=== PATIENT | female | born 1975 | race Caucasian/White ===

== ENCOUNTER → 2017-10-18 07:16 | Outpatient (CLI) | payer MEDICAID, SELFPAY ==
[2017-10-18 08:14] LABS: Hematocrit 42.5 % (37-47); Hemoglobin 14.4 g/dl (12.0-15.0); Mean Corp Hgb Conc 33.9 g/gl (32-36); Mean Corpuscular Hgb 33.6 pg (27.0-32.0); Mean Corpuscular Volume 99.1 fL (81-99); Mean Platelet Vol. 9.9 fl (6.2-12.0); Platelet Count 208 K/mm3 (150-450); RBC Distribution Width SD 49.7 fl (35.1-43.9); Red Blood Count 4.29 M/mm3 (4.2-5.4); White Blood Count 4.6 K/mm3 (4.4-11.0)
[2017-10-18 08:17] LABS: Scan Indicated on CBC? Y/N NO
[2017-10-18 08:48] LABS: Carbamazepine (Tegretol) 11.1 ug/mL (4.0-12.0)
[2017-10-18 08:56] LABS: ALB/GLOB Ratio 0.7 RATIO (0.9-2.4); AST(SGOT) 23 U/L (15-37); Alanine Aminotransfer ALT/SGPT 23 U/L (13-56); Albumin, Serum 3.1 g/dL (3.2-5.0); Alkaline Phosphatase 103 U/L (45-117); Anion Gap 7 (5-15); BUN 11 mg/dL (7-18); BUN/Creat Ratio 20.7 RATIO (10-20); Calcium,Total 8.4 mg/dL (8.5-10.1); Chloride 91 mmol/L (98-107); Creatinine, Serum 0.53 mg/dL (0.55-1.02); EST Glomerular Filtration Rate 134 mL/min (>60); Est Glom Filt Rate - Afr Amer 162 mL/min (>60); Globulin 4.4 g/dL (2.2-4.2); Glucose 85 mg/dL (74-106); Potassium 4.1 mmol/L (3.5-5.1); Protein, Total 7.5 g/dL (6.4-8.2); Sodium Level 129 mmol/L (136-145)
== END ==
PROVIDERS: Family Provider Family Medicine; PCP Family Medicine; Visit Provider Psychiatry & Neurology Child & Adolescent Psychiatry
DX: F31.9 Bipolar disorder, unspecified (principal); F41.9 Anxiety disorder, unspecified
CPT/HCPCS: 36415; 80053; 80156; 85027

== ENCOUNTER → 2018-01-31 07:38 | Outpatient (CLI) | payer MEDICARE, MEDICAID, SELFPAY ==
[2018-01-31 08:29] LABS: Hematocrit 40.4 % (37-47); Mean Corp Hgb Conc 34.7 g/gl (32-36); Mean Corpuscular Hgb 33.7 pg (27.0-32.0); Mean Corpuscular Volume 97.1 fL (81-99); Mean Platelet Vol. 9.7 fl (6.2-12.0); Platelet Count 214 K/mm3 (150-450); RBC Distribution Width CV 13.6 % (11.6-14.6); RBC Distribution Width SD 47.9 fl (35.1-43.9); Red Blood Count 4.16 M/mm3 (4.2-5.4); White Blood Count 4.4 K/mm3 (4.4-11.0)
[2018-01-31 08:30] LABS: Scan Indicated on CBC? Y/N NO
[2018-01-31 08:52] LABS: Carbamazepine (Tegretol) 11.6 ug/mL (4.0-12.0)
[2018-01-31 08:57] LABS: ALB/GLOB Ratio 0.7 RATIO (0.9-2.4); AST(SGOT) 19 U/L (15-37); Alanine Aminotransfer ALT/SGPT 23 U/L (13-56); Alkaline Phosphatase 96 U/L (45-117); Anion Gap 8 (5-15); BUN 12 mg/dL (7-18); BUN/Creat Ratio 17.9 RATIO (10-20); Calcium,Total 8.8 mg/dL (8.5-10.1); Chloride 91 mmol/L (98-107); Creatinine, Serum 0.67 mg/dL (0.55-1.02); EST Glomerular Filtration Rate 103 mL/min (>60); Est Glom Filt Rate - Afr Amer 124 mL/min (>60); Globulin 4.6 g/dL (2.2-4.2); Glucose 94 mg/dL (74-106); Potassium 4.4 mmol/L (3.5-5.1); Protein, Total 7.6 g/dL (6.4-8.2); Sodium Level 130 mmol/L (136-145)
== END ==
PROVIDERS: Family Provider Family Medicine; PCP Family Medicine; Visit Provider Psychiatry & Neurology Child & Adolescent Psychiatry
DX: F31.9 Bipolar disorder, unspecified (principal); F41.9 Anxiety disorder, unspecified
CPT/HCPCS: 36415; 80053; 80156; 85027

== ENCOUNTER → 2018-05-14 07:25 | Outpatient (CLI) | payer MEDICARE, MEDICAID, SELFPAY ==
[2018-05-14 08:06] LABS: Absolute Lymphocyte Count 0.56 X10^3/ul (0.83-4.51); Absolute Neutrophil Count 2.8 X10^3/uL (2.0-7.7); Basophil# 0.03 X10^3/uL; Basophil% 0.8 % (0-1); Eosinophil# 0.04 X10^3/uL; Eosinophils% 1.1 % (0-5); Hematocrit 44.9 % (37-47); Hemoglobin 14.7 g/dl (12.0-15.0); Lymphocyte # 0.56 X10^3/ul (4.0); Lymphocyte % 15.4 % (19-41); Mean Corp Hgb Conc 32.7 g/gl (32-36); Mean Corpuscular Hgb 32.9 pg (27.0-32.0); Mean Corpuscular Volume 100.4 fL (81-99); Mean Platelet Vol. 9.8 fl (6.2-12.0); Monocyte# 0.21 X10^3/uL; Monocyte% 5.8 % (0-10); Neutrophil # 2.78 X10^3/uL (2.7-7.7); Neutrophil % 76.6 % (47-70); Platelet Count 169 K/mm3 (150-450); RBC Distribution Width CV 13.9 % (11.6-14.6); Red Blood Count 4.47 M/mm3 (4.2-5.4); White Blood Count 3.6 K/mm3 (4.4-11.0)
[2018-05-14 08:11] LABS: Differential Indicated SCAN CRITERIA MET; POSITIVE COUNT NO; POSITIVE DIFFERENTIAL YES; POSITIVE MORPHOLOGY NO
[2018-05-14 08:21] LABS: ALB/GLOB Ratio 0.7 RATIO (0.9-2.4); AST(SGOT) 23 U/L (15-37); Alanine Aminotransfer ALT/SGPT 25 U/L (13-56); Albumin, Serum 3.1 g/dL (3.2-5.0); Alkaline Phosphatase 110 U/L (45-117); Anion Gap 6 (5-15); BUN 9 mg/dL (7-18); BUN/Creat Ratio 13.8 RATIO (10-20); Calcium,Total 8.5 mg/dL (8.5-10.1); Chloride 96 mmol/L (98-107); Cholesterol 214 mg/dL (200); Creatinine, Serum 0.65 mg/dL (0.55-1.02); EST Glomerular Filtration Rate 106 mL/min (>60); Est Glom Filt Rate - Afr Amer 128 mL/min (>60); Globulin 4.4 g/dL (2.2-4.2); Glucose 81 mg/dL (74-106); High Density Lipoprotein 55 mg/dL; Potassium 4.3 mmol/L (3.5-5.1); Protein, Total 7.5 g/dL (6.4-8.2); Sodium Level 134 mmol/L (136-145); T4 Free Direct 0.81 ng/dL (0.76-1.46); Thyroid Stim Hormone (TSH) 4.64 uIU/mL (0.358-3.74); Triglycerides 175 mg/dL; Very Low Density Lipoprotein 35 mg/dL (5-40)
== END ==
PROVIDERS: Family Provider Family Medicine; PCP Family Medicine; Visit Provider Internal Medicine
DX: Q90.9 Down syndrome, unspecified (principal); I10 Essential (primary) hypertension; E03.9 Hypothyroidism, unspecified
CPT/HCPCS: 36415; 80053; 80061; 84439; 84443; 85025

== ENCOUNTER 2018-06-06 08:46 | Outpatient (RCR) | payer MEDICARE, MEDICAID, SELFPAY ==
[2018-06-06 08:52] VITALS: BP 136/73; PULSE 59; RESP 18; TEMP 37.1; BMI 42.3
[2018-06-06 09:21] VITALS: BMI 42.3
--- NOTE | 2018-06-06 12:22 | PCM.WC.HP ---
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 History of Wound: Ms. Riojas presents due to nonhealing left heel ulcer. Said to have started due to significant callus formation and has had a prior history. Had followed up with a molder sweep until lately. Since opening of the ulcer, there has been repeated trauma to the area from stump pain. They however denies any discharge from the site. There is also no record of chills, fever or feeling of unwell. She is said to be at her baseline. Past Medical History Past Medical History: Chronic Problems (Last Updated 05/13/18 @ 11:19 by Gay Soliman) Hypertension (Chronic) Dry skin (Chronic) Down syndrome (Chronic) Allergies/Adverse Reactions: Allergies No Known Allergies Allergy (Verified 06/26/14 07:44) Home Medications: Ambulatory Orders Medication Instructions Recorded nystatin 100,000 unit/gram topical 1 applic TOPICAL BID #60 g 03/11/18 powder allopurinol 300 mg tablet 300 mg PO DAILY #90 tab 05/13/18 buspirone 5 mg tablet 5 mg PO TID #240 tab 05/13/18 calcium carbonate-vitamin D3 600 1 tab PO DAILY@0800 #90 tab 05/13/18 mg (1,500 mg)-800 unit tablet carbamazepine ER 400 mg 400 mg PO BID #180 tab 05/13/18 tablet,extended release,12 hr carbamide peroxide 6.5 % ear drops 5 drp OTIC Q12H 05/13/18 fluocinonide 0.05 % topical cream 1 applic TOPICAL BID 05/13/18 furosemide 20 mg tablet 20 mg PO DAILY #90 tab 05/13/18 irbesartan 75 mg tablet 75 mg PO DAILY #90 tab 05/13/18 levothyroxine 75 mcg tablet 75 mcg PO DAILY #90 tab 05/13/18 omeprazole 20 mg capsule,delayed 20 mg PO DAILY #90 cap 05/13/18 release sertraline 100 mg tablet 100 mg PO DAILY #90 tab 05/13/18 white petrolatum topical jelly 1 applic TOPICAL BID PRN g 05/13/18 Ammonium Lactate 12 % TOPICAL BID 06/06/18 Smoking Status: Never smoker Review of Systems Constitutional: Denies: Anorexia, Chills, Fever Eyes: Denies: Pain, Redness HEENT: Denies: Difficulty Swallowing Cardiovascular: Denies: Chest Pain, Chest Tightness Respiratory: Denies: Cough, Hemoptysis Gastrointestinal: Denies: Abdominal Pain, Hematemesis, Vomiting Skin: Denies: Jaundice - Physical Exam Vital Signs Temp Pulse Resp BP 98.7 F 59 L 18 136/73 H 06/06/18 08:52 06/06/18 08:52 06/06/18 08:52 06/06/18 08:52 General: Alert, Cooperative, No apparent distress HEENT: Atraumatic Oral: Moist Mucosa Neck: Supple Lungs: Normal air movement Abdomen: Soft, Non Tender, Obese Extremities: No cyanosis Skin: Ulcer/ Wound Wound Measurements and Assessment WC - Nurse 1 - General Ulcer Measurement Start: 06/06/18 08:52 Freq: Status: Active Protocol: Activity Type Activity Date Activity User E-Sign Co-Sign Detail Recorded Client Recorded Date Recorded By Document 06/06/18 08:52 AN [id number] 06/06/18 09:18 AN 06/06/18 08:52 Wound Center Nurse 1 [Ulcer Assessment] left heel #1 -Combined with other wound No -Current Size (cm) - Length 2.7 -Current Size (cm) - Width 0.6 -Current Size (cm) - Depth 0.4 -Total Square Cm 1.62 -Date of Last Picture (Recall this 06/06/18 field) -Photo Taken Yes -Epithelialization None Present -Tunneling No -Undermining/Tunneling No -Circular Undermining No -Classification - Thickness Full Thickness without Exposed Support Structure -Exudate Amt None Present (0 %) -Wound Margin Distinct, Outline Attached -Granulation Amt Small (1-33%) -Slough/Fibrin No -Necrosis Amt Large (67-100%) -Necrotic Tissue Type Eschar -Structure Exposed None/Limited to Skin Breakdown -Texture (Mattie-wound Skin Appearance) Callus -Moisture (Mattie-wound Skin Appearance Dry/Scaly ) -Color (Mattie-wound Skin Appearance) No Abnormality -Temperature (Mattie-wound Skin No Abnormality Appearance) (Pt Warm) -Tenderness on Palpation (Mattie-wound Yes Skin Appearance) -Ulcer Cleansing Rinsed/ Irrigated with Saline -Foul Odor after Cleansing No -Anesthetic Used 4% Lidocaine Solution [Edema Assessment] -Lower Limb Edema Present No -Left Calf (cm) 34.1 -Left Ankle (cm) 19.2 WC - Nurse 2 - General Ulcer CM Notes Start: 06/06/18 08:52 Freq: Status: Active Protocol: Activity Type Activity Date Activity User E-Sign Co-Sign Detail Recorded Client Recorded Date Recorded By Document 06/06/18 09:40 MW [id number] 06/06/18 09:50 MW 06/06/18 09:40 Wound Center Nurse 2 [Procedure/Treatment] left heel #1 -Time 09:41 -Correct Patient Yes -Correct Side, Site, Position Yes -Correct Procedure Yes -Procedure Performed Yes -Type of Procedure Debridement -Clinical Debridement Subcutaneous -Post Debridement Size (cm) - Length 3.0 -Post Debridement Size (cm) - Width 0.7 -Post Debridement Size (cm) - Depth 0.4 -Total Square Cm 2.10 -Wound/Ulcer Outcome Not Healed -Ulcer Cleansing Rinsed/ Irrigated with Saline -Foul Odor after Cleansing No -Bioengineered Tissue No -Bleeding Controlled with Pressure -Treatment Response Procedure Tolerated Well [See Physician Procedure note for Specifics] Pain Scale: 0-10 Numeric [Pain] -Is Patient Pain Free? Yes Musculoskeletal: No Muscle Wasting Neurological: Neuro grossly intact Psych/Mental Status: Normal Affect Debridement Note Post-Debridement Measurements/Treatment WC - Nurse 2 - General Ulcer CM Notes Start: 06/06/18 08:52 Freq: Status: Active Protocol: Activity Type Activity Date Activity User E-Sign Co-Sign Detail Recorded Client Recorded Date Recorded By Document 06/06/18 09:40 MW [id number] 06/06/18 09:50 MW 06/06/18 09:40 Wound Center Nurse 2 left heel #1 -Time 09:41 -Correct Patient Yes -Correct Side, Site, Position Yes -Correct Procedure Yes -Procedure Performed Yes -Type of Procedure Debridement -Clinical Debridement Subcutaneous -Post Debridement Size (cm) - Length 3.0 -Post Debridement Size (cm) - Width 0.7 -Post Debridement Size (cm) - Depth 0.4 -Total Square Cm 2.10 -Wound/Ulcer Outcome Not Healed -Ulcer Cleansing Rinsed/ Irrigated with Saline -Foul Odor after Cleansing No -Bioengineered Tissue No -Bleeding Controlled with Pressure -Treatment Response Procedure Tolerated Well Pain Scale: 0-10 Numeric Is Patient Pain Free? Yes Wound debrided: Left heel Wound Grade/Stage: Stage III Type of Debridement: Excisional debridement Anesthesia Used: 4% Lidocaine Solution Depth: Down to and including healthy tissue Percentage of wound debrided: 100 Instrument Used: 7mm curette, #15 blade Tissue Removed: Devitalized tissue Severity: Fat Layer Exposed Amount of bleeding with debridement: Mild Bleeding Controlled with: Pressure Patient tolerated procedure well Assessment/Plan Active Problems (Last Updated 05/13/18 @ 11:19 by Gay Soliman) Chronic ulcer of left heel (Acute) Assessment: Same as above. Plan: Debridement done as documented above. Procedure was well-tolerated. Very dry ulcer/wound. Hydrogel with Adaptic over top. Change daily. Protect area with OptiForm. Increased protein intake/supplements recommended. Elevate lower extremities when seated and in bed. Avoid idle standing. Exercise as tolerated. Follow-up with me in 1 week. Advised to call with any questions or concerns. This note was generated with [employer] software. It may contain incorrect words, spelling, and punctuation that were not noted in checking the note before signing.
--- NOTE | 2018-06-06 12:27 | HP.PCM_ITS ---
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 History of Wound: Ms. Riojas presents due to nonhealing left heel ulcer. Said to have started due to significant callus formation and has had a prior history. Had followed up with a paper box cutter until lately. Since opening of the ulcer, there has been repeated trauma to the area from stump pain. They however denies any discharge from the site. There is also no record of chills, fever or feeling of unwell. She is said to be at her baseline. Past Medical History Past Medical History: Chronic Problems (Last Updated 05/13/18 @ 11:19 by Gay Soliman) Hypertension (Chronic) Dry skin (Chronic) Down syndrome (Chronic) Allergies/Adverse Reactions: Allergies No Known Allergies Allergy (Verified 06/26/14 07:44) Home Medications: Ambulatory Orders Medication Instructions Recorded nystatin 100,000 unit/gram topical 1 applic TOPICAL BID #60 g 03/11/18 powder allopurinol 300 mg tablet 300 mg PO DAILY #90 tab 05/13/18 buspirone 5 mg tablet 5 mg PO TID #240 tab 05/13/18 calcium carbonate-vitamin D3 600 1 tab PO DAILY@0800 #90 tab 05/13/18 mg (1,500 mg)-800 unit tablet carbamazepine ER 400 mg 400 mg PO BID #180 tab 05/13/18 tablet,extended release,12 hr carbamide peroxide 6.5 % ear drops 5 drp OTIC Q12H 05/13/18 fluocinonide 0.05 % topical cream 1 applic TOPICAL BID 05/13/18 furosemide 20 mg tablet 20 mg PO DAILY #90 tab 05/13/18 irbesartan 75 mg tablet 75 mg PO DAILY #90 tab 05/13/18 levothyroxine 75 mcg tablet 75 mcg PO DAILY #90 tab 05/13/18 omeprazole 20 mg capsule,delayed 20 mg PO DAILY #90 cap 05/13/18 release sertraline 100 mg tablet 100 mg PO DAILY #90 tab 05/13/18 white petrolatum topical jelly 1 applic TOPICAL BID PRN g 05/13/18 Ammonium Lactate 12 % TOPICAL BID 06/06/18 Smoking Status: Never smoker Review of Systems Constitutional: Denies: Anorexia, Chills, Fever Eyes: Denies: Pain, Redness HEENT: Denies: Difficulty Swallowing Cardiovascular: Denies: Chest Pain, Chest Tightness Respiratory: Denies: Cough, Hemoptysis Gastrointestinal: Denies: Abdominal Pain, Hematemesis, Vomiting Skin: Denies: Jaundice - Physical Exam Vital Signs Temp Pulse Resp BP 98.7 F 59 L 18 136/73 H 06/06/18 08:52 06/06/18 08:52 06/06/18 08:52 06/06/18 08:52 General: Alert, Cooperative, No apparent distress HEENT: Atraumatic Oral: Moist Mucosa Neck: Supple Lungs: Normal air movement Abdomen: Soft, Non Tender, Obese Extremities: No cyanosis Skin: Ulcer/ Wound Wound Measurements and Assessment WC - Nurse 1 - General Ulcer Measurement Start: 06/06/18 08:52 Freq: Status: Active Protocol: Activity Type Activity Date Activity User E-Sign Co-Sign Detail Recorded Client Recorded Date Recorded By Document 06/06/18 08:52 AN [id number] 06/06/18 09:18 AN 06/06/18 08:52 Wound Center Nurse 1 [Ulcer Assessment] left heel #1 -Combined with other wound No -Current Size (cm) - Length 2.7 -Current Size (cm) - Width 0.6 -Current Size (cm) - Depth 0.4 -Total Square Cm 1.62 -Date of Last Picture (Recall this 06/06/18 field) -Photo Taken Yes -Epithelialization None Present -Tunneling No -Undermining/Tunneling No -Circular Undermining No -Classification - Thickness Full Thickness without Exposed Support Structure -Exudate Amt None Present (0 %) -Wound Margin Distinct, Outline Attached -Granulation Amt Small (1-33%) -Slough/Fibrin No -Necrosis Amt Large (67-100%) -Necrotic Tissue Type Eschar -Structure Exposed None/Limited to Skin Breakdown -Texture (Mattie-wound Skin Appearance) Callus -Moisture (Mattie-wound Skin Appearance Dry/Scaly ) -Color (Mattie-wound Skin Appearance) No Abnormality -Temperature (Mattie-wound Skin No Abnormality Appearance) (Pt Warm) -Tenderness on Palpation (Mattie-wound Yes Skin Appearance) -Ulcer Cleansing Rinsed/ Irrigated with Saline -Foul Odor after Cleansing No -Anesthetic Used 4% Lidocaine Solution [Edema Assessment] -Lower Limb Edema Present No -Left Calf (cm) 34.1 -Left Ankle (cm) 19.2 WC - Nurse 2 - General Ulcer CM Notes Start: 06/06/18 08:52 Freq: Status: Active Protocol: Activity Type Activity Date Activity User E-Sign Co-Sign Detail Recorded Client Recorded Date Recorded By Document 06/06/18 09:40 MW [id number] 06/06/18 09:50 MW 06/06/18 09:40 Wound Center Nurse 2 [Procedure/Treatment] left heel #1 -Time 09:41 -Correct Patient Yes -Correct Side, Site, Position Yes -Correct Procedure Yes -Procedure Performed Yes -Type of Procedure Debridement -Clinical Debridement Subcutaneous -Post Debridement Size (cm) - Length 3.0 -Post Debridement Size (cm) - Width 0.7 -Post Debridement Size (cm) - Depth 0.4 -Total Square Cm 2.10 -Wound/Ulcer Outcome Not Healed -Ulcer Cleansing Rinsed/ Irrigated with Saline -Foul Odor after Cleansing No -Bioengineered Tissue No -Bleeding Controlled with Pressure -Treatment Response Procedure Tolerated Well [See Physician Procedure note for Specifics] Pain Scale: 0-10 Numeric [Pain] -Is Patient Pain Free? Yes Musculoskeletal: No Muscle Wasting Neurological: Neuro grossly intact Psych/Mental Status: Normal Affect Debridement Note Post-Debridement Measurements/Treatment WC - Nurse 2 - General Ulcer CM Notes Start: 06/06/18 08:52 Freq: Status: Active Protocol: Activity Type Activity Date Activity User E-Sign Co-Sign Detail Recorded Client Recorded Date Recorded By Document 06/06/18 09:40 MW [id number] 06/06/18 09:50 MW 06/06/18 09:40 Wound Center Nurse 2 left heel #1 -Time 09:41 -Correct Patient Yes -Correct Side, Site, Position Yes -Correct Procedure Yes -Procedure Performed Yes -Type of Procedure Debridement -Clinical Debridement Subcutaneous -Post Debridement Size (cm) - Length 3.0 -Post Debridement Size (cm) - Width 0.7 -Post Debridement Size (cm) - Depth 0.4 -Total Square Cm 2.10 -Wound/Ulcer Outcome Not Healed -Ulcer Cleansing Rinsed/ Irrigated with Saline -Foul Odor after Cleansing No -Bioengineered Tissue No -Bleeding Controlled with Pressure -Treatment Response Procedure Tolerated Well Pain Scale: 0-10 Numeric Is Patient Pain Free? Yes Wound debrided: Left heel Wound Grade/Stage: Stage III Type of Debridement: Excisional debridement Anesthesia Used: 4% Lidocaine Solution Depth: Down to and including healthy tissue Percentage of wound debrided: 100 Instrument Used: 7mm curette, #15 blade Tissue Removed: Devitalized tissue Severity: Fat Layer Exposed Amount of bleeding with debridement: Mild Bleeding Controlled with: Pressure Patient tolerated procedure well Assessment/Plan Active Problems (Last Updated 05/13/18 @ 11:19 by Gay Soliman) Chronic ulcer of left heel (Acute) Assessment: Same as above. Plan: Debridement done as documented above. Procedure was well-tolerated. Very dry ulcer/wound. Hydrogel with Adaptic over top. Change daily. Protect area with OptiForm. Increased protein intake/supplements recommended. Elevate lower extremities when seated and in bed. Avoid idle standing. Exercise as tolerated. Follow-up with me in 1 week. Advised to call with any questions or concerns. This note was generated with [employer] software. It may contain incorrect words, spelling, and punctuation that were not noted in checking the note before signing.
== END 2018-06-12 23:59 ==
LOC: WC 08:46
PROVIDERS: Family Provider Family Medicine; PCP Family Medicine; Visit Provider Internal Medicine
DX: L97.422 Non-pressure chronic ulcer of left heel and midfoot with fat layer exposed (principal); Q90.9 Down syndrome, unspecified; I10 Essential (primary) hypertension; Z79.899 Other long term (current) drug therapy
CPT/HCPCS: 11042; 99213; G0463

== ENCOUNTER 2018-06-20 09:00 | Outpatient (RCR) | payer MEDICARE, MEDICAID, SELFPAY ==
[2018-06-13 01:49] VITALS: BP 136/73; PULSE 59; RESP 18; TEMP 37.1
[2018-06-13 09:50] VITALS: BP 112/71; PULSE 72; RESP 16; TEMP 36.4
--- NOTE | 2018-06-13 10:48 | PCM.WC.PN ---
(1) Chronic ulcer of left heel Status: Chronic Current Visit: No Qualifiers: Code(s): L97.429 - Non-pressure chronic ulcer of left heel and midfoot with unspecified severity (2) Down syndrome Status: Chronic Current Visit: No Code(s): Q90.9 - Down syndrome, unspecified Type of Wound Chief Complaint: Left heel ulcer. History of Wound: Ms. Riojas presents due to nonhealing left heel ulcer. Said to have started due to significant callus formation and has had a prior history. Had followed up with a industrial paramedic until lately. Since opening of the ulcer, there has been repeated trauma to the area from stump pain. They however denies any discharge from the site. There is also no record of chills, fever or feeling of unwell. She is said to be at her baseline. Progress of Wound: Stable. No complaints at this time. - Physical Exam Vital Signs Temp Pulse Resp BP 97.5 F L 72 16 112/71 06/13/18 09:50 06/13/18 09:50 06/13/18 09:50 06/13/18 09:50 General: Alert, Cooperative, No apparent distress HEENT: Atraumatic Oral: No Gingival or Mucosal Lesions/ Ulcerations Neck: Supple Lungs: Normal air movement Abdomen: Non Tender, Obese Extremities: No cyanosis Skin: Ulcer/ Wound Wound Measurements and Assessment WC - Nurse 1 - General Ulcer Measurement Start: 06/13/18 09:50 Freq: Status: Active Protocol: Activity Type Activity Date Activity User E-Sign Co-Sign Detail Recorded Client Recorded Date Recorded By Document 06/13/18 09:50 [id number] 06/13/18 09:51 06/13/18 09:50 Wound Center Nurse 1 [Ulcer Assessment] left heel #1 -Combined with other wound No -Current Size (cm) - Length 2.4 -Current Size (cm) - Width 0.7 -Current Size (cm) - Depth 0.1 -Total Square Cm 1.68 -Photo Taken No -Epithelialization None Present -Tunneling No -Undermining/Tunneling No -Circular Undermining No -Texture (Mtatie-wound Skin Appearance) Callus -Temperature (Mattie-wound Skin No Abnormality Appearance) (Pt Warm) -Tenderness on Palpation (Mattie-wound No Skin Appearance) -Ulcer Cleansing Rinsed/ Irrigated with Saline -Foul Odor after Cleansing Yes -Anesthetic Used 4% Lidocaine Solution [Edema Assessment] -Lower Limb Edema Present NA - Nurse 2 - General Ulcer CM Notes Start: 06/13/18 09:50 Freq: Status: Active Protocol: Activity Type Activity Date Activity User E-Sign Co-Sign Detail Recorded Client Recorded Date Recorded By Document 06/13/18 10:05 MW [id number] 06/13/18 10:14 MW 06/13/18 10:05 Wound Center Nurse 2 [Procedure/Treatment] left heel #1 -Time 10:05 -Correct Patient Yes -Correct Side, Site, Position Yes -Correct Procedure Yes -Procedure Performed Yes -Type of Procedure Debridement -Clinical Debridement Subcutaneous -Post Debridement Size (cm) - Length 3.0 -Post Debridement Size (cm) - Width 0.2 -Post Debridement Size (cm) - Depth 0.1 -Total Square Cm 0.60 -Wound/Ulcer Outcome Not Healed -Ulcer Cleansing Rinsed/ Irrigated with Saline -Foul Odor after Cleansing No -Bioengineered Tissue No -Bleeding Controlled with Pressure -Treatment Response Procedure Tolerated Well [See Physician Procedure note for Specifics] Pain Scale: 0-10 Numeric [Pain] -Is Patient Pain Free? Yes Neurological: Neuro grossly intact Debridement Note Post-Debridement Measurements/Treatment - Nurse 2 - General Ulcer CM Notes Start: 06/13/18 09:50 Freq: Status: Active Protocol: Activity Type Activity Date Activity User E-Sign Co-Sign Detail Recorded Client Recorded Date Recorded By Document 06/13/18 10:05 MW [id number] 06/13/18 10:14 MW 06/13/18 10:05 Wound Center Nurse 2 left heel #1 -Time 10:05 -Correct Patient Yes -Correct Side, Site, Position Yes -Correct Procedure Yes -Procedure Performed Yes -Type of Procedure Debridement -Clinical Debridement Subcutaneous -Post Debridement Size (cm) - Length 3.0 -Post Debridement Size (cm) - Width 0.2 -Post Debridement Size (cm) - Depth 0.1 -Total Square Cm 0.60 -Wound/Ulcer Outcome Not Healed -Ulcer Cleansing Rinsed/ Irrigated with Saline -Foul Odor after Cleansing No -Bioengineered Tissue No -Bleeding Controlled with Pressure -Treatment Response Procedure Tolerated Well Pain Scale: 0-10 Numeric Is Patient Pain Free? Yes Wound debrided: Left heel Wound Grade/Stage: Stage II Type of Debridement: Excisional debridement Anesthesia Used: 4% Lidocaine Solution Depth: Down to and including healthy tissue, in the subcutaneous layer Percentage of wound debrided: 100 Instrument Used: 7mm curette, #15 blade Tissue Removed: Devitalized tissue Severity: Fat Layer Exposed Patient tolerated procedure well Assessment/Plan Assessment: Same as above. Plan: Debridement done as documented above. Procedure was well-tolerated. Wound depth has improved. Continue hydrogel with Adaptic over top. Change daily. Elevate lower extremities when seated and in bed. Avoid idle standing. Exercise as tolerated. Follow-up with me in 1 week. Advised to call with any questions or concerns. This note was generated with [employer] dictation software. It may contain incorrect words, spelling, and punctuation that were not noted in checking the note before signing.
[2018-06-20 09:00] VITALS: BP 128/55; PULSE 70; RESP 18; TEMP 36.2
--- NOTE | 2018-06-20 09:40 | PCM.WC.PN ---
(1) Chronic ulcer of left heel Status: Chronic Current Visit: No Qualifiers: Code(s): L97.429 - Non-pressure chronic ulcer of left heel and midfoot with unspecified severity (2) Down syndrome Status: Chronic Current Visit: No Code(s): Q90.9 - Down syndrome, unspecified Type of Wound Chief Complaint: Left heel ulcer. History of Wound: Ms. Riojas presents due to nonhealing left heel ulcer. Said to have started due to significant callus formation and has had a prior history. Had followed up with a janitor caretaker until lately. Since opening of the ulcer, there has been repeated trauma to the area from stump pain. They however denies any discharge from the site. There is also no record of chills, fever or feeling of unwell. She is said to be at her baseline. Progress of Wound: Stable. No complaints at this time. - Physical Exam Vital Signs Temp Pulse Resp BP 97.2 F L 70 18 128/55 H 06/20/18 09:00 06/20/18 09:00 06/20/18 09:00 06/20/18 09:00 General: Alert, Cooperative, No apparent distress HEENT: Atraumatic Oral: Moist Mucosa Neck: Supple Lungs: Normal air movement Abdomen: Non Tender, Obese Extremities: No cyanosis Wound Measurements and Assessment WC - Nurse 1 - General Ulcer Measurement Start: 06/13/18 09:50 Freq: Status: Active Protocol: Activity Type Activity Date Activity User E-Sign Co-Sign Detail Recorded Client Recorded Date Recorded By Document 06/20/18 09:00 [id number] 06/20/18 09:01 DL 06/20/18 09:00 Wound Center Nurse 1 [Ulcer Assessment] left heel #1 -Current Size (cm) - Length 1.3 -Current Size (cm) - Width 0.2 -Current Size (cm) - Depth 0.1 -Total Square Cm 0.26 -Photo Taken No -Exudate Amt None Present (0 %) -Wound Margin Thickened -Granulation Amt Large (67-100%) -Granulation Quality Pale -Necrosis Amt None Present (0 %) -Texture (Mattie-wound Skin Appearance) Callus -Moisture (Mattie-wound Skin Appearance Dry/Scaly ) -Color (Mattie-wound Skin Appearance) No Abnormality -Temperature (Mattie-wound Skin No Abnormality Appearance) (Pt Warm) -Tenderness on Palpation (Mattie-wound No Skin Appearance) -Ulcer Cleansing Rinsed/ Irrigated with Saline -Foul Odor after Cleansing No -Anesthetic Used 4% Lidocaine Solution - Nurse 2 - General Ulcer CM Notes Start: 06/13/18 09:50 Freq: Status: Active Protocol: Activity Type Activity Date Activity User E-Sign Co-Sign Detail Recorded Client Recorded Date Recorded By Document 06/20/18 09:09 MW [id number] 06/20/18 09:15 MW 06/20/18 09:09 Wound Center Nurse 2 [Procedure/Treatment] -Time 09:10 -Correct Patient Yes -Correct Side, Site, Position Yes -Correct Procedure Yes -Procedure Performed Yes -Type of Procedure Debridement -Clinical Debridement Selective -Post Debridement Size (cm) - Length 0 -Post Debridement Size (cm) - Width 0 -Post Debridement Size (cm) - Depth 0 -Total Square Cm 0 -Wound/Ulcer Outcome Healed- Epithelialized -Ulcer Cleansing Rinsed/ Irrigated with Saline -Foul Odor after Cleansing No -Bioengineered Tissue No -Bleeding Controlled with Pressure -Treatment Response Procedure Tolerated Well [See Physician Procedure note for Specifics] Pain Scale: 0-10 Numeric [Pain] -Is Patient Pain Free? Yes Musculoskeletal: No Muscle Wasting Neurological: Cranial nerves II-XII grossly intact Psych/Mental Status: Normal Affect Debridement Note Post-Debridement Measurements/Treatment - Nurse 2 - General Ulcer CM Notes Start: 06/13/18 09:50 Freq: Status: Active Protocol: Activity Type Activity Date Activity User E-Sign Co-Sign Detail Recorded Client Recorded Date Recorded By Document 06/13/18 10:05 MW [id number] 06/13/18 10:14 MW Document 06/20/18 09:09 MW [id number] 06/20/18 09:15 MW 06/13/18 06/20/18 10:05 09:09 Wound Center Nurse 2 left heel #1 -Time 10:05 09:10 -Correct Patient Yes Yes -Correct Side, Site, Position Yes Yes -Correct Procedure Yes Yes -Procedure Performed Yes Yes -Type of Procedure Debridement Debridement -Clinical Debridement Subcutaneous Selective -Post Debridement Size (cm) - Length 3.0 0 -Post Debridement Size (cm) - Width 0.2 0 -Post Debridement Size (cm) - Depth 0.1 0 -Total Square Cm 0.60 0 -Wound/Ulcer Outcome Not Healed Healed- Epithelialized -Ulcer Cleansing Rinsed/ Rinsed/ Irrigated with Irrigated with Saline Saline -Foul Odor after Cleansing No No -Bioengineered Tissue No No -Bleeding Controlled with Pressure Pressure -Treatment Response Procedure Procedure Tolerated Well Tolerated Well Pain Scale: 0-10 Numeric Is Patient Pain Free? Yes Yes Wound debrided: Left heel Type of Debridement: Selective debridement Anesthesia Used: 4% Lidocaine Solution Depth: Down to and including healthy tissue Percentage of wound debrided: 100 Instrument Used: 7mm curette Tissue Removed: Callus Severity: Limited To Skin Breakdown Amount of bleeding with debridement: None Patient tolerated procedure well Assessment/Plan Assessment: Same as above. Plan: Debridement done as documented above. Procedure was well-tolerated. Wound is healed. Continue Adaptic and nurses hat for 2 weeks. Patient with a history of stumping. Keep area protected. Advised to call with any questions or concerns. Discharged from the wound center. This note was generated with [employer] dictation software. It may contain incorrect words, spelling, and punctuation that were not noted in checking the note before signing.
--- NOTE | 2018-06-20 09:43 | PN.PCM_ITS ---
(1) Chronic ulcer of left heel Status: Chronic Current Visit: No Qualifiers: Code(s): L97.429 - Non-pressure chronic ulcer of left heel and midfoot with unspecified severity (2) Down syndrome Status: Chronic Current Visit: No Code(s): Q90.9 - Down syndrome, unspecified Type of Wound Chief Complaint: Left heel ulcer. History of Wound: Ms. Riojas presents due to nonhealing left heel ulcer. Said to have started due to significant callus formation and has had a prior history. Had followed up with a log buyer until lately. Since opening of the ulcer, there has been repeated trauma to the area from stump pain. They however denies any discharge from the site. There is also no record of chills, fever or feeling of unwell. She is said to be at her baseline. Progress of Wound: Stable. No complaints at this time. - Physical Exam Vital Signs Temp Pulse Resp BP 97.2 F L 70 18 128/55 H 06/20/18 09:00 06/20/18 09:00 06/20/18 09:00 06/20/18 09:00 General: Alert, Cooperative, No apparent distress HEENT: Atraumatic Oral: Moist Mucosa Neck: Supple Lungs: Normal air movement Abdomen: Non Tender, Obese Extremities: No cyanosis Wound Measurements and Assessment WC - Nurse 1 - General Ulcer Measurement Start: 06/13/18 09:50 Freq: Status: Active Protocol: Activity Type Activity Date Activity User E-Sign Co-Sign Detail Recorded Client Recorded Date Recorded By Document 06/20/18 09:00 [id number] 06/20/18 09:01 DL 06/20/18 09:00 Wound Center Nurse 1 [Ulcer Assessment] left heel #1 -Current Size (cm) - Length 1.3 -Current Size (cm) - Width 0.2 -Current Size (cm) - Depth 0.1 -Total Square Cm 0.26 -Photo Taken No -Exudate Amt None Present (0 %) -Wound Margin Thickened -Granulation Amt Large (67-100%) -Granulation Quality Pale -Necrosis Amt None Present (0 %) -Texture (Mattie-wound Skin Appearance) Callus -Moisture (Mattie-wound Skin Appearance Dry/Scaly ) -Color (Mattie-wound Skin Appearance) No Abnormality -Temperature (Mattie-wound Skin No Abnormality Appearance) (Pt Warm) -Tenderness on Palpation (Mattie-wound No Skin Appearance) -Ulcer Cleansing Rinsed/ Irrigated with Saline -Foul Odor after Cleansing No -Anesthetic Used 4% Lidocaine Solution - Nurse 2 - General Ulcer CM Notes Start: 06/13/18 09:50 Freq: Status: Active Protocol: Activity Type Activity Date Activity User E-Sign Co-Sign Detail Recorded Client Recorded Date Recorded By Document 06/20/18 09:09 MW [id number] 06/20/18 09:15 MW 06/20/18 09:09 Wound Center Nurse 2 [Procedure/Treatment] -Time 09:10 -Correct Patient Yes -Correct Side, Site, Position Yes -Correct Procedure Yes -Procedure Performed Yes -Type of Procedure Debridement -Clinical Debridement Selective -Post Debridement Size (cm) - Length 0 -Post Debridement Size (cm) - Width 0 -Post Debridement Size (cm) - Depth 0 -Total Square Cm 0 -Wound/Ulcer Outcome Healed- Epithelialized -Ulcer Cleansing Rinsed/ Irrigated with Saline -Foul Odor after Cleansing No -Bioengineered Tissue No -Bleeding Controlled with Pressure -Treatment Response Procedure Tolerated Well [See Physician Procedure note for Specifics] Pain Scale: 0-10 Numeric [Pain] -Is Patient Pain Free? Yes Musculoskeletal: No Muscle Wasting Neurological: Cranial nerves II-XII grossly intact Psych/Mental Status: Normal Affect Debridement Note Post-Debridement Measurements/Treatment - Nurse 2 - General Ulcer CM Notes Start: 06/13/18 09:50 Freq: Status: Active Protocol: Activity Type Activity Date Activity User E-Sign Co-Sign Detail Recorded Client Recorded Date Recorded By Document 06/13/18 10:05 MW [id number] 06/13/18 10:14 MW Document 06/20/18 09:09 MW [id number] 06/20/18 09:15 MW 06/13/18 06/20/18 10:05 09:09 Wound Center Nurse 2 left heel #1 -Time 10:05 09:10 -Correct Patient Yes Yes -Correct Side, Site, Position Yes Yes -Correct Procedure Yes Yes -Procedure Performed Yes Yes -Type of Procedure Debridement Debridement -Clinical Debridement Subcutaneous Selective -Post Debridement Size (cm) - Length 3.0 0 -Post Debridement Size (cm) - Width 0.2 0 -Post Debridement Size (cm) - Depth 0.1 0 -Total Square Cm 0.60 0 -Wound/Ulcer Outcome Not Healed Healed- Epithelialized -Ulcer Cleansing Rinsed/ Rinsed/ Irrigated with Irrigated with Saline Saline -Foul Odor after Cleansing No No -Bioengineered Tissue No No -Bleeding Controlled with Pressure Pressure -Treatment Response Procedure Procedure Tolerated Well Tolerated Well Pain Scale: 0-10 Numeric Is Patient Pain Free? Yes Yes Wound debrided: Left heel Type of Debridement: Selective debridement Anesthesia Used: 4% Lidocaine Solution Depth: Down to and including healthy tissue Percentage of wound debrided: 100 Instrument Used: 7mm curette Tissue Removed: Callus Severity: Limited To Skin Breakdown Amount of bleeding with debridement: None Patient tolerated procedure well Assessment/Plan Assessment: Same as above. Plan: Debridement done as documented above. Procedure was well-tolerated. Woun d is healed. Continue Adaptic and nurses hat for 2 weeks. Patient with a history of stumping. Keep area protected. Advised to call with any questions or concerns. Discharged from the wound center. This note was generated with [employer] dictation software. It may contain incorrect words, spelling, and punctuation that were not noted in checking the note before signing.
== END 2018-07-12 23:59 ==
LOC: WC 09:00
PROVIDERS: Family Provider Family Medicine; PCP Family Medicine; Visit Provider Internal Medicine
DX: L97.422 Non-pressure chronic ulcer of left heel and midfoot with fat layer exposed (principal); Q90.9 Down syndrome, unspecified; L84 Corns and callosities
CPT/HCPCS: 11042; 97597

== ENCOUNTER → 2018-08-20 11:57 | Outpatient (CLI) | payer MEDICARE, MEDICAID, SELFPAY ==
[2018-08-20 10:09] VITALS: BMI 42.7
--- NOTE | 2018-08-20 12:11 | RAD_ITS ---
STUDY: X-RAY - PELVIS AND RIGHT HIP REASON FOR EXAM: Female, 42 years old. Pain TECHNIQUE: Three views of the pelvis and hip were obtained. COMPARISON: None. FINDINGS: The bowel gas pattern is unremarkable. The soft tissues are unremarkable. There are mild degenerative changes in the lower lumbar spine. The visualized iliac wings, sacroiliac joints and sacrum are unremarkable. No abnormalities are seen in the visualized superior and inferior pubic rami. Normal appearing pubic symphysis. The visualized ischial tuberosities are unremarkable. The proximal femur shows no significant abnormalities. The right acetabulum shows minimal spurring. There is mild articular joint space narrowing of the hip. RAD/HIP, UNI W/ Pelvis 2-3 Views IMPRESSION: There are mild degenerative changes in the right hip. There are mild to moderate degenerative changes in the visualized lower lumbar spine. Electronically Signed: Any Steward MD at 16:14 EST Tel Direct: [phone], Service support ,
== END ==
PROVIDERS: Family Provider Family Medicine; PCP Family Medicine; Referring Provider Family Medicine; Visit Provider Family Medicine
DX: M25.551 Pain in right hip (principal)
CPT/HCPCS: 73502

== ENCOUNTER → 2018-09-24 15:11 | Outpatient (CLI) | payer MEDICARE, MEDICAID, SELFPAY ==
[2018-09-24 14:27] VITALS: BMI 39.2
[2018-09-24 16:43] LABS: Absolute Lymphocyte Count 0.38 X10^3/ul (0.83-4.51); Absolute Neutrophil Count 2.7 X10^3/uL (2.0-7.7); Basophil# 0.01 X10^3/uL; Basophil% 0.3 % (0-1); Hematocrit 30.2 % (37-47); Hemoglobin 9.2 g/dl (12.0-15.0); Lymphocyte # 0.38 X10^3/ul (4.0); Mean Corp Hgb Conc 30.5 g/gl (32-36); Mean Corpuscular Hgb 28.8 pg (27.0-32.0); Mean Corpuscular Volume 94.7 fL (81-99); Mean Platelet Vol. 11.7 fl (6.2-12.0); Monocyte# 0.06 X10^3/uL; Monocyte% 1.9 % (0-10); Neutrophil # 2.71 X10^3/uL (2.7-7.7); Neutrophil % 85.5 % (47-70); RBC Distribution Width CV 19.3 % (11.6-14.6); RBC Distribution Width SD 67.3 fl (35.1-43.9); Red Blood Count 3.19 M/mm3 (4.2-5.4); White Blood Count 3.2 K/mm3 (4.4-11.0)
[2018-09-24 16:46] LABS: Differential Indicated SCAN CRITERIA MET; POSITIVE COUNT YES; POSITIVE DIFFERENTIAL YES; POSITIVE MORPHOLOGY YES
[2018-09-24 17:01] LABS: ALB/GLOB Ratio 0.5 RATIO (0.9-2.4); AST(SGOT) 34 U/L (15-37); Alanine Aminotransfer ALT/SGPT 16 U/L (13-56); Albumin, Serum 1.9 g/dL (3.2-5.0); Alkaline Phosphatase 147 U/L (45-117); Anion Gap 9 (5-15); BUN 29 mg/dL (7-18); BUN/Creat Ratio 19.2 RATIO (10-20); Calcium,Total 7.3 mg/dL (8.5-10.1); Chloride 99 mmol/L (98-107); Creatinine, Serum 1.51 mg/dL (0.55-1.02); EST Glomerular Filtration Rate 40 mL/min (>60); Est Glom Filt Rate - Afr Amer 48 mL/min (>60); Glucose 96 mg/dL (74-106); Potassium 3.9 mmol/L (3.5-5.1); Protein, Total 5.9 g/dL (6.4-8.2); Sodium Level 134 mmol/L (136-145)
[2018-09-24 17:42] LABS: Platelet Count 40 K/mm3 (150-450)
[2018-09-24 18:01] LABS: Carbamazepine (Tegretol) 14.6 ug/mL (4.0-12.0)
[2018-09-24 18:23] LABS: Platelet Estimate MKD DEC (ADEQ)
[2018-09-24 18:24] LABS: Anisocytosis 1+; Macrocytosis 1+
== END ==
PROVIDERS: Family Provider Family Medicine; PCP Family Medicine; Referring Provider Family Medicine; Visit Provider Family Medicine
DX: L97.429 Non-pressure chronic ulcer of left heel and midfoot with unspecified severity (principal); Q90.9 Down syndrome, unspecified; I10 Essential (primary) hypertension
CPT/HCPCS: 36415; 80053; 80156; 85025

== ENCOUNTER 2018-10-03 16:10 | Inpatient (IN) | payer MEDICARE, MEDICAID, SELFPAY ==
[2018-09-26 13:06] VITALS: BMI 46.0
[2018-10-03] VITALS (9 sets, daily range): BP systolic 95–137; BP diastolic 36–58; PULSE 68–79; RESP 12–21; TEMP 36.1–36.6; O2SAT 89–100; BMI 65.6; BMI 44.3
--- NOTE | 2018-10-03 17:10 | EKG12_ITS ---
Test Reason : Blood Pressure : / mmHG Vent. Rate : 075 BPM Atrial Rate : 075 BPM P-R Int : 264 ms QRS Dur : 128 ms QT Int : 410 ms P-R-T Axes : 047 -10 074 degrees QTc Int : 457 ms Sinus rhythm with 1st degree A-V block Left ventricular hypertrophy with QRS widening Cannot rule out Septal infarct , age undetermined Abnormal ECG Confirmed by KVNG FINK, KAYDEN ([id number]), editor book VIET BARBER ([id number]) on 10/07/2018 5:16:48 PM Referred By: JORGE Confirmed By:KAYDEN CALDERON MD
--- NOTE | 2018-10-03 17:11 | ED.VISSUMM ---
- ER Visit Summary Date of Service: 10/03/18 Chief Complaint: Altered mental status History of Present Illness: The patient is a 42 F with history of Down syndrome who presents from a fdc for gradually worsening mental status and shortness of breath over the last 2 months. Patient uses a CPAP machine at night, which has been broken, and patient was getting an appointment with her flow coordinator today for a new one. Computer Systems Security Administrator sent patient in for evaluation due to change in her mental status. Patient has been having a decreased appetite and worsening lethargy per the mother. She recently had noted platelets of 40 and a hemoglobin of 9, leading to an appointment for a bone marrow biopsy next Sunday for concern for leukemia. Patient has had cough and shortness of breath. She has had dry heaving. Patient unable to provide any further history due to somnolence. Physical Examination: Vital signs: afebrile, hemodynamically stable, no hypoxia on room air General: well nourished, well developed, Down Syndrome facies, somnolent and ill-appearing Skin: warm, dry, no rash, cool reddish distal extremities, normal per mother HEENT: normocephalic and atraumatic; PERRL, EOMI, dry mucous membranes Cardiovascular: regular rate and rhythm without murmurs, no peripheral edema, 2+ pulses all distal extremities Respiratory: Tachypnea with mild increased work of breathing, lungs are diffusely rhonchorous Abdominal: Abdomen is soft, nontender with normoactive bowel sounds, no guarding or rebound, no masses MSK: No deformities, generalized weakness Neuro: Somnolent, opens eyes to tactile stimulation Test Results: Abnormal Lab Results 10/03/18 10/03/18 10/03/18 17:33 17:33 17:33 WBC 5.4 RBC 3.39 L Hgb 9.8 L Hct 31.7 L MCV 93.5 MCH 28.9 MCHC 30.9 L RDW 19.1 H RDW Differential 65.1 H Plt Count 46 L* MPV TNP Immature Gran % (Auto) 0.400 Neut % (Auto) 86.5 H Lymph % (Auto) 8.4 L Leslie % (Auto) 4.1 Eos % (Auto) 0.2 Baso % (Auto) 0.4 Absolute Neuts (auto) 4.6 Absolute Lymphs (auto) 0.45 L Total Counted Not Reportable Differential Comment SEE COMMENT Platelet Estimate MKD DEC Plt Morphology Comment LARGE Hypochromasia RARE Anisocytosis 1+ Macrocytosis RARE Target Cells RARE Ovalocytes RARE PT 15.8 H INR 1.3 APTT 41.0 H Specimen Type Sample Site VBG pH VBG pO2 VBG O2 Sat (Calc) VBG O2 Content VBG Base Excess POC Mix VBG pCO2 Pt Tmp O2 Delivery Device Liter Flow Blood Gas Notified Whom Blood Gas Notified Time Sodium 132 L Potassium 3.9 Chloride 100 Carbon Dioxide 23.0 Anion Gap 9 BUN 50 H Creatinine 2.31 H Estim Creat Clear Calc 53.04 Est GFR (MDRD) Af Amer 30 L Est GFR (MDRD) Non-Af 25 L BUN/Creatinine Ratio 21.6 H Glucose 140 H Lactic Acid Calcium 7.3 L Total Bilirubin 0.60 AST 48 H ALT 22 Alkaline Phosphatase 165 H B-Natriuretic Peptide Total Protein 5.9 L Albumin 1.6 L Globulin 4.3 H Albumin/Globulin Ratio 0.4 L Urine Color Urine Clarity Urine pH Ur Specific [place] Urine Protein Urine Glucose (UA) Urine Ketones Urine Occult Blood Urine Nitrite Urine Bilirubin Urine Urobilinogen Ur Leukocyte Esterase Urine RBC Urine WBC Ur Squamous Epith Cells Amorphous Sediment Urine Bacteria Urine Mucus 10/03/18 10/03/18 10/03/18 17:33 17:33 17:45 WBC RBC Hgb Hct MCV MCH MCHC RDW RDW Differential Plt Count MPV Immature Gran % (Auto) Neut % (Auto) Lymph % (Auto) Leslie % (Auto) Eos % (Auto) Baso % (Auto) Absolute Neuts (auto) Absolute Lymphs (auto) Total Counted Differential Comment Platelet Estimate Plt Morphology Comment Hypochromasia Anisocytosis Macrocytosis Target Cells Ovalocytes PT INR APTT Specimen Type ANTONIA Sample Site OTHER VBG pH 7.46 H VBG pO2 96 H VBG O2 Sat (Calc) 98 H VBG O2 Content 26 VBG Base Excess 1 POC Mix VBG pCO2 Pt Tmp 35.4 L O2 Delivery Device Nasal Can Liter Flow 2.0 Blood Gas Notified Whom ED Blood Gas Notified Time 1744 Sodium Potassium Chloride Carbon Dioxide Anion Gap BUN Creatinine Estim Creat Clear Calc Est GFR (MDRD) Af Amer Est GFR (MDRD) Non-Af BUN/Creatinine Ratio Glucose Lactic Acid 1.5 Calcium Total Bilirubin AST ALT Alkaline Phosphatase B-Natriuretic Peptide 211.7 H Total Protein Albumin Globulin Albumin/Globulin Ratio Urine Color Urine Clarity Urine pH Ur Specific [place] Urine Protein Urine Glucose (UA) Urine Ketones Urine Occult Blood Urine Nitrite Urine Bilirubin Urine Urobilinogen Ur Leukocyte Esterase Urine RBC Urine WBC Ur Squamous Epith Cells Amorphous Sediment Urine Bacteria Urine Mucus 10/03/18 18:23 WBC RBC Hgb Hct MCV MCH MCHC RDW RDW Differential Plt Count MPV Immature Gran % (Auto) Neut % (Auto) Lymph % (Auto) Leslie % (Auto) Eos % (Auto) Baso % (Auto) Absolute Neuts (auto) Absolute Lymphs (auto) Total Counted Differential Comment Platelet Estimate Plt Morphology Comment Hypochromasia Anisocytosis Macrocytosis Target Cells Ovalocytes PT INR APTT Specimen Type Sample Site VBG pH VBG pO2 VBG O2 Sat (Calc) VBG O2 Content VBG Base Excess POC Mix VBG pCO2 Pt Tmp O2 Delivery Device Liter Flow Blood Gas Notified Whom Blood Gas Notified Time Sodium Potassium Chloride Carbon Dioxide Anion Gap BUN Creatinine Estim Creat Clear Calc Est GFR (MDRD) Af Amer Est GFR (MDRD) Non-Af BUN/Creatinine Ratio Glucose Lactic Acid Calcium Total Bilirubin AST ALT Alkaline Phosphatase B-Natriuretic Peptide Total Protein Albumin Globulin Albumin/Globulin Ratio Urine Color Straw Urine Clarity Sl. Cloudy Urine pH 5.0 Ur Specific [place] 1.015 Urine Protein 15 H Urine Glucose (UA) Normal Urine Ketones Negative Urine Occult Blood 250 H Urine Nitrite Negative Urine Bilirubin Negative Urine Urobilinogen Normal Ur Leukocyte Esterase 25 H Urine RBC 0-5 SEEN Urine WBC 0 SEEN Ur Squamous Epith Cells 0 SEEN Amorphous Sediment 1+ Urine Bacteria 0 SEEN Urine Mucus 0 SEEN Clinical Impression(s) from Imaging Studies Chest X-Ray 10/03/18 17:15 IMPRESSION: Mild vascular congestion. Hypoinflation lungs. Cardiomegaly. Electronically Signed: Joaquim Doty DO at 17:49 EST Tel , Service support , Medications Given Sodium Chloride () 1,000 mls @ 500 mls/hr IV .Q2H ASIA Last Admin: 10/03/18 17:41 Dose: 500 mls/hr Emergency Department Course and Treatment: Patient presents with increased somnolence, rhonchi on lung exam, concern for leukemia, and decreased oral intake after over the last 1-2 months. Labs were performed showing a hemoglobin of 9.8 and platelets of 46, which are increased from patient's last blood work. She does have acute renal insufficiency and elevated BUN, concerning for acute dehydration. Thus her CBC may be reflecting hemoconcentration as well. Patient's urinalysis showed no sign of infection. Lactate was normal at 1.5. Chest x-ray showed mild vascular congestion and no sign of pneumonia. Comparison to prior chest x-rays did not appear much different from patient's baseline. VBG was performed that showed no hypercarbia that might be contributing to patient's somnolence. Patient's BNP was not significantly elevated. Patient was given IV fluids for her dehydration. On reevaluation she looked a little more alert and had spontaneous eye opening. No obvious source of infection was noted on her workup, thus no antibiotics were started in the emergency department. She will require admission for further treatment of her dehydration and further workup for her worsening mental status and functional decline over the last several weeks. Patient was discussed with the hospitalist and admitted. Treatment Plan: [] Disposition: [] Impression: dehydration, functional decline, thrombocytopenia, altered mental status This note was generated with [employer] dictation software. It may contain incorrect words, spelling, and punctuation that were not noted in review of the chart prior to signing ED Disposition - Plan for ED Patient: Disposition: Acute [facility]
--- NOTE | 2018-10-03 17:14 | ED.DCSUM_ITS ---
- ER Visit Summary Date of Service: 10/03/18 Chief Complaint: Altered mental status History of Present Illness: The patient is a 42 F with history of Down syndrome who presents from a residential for gradually worsening mental status and shortness of breath over the last 2 months. Patient uses a CPAP machine at night, which has been broken, and patient was getting an appointment with her sap sd analyst today for a new one. Transit Mix Operator sent patient in for evaluation due to change in her mental status. Patient has been having a decreased appetite and worsening lethargy per the mother. She recently had noted platelets of 40 and a hemoglobin of 9, leading to an appointment for a bone marrow biopsy next Sunday for concern for leukemia. Patient has had cough and shortness of breath. She has had dry heaving. Patient unable to provide any further history due to somnolence. Physical Examination: Vital signs: afebrile, hemodynamically stable, no hypoxia on room air General: well nourished, well developed, Down Syndrome facies, somnolent and ill-appearing Skin: warm, dry, no rash, cool reddish distal extremities, normal per mother HEENT: normocephalic and atraumatic; PERRL, EOMI, dry mucous membranes Cardiovascular: regular rate and rhythm without murmurs, no peripheral edema, 2+ pulses all distal extremities Respiratory: Tachypnea with mild increased work of breathing, lungs are diffusely rhonchorous Abdominal: Abdomen is soft, nontender with normoactive bowel sounds, no guarding or rebound, no masses MSK: No deformities, generalized weakness Neuro: Somnolent, opens eyes to tactile stimulation Test Results: Abnormal Lab Results 10/03/18 10/03/18 10/03/18 17:33 17:33 17:33 WBC 5.4 RBC 3.39 L Hgb 9.8 L Hct 31.7 L MCV 93.5 MCH 28.9 MCHC 30.9 L RDW 19.1 H RDW Differential 65.1 H Plt Count 46 L* MPV TNP Immature Gran % (Auto) 0.400 Neut % (Auto) 86.5 H Lymph % (Auto) 8.4 L [place] % (Auto) 4.1 Eos % (Auto) 0.2 Baso % (Auto) 0.4 Absolute Neuts (auto) 4.6 Absolute Lymphs (auto) 0.45 L Total Counted Not Reportable Differential Comment SEE COMMENT Platelet Estimate MKD DEC Plt Morphology Comment LARGE Hypochromasia RARE Anisocytosis 1+ Macrocytosis RARE Target Cells RARE Ovalocytes RARE PT 15.8 H INR 1.3 APTT 41.0 H Specimen Type Sample Site VBG pH VBG pO2 VBG O2 Sat (Calc) VBG O2 Content VBG Base Excess POC Mix VBG pCO2 Pt Tmp O2 Delivery Device Liter Flow Blood Gas Notified Whom Blood Gas Notified Time Sodium 132 L Potassium 3.9 Chloride 100 Carbon Dioxide 23.0 Anion Gap 9 BUN 50 H Creatinine 2.31 H Estim Creat Clear Calc 53.04 Est GFR (MDRD) Af Amer 30 L Est GFR (MDRD) Non-Af 25 L BUN/Creatinine Ratio 21.6 H Glucose 140 H Lactic Acid Calcium 7.3 L Total Bilirubin 0.60 AST 48 H ALT 22 Alkaline Phosphatase 165 H B-Natriuretic Peptide Total Protein 5.9 L Albumin 1.6 L Globulin 4.3 H Albumin/Globulin Ratio 0.4 L Urine Color Urine Clarity Urine pH Ur Specific [place] Urine Protein Urine Glucose (UA) Urine Ketones Urine Occult Blood Urine Nitrite Urine Bilirubin Urine Urobilinogen Ur Leukocyte Esterase Urine RBC Urine WBC Ur Squamous Epith Cells Amorphous Sediment Urine Bacteria Urine Mucus 10/03/18 10/03/18 10/03/18 17:33 17:33 17:45 WBC RBC Hgb Hct MCV MCH MCHC RDW RDW Differential Plt Count MPV Immature Gran % (Auto) Neut % (Auto) Lymph % (Auto) [place] % (Auto) Eos % (Auto) Baso % (Auto) Absolute Neuts (auto) Absolute Lymphs (auto) Total Counted Differential Comment Platelet Estimate Plt Morphology Comment Hypochromasia Anisocytosis Macrocytosis Target Cells Ovalocytes PT INR APTT Specimen Type ANTONIA Sample Site OTHER VBG pH 7.46 H VBG pO2 96 H VBG O2 Sat (Calc) 98 H VBG O2 Content 26 VBG Base Excess 1 POC Mix VBG pCO2 Pt Tmp 35.4 L O2 Delivery Device Nasal Can Liter Flow 2.0 Blood Gas Notified Whom ED Blood Gas Notified Time 1744 Sodium Potassium Chloride Carbon Dioxide Anion Gap BUN Creatinine Estim Creat Clear Calc Est GFR (MDRD) Af Amer Est GFR (MDRD) Non-Af BUN/Creatinine Ratio Glucose Lactic Acid 1.5 Calcium Total Bilirubin AST ALT Alkaline Phosphatase B-Natriuretic Peptide 211.7 H Total Protein Albumin Globulin Albumin/Globulin Ratio Urine Color Urine Clarity Urine pH Ur Specific [place] Urine Protein Urine Glucose (UA) Urine Ketones Urine Occult Blood Urine Nitrite Urine Bilirubin Urine Urobilinogen Ur Leukocyte Esterase Urine RBC Urine WBC Ur Squamous Epith Cells Amorphous Sediment Urine Bacteria Urine Mucus 10/03/18 18:23 WBC RBC Hgb Hct MCV MCH MCHC RDW RDW Differential Plt Count MPV Immature Gran % (Auto) Neut % (Auto) Lymph % (Auto) [place] % (Auto) Eos % (Auto) Baso % (Auto) Absolute Neuts (auto) Absolute Lymphs (auto) Total Counted Differential Comment Platelet Estimate Plt Morphology Comment Hypochromasia Anisocytosis Macrocytosis Target Cells Ovalocytes PT INR APTT Specimen Type Sample Site VBG pH VBG pO2 VBG O2 Sat (Calc) VBG O2 Content VBG Base Excess POC Mix VBG pCO2 Pt Tmp O2 Delivery Device Liter Flow Blood Gas Notified Whom Blood Gas Notified Time Sodium Potassium Chloride Carbon Dioxide Anion Gap BUN Creatinine Estim Creat Clear Calc Est GFR (MDRD) Af Amer Est GFR (MDRD) Non-Af BUN/Creatinine Ratio Glucose Lactic Acid Calcium Total Bilirubin AST ALT Alkaline Phosphatase B-Natriuretic Peptide Total Protein Albumin Globulin Albumin/Globulin Ratio Urine Color Straw Urine Clarity Sl. Cloudy Urine pH 5.0 Ur Specific [place] 1.015 Urine Protein 15 H Urine Glucose (UA) Normal Urine Ketones Negative Urine Occult Blood 250 H Urine Nitrite Negative Urine Bilirubin Negative Urine Urobilinogen Normal Ur Leukocyte Esterase 25 H Urine RBC 0-5 SEEN Urine WBC 0 SEEN Ur Squamous Epith Cells 0 SEEN Amorphous Sediment 1+ Urine Bacteria 0 SEEN Urine Mucus 0 SEEN Clinical Impression(s) from Imaging Studies Chest X-Ray 10/03/18 17:15 IMPRESSION: Mild vascular congestion. Hypoinflation lungs. Cardiomegaly. Electronically Signed: Joaquim Doty DO at 17:49 EST Tel , Service support , Medications Given Sodium Chloride () 1,000 mls @ 500 mls/hr IV .Q2H ASIA Last Admin: 10/03/18 17:41 Dose: 500 mls/hr Emergency Department Course and Treatment: Patient presents with increased somnolence, rhonchi on lung exam, concern for leukemia, and decreased oral intake after over the last 1-2 months. Labs were performed showing a hemoglobin of 9.8 and platelets of 46, which are increased from patient's last blood work. She does have acute renal insufficiency and elevated BUN, concerning for acute dehydration. Thus her CBC may be reflecting hemoconcentration as well. Patient's urinalysis showed no sign of infection. Lactate was normal at 1.5. Chest x-ray showed mild vascular congestion and no sign of pneumonia. Comparison to prior chest x-rays did not appear much different from patient's baseline. VBG was performed that showed no hypercarbia that might be contributing to patient's somnolence. Patient's BNP was not significantly elevated. Patient was given IV fluids for her dehydration. On reevaluation she looked a little more alert and had spontaneous eye opening. No obvious source of infection was noted on her workup, thus no antibiotics were started in the emergency department. She will require admission for further treatment of her dehydration and further workup for her worsening mental status and functional decline over the last several weeks. Patient was discussed with the hospitalist and admitted. Treatment Plan: [] Disposition: [] Impression: dehydration, functional decline, thrombocytopenia, altered mental status This note was generated with [employer] dictation software. It may contain incorrect words, spelling, and punctuation that were not noted in review of the chart prior to signing ED Disposition - Plan for ED Patient: Disposition: Acute [facility]
--- NOTE | 2018-10-03 17:15 | RAD_ITS ---
STUDY: X-RAY CHEST REASON FOR EXAM: Female, 42 years old. Weakness and lethargy TECHNIQUE: Single AP portable view of the chest. COMPARISON: None FINDINGS: Lungs are mildly hypoinflated. Mild diffuse pulmonary vascular congestion. No focal consolidation or effusions. Sternal cerclage wires are present from a prior sternotomy. Borderline cardiomegaly. Normal mediastinum and antonino. Normal visualized pulmonary arteries. Normal visualized aortic arch and descending thoracic aorta. Normal visualized thoracic spine. Normal visualized ribs, clavicles, and shoulders. There is no demonstrated abnormality of the visualized soft tissue structures of the upper abdomen. RAD/Chest 1 View (Portable) IMPRESSION: Mild vascular congestion. Hypoinflation lungs. Cardiomegaly. Electronically Signed: Joaquim Doty DO at 17:49 EST Tel , Service support ,
[2018-10-03] MEDS: 0.9% Normal Saline 1,000 ML 500 ML IV (17:41)
[2018-10-03 17:56] LABS: Blood Gas Specimen Type VEN; O2 Delivery Device Nasal Can; SITE OTHER; Time Given 1744; VBG BASE EXCESS 1 mmol/L (-1.0-3.5); VBG Bicarbonate 25 mmol/L (22-26); VBG Oxygen Content 26 mmol/L (23-33); VBG PO2 96 mmHg (25-40); VBG SO2 98 % (50-70); VBG pCO2 35.4 mmHg (41-51); VBG pH 7.46 (7.32-7.42)
[2018-10-03 17:56] LABS: International Normalized Ratio 1.3; Prothrombin Time (Protime)PT. 15.8 SECONDS (11.7-14.9)
[2018-10-03 18:04] LABS: Absolute Lymphocyte Count 0.45 X10^3/ul (0.83-4.51); Absolute Neutrophil Count 4.6 X10^3/uL (2.0-7.7); Basophil# 0.02 X10^3/uL; Basophil% 0.4 % (0-1); Eosinophil# 0.01 X10^3/uL; Eosinophils% 0.2 % (0-5); Hematocrit 31.7 % (37-47); Hemoglobin 9.8 g/dl (12.0-15.0); Lymphocyte # 0.45 X10^3/ul (4.0); Lymphocyte % 8.4 % (19-41); Mean Corp Hgb Conc 30.9 g/gl (32-36); Mean Corpuscular Hgb 28.9 pg (27.0-32.0); Mean Corpuscular Volume 93.5 fL (81-99); Monocyte# 0.22 X10^3/uL; Monocyte% 4.1 % (0-10); Neutrophil # 4.64 X10^3/uL (2.7-7.7); Neutrophil % 86.5 % (47-70); RBC Distribution Width CV 19.1 % (11.6-14.6); RBC Distribution Width SD 65.1 fl (35.1-43.9); Red Blood Count 3.39 M/mm3 (4.2-5.4); White Blood Count 5.4 K/mm3 (4.4-11.0)
[2018-10-03 18:06] LABS: ALB/GLOB Ratio 0.4 RATIO (0.9-2.4); AST(SGOT) 48 U/L (15-37); Alanine Aminotransfer ALT/SGPT 22 U/L (13-56); Albumin, Serum 1.6 g/dL (3.2-5.0); Alkaline Phosphatase 165 U/L (45-117); Anion Gap 9 (5-15); BUN 50 mg/dL (7-18); BUN/Creat Ratio 21.6 RATIO (10-20); Calcium,Total 7.3 mg/dL (8.5-10.1); Chloride 100 mmol/L (98-107); Creatinine, Serum 2.31 mg/dL (0.55-1.02); EST Glomerular Filtration Rate 25 mL/min (>60); Est Glom Filt Rate - Afr Amer 30 mL/min (>60); Estimated Creatinine Clearance 53.04 ml/min; Globulin 4.3 g/dL (2.2-4.2); Glucose 140 mg/dL (74-106); Potassium 3.9 mmol/L (3.5-5.1); Protein, Total 5.9 g/dL (6.4-8.2); Sodium Level 132 mmol/L (136-145)
[2018-10-03 18:10] LABS: Differential Indicated SCAN CRITERIA MET; POSITIVE COUNT YES; POSITIVE DIFFERENTIAL YES; POSITIVE MORPHOLOGY YES
[2018-10-03 18:11] LABS: Platelet Count 46 K/mm3 (150-450)
[2018-10-03 18:15] LABS: Lactic Acid 1.5 mmol/L (0.4-2.0)
[2018-10-03 18:27] LABS: Bacteria 0 SEEN /hpf (None Seen); Mucous, Urine 0 SEEN /hpf (<or=2+); Squamous Epithelial Cells - UA 0 SEEN /hpf (5-10); White Blood Cells 0 SEEN /hpf (0-5)
[2018-10-03 18:28] LABS: Anisocytosis 1+; Hypochromasia RARE; Macrocytosis RARE; Ovalocyte RARE; Platelet Estimate MKD DEC (ADEQ); Platelet Morphology LARGE; Target Cells RARE
[2018-10-03 18:58] LABS: Color, Urine Straw (Yellow); Glucose, Dipstick Normal (Normal); Ketone-Dipstick Negative (Negative); Leukocyte Esterase-Dipstick 25 /ul (Negative); Nitrite-Dipstick Negative (Negative); Occult Blood-Urine 250 /ul (Negative); Protein-Dipstick 15 mg/dl (Negative); Specific Gravity, Urine 1.015 (1.002-1.030); Urine Bilirubin Dipstick Negative (Negative); Urine Clarity Sl. Cloudy (Clear); Urine Urobilinogen Normal (Normal)
[2018-10-03 19:04] LABS: BNP,B-Type NATRIURETIC PEPTIDE 211.7 pg/mL (0-100)
[2018-10-03 19:06] LABS: Amorphous Sediment 1+
[2018-10-03 19:07] LABS: Red Blood Cells-Urine 0-5 SEEN /hpf (0-5)
--- NOTE | 2018-10-03 20:47 | PCM.HP.STD ---
Problem List (1) Acute encephalopathy Status: Acute History of Present Illness Date of Admission: 10/03/18 Chief Complaint: lethargy The patient is a 42 year old F with a significant history of Down syndrome who is being worked up for leukemia presenting because of increase lethargy. Patient went to Dr. Centeno's (E Commerce Marketing Analyst) office on the same day of admission because her CPAP was broken. Patient was so weak that she could not walk and she had to be placed in a wheelchair. Per patient's mother is not at her baseline as at baseline patient is able to walk and she is much more interactive. 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 Patient's mother reported that Dr. Centeno wanted the patient to be evaluated for pneumonia at the ED. For the past 1-2 months patient has had a decreased activity and decreased oral intake. Family reported that at baseline patient likes to eat but at this time she is not interested in food. Also she typically interacts with her environment but she is not doing so at this time. Further her mother reports tremors. Compared to when her mother last saw her, about a week ago, patient's symptoms has progressively worsened. Patient follows up with Dr. Granado, medical and health services manager/oncologist and is being worked up for leukemia. Patient is scheduled to have bone marrow biopsy on 10/08/2018. Past Medical History Past Medical History (Chronic Problems): Chronic Problems (Last Reviewed 10/04/18 @ 04:38 by Jeferson Villa MD) Gout (Chronic) Chronic ulcer of left heel (Chronic) Right hip pain (Chronic) Hypothyroidism (Chronic) Hypertension (Chronic) Dry skin (Chronic) Down syndrome (Chronic) Medical History: Medical History (Last Reviewed 10/04/18 @ 04:38 by Jeferson Villa MD) Dry skin (Chronic) L85.3 Down syndrome (Chronic) Q90.9 Allergies No Known Allergies Allergy (Verified 09/26/18 13:05) Home Medications: Ambulatory Orders Medication Instructions Recorded allopurinol 300 mg tablet 300 mg PO DAILY #90 tab 05/13/18 irbesartan 75 mg tablet 75 mg PO DAILY #90 tab 05/13/18 levothyroxine 75 mcg tablet 75 mcg PO DAILY #90 tab 05/13/18 omeprazole 20 mg capsule,delayed 20 mg PO DAILY #90 cap 05/13/18 release white petrolatum topical jelly 1 applic TOPICAL BID PRN g 05/13/18 sertraline 100 mg tablet 100 mg PO DAILY #90 tab 08/20/18 diclofenac sodium 50 mg 50 mg PO BID #60 tab 08/21/18 tablet,delayed release Ammonium Lactate 1 applic TOPICAL BID 10/03/18 Calcium Carbonate/Vitamin D3 1 each PO DAILY 10/03/18 [Calcium 500+D Tablet Chew] Carbamazepine [Carbamazepine ER] 400 mg PO BID 10/03/18 Doxycycline Hyclate 20 mg PO BID 10/03/18 Furosemide [Lasix] 20 mg PO DAILY 10/03/18 Nystatin [Nystop] 1 applic TP BID 10/03/18 busPIRone [Buspar] 5 mg PO TID 10/03/18 Surgical History: Surgical History (Last Reviewed 10/04/18 @ 04:38 by Jeferson Villa MD) History of cataract surgery Z98.49 History of open heart surgery Z98.890 age 14 History of tubal ligation Z98.51 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 VTE Information - Inpt Only VTE Present on Admission: No VTE Mechan Device Prophylaxis: SCD's VTE Pharm Prophylaxis ordered?: No Patient Problems: Active and Suspected Problems (Last Reviewed 10/04/18 @ 04:38 by Jeferson Villa MD) Acute encephalopathy (Acute) - Physical Exam General: - - Obtunded HEENT: Atraumatic, PERRLA, Normocephalic Neck: Supple, Trachea Midline Lungs: - - coarse. Cardiovascular: Regular rate, No murmurs Abdomen: Bowel Sounds Present, Soft, Non Tender Extremities: No edema, Capillary Refill Less than 3 Seconds Skin: No rashes, No breakdown Musculoskeletal: No Muscle Wasting Neurological: - - Obtunded Psych/Mental Status: - - Obtunded. Vital Signs Temp Pulse Resp BP Pulse Ox 97 F L 68 16 114/52 L 96 10/03/18 20:00 10/03/18 20:00 10/03/18 20:00 10/03/18 20:00 10/03/18 20:00 Oxygen Flow Rate (L/min) 2 Oxygen Delivery Method Nasal Cannula Weight: 105.9 kg Body Mass Index (BMI) 65.6 Laboratory Tests Past 24 Hrs 10/03/18 10/03/18 10/03/18 17:33 17:33 17:33 WBC 5.4 RBC 3.39 L Hgb 9.8 L Hct 31.7 L MCV 93.5 MCH 28.9 MCHC 30.9 L RDW 19.1 H RDW Differential 65.1 H Plt Count 46 L* MPV TNP Immature Gran % (Auto) 0.400 Neut % (Auto) 86.5 H Lymph % (Auto) 8.4 L [place] % (Auto) 4.1 Eos % (Auto) 0.2 Baso % (Auto) 0.4 Absolute Neuts (auto) 4.6 Absolute Lymphs (auto) 0.45 L Total Counted Not Reportable Differential Comment SEE COMMENT Platelet Estimate MKD DEC Plt Morphology Comment LARGE Hypochromasia RARE Anisocytosis 1+ Macrocytosis RARE Target Cells RARE Ovalocytes RARE PT 15.8 H INR 1.3 APTT 41.0 H Specimen Type Sample Site VBG pH VBG pO2 VBG O2 Sat (Calc) VBG O2 Content VBG Base Excess POC Mix VBG pCO2 Pt Tmp O2 Delivery Device Liter Flow Blood Gas Notified Whom Blood Gas Notified Time Sodium 132 L Potassium 3.9 Chloride 100 Carbon Dioxide 23.0 Anion Gap 9 BUN 50 H Creatinine 2.31 H Estim Creat Clear Calc 53.04 Est GFR (MDRD) Af Amer 30 L Est GFR (MDRD) Non-Af 25 L BUN/Creatinine Ratio 21.6 H Glucose 140 H Lactic Acid Calcium 7.3 L Total Bilirubin 0.60 AST 48 H ALT 22 Alkaline Phosphatase 165 H B-Natriuretic Peptide Total Protein 5.9 L Albumin 1.6 L Globulin 4.3 H Albumin/Globulin Ratio 0.4 L Urine Color Urine Clarity Urine pH Ur Specific [place] Urine Protein Urine Glucose (UA) Urine Ketones Urine Occult Blood Urine Nitrite Urine Bilirubin Urine Urobilinogen Ur Leukocyte Esterase Urine RBC Urine WBC Ur Squamous Epith Cells Amorphous Sediment Urine Bacteria Urine Mucus 10/03/18 10/03/18 10/03/18 17:33 17:33 17:45 WBC RBC Hgb Hct MCV MCH MCHC RDW RDW Differential Plt Count MPV Immature Gran % (Auto) Neut % (Auto) Lymph % (Auto) [place] % (Auto) Eos % (Auto) Baso % (Auto) Absolute Neuts (auto) Absolute Lymphs (auto) Total Counted Differential Comment Platelet Estimate Plt Morphology Comment Hypochromasia Anisocytosis Macrocytosis Target Cells Ovalocytes PT INR APTT Specimen Type ANTONIA Sample Site OTHER VBG pH 7.46 H VBG pO2 96 H VBG O2 Sat (Calc) 98 H VBG O2 Content 26 VBG Base Excess 1 POC Mix VBG pCO2 Pt Tmp 35.4 L O2 Delivery Device Nasal Can Liter Flow 2.0 Blood Gas Notified Whom ED Blood Gas Notified Time 1744 Sodium Potassium Chloride Carbon Dioxide Anion Gap BUN Creatinine Estim Creat Clear Calc Est GFR (MDRD) Af Amer Est GFR (MDRD) Non-Af BUN/Creatinine Ratio Glucose Lactic Acid 1.5 Calcium Total Bilirubin AST ALT Alkaline Phosphatase B-Natriuretic Peptide 211.7 H Total Protein Albumin Globulin Albumin/Globulin Ratio Urine Color Urine Clarity Urine pH Ur Specific [place] Urine Protein Urine Glucose (UA) Urine Ketones Urine Occult Blood Urine Nitrite Urine Bilirubin Urine Urobilinogen Ur Leukocyte Esterase Urine RBC Urine WBC Ur Squamous Epith Cells Amorphous Sediment Urine Bacteria Urine Mucus 10/03/18 18:23 WBC RBC Hgb Hct MCV MCH MCHC RDW RDW Differential Plt Count MPV Immature Gran % (Auto) Neut % (Auto) Lymph % (Auto) [place] % (Auto) Eos % (Auto) Baso % (Auto) Absolute Neuts (auto) Absolute Lymphs (auto) Total Counted Differential Comment Platelet Estimate Plt Morphology Comment Hypochromasia Anisocytosis Macrocytosis Target Cells Ovalocytes PT INR APTT Specimen Type Sample Site VBG pH VBG pO2 VBG O2 Sat (Calc) VBG O2 Content VBG Base Excess POC Mix VBG pCO2 Pt Tmp O2 Delivery Device Liter Flow Blood Gas Notified Whom Blood Gas Notified Time Sodium Potassium Chloride Carbon Dioxide Anion Gap BUN Creatinine Estim Creat Clear Calc Est GFR (MDRD) Af Amer Est GFR (MDRD) Non-Af BUN/Creatinine Ratio Glucose Lactic Acid Calcium Total Bilirubin AST ALT Alkaline Phosphatase B-Natriuretic Peptide Total Protein Albumin Globulin Albumin/Globulin Ratio Urine Color Straw Urine Clarity Sl. Cloudy Urine pH 5.0 Ur Specific [place] 1.015 Urine Protein 15 H Urine Glucose (UA) Normal Urine Ketones Negative Urine Occult Blood 250 H Urine Nitrite Negative Urine Bilirubin Negative Urine Urobilinogen Normal Ur Leukocyte Esterase 25 H Urine RBC 0-5 SEEN Urine WBC 0 SEEN Ur Squamous Epith Cells 0 SEEN Amorphous Sediment 1+ Urine Bacteria 0 SEEN Urine Mucus 0 SEEN Assessment/Plan All Active Problems (Last Reviewed 10/04/18 @ 04:38 by Jeferson Villa MD) Acute encephalopathy (Acute) Pancytopenia (Acute) The patient is a 42 year old F with a significant history of Down syndrome who is being worked up for leukemia presenting because of progressively worsening lethargy and decrease interaction with her environment; and anorexia was found to have severely elevated creatinine on admission. Acute metabolic encephalopathy Different diagnosis include uremia; occult infection; hypothyroidism or other. Vitamin B12 was rather elevated. Management as below YESENIA On admission her BUN was 50. Review of records show that her BUN about a week ago was 29; and previous BUN has even been low. Her creatinine on admission was 2.31. Review of old records show that her creatinine about a week ago was 1.54; and previous creatinine has even been lower. BUN over creatinine is more than 20. Likely prerenal from dehydration. At emergency department patient received IV fluid bolus. We will continue patient on maintenance IV fluids. Trend BMP and avoid nephrotoxic's Probable infection. Her urinalysis was unremarkable. Her chest x-ray did not show any consolidation but it was interpreted as mild vascular congestion. We will continue IV fluids and get an echocardiogram. Blood culture x2 was obtained at emergency department and results are pending. Urine culture is pending. Because her mother reported of loose stools enteric pathogen panel and C. difficile were ordered. Respiratory pathogen panel was ordered. We will start patient on empiric vancomycin and Zosyn. Hypothyroidism TSH was 8.80. This is mildly elevated. Patient is unable to swallow at this time so she can not take p.o. Synthroid. IV Synthroid ordered. We will give patient hydrocortisone IV. Cortisol level ordered prior to hydrocortisone initiation. Pancytopenia Noted to have low hemoglobin and low platelets. She is being worked up for leukemia with a scheduled bone marrow biopsy on 10/08/2018. Her mother was hoping that she can have this earlier. Consider discussing with Dr. Tellez office about patient's condition at this time. Behavioral Disturbance Was placed on home Tegretol. Per conversation from mother and nursing team patient behavioral symptoms did not improved while on Tegretol and at one point she had elevated symptomatic Tegretol level. Initially it was empirically assumed that patient was on Tegretol for seizures and since patient is not swallowing at this time a decision was made to give Keppra while we verify with long-term or patient's mother. Keppra was subsequently discontinued Tegretol discontinued Check Tegretol level. Pseudo-hypocalcemia Patient noted to have a calcium level of 7.3 but albumin level of 1.6. Corrected calcium level is 9.2. DVT prophylaxis Her platelet count is 46 and we are unable to do chemical thromboprophylaxis at this time. SCD ordered. Code Visit Inpatient E&M: 45491 Init Hosp L3
[2018-10-03] MEDS: 0.9% NaCl Peripheral Flush Adult/Peds IV (23:02)
[2018-10-03] MEDS: 0.9% Normal Saline 1,000 ML 150 ML IV (23:03)
[2018-10-03] MEDS: Nystatin Powder 15gm Bottle 1 APPLIC TOPICAL (23:49)
[2018-10-04] VITALS (15 sets, daily range): BP systolic 103–133; BP diastolic 37–53; PULSE 64–81; RESP 16–24; TEMP 36.2–37; O2SAT 94–100
[2018-10-04 00:27] LABS: AST(SGOT) 44 U/L (15-37); Alanine Aminotransfer ALT/SGPT 21 U/L (13-56); Albumin, Serum 1.5 g/dL (3.2-5.0); Alkaline Phosphatase 161 U/L (45-117); Bilirubin, Direct 0.36 mg/dL (0.00-0.30); Globulin 4.1 g/dL (2.2-4.2); Protein, Total 5.6 g/dL (6.4-8.2)
[2018-10-04 00:34] LABS: Vitamin B12 1049 pg/mL (211-911)
[2018-10-04] MEDS: levETIRAcetam IV 100 ML 400 MG IV (03:46)
--- NOTE | 2018-10-04 04:08 | NURSING ---
At 0310, pt's mother, Altagracia, was called by this RN. A message was left to call the hospital with reason why pt takes Tegretol and when the last seizure was. If no response by shift change, this RN will attempt to call Altagracia again.
--- NOTE | 2018-10-04 04:12 | PCM.RX.CS ---
Consult Pharmacy has been consulted to manage selected antiobiotic: Vancomycin Type of Consult: New start Suspected Infection: Other Prior Doses of Antibiotics Received/Current Regimen: Medications Vancomycin HCl 1,500 mg/ (Sodium Chloride) 530 mls @ 250 mls/hr IV X1 ONE Stop: 10/04/18 06:07 Labs: Sodium 132 mmol/L (136-145) L 10/03/18 17:33 Potassium 3.9 mmol/L (3.5-5.1) 10/03/18 17:33 Chloride 100 mmol/L (98-107) 10/03/18 17:33 Carbon Dioxide 23.0 mmol/L (21.0-32.0) 10/03/18 17:33 Anion Gap 9 (5-15) 10/03/18 17:33 BUN 50 mg/dL (7-18) H 10/03/18 17:33 Creatinine 2.31 mg/dL (0.55-1.02) H 10/03/18 17:33 Est GFR (MDRD) Af Amer 30 mL/min (>60) L 10/03/18 17:33 Est GFR (MDRD) Non-Af 25 mL/min (>60) L 10/03/18 17:33 BUN/Creatinine Ratio 21.6 RATIO (10-20) H 10/03/18 17:33 Glucose 140 mg/dL (74-106) H 10/03/18 17:33 Weight used for dosin kg Estimated Creatinine Clearance: 11 mL/min Goal Trough: 15-20 mcg/mL Pharmacy Plan for Drug Dosing: Vancomycin 1500mg IV x1, random trough check per policy. Pharmacy Service will continue to monitor and adjust dosing as required. Follow-Up Labs: Trough Vancomycin - 10/05 @ 0600
--- NOTE | 2018-10-04 04:12 | NURSING ---
Dr. Govea called this RN to see if half-way can be contacted regarding seizure history. Also, he will be ordering IV Synthroid for the morning. THis RN will call back with results of phone call. asked for this RN to call the lab to do a cortisol level now as he is ordering hydrocortisone. Lab was called to notify of the draw now. Spoke with Bettie in the lab. They will be right up.
--- NOTE | 2018-10-04 04:27 | ECHOCS_ITS ---
Reason For Study: DYSPNEA Procedure This was a 2D Doppler, Color Flow transthoracic echocardiogram. The study was technically limited. Contrast injection was performed. Exam performed portable in patient room. Left Ventricle Normal LV size. Left ventricular systolic function is normal. The estimated ejection fraction is 70 %. Diastolic function is indeterminate. No regional wall motion abnormalities noted. Right Ventricle Normal RV size. Normal systolic function. Atria The left atrium is moderately enlarged. The right atrium is mildly enlarged. No doppler evidence for ASD. Mitral Valve There is no mitral annular calcification. Moderate diffuse mitral valve thickening. Moderate (2+) eccentric mitral valve insufficiency. Tricuspid Valve Normal tricuspid valve. Mild to moderate (1-2+) tricuspid valve insufficiency. Right ventricular systolic pressure estimated to be 30 mmHg. Aortic Valve Trisinus/trileaflet aortic valve. Moderate focal aortic valve thickening. Trivial aortic valve insufficiency. Pulmonic Valve The pulmonic valve is not well visualized. Trivial pulmonic valve insufficiency. Great Vessels Normal sized aortic root. Pericardium/Pleural No pericardial effusion. Medication Diluted definity 2ml given slow IV push to enhance endocardial definition. MMode/2D Measurements & Calculations LVIDd: 4.8 cm IVSd: 1.2 cm Ao root diam: 2.7 cm LVIDs: 2.8 cm LVPWd: 1.2 cm FS: 43.0 % LAV(MOD-bp): 83.1 ml LA A4 area: 28.9 cm2 LA dimension(2D): 4.0 cm LAV(MOD-bp) Indexed: 45.8 ml/m2 LAV(MOD-sp2): 68.4 ml LAV(MOD-sp4): 92.3 ml RA A4 area: 22.9 cm2 Time Measurements MV dec time: 0.23 sec Doppler Measurements & Calculations MV E max franck: 161.6 cm/sec Lat Peak E' Franck: 15.7 cm/sec Med Peak E' Franck: 9.8 cm/sec MV A max franck: 134.0 cm/sec E/E' lat: 10.3 E/E' med: 16.5 MV E/A: 1.2 Ao V2 max: 187.5 cm/sec AI max franck: 344.1 cm/sec LV V1 max: 96.9 cm/sec Ao max P.1 mmHg AI max P.4 mmHg LV V1 max P.8 mmHg AI dec slope: 340.2 cm/sec2 AI P1/2t: 296.3 msec PA V2 max: 110.2 cm/sec TR max franck: 257.1 cm/sec TR max P.5 mmHg Interpretation Summary The study was technically limited. Contrast injection was performed. Left ventricular systolic function is normal. The estimated ejection fraction is 70 %. The left atrium is moderately enlarged. The right atrium is mildly enlarged. Moderate diffuse mitral valve thickening. Moderate (2+) eccentric mitral valve insufficiency. Mild to moderate (1-2+) tricuspid valve insufficiency. Moderate focal aortic valve thickening. Trivial aortic valve insufficiency. Trivial pulmonic valve insufficiency. Right ventricular systolic pressure estimated to be 30 mmHg. Diastolic function is indeterminate. Comment: Secondary to a technically difficult study a small perimembranous interventricular septal defect, previously commented upon on the previous transthoracic echocardiogram from 07/12/2012, was not visualized, however, cannot necessarily be excluded. Ordering Physician: Jeferson Villa Referring Physician: SARAHI MEJIAS Performed By: Eugenia Hall RDCS, RVT
[2018-10-04 05:19] LABS: Anion Gap 11 (5-15); BUN 50 mg/dL (7-18); BUN/Creat Ratio 23.3 RATIO (10-20); Calcium,Total 6.8 mg/dL (8.5-10.1); Chloride 105 mmol/L (98-107); Creatinine, Serum 2.15 mg/dL (0.55-1.02); EST Glomerular Filtration Rate 27 mL/min (>60); Est Glom Filt Rate - Afr Amer 32 mL/min (>60); Estimated Creatinine Clearance 49.99 ml/min; Glucose 113 mg/dL (74-106); Potassium 4.4 mmol/L (3.5-5.1); Sodium Level 139 mmol/L (136-145)
[2018-10-04] MEDS: Hydrocortisone Sod Succinate 100 MG/2 ML Vial 50 MG IV ×3 (05:23→17:13)
[2018-10-04] MEDS: 0.9% NaCl Peripheral Flush Adult/Peds IV (05:26)
[2018-10-04] MEDS: 0.9% Normal Saline 1,000 ML 150 ML IV ×2 (05:28→11:52)
[2018-10-04 05:39] LABS: Hemoglobin 8.4 g/dl (12.0-15.0); Mean Corpuscular Hgb 29.1 pg (27.0-32.0); Mean Corpuscular Volume 96.9 fL (81-99); RBC Distribution Width CV 19.2 % (11.6-14.6); RBC Distribution Width SD 67.8 fl (35.1-43.9); Red Blood Count 2.89 M/mm3 (4.2-5.4); White Blood Count 4.4 K/mm3 (4.4-11.0)
[2018-10-04 05:42] LABS: Platelet Count 34 K/mm3 (150-450)
[2018-10-04 05:43] LABS: Scan Indicated on CBC? Y/N YES- FLAGS NOTED
[2018-10-04 06:55] LABS: Differential Comment SCAN
[2018-10-04 07:53] LABS: Carbamazepine (Tegretol) 18.2 ug/mL (4.0-12.0)
[2018-10-04 08:56] LABS: Free T3 0.6 pg/mL (2.18-3.98); T4 Free Direct 0.67 ng/dL (0.76-1.46)
[2018-10-04] MEDS: Nystatin Powder 15gm Bottle 1 APPLIC TOPICAL ×2 (09:42→21:37)
--- NOTE | 2018-10-04 10:59 | CASEMGMT ---
Addendum entered by Brenna Pablo 10/04/18 13:19: SW let patient's sister in law know that TCU will have a bed for her on Sunday and that physician said patient will be here until Sunday. Brenna MCNAIR Original Note: HELEN met with patient's mom/legal guardian and sister in law. Patient is from a assisted in [place]. She normally is fairly functional. She goes to [facility]. Since she has not been feeling well she has not been doing well at the assisted. She is going to require more assistance than the assisted can offer. They would prefer [facility] and second choice would be [facility]. HELEN explained Medicare coverage for SNF. SW also explained if she would go to TCU and need more than 20 days she would have to be transferred to another facility as TCU does not take Medicaid. They verbalized understanding. HELEN told them SW will put patient's name on the TCU list. HELEN called [facility] in TCU and she would have a bed on Sunday. SW will let family know. Plan: [facility] under skilled level of care when medically ready. Brenna MCNAIR
--- NOTE | 2018-10-04 11:19 | CHAPLAIN ---
Type of Pastoral Visit _x__ Initial Visit ___ Follow-up Visit ___ On-call Visit ___ General Patient Visit ___ Spiritual Assessment ___ Family Conference ___ Bereavement ___ Rapid Response ___ Code Blue ___ Other (describe below) Pastoral Care Referral From _x__ Patient _x__ Family ___ Nurse ___ Physician ___ [place] Utility Worker ___ Traffic Investigator ___ Other (describe below) Sacrament/Intervention _x__ Active listening ___ Anointing ___ Latter-Day ___ Bereavement ___ Communion ___ Carla exploration ___ ___ Life review _x__ Prayer ___ Reconciliation ___ Sacrament of Sick _x__ Supportive presence ___ Wedding ___ Other (describe below) Pastoral Comments contacted the moravian of patient as requested by family members
--- NOTE | 2018-10-04 13:10 | RAD_ITS ---
STUDY: X-RAY CHEST REASON FOR EXAM: Female, 42 years old. Shortness of breath. Acute encephalopathy. TECHNIQUE: Single AP portable view of the chest. COMPARISON: October 03, 2018. FINDINGS: Telemetry wires overlie the chest. The lungs are hypoexpanded. Again seen is minimal vascular congestion. Pleural effusions cannot be ruled out. Sternal cerclage wires are present from a prior sternotomy. The heart is enlarged. Normal visualized pulmonary arteries. Normal visualized aortic arch and descending thoracic aorta. The thoracic spine is obscured by the mediastinum. There is degenerative osteoarthritis of the bilateral shoulders. There is no demonstrated abnormality of the visualized soft tissue structures of the upper abdomen. RAD/Chest 1 View (Portable) IMPRESSION: No significant interval change. Electronically Signed: Karan Borrego DO at 18:40 EST Tel [phone], Service support ,
[2018-10-04 13:26] LABS: Pathologist Review Reviewed
--- NOTE | 2018-10-04 13:29 | CASEMGMT ---
SW also let patient's mother know about TCU having a bed for her at d/c. Brenna BARNETT MSW
--- NOTE | 2018-10-04 17:35 | PN_ITS ---
Patient Problems: Active and Suspected Problems (Last Reviewed 10/04/18 @ 04:38 by Jeferson Villa MD) Acute encephalopathy (Acute) Subjective: Patient was seen and examined. Daughter is at the bedside. Patient is slightly interactive. Remains listless. Noted to have 2 bowel movements today. Later on had bleeding per rectum. Remains on 2 L of oxygen. Objective: Physical Exam General: - - alert, oriented x 1, not pale, not jaundiced HEENT: Atraumatic, PERRLA, Normocephalic Neck: Supple, Trachea Midline Lungs: Decreased AE, Vesicular BS, no added sounds Cardiovascular: Regular rate, No murmurs Abdomen: Bowel Sounds Present, Soft, Non Tender, no palpable organs Extremities: No edema, Capillary Refill Less than 3 Seconds Skin: No rashes, No breakdown Musculoskeletal: No Muscle Wasting Neurological: - - Obtunded Psych/Mental Status: - - alert, somehow interactive Vitals/I&O's: Vital Signs Temp Pulse Resp BP Pulse Ox 98.5 F 72 18 133/48 H 94 10/04/18 14:56 10/04/18 15:50 10/04/18 14:56 10/04/18 14:56 10/04/18 14:56 Oxygen Flow Rate (L/min) 2 Oxygen Delivery Method Room Air Weight: 92.9 kg Body Mass Index (BMI) 44.3 Intake and Output for Last 24 Hours 10/02/18 10/03/18 10/04/18 23:59 23:59 23:59 Intake Total 2791 / 2791 Balance 2791 / 2791 Microbiology Past 72 Hours 10/03/18 22:50 Stool Enteric Bacteriology - Final 10/03/18 23:27 Mucosa - Nasopharyngeal Respiratory Panel (PCR) - Final Human [place] 10/03/18 22:50 Stool C. difficile DNA Amplification - Final Laboratory Results 10/03/18 17:33: WBC 5.4, RBC 3.39 L, Hgb 9.8 L, Hct 31.7 L, MCV 93.5, MCH 28.9, MCHC 30.9 L, RDW 19.1 H, RDW Differential 65.1 H, Plt Count 46 L*, MPV TNP, Immature Gran % (Auto) 0.400, Neut % (Auto) 86.5 H, Lymph % (Auto) 8.4 L, [place] % (Auto) 4.1, Eos % (Auto) 0.2, Baso % (Auto) 0.4, Absolute Neuts (auto) 4.6, Absolute Lymphs (auto) 0.45 L, Total Counted Not Reportable, Differential Comment SEE COMMENT, Platelet Estimate MKD DEC, Plt Morphology Comment LARGE, Hypochromasia RARE, Anisocytosis 1+, Macrocytosis RARE, Target Cells RARE, Ovalocytes RARE 10/03/18 17:33: PT 15.8 H, INR 1.3, APTT 41.0 H 10/03/18 17:33: Sodium 132 L, Potassium 3.9, Chloride 100, Carbon Dioxide 23.0, Anion Gap 9, BUN 50 H, Creatinine 2.31 H, Estim Creat Clear Calc 53.04, Est GFR (MDRD) Af Amer 30 L, Est GFR (MDRD) Non-Af 25 L, BUN/Creatinine Ratio 21.6 H, Glucose 140 H, Calcium 7.3 L, Total Bilirubin 0.60, AST 48 H, ALT 22, Alkaline Phosphatase 165 H, Total Protein 5.9 L, Albumin 1.6 L, Globulin 4.3 H, Albumin/Globulin Ratio 0.4 L 10/03/18 17:33: Lactic Acid 1.5 10/03/18 17:33: B-Natriuretic Peptide 211.7 H 10/03/18 17:45: Specimen Type ANTONIA, Sample Site OTHER, VBG pH 7.46 H, VBG pO2 96 H, VBG O2 Sat (Calc) 98 H, VBG O2 Content 26, VBG Base Excess 1, POC Mix VBG pCO2 Pt Tmp 35.4 L, O2 Delivery Device Nasal Can, Liter Flow 2.0, Blood Gas Notified Whom ED , Blood Gas Notified Time 4365 10/03/18 18:23: Urine Color Straw, Urine Clarity Sl. Cloudy, Urine pH 5.0, Ur Specific [place] 1.015, Urine Protein 15 H, Urine Glucose (UA) Normal, Urine Ketones Negative, Urine Occult Blood 250 H, Urine Nitrite Negative, Urine Bilirubin Negative, Urine Urobilinogen Normal, Ur Leukocyte Esterase 25 H, Urine RBC 0-5 SEEN, Urine WBC 0 SEEN, Ur Squamous Epith Cells 0 SEEN, Amorphous Sediment 1+, Urine Bacteria 0 SEEN, Urine Mucus 0 SEEN 10/03/18 22:56: Total Bilirubin 0.60, Direct Bilirubin 0.36 H, AST 44 H, ALT 21, Alkaline Phosphatase 161 H, Total Protein 5.6 L, Albumin 1.5 L, Globulin 4.1, TSH 8.80 H 10/03/18 22:56: Vitamin B12 1049 H 10/03/18 22:56: Ammonia 13.0 10/04/18 04:30: WBC 4.4, RBC 2.89 L, Hgb 8.4 L, Hct 28.0 L, MCV 96.9, MCH 29.1, MCHC 30.0 L, RDW 19.2 H, RDW Differential 67.8 H, Plt Count 34 L*, Differential Comment SCAN, Diff Path Review Reviewed 10/04/18 04:30: Sodium 139, Potassium 4.4, Chloride 105, Carbon Dioxide 23.0, Anion Gap 11, BUN 50 H, Creatinine 2.15 H, Estim Creat Clear Calc 49.99, Est GFR (MDRD) Af Amer 32 L, Est GFR (MDRD) Non-Af 27 L, BUN/Creatinine Ratio 23.3 H, Glucose 113 H, Calcium 6.8 L 10/04/18 04:30: Cortisol 29.30 H 10/04/18 06:55: Carbamazepine 18.2 H* 10/04/18 06:55: Free T4 0.67 L, Free T3 pg/dL 0.6 L Current Medications Hydrocortisone Sodium Succinate (Solu-Cortef) 50 mg IV Q6 [facility] Last Admin: 10/04/18 17:13 Dose: 50 mg Vancomycin IV Pharmacy to Dose (1 ea/ Sodium Chloride) 500 mls @ 250 mls/hr IV PRN PRN; Protocol Sodium Chloride () 1,000 mls @ 100 mls/hr IV .Q10H [facility] Stop: 10/04/18 22:35 Magnesium Hydroxide (Milk Of Magnesia) 30 ml PO DAILY PRN PRN Reason: Constipation Nutritional Formula (Lactose Free) (Ensure Enlive) 120 ml PO 4X/DAY [facility] Last Admin: 10/04/18 17:14 Dose: 120 ml Nystatin (Mycostatin Powder) 1 applic TOPICAL BID [facility]; Protocol Last Admin: 10/04/18 09:42 Dose: 1 applicatio Sodium Chloride () 5 - 15 ml IV UD PRN PRN Reason: SALINE FLUSH Last Admin: 10/04/18 05:26 Dose: 15 ml Medical Necessity - Tobacco Use Smoking Status: Never smoker Tobacco Use: Non-smoker Assessment/Plan All Active Problems (Last Reviewed 10/04/18 @ 04:38 by Jeferson Villa MD) Acute encephalopathy (Acute) Pancytopenia (Acute) 42-year-old female with past medical history of Down syndrome, currently following up with hematology in the outpatient being worked up for leukemia, comes in with progressive lethargy and shortness of breath. 1. Acute metabolic encephalopathy secondary to acute kidney injury, Acute bronchitis from Human metapneumo virus in a patient with Down syndrome, minimally improved, will continue to monitor. 2. YESENIA on CKD stage III, likely due to dehydration, creatinine has gradually been increasing, very mildly improved with IV fluids, nephrology will be consulted, continue IV fluids, labs in am 3. GI bleed, unclear etiology, will transfuse plateletes, start IV PPI, trend HH 4. Possible CAP vs acute bronchitis from human metapneumo virus, will repeat chest x-ray, DC IV Zosyn as it can cause thrombocytopenia, Continue on IV Levaquin 5. Hypothyroidism, admitting TSH was 8.8, free T4 free T3 is low, patient is on IV hydrocortisone as well as po Synthroid Will discontinue IV hydrocortisone tomorrow if she remains stable 6. Pancytopenia, follows with oncology in the outpatient, suspect MDS versus leukemia, due for bone marrow on Sunday, discussed with oncology, consulted, will schedule bone marrow for Sunday 7. DVT PPx- SCDs Code Visit Inpatient E&M: 81625 Subs Hosp L2
--- NOTE | 2018-10-04 18:11 | PCM.CONS.R ---
Problem List (1) YESENIA (acute kidney injury) Status: Acute Consultation - Renal PCP/ Referring MD: Requesting physician: [] Primary care physician: Nicanor Salter DO - History of Present Illness History of Present Illness: The patient is a 42 year old F past medical history of Down syndrome , leukemia , hypertension , CHF . 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 Patient was found to have bronchitis along with acute kidney injury . Patient had normal baseline creatinine in August 2018 . Earlier this month creatinine was 1.5 . Patient presented with creatinine 2.3 and improved to 2.1 today with IV fluid . Patient was started on diclofenac in August for arthritis pain . She was also taking Lasix and HUNTER inhibitor at home . Currently she is off Lasix , HUNTER inhibitor and diclofenac. Currently she is on IV fluids 75 cc/h of normal saline. Review of system: Patient mentation is better as per family member at bedside. Patient is not oriented. Review of system is not obtainable] - Allergies Allergies: Allergies No Known Allergies Allergy (Verified 09/26/18 13:05) - Current Medications Current Medications: Current Medications Hydrocortisone Sodium Succinate (Solu-Cortef) 50 mg IV Q6 [facility] Last Admin: 10/04/18 17:13 Dose: 50 mg Vancomycin IV Pharmacy to Dose (1 ea/ Sodium Chloride) 500 mls @ 250 mls/hr IV PRN PRN; Protocol Sodium Chloride () 1,000 mls @ 75 mls/hr IV .[id number] [facility] Stop: 10/05/18 06:51 Pantoprazole Sodium 40 mg/ (Sodium Chloride) 110 mls @ 330 mls/hr IV Q12 [facility] Levothyroxine Sodium (Synthroid) 75 mcg PO DAILY@0600 [facility] Magnesium Hydroxide (Milk Of Magnesia) 30 ml PO DAILY PRN PRN Reason: Constipation Nutritional Formula (Lactose Free) (Ensure Enlive) 120 ml PO 4X/DAY [facility] Last Admin: 10/04/18 17:14 Dose: 120 ml Nystatin (Mycostatin Powder) 1 applic TOPICAL BID [facility]; Protocol Last Admin: 10/04/18 09:42 Dose: 1 applicatio Sodium Chloride () 5 - 15 ml IV UD PRN PRN Reason: SALINE FLUSH Last Admin: 10/04/18 05:26 Dose: 15 ml - Past Medical History Past Medical History (Chronic Problems): Chronic Problems (Last Reviewed 10/04/18 @ 04:38 by Jeferson Villa MD) Gout (Chronic) Chronic ulcer of left heel (Chronic) Right hip pain (Chronic) Hypothyroidism (Chronic) Hypertension (Chronic) Dry skin (Chronic) Down syndrome (Chronic) - Social History Smoking Status: Never smoker - Family History Maternal Family History: Family History (Last Reviewed 10/04/18 @ 04:38 by Jeferson Villa MD) Father Diabetes Hypertension Heart disease Grandmother Heart disease Diabetes Grandfather Heart disease Patient Problems: Active and Suspected Problems (Last Reviewed 10/04/18 @ 04:38 by Jeferson Villa MD) Acute encephalopathy (Acute) YESENIA (acute kidney injury) (Acute) - Physical Exam General: Cooperative, No apparent distress HEENT: Atraumatic Oral: Moist Mucosa Neck: Supple, Negative Carotid Bruits Lungs: Rhonchi Cardiovascular: Regular rate, Regular Rhythm, Normal S1, Normal S2 Abdomen: Bowel Sounds Present, Soft, Non Tender Extremities: No clubbing, No cyanosis, No edema Musculoskeletal: No Tenderness to Palpation of Joints or Extremities Lymphatic: No Cervical, Supraclavicular, or Inguinal Adenopathy Neurological: Neuro grossly intact Psych/Mental Status: Appropriate Vital Signs Temp Pulse Resp BP Pulse Ox 98.5 F 72 18 133/48 H 94 10/04/18 14:56 10/04/18 15:50 10/04/18 14:56 10/04/18 14:56 10/04/18 14:56 Oxygen Flow Rate (L/min) 2 Oxygen Delivery Method Room Air Weight: 92.9 kg Body Mass Index (BMI) 44.3 Intake and Output for Last 24 Hours 10/02/18 10/03/18 10/04/18 23:59 23:59 23:59 Intake Total 2791 / 2791 Balance 2791 / 2791 Microbiology Past 72 Hours 10/03/18 22:50 Enteric Bacteriology - Final Stool 10/03/18 23:27 Respiratory Panel (PCR) - Final Mucosa - Nasopharyngeal Human [place] 10/03/18 22:50 C. difficile DNA Amplification - Final Stool Laboratory Tests Past 24 Hrs 10/03/18 10/03/18 10/03/18 17:33 17:33 17:33 WBC 5.4 RBC 3.39 L Hgb 9.8 L Hct 31.7 L MCV 93.5 MCH 28.9 MCHC 30.9 L RDW 19.1 H RDW Differential 65.1 H Plt Count 46 L* MPV TNP Immature Gran % (Auto) 0.400 Neut % (Auto) 86.5 H Lymph % (Auto) 8.4 L [place] % (Auto) 4.1 Eos % (Auto) 0.2 Baso % (Auto) 0.4 Absolute Neuts (auto) 4.6 Absolute Lymphs (auto) 0.45 L Total Counted Not Reportable Differential Comment SEE COMMENT Diff Path Review Platelet Estimate MKD DEC Plt Morphology Comment LARGE Hypochromasia RARE Anisocytosis 1+ Macrocytosis RARE Target Cells RARE Ovalocytes RARE Sodium Potassium Chloride Carbon Dioxide Anion Gap BUN Creatinine Estim Creat Clear Calc Est GFR (MDRD) Af Amer Est GFR (MDRD) Non-Af BUN/Creatinine Ratio Glucose Lactic Acid 1.5 Calcium Total Bilirubin Direct Bilirubin AST ALT Alkaline Phosphatase Ammonia B-Natriuretic Peptide 211.7 H Total Protein Albumin Globulin Vitamin B12 TSH Free T4 Free T3 pg/dL Cortisol Urine Color Urine Clarity Urine pH Ur Specific [place] Urine Protein Urine Glucose (UA) Urine Ketones Urine Occult Blood Urine Nitrite Urine Bilirubin Urine Urobilinogen Ur Leukocyte Esterase Urine RBC Urine WBC Ur Squamous Epith Cells Amorphous Sediment Urine Bacteria Urine Mucus Carbamazepine Blood Type Antibody Screen 10/03/18 10/03/18 10/03/18 18:23 22:56 22:56 WBC RBC Hgb Hct MCV MCH MCHC RDW RDW Differential Plt Count MPV Immature Gran % (Auto) Neut % (Auto) Lymph % (Auto) [place] % (Auto) Eos % (Auto) Baso % (Auto) Absolute Neuts (auto) Absolute Lymphs (auto) Total Counted Differential Comment Diff Path Review Platelet Estimate Plt Morphology Comment Hypochromasia Anisocytosis Macrocytosis Target Cells Ovalocytes Sodium Potassium Chloride Carbon Dioxide Anion Gap BUN Creatinine Estim Creat Clear Calc Est GFR (MDRD) Af Amer Est GFR (MDRD) Non-Af BUN/Creatinine Ratio Glucose Lactic Acid Calcium Total Bilirubin 0.60 Direct Bilirubin 0.36 H AST 44 H ALT 21 Alkaline Phosphatase 161 H Ammonia B-Natriuretic Peptide Total Protein 5.6 L Albumin 1.5 L Globulin 4.1 Vitamin B12 1049 H TSH 8.80 H Free T4 Free T3 pg/dL Cortisol Urine Color Straw Urine Clarity Sl. Cloudy Urine pH 5.0 Ur Specific [place] 1.015 Urine Protein 15 H Urine Glucose (UA) Normal Urine Ketones Negative Urine Occult Blood 250 H Urine Nitrite Negative Urine Bilirubin Negative Urine Urobilinogen Normal Ur Leukocyte Esterase 25 H Urine RBC 0-5 SEEN Urine WBC 0 SEEN Ur Squamous Epith Cells 0 SEEN Amorphous Sediment 1+ Urine Bacteria 0 SEEN Urine Mucus 0 SEEN Carbamazepine Blood Type Antibody Screen 10/03/18 10/04/18 10/04/18 22:56 04:30 04:30 WBC 4.4 RBC 2.89 L Hgb 8.4 L Hct 28.0 L MCV 96.9 MCH 29.1 MCHC 30.0 L RDW 19.2 H RDW Differential 67.8 H Plt Count 34 L* MPV Immature Gran % (Auto) Neut % (Auto) Lymph % (Auto) [place] % (Auto) Eos % (Auto) Baso % (Auto) Absolute Neuts (auto) Absolute Lymphs (auto) Total Counted Differential Comment SCAN Diff Path Review Reviewed Platelet Estimate Plt Morphology Comment Hypochromasia Anisocytosis Macrocytosis Target Cells Ovalocytes Sodium 139 Potassium 4.4 Chloride 105 Carbon Dioxide 23.0 Anion Gap 11 BUN 50 H Creatinine 2.15 H Estim Creat Clear Calc 49.99 Est GFR (MDRD) Af Amer 32 L Est GFR (MDRD) Non-Af 27 L BUN/Creatinine Ratio 23.3 H Glucose 113 H Lactic Acid Calcium 6.8 L Total Bilirubin Direct Bilirubin AST ALT Alkaline Phosphatase Ammonia 13.0 B-Natriuretic Peptide Total Protein Albumin Globulin Vitamin B12 TSH Free T4 Free T3 pg/dL Cortisol Urine Color Urine Clarity Urine pH Ur Specific [place] Urine Protein Urine Glucose (UA) Urine Ketones Urine Occult Blood Urine Nitrite Urine Bilirubin Urine Urobilinogen Ur Leukocyte Esterase Urine RBC Urine WBC Ur Squamous Epith Cells Amorphous Sediment Urine Bacteria Urine Mucus Carbamazepine Blood Type Antibody Screen 10/04/18 10/04/18 10/04/18 04:30 06:55 06:55 WBC RBC Hgb Hct MCV MCH MCHC RDW RDW Differential Plt Count MPV Immature Gran % (Auto) Neut % (Auto) Lymph % (Auto) [place] % (Auto) Eos % (Auto) Baso % (Auto) Absolute Neuts (auto) Absolute Lymphs (auto) Total Counted Differential Comment Diff Path Review Platelet Estimate Plt Morphology Comment Hypochromasia Anisocytosis Macrocytosis Target Cells Ovalocytes Sodium Potassium Chloride Carbon Dioxide Anion Gap BUN Creatinine Estim Creat Clear Calc Est GFR (MDRD) Af Amer Est GFR (MDRD) Non-Af BUN/Creatinine Ratio Glucose Lactic Acid Calcium Total Bilirubin Direct Bilirubin AST ALT Alkaline Phosphatase Ammonia B-Natriuretic Peptide Total Protein Albumin Globulin Vitamin B12 TSH Free T4 0.67 L Free T3 pg/dL 0.6 L Cortisol 29.30 H Urine Color Urine Clarity Urine pH Ur Specific [place] Urine Protein Urine Glucose (UA) Urine Ketones Urine Occult Blood Urine Nitrite Urine Bilirubin Urine Urobilinogen Ur Leukocyte Esterase Urine RBC Urine WBC Ur Squamous Epith Cells Amorphous Sediment Urine Bacteria Urine Mucus Carbamazepine 18.2 H* Blood Type Antibody Screen 10/04/18 17:54 WBC RBC Hgb Hct MCV MCH MCHC RDW RDW Differential Plt Count MPV Immature Gran % (Auto) Neut % (Auto) Lymph % (Auto) [place] % (Auto) Eos % (Auto) Baso % (Auto) Absolute Neuts (auto) Absolute Lymphs (auto) Total Counted Differential Comment Diff Path Review Platelet Estimate Plt Morphology Comment Hypochromasia Anisocytosis Macrocytosis Target Cells Ovalocytes Sodium Potassium Chloride Carbon Dioxide Anion Gap BUN Creatinine Estim Creat Clear Calc Est GFR (MDRD) Af Amer Est GFR (MDRD) Non-Af BUN/Creatinine Ratio Glucose Lactic Acid Calcium Total Bilirubin Direct Bilirubin AST ALT Alkaline Phosphatase Ammonia B-Natriuretic Peptide Total Protein Albumin Globulin Vitamin B12 TSH Free T4 Free T3 pg/dL Cortisol Urine Color Urine Clarity Urine pH Ur Specific [place] Urine Protein Urine Glucose (UA) Urine Ketones Urine Occult Blood Urine Nitrite Urine Bilirubin Urine Urobilinogen Ur Leukocyte Esterase Urine RBC Urine WBC Ur Squamous Epith Cells Amorphous Sediment Urine Bacteria Urine Mucus Carbamazepine Blood Type Pending Antibody Screen Pending Assessment/Plan All Active Problems (Last Reviewed 10/04/18 @ 04:38 by Jeferson Villa MD) Acute encephalopathy (Acute) YESENIA (acute kidney injury) (Acute) Pancytopenia (Acute) 1-acute kidney injury. Patient has normal baseline creatinine. UA showed 15 protein, no RBCs no WBCs. Acute kidney injury is most probably prerenal from diclofenac(which is NSAIDs), HUNTER inhibitor, Lasix along with decrease oral intake I agree with holding diclofenac, HUNTER inhibitor, Lasix. I agree with IV fluid 75 cc/h. No need to expand acute kidney injury workup because creatinine is already slightly better today. Please check renal function in the morning. Avoid nephrotoxic's like IV contrast exposure. 2-hypertension: Blood pressure is well controlled. Please continue holding HUNTER inhibitor and Lasix for now. 3-acute bronchitis due to viral infection. Symptomatic management as per the hospitalist 4-leukemia with pancytopenia. Hematology/oncology is on board. 5-hypothyroidism. Patient was started on levothyroxine. Thank you for the consult. Renal team will continue to follow. Please call with any question or concern at my cell phone number [phone]
--- NOTE | 2018-10-04 18:18 | CON.PCM_ITS ---
Problem List (1) YESENIA (acute kidney injury) Status: Acute Consultation - Renal PCP/ Referring MD: Requesting physician: [] Primary care physician: Nicanor Salter DO - History of Present Illness History of Present Illness: The patient is a 42 year old F past medical history of Down syndrome , leukemia , hypertension , CHF . 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 Patient was found to have bronchitis along with acute kidney injury . Patient had normal baseline creatinine in August 2018 . Earlier this month creatinine was 1.5 . Patient presented with creatinine 2.3 and improved to 2.1 today with IV fluid . Patient was started on diclofenac in August for arthritis pain . She was also taking Lasix and HUNTER inhibitor at home . Currently she is off Lasix , HUNTER inhibitor and diclofenac. Currently she is on IV fluids 75 cc/h of normal saline. Review of system: Patient mentation is better as per family member at bedside. Patient is not oriented. Review of system is not obtainable] - Allergies Allergies: Allergies No Known Allergies Allergy (Verified 09/26/18 13:05) - Current Medications Current Medications: Current Medications Hydrocortisone Sodium Succinate (Solu-Cortef) 50 mg IV Q6 [facility] Last Admin: 10/04/18 17:13 Dose: 50 mg Vancomycin IV Pharmacy to Dose (1 ea/ Sodium Chloride) 500 mls @ 250 mls/hr IV PRN PRN; Protocol Sodium Chloride () 1,000 mls @ 75 mls/hr IV .[id number] [facility] Stop: 10/05/18 06:51 Pantoprazole Sodium 40 mg/ (Sodium Chloride) 110 mls @ 330 mls/hr IV Q12 [facility] Levothyroxine Sodium (Synthroid) 75 mcg PO DAILY@0600 [facility] Magnesium Hydroxide (Milk Of Magnesia) 30 ml PO DAILY PRN PRN Reason: Constipation Nutritional Formula (Lactose Free) (Ensure Enlive) 120 ml PO 4X/DAY [facility] Last Admin: 10/04/18 17:14 Dose: 120 ml Nystatin (Mycostatin Powder) 1 applic TOPICAL BID [facility]; Protocol Last Admin: 10/04/18 09:42 Dose: 1 applicatio Sodium Chloride () 5 - 15 ml IV UD PRN PRN Reason: SALINE FLUSH Last Admin: 10/04/18 05:26 Dose: 15 ml - Past Medical History Past Medical History (Chronic Problems): Chronic Problems (Last Reviewed 10/04/18 @ 04:38 by Jeferson Villa MD) Gout (Chronic) Chronic ulcer of left heel (Chronic) Right hip pain (Chronic) Hypothyroidism (Chronic) Hypertension (Chronic) Dry skin (Chronic) Down syndrome (Chronic) - Social History Smoking Status: Never smoker - Family History Maternal Family History: Family History (Last Reviewed 10/04/18 @ 04:38 by Jeferson Villa MD) Father Diabetes Hypertension Heart disease Grandmother Heart disease Diabetes Grandfather Heart disease Patient Problems: Active and Suspected Problems (Last Reviewed 10/04/18 @ 04:38 by Jeferson Villa MD) Acute encephalopathy (Acute) YESENIA (acute kidney injury) (Acute) - Physical Exam General: Cooperative, No apparent distress HEENT: Atraumatic Oral: Moist Mucosa Neck: Supple, Negative Carotid Bruits Lungs: Rhonchi Cardiovascular: Regular rate, Regular Rhythm, Normal S1, Normal S2 Abdomen: Bowel Sounds Present, Soft, Non Tender Extremities: No clubbing, No cyanosis, No edema Musculoskeletal: No Tenderness to Palpation of Joints or Extremities Lymphatic: No Cervical, Supraclavicular, or Inguinal Adenopathy Neurological: Neuro grossly intact Psych/Mental Status: Appropriate Vital Signs Temp Pulse Resp BP Pulse Ox 98.5 F 72 18 133/48 H 94 10/04/18 14:56 10/04/18 15:50 10/04/18 14:56 10/04/18 14:56 10/04/18 14:56 Oxygen Flow Rate (L/min) 2 Oxygen Delivery Method Room Air Weight: 92.9 kg Body Mass Index (BMI) 44.3 Intake and Output for Last 24 Hours 10/02/18 10/03/18 10/04/18 23:59 23:59 23:59 Intake Total 2791 / 2791 Balance 2791 / 2791 Microbiology Past 72 Hours 10/03/18 22:50 Enteric Bacteriology - Final Stool 10/03/18 23:27 Respiratory Panel (PCR) - Final Mucosa - Nasopharyngeal Human [place] 10/03/18 22:50 C. difficile DNA Amplification - Final Stool Laboratory Tests Past 24 Hrs 10/03/18 10/03/18 10/03/18 17:33 17:33 17:33 WBC 5.4 RBC 3.39 L Hgb 9.8 L Hct 31.7 L MCV 93.5 MCH 28.9 MCHC 30.9 L RDW 19.1 H RDW Differential 65.1 H Plt Count 46 L* MPV TNP Immature Gran % (Auto) 0.400 Neut % (Auto) 86.5 H Lymph % (Auto) 8.4 L [place] % (Auto) 4.1 Eos % (Auto) 0.2 Baso % (Auto) 0.4 Absolute Neuts (auto) 4.6 Absolute Lymphs (auto) 0.45 L Total Counted Not Reportable Differential Comment SEE COMMENT Diff Path Review Platelet Estimate MKD DEC Plt Morphology Comment LARGE Hypochromasia RARE Anisocytosis 1+ Macrocytosis RARE Target Cells RARE Ovalocytes RARE Sodium Potassium Chloride Carbon Dioxide Anion Gap BUN Creatinine Estim Creat Clear Calc Est GFR (MDRD) Af Amer Est GFR (MDRD) Non-Af BUN/Creatinine Ratio Glucose Lactic Acid 1.5 Calcium Total Bilirubin Direct Bilirubin AST ALT Alkaline Phosphatase Ammonia B-Natriuretic Peptide 211.7 H Total Protein Albumin Globulin Vitamin B12 TSH Free T4 Free T3 pg/dL Cortisol Urine Color Urine Clarity Urine pH Ur Specific [place] Urine Protein Urine Glucose (UA) Urine Ketones Urine Occult Blood Urine Nitrite Urine Bilirubin Urine Urobilinogen Ur Leukocyte Esterase Urine RBC Urine WBC Ur Squamous Epith Cells Amorphous Sediment Urine Bacteria Urine Mucus Carbamazepine Blood Type Antibody Screen 10/03/18 10/03/18 10/03/18 18:23 22:56 22:56 WBC RBC Hgb Hct MCV MCH MCHC RDW RDW Differential Plt Count MPV Immature Gran % (Auto) Neut % (Auto) Lymph % (Auto) [place] % (Auto) Eos % (Auto) Baso % (Auto) Absolute Neuts (auto) Absolute Lymphs (auto) Total Counted Differential Comment Diff Path Review Platelet Estimate Plt Morphology Comment Hypochromasia Anisocytosis Macrocytosis Target Cells Ovalocytes Sodium Potassium Chloride Carbon Dioxide Anion Gap BUN Creatinine Estim Creat Clear Calc Est GFR (MDRD) Af Amer Est GFR (MDRD) Non-Af BUN/Creatinine Ratio Glucose Lactic Acid Calcium Total Bilirubin 0.60 Direct Bilirubin 0.36 H AST 44 H ALT 21 Alkaline Phosphatase 161 H Ammonia B-Natriuretic Peptide Total Protein 5.6 L Albumin 1.5 L Globulin 4.1 Vitamin B12 1049 H TSH 8.80 H Free T4 Free T3 pg/dL Cortisol Urine Color Straw Urine Clarity Sl. Cloudy Urine pH 5.0 Ur Specific [place] 1.015 Urine Protein 15 H Urine Glucose (UA) Normal Urine Ketones Negative Urine Occult Blood 250 H Urine Nitrite Negative Urine Bilirubin Negative Urine Urobilinogen Normal Ur Leukocyte Esterase 25 H Urine RBC 0-5 SEEN Urine WBC 0 SEEN Ur Squamous Epith Cells 0 SEEN Amorphous Sediment 1+ Urine Bacteria 0 SEEN Urine Mucus 0 SEEN Carbamazepine Blood Type Antibody Screen 10/03/18 10/04/18 10/04/18 22:56 04:30 04:30 WBC 4.4 RBC 2.89 L Hgb 8.4 L Hct 28.0 L MCV 96.9 MCH 29.1 MCHC 30.0 L RDW 19.2 H RDW Differential 67.8 H Plt Count 34 L* MPV Immature Gran % (Auto) Neut % (Auto) Lymph % (Auto) [place] % (Auto) Eos % (Auto) Baso % (Auto) Absolute Neuts (auto) Absolute Lymphs (auto) Total Counted Differential Comment SCAN Diff Path Review Reviewed Platelet Estimate Plt Morphology Comment Hypochromasia Anisocytosis Macrocytosis Target Cells Ovalocytes Sodium 139 Potassium 4.4 Chloride 105 Carbon Dioxide 23.0 Anion Gap 11 BUN 50 H Creatinine 2.15 H Estim Creat Clear Calc 49.99 Est GFR (MDRD) Af Amer 32 L Est GFR (MDRD) Non-Af 27 L BUN/Creatinine Ratio 23.3 H Glucose 113 H Lactic Acid Calcium 6.8 L Total Bilirubin Direct Bilirubin AST ALT Alkaline Phosphatase Ammonia 13.0 B-Natriuretic Peptide Total Protein Albumin Globulin Vitamin B12 TSH Free T4 Free T3 pg/dL Cortisol Urine Color Urine Clarity Urine pH Ur Specific [place] Urine Protein Urine Glucose (UA) Urine Ketones Urine Occult Blood Urine Nitrite Urine Bilirubin Urine Urobilinogen Ur Leukocyte Esterase Urine RBC Urine WBC Ur Squamous Epith Cells Amorphous Sediment Urine Bacteria Urine Mucus Carbamazepine Blood Type Antibody Screen 10/04/18 10/04/18 10/04/18 04:30 06:55 06:55 WBC RBC Hgb Hct MCV MCH MCHC RDW RDW Differential Plt Count MPV Immature Gran % (Auto) Neut % (Auto) Lymph % (Auto) [place] % (Auto) Eos % (Auto) Baso % (Auto) Absolute Neuts (auto) Absolute Lymphs (auto) Total Counted Differential Comment Diff Path Review Platelet Estimate Plt Morphology Comment Hypochromasia Anisocytosis Macrocytosis Target Cells Ovalocytes Sodium Potassium Chloride Carbon Dioxide Anion Gap BUN Creatinine Estim Creat Clear Calc Est GFR (MDRD) Af Amer Est GFR (MDRD) Non-Af BUN/Creatinine Ratio Glucose Lactic Acid Calcium Total Bilirubin Direct Bilirubin AST ALT Alkaline Phosphatase Ammonia B-Natriuretic Peptide Total Protein Albumin Globulin Vitamin B12 TSH Free T4 0.67 L Free T3 pg/dL 0.6 L Cortisol 29.30 H Urine Color Urine Clarity Urine pH Ur Specific [place] Urine Protein Urine Glucose (UA) Urine Ketones Urine Occult Blood Urine Nitrite Urine Bilirubin Urine Urobilinogen Ur Leukocyte Esterase Urine RBC Urine WBC Ur Squamous Epith Cells Amorphous Sediment Urine Bacteria Urine Mucus Carbamazepine 18.2 H* Blood Type Antibody Screen 10/04/18 17:54 WBC RBC Hgb Hct MCV MCH MCHC RDW RDW Differential Plt Count MPV Immature Gran % (Auto) Neut % (Auto) Lymph % (Auto) [place] % (Auto) Eos % (Auto) Baso % (Auto) Absolute Neuts (auto) Absolute Lymphs (auto) Total Counted Differential Comment Diff Path Review Platelet Estimate Plt Morphology Comment Hypochromasia Anisocytosis Macrocytosis Target Cells Ovalocytes Sodium Potassium Chloride Carbon Dioxide Anion Gap BUN Creatinine Estim Creat Clear Calc Est GFR (MDRD) Af Amer Est GFR (MDRD) Non-Af BUN/Creatinine Ratio Glucose Lactic Acid Calcium Total Bilirubin Direct Bilirubin AST ALT Alkaline Phosphatase Ammonia B-Natriuretic Peptide Total Protein Albumin Globulin Vitamin B12 TSH Free T4 Free T3 pg/dL Cortisol Urine Color Urine Clarity Urine pH Ur Specific [place] Urine Protein Urine Glucose (UA) Urine Ketones Urine Occult Blood Urine Nitrite Urine Bilirubin Urine Urobilinogen Ur Leukocyte Esterase Urine RBC Urine WBC Ur Squamous Epith Cells Amorphous Sediment Urine Bacteria Urine Mucus Carbamazepine Blood Type Pending Antibody Screen Pending Assessment/Plan All Active Problems (Last Reviewed 10/04/18 @ 04:38 by Jeferson Villa MD) Acute encephalopathy (Acute) YESENIA (acute kidney injury) (Acute) Pancytopenia (Acute) 1-acute kidney injury. Patient has normal baseline creatinine. UA showed 15 protein, no RBCs no WBCs. Acute kidney injury is most probably prerenal from diclofenac(which is NSAIDs), HUNTER inhibitor, Lasix along with decrease oral intake I agree with holding diclofenac, HUNTER inhibitor, Lasix. I agree with IV fluid 75 cc/h. No need to expand acute kidney injury workup because creatinine is already slightly better today. Please check renal function in the morning. Avoid nephrotoxic's like IV contrast exposure. 2-hypertension: Blood pressure is well controlled. Please continue holding HUNTER inhibitor and Lasix for now. 3-acute bronchitis due to viral infection. Symptomatic management as per the hospitalist 4-leukemia with pancytopenia. Hematology/oncology is on board. 5-hypothyroidism. Patient was started on levothyroxine. Thank you for the consult. Renal team will continue to follow. Please call with any question or concern at my cell phone number [phone]
[2018-10-04 19:30] LABS: Hematocrit 25.9 % (37-47)
[2018-10-05] VITALS (15 sets, daily range): BP systolic 115–149; BP diastolic 40–52; PULSE 67–81; RESP 16–22; TEMP 36.3–37.1; O2SAT 93–97
[2018-10-05] MEDS: Hydrocortisone Sod Succinate 100 MG/2 ML Vial 50 MG IV ×3 (00:14→12:11)
[2018-10-05] MEDS: Levothyroxine 75 MCG Tablet PO (06:01)
[2018-10-05] MEDS: 0.9% NaCl Peripheral Flush Adult/Peds IV ×2 (06:01→12:10)
[2018-10-05 06:12] LABS: Albumin, Serum 1.5 g/dL (3.2-5.0); BUN 44 mg/dL (7-18); BUN/Creat Ratio 23.8 RATIO (10-20); Calcium,Total 7.1 mg/dL (8.5-10.1); Chloride 110 mmol/L (98-107); Creatinine, Serum 1.85 mg/dL (0.55-1.02); EST Glomerular Filtration Rate 32 mL/min (>60); Est Glom Filt Rate - Afr Amer 38 mL/min (>60); Glucose 99 mg/dL (74-106); Phosphorus 4.5 mg/dL (2.5-4.9); Potassium 3.7 mmol/L (3.5-5.1); Sodium Level 142 mmol/L (136-145)
[2018-10-05 06:15] LABS: Vancomycin, Random Level 12.2 ug/mL (0.0-15.0)
[2018-10-05 06:39] LABS: Absolute Neutrophil Count 3.9 X10^3/uL (2.0-7.7); Hematocrit 25.4 % (37-47); Hemoglobin 7.9 g/dl (12.0-15.0); Lymphocyte % 10.7 % (19-41); Mean Corp Hgb Conc 31.1 g/gl (32-36); Mean Corpuscular Hgb 29.2 pg (27.0-32.0); Mean Corpuscular Volume 93.7 fL (81-99); Mean Platelet Vol. 10.8 fl (6.2-12.0); Monocyte# 0.23 X10^3/uL; Monocyte% 4.9 % (0-10); Neutrophil # 3.93 X10^3/uL (2.7-7.7); Platelet Count 59 K/mm3 (150-450); RBC Distribution Width CV 19.1 % (11.6-14.6); RBC Distribution Width SD 65.4 fl (35.1-43.9); Red Blood Count 2.71 M/mm3 (4.2-5.4); White Blood Count 4.7 K/mm3 (4.4-11.0)
[2018-10-05 06:40] LABS: Differential Indicated SCAN CRITERIA MET; POSITIVE COUNT NO; POSITIVE DIFFERENTIAL YES; POSITIVE MORPHOLOGY YES
[2018-10-05 07:00] LABS: Differential Comment SLIDE SCANNED
[2018-10-05 07:01] LABS: Anisocytosis 1+; Hypochromasia RARE; Macrocytosis 1+; Platelet Estimate MOD DEC (ADEQ)
--- NOTE | 2018-10-05 08:02 | PCM.RX.CS ---
Consult Pharmacy has been consulted to manage selected antiobiotic: Vancomycin Type of Consult: Follow-up Suspected Infection: Other Prior Doses of Antibiotics Received/Current Regimen: Patient received 1500mg iv x1 on 10.04.18. Labs: Sodium 142 mmol/L (136-145) 10/05/18 05:25 Potassium 3.7 mmol/L (3.5-5.1) 10/05/18 05:25 Chloride 110 mmol/L (98-107) H 10/05/18 05:25 Carbon Dioxide 24.0 mmol/L (21.0-32.0) 10/05/18 05:25 Anion Gap 11 (5-15) 10/04/18 04:30 BUN 44 mg/dL (7-18) H 10/05/18 05:25 Creatinine 1.85 mg/dL (0.55-1.02) H 10/05/18 05:25 Est GFR (MDRD) Af Amer 38 mL/min (>60) L 10/05/18 05:25 Est GFR (MDRD) Non-Af 32 mL/min (>60) L 10/05/18 05:25 BUN/Creatinine Ratio 23.8 RATIO (10-20) H 10/05/18 05:25 Glucose 99 mg/dL (74-106) 10/05/18 05:25 Random Vancomycin 12.2 ug/mL (0.0-15.0) 10/05/18 05:25 Microbiology: Microbiology 10/03/18 17:33 Blood Culture (Wb) - Right Forearm Blood Culture - Preliminary 10/03/18 22:50 Stool Enteric Bacteriology - Final 10/03/18 23:27 Mucosa - Nasopharyngeal Respiratory Panel (PCR) - Final Human [place] 10/03/18 22:50 Stool C. difficile DNA Amplification - Final Weight used for dosin.9 kg Estimated Creatinine Clearance: 58 ml/min Goal Trough: 15-20 mcg/mL Pharmacy Plan for Drug Dosing: Review of labs shows renal status improved. Cr now 1.85 and CrCl ~58. Random trough level AM 10.05.18 was 12.2. Will begin 1gm iv q12h and get another trough level before 4th dose with goal range of 15-20 mcg/ml. Pharmacy Service will continue to monitor and adjust dosing as required. Follow-Up Labs: Trough Vancomycin - 10.06.18 @0 before 2200 dose
[2018-10-05] MEDS: Nystatin Powder 15gm Bottle 1 APPLIC TOPICAL ×2 (09:25→20:46)
[2018-10-05] MEDS: Vancomycin IV 1,000 MG/200 ML BAG 200 MG IV ×2 (12:10→22:07)
--- NOTE | 2018-10-05 12:37 | ONC.CONS.INP ---
Subjective Date of Service:: 10/05/18 Chief Complaint: Pancytopenia History of Present Illness: Ms. Sandie Riojas is a very pleasant 42-year-old female with a past medical history positive for Down syndrome, hypothyroidism and hypertension who was recently referred to hematology for workup of newly identified pancytopenia. Endorsing approximate 30 pound weight loss in the last 6 weeks attributable to disinterest in food and early satiety, in addition to decreased activity levels. Evaluated by Dr. Granado on 09/26/2018. BMBX recommended with list of differentials inclusive of primary bone marrow disease (MDS and leukemia) and biopsy was scheduled for 10/08/2018. In the interim, patient developed worsening lethargy, cough and generalized weakness. As a result she was presented to [facility] emergency department on 10/03/2018 as advised by her manufacturing lab technician Dr. Centeno and subsequently admitted for management of bronchitis and acute kidney injury (assumed prerenal associated with dehydration). Hematology consult has been requested in light of worsening thrombocytopenia as of 10/04/2018 and rectal bleeding x1 incident on 10/04/2018. Upon entering the room patient is lying comfortably in supine position. Patient mentation and lethargy improved per patient's mother who is at the bedside. Patient's mother reports history of external hemorrhoids with occasional, scant amount sonam blood noted after BMs. However, reports patient produced BM earlier this morning and no bleeding was noted. Mother specifically denies any other episodes of bleeding or abnormal bruising. Past Medical History: Chronic Problems (Last Reviewed 10/04/18 @ 04:38 by Jeferson Villa MD) Gout (Chronic) Chronic ulcer of left heel (Chronic) Right hip pain (Chronic) Hypothyroidism (Chronic) Hypertension (Chronic) Dry skin (Chronic) Down syndrome (Chronic) Past Medical/Surgical History: Past Medical History - Most Recent Inpatient Visit Past Medical History Start: 10/03/18 22:48 Text: Status: Complete Freq: ONCE Protocol: Document 10/03/18 22:48 KA (Rec: 10/03/18 23:36 KA [id number]) BMI Required to complete PMH What is Patient's BMI 44.3 Past Medical History Unable History Recalled Yes Query Text:Pt Unable/Family Not Present Neurologic Medical History Hx Dementia/Alzheimer's No: DOWNS SYNDROME Hx Parkinson's Disease No Hx Seizures No: DOWN SYNDROME Hx Multiple Sclerosis No Hx Migraines No Cardiac Medical History VTE Present on Admission No Hx of Deep Vein Thrombosis/VTE/PE No Hx Hypertension No Hx Chest Pain/Angina No Hx Heart Attack No Hx Cardiac Surgery/Stents/Etc. 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, [employer], Respiratory Medical History Hx COPD No Hx Emphysema No Hx Smoking No Smoking Status Never smoker Tobacco Use Non-smoker Hx Tobacco Use in last 12 months No Hx Sleep Apnea Yes CPAP Yes BIPAP No STOP Results Positive GI Medical History Hx Ulcer No Hx Hepatitis No Hx Cirrhosis No Hx GI Bleed No Hx Unplanned Weight Loss Yes: this admission Genitourinary Medical History Indwelling Catheter in Place on Arrival/ No Admission Hx Renal Disease No Hx Dialysis No Musculoskeletal History Hx Arthritis Yes: per mother Hx Rheumatoid Arthritis No Endocrine Medical History Hx Diabetes No Hx Thyroid Disease Yes Hematologic Medical History Patient unable to answer at this time ( Yes ie. confused, unresponsive etc...) Hx of Blood Transfusion No Hx of Transfusion in last 3 Months No Ever experience any problems with No transfusion(s)? Hx of Preganancy in last 3 Months No Nurse Filling Out Transfusion & KADUDDEL Questions: Date: 10/03/18 Time: 23:34 Psycho/Social Medical History Hx Depression No Hx Anxiety No Hx Behavior Disorder No Hx Alcohol Use No Hx Substance Use No Other Medical History Hx Blood Disorders No Hx Anemia No Hx Cancer No Hx Drug Resistant Organism No Wound/Pressure Injury Present on Arrival Yes: R abd, L groin /Admission Query Text:If yes, chart assessment in Shift/Clinical Findings Central Line/PICC/VAD Present on Arrival No /Admission Antibiotics within last 7 days? No Methicillin Resistant Staphylococcus aureus Screening Active MRSA No Risk for Readmission Number of Risk Factors 3 At Risk for Readmission Patient is At Risk For Readmission Patient is eligible for Call Back Y Past Medical History (Last Reviewed 10/04/18 @ 04:38 by Jeferson Villa MD) Dry skin (Chronic) Down syndrome (Chronic) Past Surgical History (Last Reviewed 10/04/18 @ 04:38 by Jeferson Villa MD) History of cataract surgery (Acute) History of open heart surgery (Acute) History of tubal ligation (Acute) Maternal Family History: Family History (Last Reviewed 10/04/18 @ 04:38 by Jeferson Villa MD) Father Diabetes Hypertension Heart disease Grandmother Heart disease Diabetes Grandfather Heart disease - Social History Lives: Prison Smoking Status: Never smoker Tobacco Use: Non-smoker Allergies/Adverse Reactions: Allergy/AdvReac Type Severity Reaction Status Date / Time No Known Allergies Allergy Verified 09/26/18 13:05 Review of Systems Constitutional:: Reports: Weakness, Fatigue, Weight loss, Appetite change. Denies: Fever, Sweats, Chills Cardiovascular:: Reports: Dyspnea on exertion. Denies: Chest pain, Palpitations, Orthopnea, PND, Shortness of breath Respiratory: Reports: Cough, Shortness of Breath, Wheezing. Denies: Hemoptysis Gastrointestinal:: Reports: Hemorrhoids. Denies: Abdominal pain, Nausea, Vomiting, Diarrhea, Melena, Hematochezia Genitourinary: Reports: Incontinence. Denies: Dysuria, Hematuria, Flank pain Musculoskeletal:: Denies: Back pain, Myalgia, Arthralgia Skin: Denies: Rash, Skin Changes, Wounds Neurological:: Reports: Muscle weakness. Denies: Headache, Dizziness, Numbness, Tingling, Visual changes, Tinnitus, Hearing loss Psychiatric: Denies: Anxiety, Depression, Homicidal Ideations, Suicidal Ideations Unable to obtain accurate/complete ROS d/t: Patient's mother provided review of systems Vital Signs Height 4 ft 9 in Weight: 204 lb 12.951 oz Weight in Pounds 204.8 lbs Pulse Ox 93 Temperature 97.8 F Pulse Rate 73 Respiratory Rate 22 Blood Pressure 120/52 Blood Pressure Position Supine - Physical Exam General: Alert, No apparent distress HEENT: Atraumatic, PERRLA, EOMI, Normocephalic Oropharynx:: Negative for: Dry mucosa, Ulcerated lesions Neck:: Supple, Trachea midline. Negative for: JVD, bilateral Cardiac:: Regular rate, Regular rhythm, Normal S1, Normal S2. Negative for: Murmur Lungs: Clear to auscultation, Excusion symmetrical. Negative for: Rhonchi, Wheezes Abdomen:: Bowel sounds x 4, Soft, Non-tender, Non-distended, Obese. Negative for: Hepatosplenomegaly Extremities:: Negative for: Cyanosis, Edema Skin:: Negative for: Lesions, Rash, Petechiae, Ecchymosis Psychiatric:: Euthymic Lymphatics:: Negative for: Cervical lymphadenopathy, Supraclavicular lymphadenopathy, Axillary lymphadenopathy, Inguinal lymphadenopathy Laboratory Data: Microbiology 10/03/18 17:33 Bacteria Detection (PCR) - Final Blood Culture (Wb) - Right Forearm Blood Culture - Preliminary 10/03/18 18:23 Urine Culture - Preliminary Urine, Catheterized Culture exhibits no growth. 10/03/18 17:33 Blood Culture - Preliminary Blood Culture (Wb) - Left Hand 10/03/18 22:50 Enteric Bacteriology - Final Stool 10/03/18 23:27 Respiratory Panel (PCR) - Final Mucosa - Nasopharyngeal Human [place] 10/03/18 22:50 C. difficile DNA Amplification - Final Stool Laboratory Tests 10/05/18 10/05/18 10/05/18 Range/Units 05:25 05:25 05:25 WBC 4.7 (4.4-11.0) K/mm3 RBC 2.71 L (4.2-5.4) M/mm3 Hgb 7.9 L (12.0-15.0) g/dl Hct 25.4 L (37-47) % MCV 93.7 (81-99) fL MCH 29.2 (27.0-32.0) pg MCHC 31.1 L (32-36) g/gl RDW 19.1 H (11.6-14.6) % RDW Differential 65.4 H (35.1-43.9) fl Plt Count 59 L (150-450) K/mm3 MPV 10.8 (6.2-12.0) fl Immature Gran % (Auto) 0.400 (0.0-0.9) % Neut % (Auto) 84.0 H (47-70) % Lymph % (Auto) 10.7 L (19-41) % [place] % (Auto) 4.9 (0-10) % Eos % (Auto) 0.0 (0-5) % Baso % (Auto) 0.0 (0-1) % Absolute Neuts (auto) 3.9 (2.0-7.7) X10^3/uL Absolute Lymphs (auto) 0.50 L (0.83-4.51) X10^3/ul Total Counted Not Reportable Differential Comment SLIDE SCANNED Diff Path Review Platelet Estimate MOD DEC (ADEQ) Hypochromasia RARE Anisocytosis 1+ Macrocytosis 1+ Sodium 142 (136-145) mmol/L Potassium 3.7 (3.5-5.1) mmol/L Chloride 110 H (98-107) mmol/L Carbon Dioxide 24.0 (21.0-32.0) mmol/L BUN 44 H (7-18) mg/dL Creatinine 1.85 H (0.55-1.02) mg/dL Estim Creat Clear Calc 58.10 ml/min Est GFR (MDRD) Af Amer 38 L (>60) mL/min Est GFR (MDRD) Non-Af 32 L (>60) mL/min BUN/Creatinine Ratio 23.8 H (10-20) RATIO Glucose 99 (74-106) mg/dL Calcium 7.1 L (8.5-10.1) mg/dL Phosphorus 4.5 (2.5-4.9) mg/dL Albumin 1.5 L (3.2-5.0) g/dL Random Vancomycin 12.2 (0.0-15.0) ug/mL Blood Type Antibody Screen 10/04/18 10/04/18 10/04/18 Range/Units 19:04 17:54 04:30 WBC (4.4-11.0) K/mm3 RBC (4.2-5.4) M/mm3 Hgb 8.0 L (12.0-15.0) g/dl Hct 25.9 L (37-47) % MCV (81-99) fL MCH (27.0-32.0) pg MCHC (32-36) g/gl RDW (11.6-14.6) % RDW Differential (35.1-43.9) fl Plt Count (150-450) K/mm3 MPV (6.2-12.0) fl Immature Gran % (Auto) (0.0-0.9) % Neut % (Auto) (47-70) % Lymph % (Auto) (19-41) % [place] % (Auto) (0-10) % Eos % (Auto) (0-5) % Baso % (Auto) (0-1) % Absolute Neuts (auto) (2.0-7.7) X10^3/uL Absolute Lymphs (auto) (0.83-4.51) X10^3/ul Total Counted Differential Comment Diff Path Review Reviewed Platelet Estimate (ADEQ) Hypochromasia Anisocytosis Macrocytosis Sodium (136-145) mmol/L Potassium (3.5-5.1) mmol/L Chloride (98-107) mmol/L Carbon Dioxide (21.0-32.0) mmol/L BUN (7-18) mg/dL Creatinine (0.55-1.02) mg/dL Estim Creat Clear Calc ml/min Est GFR (MDRD) Af Amer (>60) mL/min Est GFR (MDRD) Non-Af (>60) mL/min BUN/Creatinine Ratio (10-20) RATIO Glucose (74-106) mg/dL Calcium (8.5-10.1) mg/dL Phosphorus (2.5-4.9) mg/dL Albumin (3.2-5.0) g/dL Random Vancomycin (0.0-15.0) ug/mL Blood Type AB POSITIVE Antibody Screen NEGATIVE Diagnostic Data: Diagnostic Data Chest X-Ray 10/04/18 13:10 IMPRESSION: No significant interval change. Electronically Signed: Karan Borrego DO at 18:40 EST Tel [phone], Service support , Assessment and Plan 1. Pancytopenia-as evidenced by hemoglobin 7.9 and platelets 59,000 today (subsequent to platelet transfusion overnight) pancytopenia has been newly identified, in the context of nearly 30 pound weight loss in the last 6 weeks, concerning for primary bone disease inclusive of MDS or leukemia. A bone marrow biopsy was already planned for next week in outpatient setting. Reasonable to elect to do BMBX sooner, as in 10/07/2018 when interventional radiology and pathology are available. In the interim, patient is not exhibiting any overt signs of bleeding or bruising at the present time. Worsening anemia likely multifactorial, r/t need for fluid resuscitation and YESENIA and ?underlying BM depression. Transfuse for platelets less than 20,000 or less than 30,000 in the presence of bleeding and hemoglobin less than 7. Case discussed with primary team, Dr. Milo Hooks, MSN, PRODUCE [employer], AOCNP Medications: Prescriptions This Visit Medication Instructions Recorded Ammonium Lactate 1 applic TOPICAL BID 10/03/18 Calcium Carbonate/Vitamin D3 1 each PO DAILY 10/03/18 [Calcium 500+D Tablet Chew] Carbamazepine [Carbamazepine ER] 400 mg PO BID 10/03/18 Doxycycline Hyclate 20 mg PO BID 10/03/18 Furosemide [Lasix] 20 mg PO DAILY 10/03/18 Nystatin [Nystop] 1 applic TP BID 10/03/18 busPIRone [Buspar] 5 mg PO TID 10/03/18 Medications Added to Medication List This Visit Category Date Time Status Levothyroxine [Synthroid] Med 10/05/18 06:00 Active 75 mcg PO DAILY@0600 Vancomycin IV [Vancomycin] Med 10/05/18 10:00 Active 1,000 mg in 200 ml IV Q12H Primary Care Provider: Nicanor Salter DO Referring Provider:
--- NOTE | 2018-10-05 13:13 | NURSING ---
student nurse charting reviewed.
--- NOTE | 2018-10-05 13:44 | PCM.PN.HOSP ---
Patient Problems: Active and Suspected Problems (Last Reviewed 10/04/18 @ 04:38 by Jeferson Villa MD) Acute encephalopathy (Acute) YESENIA (acute kidney injury) (Acute) Subjective: Patient was seen and examined. She is more awake, livelier than before. Denied chest pain, dizziness, palpitations Preliminary blood cultures growing gram-positive cocci in chains Patient has had 2 bowel movements, watery, no bleeding seen Objective: Physical Exam General: - - alert, oriented x 1, not pale, not jaundiced, Down syndrome HEENT: Atraumatic, PERRLA, Normocephalic Neck: Supple, Trachea Midline Lungs: Decreased AE, Vesicular BS, no added sounds Cardiovascular: Regular rate, No murmurs Abdomen: Bowel Sounds Present, Soft, Non Tender, no palpable organs Extremities: No edema, Capillary Refill Less than 3 Seconds Skin: No rashes, No breakdown Musculoskeletal: No Muscle Wasting Neurological: - - Obtunded Psych/Mental Status: - - alert, somehow interactive Vitals/I&O's: Vital Signs Temp Pulse Resp BP Pulse Ox 97.6 F L 68 20 H 115/48 L 97 10/05/18 13:33 10/05/18 13:33 10/05/18 13:33 10/05/18 13:33 10/05/18 13:33 Oxygen Flow Rate (L/min) 2 Oxygen Delivery Method Room Air Weight: 92.9 kg Body Mass Index (BMI) 44.3 Intake and Output for Last 24 Hours 10/03/18 10/04/18 10/05/18 23:59 23:59 23:59 Intake Total 3817 / 3817 234 / 234 Balance 3817 / 3817 234 / 234 Microbiology Past 72 Hours 10/03/18 17:33 Blood Culture (Wb) - Right Forearm Bacteria Detection (PCR) - Final 10/03/18 17:33 Blood Culture (Wb) - Right Forearm Blood Culture - Preliminary 10/03/18 18:23 Urine, Catheterized Urine Culture - Preliminary Culture exhibits no growth. 10/03/18 17:33 Blood Culture (Wb) - Left Hand Blood Culture - Preliminary 10/03/18 22:50 Stool Enteric Bacteriology - Final 10/03/18 23:27 Mucosa - Nasopharyngeal Respiratory Panel (PCR) - Final Human [place] 10/03/18 22:50 Stool C. difficile DNA Amplification - Final Laboratory Results 10/04/18 17:54: Blood Type AB POSITIVE, Antibody Screen NEGATIVE 10/04/18 19:04: Hgb 8.0 L, Hct 25.9 L 10/05/18 05:25: Random Vancomycin 12.2 10/05/18 05:25: WBC 4.7, RBC 2.71 L, Hgb 7.9 L, Hct 25.4 L, MCV 93.7, MCH 29.2, MCHC 31.1 L, RDW 19.1 H, RDW Differential 65.4 H, Plt Count 59 L, MPV 10.8, Immature Gran % (Auto) 0.400, Neut % (Auto) 84.0 H, Lymph % (Auto) 10.7 L, [place] % (Auto) 4.9, Eos % (Auto) 0.0, Baso % (Auto) 0.0, Absolute Neuts (auto) 3.9, Absolute Lymphs (auto) 0.50 L, Total Counted Not Reportable, Differential Comment SLIDE SCANNED, Platelet Estimate MOD DEC, Hypochromasia RARE, Anisocytosis 1+, Macrocytosis 1+ 10/05/18 05:25: Sodium 142, Potassium 3.7, Chloride 110 H, Carbon Dioxide 24.0, BUN 44 H, Creatinine 1.85 H, Estim Creat Clear Calc 58.10, Est GFR (MDRD) Af Amer 38 L, Est GFR (MDRD) Non-Af 32 L, BUN/Creatinine Ratio 23.8 H, Glucose 99, Calcium 7.1 L, Phosphorus 4.5, Albumin 1.5 L Current Medications Hydrocortisone Sodium Succinate (Solu-Cortef) 50 mg IV Q6 [facility] Last Admin: 10/05/18 12:11 Dose: 50 mg Vancomycin IV Pharmacy to Dose (1 ea/ Sodium Chloride) 500 mls @ 250 mls/hr IV PRN PRN; Protocol Pantoprazole Sodium 40 mg/ (Sodium Chloride) 110 mls @ 330 mls/hr IV Q12 [facility] Last Admin: 10/05/18 11:03 Dose: 330 mls/hr Vancomycin HCl (Vancomycin) 1,000 mg in 200 mls @ 200 mls/hr IV Q12H [facility] Last Admin: 10/05/18 12:10 Dose: 200 mls/hr Levothyroxine Sodium (Synthroid) 75 mcg PO DAILY@0600 [facility] Last Admin: 10/05/18 06:01 Dose: 75 mcg Magnesium Hydroxide (Milk Of Magnesia) 30 ml PO DAILY PRN PRN Reason: Constipation Nutritional Formula (Lactose Free) (Ensure Enlive) 120 ml PO 4X/DAY [facility] Last Admin: 10/05/18 13:36 Dose: Not Given Nystatin (Mycostatin Powder) 1 applic TOPICAL BID [facility]; Protocol Last Admin: 10/05/18 09:25 Dose: 1 applicatio Sodium Chloride () 5 - 15 ml IV UD PRN PRN Reason: SALINE FLUSH Last Admin: 10/05/18 12:10 Dose: 10 ml Medical Necessity - Tobacco Use Smoking Status: Never smoker Tobacco Use: Non-smoker Assessment/Plan All Active Problems (Last Reviewed 10/04/18 @ 04:38 by Jeferson Villa MD) Acute encephalopathy (Acute) YESENIA (acute kidney injury) (Acute) Pancytopenia (Acute) 42-year-old female with past medical history of Down syndrome, currently following up with hematology in the outpatient being worked up for leukemia, comes in with progressive lethargy and shortness of breath. 1. Acute metabolic encephalopathy secondary to acute kidney injury, Acute bronchitis from Human metapneumo virus in a patient with Down syndrome, Peers to be improving, will continue to monitor. 2. YESENIA on CKD stage III, likely due to dehydration, improved with IV fluids, appreciate nephrology consult, continue with IV fluids, labs in a.m. nephrology will be consulted, continue IV fluids, labs in am 3. Gram-positive cocci bacteremia, unclear etiology, fevers seen, no eukocytosis will continue on IV Levaquin and vancomycin for now 4. GI bleed, unclear etiology, status post platelet transfusion, platelets is now 59, continue to monitor, no more bleeding, 5. Possible CAP vs acute bronchitis from human metapneumo virus, Repeat chest x-ray appears unchanged, doubt pneumonia Continue on IV Levaquin and Vancomycin for now in the light of current bacteremia 6. Hypothyroidism, admitting TSH was 8.8, free T4 free T3 is low, patient is on IV hydrocortisone as well as po Synthroid Will discontinue IV hydrocortisone, continue on synthroid 7. Pancytopenia, follows with oncology in the outpatient, suspect MDS versus leukemia, due for bone marrow on Sunday, Oncology consulted 8. DVT PPx- SCDs Code Visit Inpatient E&M: 83912 Subs Hosp L2
--- NOTE | 2018-10-05 15:44 | PCM.PN.REN ---
Patient Problems: Active and Suspected Problems (Last Reviewed 10/04/18 @ 04:38 by Jeferson Villa MD) Acute encephalopathy (Acute) YESENIA (acute kidney injury) (Acute) Subjective: no new events - Physical Exam General: Alert, Oriented x3, Cooperative HEENT: Atraumatic, PERRLA, EOMI, Normocephalic Neck: Supple, No JVD, Negative Carotid Bruits Lungs: Clear to auscultation, Normal air movement Cardiovascular: Regular rate, No murmurs Abdomen: Bowel Sounds Present, Soft, Non Tender Extremities: No edema, Capillary Refill Less than 3 Seconds Skin: No rashes, No breakdown Musculoskeletal: No Tenderness to Palpation of Joints or Extremities Neurological: Cranial nerves II-XII grossly intact Psych/Mental Status: Normal Affect, Appropriate Vital Signs Temp Pulse Resp BP Pulse Ox 97.6 F L 68 20 H 115/48 L 97 10/05/18 13:33 10/05/18 13:33 10/05/18 13:33 10/05/18 13:33 10/05/18 13:33 Oxygen Flow Rate (L/min) 2 Oxygen Delivery Method Room Air Weight: 92.9 kg Body Mass Index (BMI) 44.3 Intake and Output for Last 24 Hours 10/03/18 10/04/18 10/05/18 23:59 23:59 23:59 Intake Total 3817 / 3817 234 / 234 Balance 3817 / 3817 234 / 234 Microbiology Past 72 Hours 10/03/18 17:33 Bacteria Detection (PCR) - Final Blood Culture (Wb) - Right Forearm Blood Culture - Preliminary 10/03/18 18:23 Urine Culture - Preliminary Urine, Catheterized Culture exhibits no growth. 10/03/18 17:33 Blood Culture - Preliminary Blood Culture (Wb) - Left Hand 10/03/18 22:50 Enteric Bacteriology - Final Stool 10/03/18 23:27 Respiratory Panel (PCR) - Final Mucosa - Nasopharyngeal Human [place] 10/03/18 22:50 C. difficile DNA Amplification - Final Stool Laboratory Tests Past 24 Hrs 10/04/18 10/04/18 10/05/18 17:54 19:04 05:25 WBC RBC Hgb 8.0 L Hct 25.9 L MCV MCH MCHC RDW RDW Differential Plt Count MPV Immature Gran % (Auto) Neut % (Auto) Lymph % (Auto) [place] % (Auto) Eos % (Auto) Baso % (Auto) Absolute Neuts (auto) Absolute Lymphs (auto) Total Counted Differential Comment Platelet Estimate Hypochromasia Anisocytosis Macrocytosis Sodium Potassium Chloride Carbon Dioxide BUN Creatinine Estim Creat Clear Calc Est GFR (MDRD) Af Amer Est GFR (MDRD) Non-Af BUN/Creatinine Ratio Glucose Calcium Phosphorus Albumin Random Vancomycin 12.2 Blood Type AB POSITIVE Antibody Screen NEGATIVE 10/05/18 10/05/18 05:25 05:25 WBC 4.7 RBC 2.71 L Hgb 7.9 L Hct 25.4 L MCV 93.7 MCH 29.2 MCHC 31.1 L RDW 19.1 H RDW Differential 65.4 H Plt Count 59 L MPV 10.8 Immature Gran % (Auto) 0.400 Neut % (Auto) 84.0 H Lymph % (Auto) 10.7 L [place] % (Auto) 4.9 Eos % (Auto) 0.0 Baso % (Auto) 0.0 Absolute Neuts (auto) 3.9 Absolute Lymphs (auto) 0.50 L Total Counted Not Reportable Differential Comment SLIDE SCANNED Platelet Estimate MOD DEC Hypochromasia RARE Anisocytosis 1+ Macrocytosis 1+ Sodium 142 Potassium 3.7 Chloride 110 H Carbon Dioxide 24.0 BUN 44 H Creatinine 1.85 H Estim Creat Clear Calc 58.10 Est GFR (MDRD) Af Amer 38 L Est GFR (MDRD) Non-Af 32 L BUN/Creatinine Ratio 23.8 H Glucose 99 Calcium 7.1 L Phosphorus 4.5 Albumin 1.5 L Random Vancomycin Blood Type Antibody Screen Medical Necessity - Tobacco Use Smoking Status: Never smoker Tobacco Use: Non-smoker Assessment/Plan All Active Problems (Last Reviewed 10/04/18 @ 04:38 by Jeferson Villa MD) Acute encephalopathy (Acute) YESENIA (acute kidney injury) (Acute) Pancytopenia (Acute) 1-acute kidney injury. Patient has normal baseline creatinine. UA showed 15 protein, no RBCs no WBCs. Acute kidney injury is most probably prerenal from diclofenac(which is NSAIDs), HUNTER inhibitor, Lasix along with decrease oral intake I agree with holding diclofenac, HUNTER inhibitor, Lasix. No need to expand acute kidney injury workup because creatinine is already slightly better today. cr continues to improve 2-hypertension: Blood pressure is well controlled. Please continue holding HUNTER inhibitor and Lasix for now. 3-acute bronchitis due to viral infection. Symptomatic management as per the hospitalist 4-leukemia with pancytopenia. Hematology/oncology is on board. 5-hypothyroidism. Patient was started on levothyroxine.
[2018-10-05] MEDS: levoFLOXacin IV 750 MG/150 ML BAG 100 MG IV (17:52)
--- NOTE | 2018-10-05 18:43 | NURSING ---
All documentation done by student nurse Shanique was reviewed or done with this RN
[2018-10-06] VITALS (13 sets, daily range): BP systolic 119–148; BP diastolic 51–55; PULSE 73–87; RESP 16–20; TEMP 36.8–37.7; O2SAT 92–98
--- NOTE | 2018-10-06 00:34 | NURSING ---
PATIENT REFUSING TO PUT HEART MONITOR BACK ON, GETS VERY AGITATED WHEN RN TRIES TO PUT ON AND WILL GRAB RN'S HANDS. RN EDUCATED ABOUT HEART MONITOR. STILL REFUSING.
[2018-10-06] MEDS: Levothyroxine 75 MCG Tablet PO (04:05)
[2018-10-06 06:58] LABS: ALB/GLOB Ratio 0.4 RATIO (0.9-2.4); AST(SGOT) 30 U/L (15-37); Alanine Aminotransfer ALT/SGPT 13 U/L (13-56); Albumin, Serum 1.5 g/dL (3.2-5.0); Alkaline Phosphatase 118 U/L (45-117); Anion Gap 9 (5-15); BUN 37 mg/dL (7-18); Calcium,Total 7.5 mg/dL (8.5-10.1); Chloride 107 mmol/L (98-107); Creatinine, Serum 1.68 mg/dL (0.55-1.02); EST Glomerular Filtration Rate 35 mL/min (>60); Est Glom Filt Rate - Afr Amer 43 mL/min (>60); Estimated Creatinine Clearance 63.98 ml/min; Globulin 3.9 g/dL (2.2-4.2); Glucose 81 mg/dL (74-106); Potassium 3.4 mmol/L (3.5-5.1); Protein, Total 5.4 g/dL (6.4-8.2); Sodium Level 140 mmol/L (136-145)
[2018-10-06 07:20] LABS: Absolute Lymphocyte Count 0.37 X10^3/ul (0.83-4.51); Absolute Neutrophil Count 3.2 X10^3/uL (2.0-7.7); Hematocrit 27.3 % (37-47); Hemoglobin 8.3 g/dl (12.0-15.0); Lymphocyte # 0.37 X10^3/ul (4.0); Lymphocyte % 9.4 % (19-41); Mean Corp Hgb Conc 30.4 g/gl (32-36); Mean Corpuscular Hgb 29.6 pg (27.0-32.0); Mean Corpuscular Volume 97.5 fL (81-99); Mean Platelet Vol. 11.2 fl (6.2-12.0); Monocyte# 0.27 X10^3/uL; Monocyte% 6.9 % (0-10); Neutrophil # 3.24 X10^3/uL (2.7-7.7); Neutrophil % 82.4 % (47-70); Platelet Count 62 K/mm3 (150-450); RBC Distribution Width CV 18.4 % (11.6-14.6); RBC Distribution Width SD 62.1 fl (35.1-43.9); White Blood Count 3.9 K/mm3 (4.4-11.0)
[2018-10-06 07:21] LABS: Differential Indicated SCAN CRITERIA MET; POSITIVE COUNT NO; POSITIVE DIFFERENTIAL YES; POSITIVE MORPHOLOGY NO
[2018-10-06] MEDS: Nystatin Powder 15gm Bottle 1 APPLIC TOPICAL ×2 (09:59→21:48)
[2018-10-06] MEDS: Vancomycin IV 1,000 MG/200 ML BAG 200 MG IV (10:00)
[2018-10-06] MEDS: Pantoprazole Sodium 40 MG Tablet PO ×2 (10:00→21:48)
[2018-10-06] MEDS: 0.9% Normal Saline 1,000 ML 75 ML IV (11:04)
--- NOTE | 2018-10-06 11:46 | PN.RENAL_ITS ---
Patient Problems: Active and Suspected Problems (Last Reviewed 10/04/18 @ 04:38 by Jeferson Villa MD) Acute encephalopathy (Acute) YESENIA (acute kidney injury) (Acute) Subjective: no new events - Physical Exam General: Alert, Oriented x3, Cooperative HEENT: Atraumatic, PERRLA, EOMI, Normocephalic Neck: Supple, No JVD, Negative Carotid Bruits Lungs: Clear to auscultation, Normal air movement Cardiovascular: Regular rate, No murmurs Abdomen: Bowel Sounds Present, Soft, Non Tender Extremities: No edema, Capillary Refill Less than 3 Seconds Skin: No rashes, No breakdown Musculoskeletal: No Tenderness to Palpation of Joints or Extremities Neurological: Cranial nerves II-XII grossly intact Psych/Mental Status: Normal Affect, Appropriate Vital Signs Temp Pulse Resp BP Pulse Ox 98.9 F 81 16 119/51 L 95 10/06/18 09:59 10/06/18 11:00 10/06/18 09:59 10/06/18 09:59 10/06/18 09:59 Oxygen Flow Rate (L/min) 2 Oxygen Delivery Method Room Air Weight: 92.9 kg Body Mass Index (BMI) 44.3 Intake and Output for Last 24 Hours 10/04/18 10/05/18 10/06/18 23:59 23:59 23:59 Intake Total 3817 / 3817 1285 / 1285 723 / 723 Output Total 100 / 100 Balance 3817 / 3817 1185 / 1185 723 / 723 Microbiology Past 72 Hours 10/03/18 18:23 Urine Culture - Final Urine, Catheterized Culture exhibits no growth. 10/03/18 17:33 Bacteria Detection (PCR) - Final Blood Culture (Wb) - Right Forearm Blood Culture - Preliminary 10/03/18 17:33 Blood Culture - Preliminary Blood Culture (Wb) - Left Hand 10/03/18 22:50 Enteric Bacteriology - Final Stool 10/03/18 23:27 Respiratory Panel (PCR) - Final Mucosa - Nasopharyngeal Human [place] 10/03/18 22:50 C. difficile DNA Amplification - Final Stool Laboratory Tests Past 24 Hrs 10/06/18 10/06/18 05:26 05:26 WBC 3.9 L RBC 2.80 L Hgb 8.3 L Hct 27.3 L MCV 97.5 MCH 29.6 MCHC 30.4 L RDW 18.4 H RDW Differential 62.1 H Plt Count 62 L MPV 11.2 Immature Gran % (Auto) 1.300 H Neut % (Auto) 82.4 H Lymph % (Auto) 9.4 L [place] % (Auto) 6.9 Eos % (Auto) 0.0 Baso % (Auto) 0.0 Absolute Neuts (auto) 3.2 Absolute Lymphs (auto) 0.37 L Total Counted Not Reportable Differential Comment Diff Path Review May foll Sodium 140 Potassium 3.4 L Chloride 107 Carbon Dioxide 24.0 Anion Gap 9 BUN 37 H Creatinine 1.68 H Estim Creat Clear Calc 63.98 Est GFR (MDRD) Af Amer 43 L Est GFR (MDRD) Non-Af 35 L BUN/Creatinine Ratio 22.0 H Glucose 81 Calcium 7.5 L Total Bilirubin 0.50 AST 30 ALT 13 Alkaline Phosphatase 118 H Total Protein 5.4 L Albumin 1.5 L Globulin 3.9 Albumin/Globulin Ratio 0.4 L Medical Necessity - Tobacco Use Smoking Status: Never smoker Tobacco Use: Non-smoker Assessment/Plan All Active Problems (Last Reviewed 10/04/18 @ 04:38 by Jeferson Villa MD) Acute encephalopathy (Acute) YESENIA (acute kidney injury) (Acute) Pancytopenia (Acute) 1-acute kidney injury. Patient has normal baseline creatinine. UA showed 15 protein, no RBCs no WBCs. Acute kidney injury is most probably prerenal from diclofenac(which is NSAIDs), HUNTER inhibitor, Lasix along with decrease oral intake I agree with holding diclofenac, HUNTER inhibitor, Lasix. No need to expand acute kidney injury workup because creatinine is already slightly better today. cr continues to improve 2-hypertension: Blood pressure is well controlled. Please continue holding HUNTER inhibitor and Lasix for now. 3-acute bronchitis due to viral infection. Symptomatic management as per the hospitalist 4-leukemia with pancytopenia. Hematology/oncology is on board. 5-hypothyroidism. Patient was started on levothyroxine. plan continue low dose fluids for bone marrow tomorrow d/w Dr Pedraza
--- NOTE | 2018-10-06 15:48 | PCM.PN.HOSP ---
Patient Problems: Active and Suspected Problems (Last Reviewed 10/04/18 @ 04:38 by Jeferson Villa MD) Acute encephalopathy (Acute) YESENIA (acute kidney injury) (Acute) Subjective: Patient was seen and examined. Did not sleep well at night per nursing. Has had a couple of loose stools. Denies any fever or chills or shortness of breath Objective: Physical Exam General: - - alert, oriented x 1, not pale, not jaundiced, Down syndrome HEENT: Atraumatic, PERRLA, Normocephalic Neck: Supple, Trachea Midline Lungs: Decreased AE, Vesicular BS, no added sounds Cardiovascular: Regular rate, No murmurs Abdomen: Bowel Sounds Present, Soft, Non Tender, no palpable organs Extremities: No edema, Capillary Refill Less than 3 Seconds Skin: No rashes, No breakdown Musculoskeletal: No Muscle Wasting Neurological: - - Obtunded Psych/Mental Status: - - alert Vitals/I&O's: Vital Signs Temp Pulse Resp BP Pulse Ox 98.9 F 81 16 119/51 L 95 10/06/18 09:59 10/06/18 11:00 10/06/18 09:59 10/06/18 09:59 10/06/18 09:59 Oxygen Flow Rate (L/min) 2 Oxygen Delivery Method Room Air Weight: 92.9 kg Body Mass Index (BMI) 44.3 Intake and Output for Last 24 Hours 10/04/18 10/05/18 10/06/18 23:59 23:59 23:59 Intake Total 3817 / 3817 1285 / 1285 1472 / 1472 Output Total 100 / 100 Balance 3817 / 3817 1185 / 1185 1472 / 1472 Microbiology Past 72 Hours 10/03/18 17:33 Blood Culture (Wb) - Left Hand Blood Culture - Preliminary 10/03/18 17:33 Blood Culture (Wb) - Right Forearm Bacteria Detection (PCR) - Final 10/03/18 17:33 Blood Culture (Wb) - Right Forearm Blood Culture - Preliminary Alpha Hemolytic Streptococcus 10/03/18 18:23 Urine, Catheterized Urine Culture - Final Culture exhibits no growth. 10/03/18 22:50 Stool Enteric Bacteriology - Final 10/03/18 23:27 Mucosa - Nasopharyngeal Respiratory Panel (PCR) - Final Human [place] 10/03/18 22:50 Stool C. difficile DNA Amplification - Final Laboratory Results 10/06/18 05:26: WBC 3.9 L, RBC 2.80 L, Hgb 8.3 L, Hct 27.3 L, MCV 97.5, MCH 29.6, MCHC 30.4 L, RDW 18.4 H, RDW Differential 62.1 H, Plt Count 62 L, MPV 11.2, Immature Gran % (Auto) 1.300 H, Neut % (Auto) 82.4 H, Lymph % (Auto) 9.4 L, [place] % (Auto) 6.9, Eos % (Auto) 0.0, Baso % (Auto) 0.0, Absolute Neuts (auto) 3.2, Absolute Lymphs (auto) 0.37 L, Total Counted Not Reportable, Differential Comment , Diff Path Review May foll 10/06/18 05:26: Sodium 140, Potassium 3.4 L, Chloride 107, Carbon Dioxide 24.0, Anion Gap 9, BUN 37 H, Creatinine 1.68 H, Estim Creat Clear Calc 63.98, Est GFR (MDRD) Af Amer 43 L, Est GFR (MDRD) Non-Af 35 L, BUN/Creatinine Ratio 22.0 H, Glucose 81, Calcium 7.5 L, Total Bilirubin 0.50, AST 30, ALT 13, Alkaline Phosphatase 118 H, Total Protein 5.4 L, Albumin 1.5 L, Globulin 3.9, Albumin/Globulin Ratio 0.4 L Current Medications Levofloxacin (Levaquin Iv) 750 mg in 150 mls @ 100 mls/hr IV Q48 [facility] Sodium Chloride () 1,000 mls @ 75 mls/hr IV .[id number] [facility] Stop: 10/07/18 00:04 Last Admin: 10/06/18 11:04 Dose: 75 mls/hr Levothyroxine Sodium (Synthroid) 75 mcg PO DAILY@0600 [facility] Last Admin: 10/06/18 04:05 Dose: 75 mcg Magnesium Hydroxide (Milk Of Magnesia) 30 ml PO DAILY PRN PRN Reason: Constipation Nutritional Formula (Lactose Free) (Ensure Enlive) 120 ml PO 4X/DAY [facility] Last Admin: 10/06/18 12:32 Dose: Not Given Nystatin (Mycostatin Powder) 1 applic TOPICAL BID [facility]; Protocol Last Admin: 10/06/18 09:59 Dose: 1 applicatio Pantoprazole Sodium (Protonix) 40 mg PO BID [facility] Last Admin: 10/06/18 10:00 Dose: 40 mg Sodium Chloride () 5 - 15 ml IV UD PRN PRN Reason: SALINE FLUSH Last Admin: 10/05/18 12:10 Dose: 10 ml Medical Necessity - Tobacco Use Smoking Status: Never smoker Tobacco Use: Non-smoker Assessment/Plan All Active Problems (Last Reviewed 10/04/18 @ 04:38 by Jeferson Villa MD) Acute encephalopathy (Acute) YESENIA (acute kidney injury) (Acute) Pancytopenia (Acute) 42-year-old female with past medical history of Down syndrome, currently following up with hematology in the outpatient being worked up for leukemia, comes in with progressive lethargy and shortness of breath. 1. Acute metabolic encephalopathy secondary to acute kidney injury, Acute bronchitis from Human metapneumo virus in a patient with Down syndrome, Patient is almost at baseline 2. YESENIA on CKD stage III, likely due to dehydration, resolving, nephrology consulted, Will give 1L NS at 75mls/hr today only as patient appears sleepy and not drinking 3. Alpha-hemolytic streptococcus bacteremia, no fevers seen, no leukocytosis 2d-echo on 10/04/18 was negative for vegetations will DC vancomycin and Levaquin, start on ceftriaxone (5% chance of adverse reaction of thrombocytopenia) ID consulted 4. GI bleed, secondary to severe thrombocytopenia, status post platelet transfusion, platelets is now 62, continue to monitor, no more bleeding, 5. Acute bronchitis from human metapneumo virus, pneumonia ruled out from repeat CXR, will continue with symptomatic care 6. Hypothyroidism, admitting TSH was 8.8, free T4 free T3 is low, started on synthroid 7. Pancytopenia, follows with oncology in the outpatient, suspect MDS versus leukemia, due for bone marrow on Sunday, Oncology consulted 8. DVT PPx- SCDs Code Visit Inpatient E&M: 91506 Subs Hosp L2
--- NOTE | 2018-10-06 16:06 | PN_ITS ---
Patient Problems: Active and Suspected Problems (Last Reviewed 10/04/18 @ 04:38 by Jeferson Villa MD) Acute encephalopathy (Acute) YESENIA (acute kidney injury) (Acute) Subjective: Patient was seen and examined. Did not sleep well at night per nursing. Has had a couple of loose stools. Denies any fever or chills or shortness of breath Objective: Physical Exam General: - - alert, oriented x 1, not pale, not jaundiced, Down syndrome HEENT: Atraumatic, PERRLA, Normocephalic Neck: Supple, Trachea Midline Lungs: Decreased AE, Vesicular BS, no added sounds Cardiovascular: Regular rate, No murmurs Abdomen: Bowel Sounds Present, Soft, Non Tender, no palpable organs Extremities: No edema, Capillary Refill Less than 3 Seconds Skin: No rashes, No breakdown Musculoskeletal: No Muscle Wasting Neurological: - - Obtunded Psych/Mental Status: - - alert Vitals/I&O's: Vital Signs Temp Pulse Resp BP Pulse Ox 98.9 F 81 16 119/51 L 95 10/06/18 09:59 10/06/18 11:00 10/06/18 09:59 10/06/18 09:59 10/06/18 09:59 Oxygen Flow Rate (L/min) 2 Oxygen Delivery Method Room Air Weight: 92.9 kg Body Mass Index (BMI) 44.3 Intake and Output for Last 24 Hours 10/04/18 10/05/18 10/06/18 23:59 23:59 23:59 Intake Total 3817 / 3817 1285 / 1285 1472 / 1472 Output Total 100 / 100 Balance 3817 / 3817 1185 / 1185 1472 / 1472 Microbiology Past 72 Hours 10/03/18 17:33 Blood Culture (Wb) - Left Hand Blood Culture - Preliminary 10/03/18 17:33 Blood Culture (Wb) - Right Forearm Bacteria Detection (PCR) - Final 10/03/18 17:33 Blood Culture (Wb) - Right Forearm Blood Culture - Preliminary Alpha Hemolytic Streptococcus 10/03/18 18:23 Urine, Catheterized Urine Culture - Final Culture exhibits no growth. 10/03/18 22:50 Stool Enteric Bacteriology - Final 10/03/18 23:27 Mucosa - Nasopharyngeal Respiratory Panel (PCR) - Final Human [place] 10/03/18 22:50 Stool C. difficile DNA Amplification - Final Laboratory Results 10/06/18 05:26: WBC 3.9 L, RBC 2.80 L, Hgb 8.3 L, Hct 27.3 L, MCV 97.5, MCH 29.6, MCHC 30.4 L, RDW 18.4 H, RDW Differential 62.1 H, Plt Count 62 L, MPV 11.2, Immature Gran % (Auto) 1.300 H, Neut % (Auto) 82.4 H, Lymph % (Auto) 9.4 L , [place] % (Auto) 6.9, Eos % (Auto) 0.0, Baso % (Auto) 0.0, Absolute Neuts (auto) 3.2, Absolute Lymphs (auto) 0.37 L, Total Counted Not Reportable, Differential Comment , Diff Path Review May foll 10/06/18 05:26: Sodium 140, Potassium 3.4 L, Chloride 107, Carbon Dioxide 24.0, Anion Gap 9, BUN 37 H, Creatinine 1.68 H, Estim Creat Clear Calc 63.98, Est GFR (MDRD) Af Amer 43 L, Est GFR (MDRD) Non-Af 35 L, BUN/Creatinine Ratio 22.0 H, Glucose 81, Calcium 7.5 L, Total Bilirubin 0.50, AST 30, ALT 13, Alkaline Phosphatase 118 H, Total Protein 5.4 L, Albumin 1.5 L, Globulin 3.9, Albumin/Globulin Ratio 0.4 L Current Medications Levofloxacin (Levaquin Iv) 750 mg in 150 mls @ 100 mls/hr IV Q48 [facility] Sodium Chloride () 1,000 mls @ 75 mls/hr IV .[id number] [facility] Stop: 10/07/18 00:04 Last Admin: 10/06/18 11:04 Dose: 75 mls/hr Levothyroxine Sodium (Synthroid) 75 mcg PO DAILY@0600 [facility] Last Admin: 10/06/18 04:05 Dose: 75 mcg Magnesium Hydroxide (Milk Of Magnesia) 30 ml PO DAILY PRN PRN Reason: Constipation Nutritional Formula (Lactose Free) (Ensure Enlive) 120 ml PO 4X/DAY [facility] Last Admin: 10/06/18 12:32 Dose: Not Given Nystatin (Mycostatin Powder) 1 applic TOPICAL BID [facility]; Protocol Last Admin: 10/06/18 09:59 Dose: 1 applicatio Pantoprazole Sodium (Protonix) 40 mg PO BID [facility] Last Admin: 10/06/18 10:00 Dose: 40 mg Sodium Chloride () 5 - 15 ml IV UD PRN PRN Reason: SALINE FLUSH Last Admin: 10/05/18 12:10 Dose: 10 ml Medical Necessity - Tobacco Use Smoking Status: Never smoker Tobacco Use: Non-smoker Assessment/Plan All Active Problems (Last Reviewed 10/04/18 @ 04:38 by Jeferson Villa MD) Acute encephalopathy (Acute) YESENIA (acute kidney injury) (Acute) Pancytopenia (Acute) 42-year-old female with past medical history of Down syndrome, currently following up with hematology in the outpatient being worked up for leukemia, comes in with progressive lethargy and shortness of breath. 1. Acute metabolic encephalopathy secondary to acute kidney injury, Acute bronchitis from Human metapneumo virus in a patient with Down syndrome, Patient is almost at baseline 2. YESENIA on CKD stage III, likely due to dehydration, resolving, nephrology consulted, Will give 1L NS at 75mls/hr today only as patient appears sleepy and not drinking 3. Alpha-hemolytic streptococcus bacteremia, no fevers seen, no leukocytosis 2d-echo on 10/04/18 was negative for vegetations will DC vancomycin and Levaquin, start on ceftriaxone (5% chance of adverse reaction of thrombocytopenia) ID consulted 4. GI bleed, secondary to severe thrombocytopenia, status post platelet transfusion, platelets is now 62, continue to monitor, no more bleeding, 5. Acute bronchitis from human metapneumo virus, pneumonia ruled out from repeat CXR, will continue with symptomatic care 6. Hypothyroidism, admitting TSH was 8.8, free T4 free T3 is low, started on synthroid 7. Pancytopenia, follows with oncology in the outpatient, suspect MDS versus leukemia, due for bone marrow on Sunday, Oncology consulted 8. DVT PPx- SCDs Code Visit Inpatient E&M: 33109 Subs Hosp L2
[2018-10-07] VITALS (15 sets, daily range): BP systolic 101–130; BP diastolic 33–52; PULSE 77–91; RESP 16–20; TEMP 36.3–37.7; O2SAT 85–98
--- NOTE | 2018-10-07 04:00 | NURSING ---
PATIENT TOOK OFF CPAP, REFUSING TO PUT BACK ON. IN S WITHOUT IT AT TIMES, EDUCATED ABOUT PUTTING IT BACK ON. PATIENT REFUSING TO PUT BACK ON.
[2018-10-07] MEDS: Levothyroxine 75 MCG Tablet PO (04:12)
[2018-10-07] MEDS: 0.9% NaCl Peripheral Flush Adult/Peds IV (04:12)
--- NOTE | 2018-10-07 05:55 | RAD_ITS ---
STUDY: X-RAY CHEST REASON FOR EXAM: Female, 42 years old. Shortness of breath. Acute encephalopathy. TECHNIQUE: AP and lateral views of the chest. COMPARISON: Comparison is made with prior study dated October 04, 2018. FINDINGS: EKG electrodes are seen. Stable mild degree of vascular congestion. Blunting of both costophrenic angles. Sternal cerclage wires and vascular clips are present from a prior sternotomy and coronary artery bypass graft procedure (CABG). Cardiomegaly. Normal mediastinum and antonino. Normal visualized pulmonary arteries. Normal visualized aortic arch and descending thoracic aorta. There are diffuse degenerative changes of the visualized thoracic spine. Normal visualized ribs, clavicles, and shoulders. There is no demonstrated abnormality of the visualized soft tissue structures of the upper abdomen. RAD/Chest PA and Lateral IMPRESSION: Findings suggestive of mild degree of vascular congestion and CHF. There has been essentially no change. Electronically Signed: Reese Adames MD at 15:12 EST , Service support ,
[2018-10-07 10:13] LABS: Absolute Lymphocyte Count 0.41 X10^3/ul (0.83-4.51); Absolute Neutrophil Count 2.2 X10^3/uL (2.0-7.7); Hematocrit 26.9 % (37-47); Hemoglobin 8.2 g/dl (12.0-15.0); Lymphocyte # 0.41 X10^3/ul (4.0); Lymphocyte % 14.3 % (19-41); Mean Corp Hgb Conc 30.5 g/gl (32-36); Mean Corpuscular Hgb 28.9 pg (27.0-32.0); Mean Corpuscular Volume 94.7 fL (81-99); Mean Platelet Vol. 10.7 fl (6.2-12.0); Neutrophil # 2.23 X10^3/uL (2.7-7.7); RBC Distribution Width CV 18.8 % (11.6-14.6); RBC Distribution Width SD 64.9 fl (35.1-43.9); Red Blood Count 2.84 M/mm3 (4.2-5.4); White Blood Count 2.9 K/mm3 (4.4-11.0)
[2018-10-07 10:16] LABS: Platelet Count 44 K/mm3 (150-450)
[2018-10-07 10:17] LABS: Differential Indicated SCAN CRITERIA MET; POSITIVE COUNT YES; POSITIVE DIFFERENTIAL YES; POSITIVE MORPHOLOGY NO
[2018-10-07] MEDS: Pantoprazole Sodium 40 MG Tablet PO ×2 (11:49→22:41)
[2018-10-07] MEDS: Nystatin Powder 15gm Bottle 1 APPLIC TOPICAL ×2 (11:51→22:42)
[2018-10-07 12:15] LABS: Pathologist Review Reviewed
--- NOTE | 2018-10-07 12:25 | PCM.PN.HOSP ---
Patient Problems: Active and Suspected Problems (Last Reviewed 10/04/18 @ 04:38 by Jeferson Villa MD) Acute encephalopathy (Acute) YESENIA (acute kidney injury) (Acute) Subjective: Patient seen and examined this morning. Her mother is by her bedside. Patient was initially sleeping but woke up and was able to respond to some questions. She denied any headache, chest pain or blurred vision, shortness of breath, abdominal pain, diarrhea vomiting. I discussed with the hematology nurse practitioner Anne-Marie Hooks about patient going for a previously schedule bone marrow biopsy today. However, patient's initial blood cultures showed preliminary report of alphahemolytic Streptococcus. Such, infectious disease was consulted. Per discussion with family, and based on patient's positive blood cultures and with a bone marrow biopsy being invasive procedure, I discussed with hematology about holding off on the bone marrow biopsy for now as ID apparently also did not think it was a good idea at this particular point. Will await repeat blood cultures which were taken yesterday to see if these are also positive. Labs and vitals reviewed. She developed a mild fever yesterday with temperature peaking at 99.8 Fahrenheit. Platelets have also fallen to 44 today. Vitals/I&O's: Vital Signs Temp Pulse Resp BP Pulse Ox 97.3 F L 82 16 126/48 H 92 10/07/18 09:43 10/07/18 10:58 10/07/18 09:43 10/07/18 09:43 10/07/18 10:00 Oxygen Flow Rate (L/min) 1.5 Oxygen Delivery Method Nasal Cannula Weight: 204 lb 12.951 oz Body Mass Index (BMI) 44.3 Intake and Output for Last 24 Hours 10/05/18 10/06/18 10/07/18 23:59 23:59 23:59 Intake Total 1285 / 1285 2960 / 2960 100 / 100 Output Total 100 / 100 Balance 1185 / 1185 2960 / 2960 100 / 100 General: Alert, Cooperative, No apparent distress, - - Down's syndrome HEENT: Atraumatic, PERRLA, EOMI, Normocephalic Oral: Dry Mucosa Neck: Supple, No JVD, Negative Carotid Bruits Lungs: - - mildly decreased breath sounds bibasally, no wheeze or crackles Cardiovascular: Regular rate, Regular Rhythm, Normal S1, Normal S2, No murmurs Abdomen: Bowel Sounds Present, Soft, Non Tender, Non-Distended, No Hepato-splenomegaly Extremities: No clubbing, No cyanosis, No edema, Capillary Refill Less than 3 Seconds Skin: No rashes, No breakdown Musculoskeletal: No Tenderness to Palpation of Joints or Extremities Lymphatic: No Cervical, Supraclavicular, or Inguinal Adenopathy Neurological: Cranial nerves II-XII grossly intact, Motor Exam 5/5 strength throughout Psych/Mental Status: Normal Affect, Appropriate Microbiology Past 72 Hours 10/03/18 17:33 Blood Culture (Wb) - Left Hand Blood Culture - Final 10/03/18 17:33 Blood Culture (Wb) - Right Forearm Bacteria Detection (PCR) - Final 10/03/18 17:33 Blood Culture (Wb) - Right Forearm Blood Culture - Final Streptococcus mutans 10/03/18 18:23 Urine, Catheterized Urine Culture - Final Culture exhibits no growth. 10/03/18 22:50 Stool Enteric Bacteriology - Final 10/03/18 23:27 Mucosa - Nasopharyngeal Respiratory Panel (PCR) - Final Human [place] Laboratory Results 10/06/18 05:26: Diff Path Review Reviewed 10/07/18 09:55: WBC 2.9 L, RBC 2.84 L, Hgb 8.2 L, Hct 26.9 L, MCV 94.7, MCH 28.9, MCHC 30.5 L, RDW 18.8 H, RDW Differential 64.9 H, Plt Count 44 L*, MPV 10.7, Immature Gran % (Auto) 0.700, Neut % (Auto) 78.0 H, Lymph % (Auto) 14.3 L, [place] % (Auto) 7.0, Eos % (Auto) 0.0, Baso % (Auto) 0.0, Absolute Neuts (auto) 2.2, Absolute Lymphs (auto) 0.41 L, Total Counted Not Reportable, Differential Comment COMMENT, Diff Path Review May foll Current Medications Ceftriaxone Sodium 2 gm/ (Sodium Chloride) 50 mls @ 100 mls/hr IV Q24 [facility] Last Admin: 10/07/18 11:47 Dose: 100 mls/hr Levothyroxine Sodium (Synthroid) 75 mcg PO DAILY@0600 [facility] Last Admin: 10/07/18 04:12 Dose: 75 mcg Magnesium Hydroxide (Milk Of Magnesia) 30 ml PO DAILY PRN PRN Reason: Constipation Nutritional Formula (Lactose Free) (Ensure Enlive) 120 ml PO 4X/DAY [facility] Last Admin: 10/07/18 12:00 Dose: 120 ml Nystatin (Mycostatin Powder) 1 applic TOPICAL BID [facility]; Protocol Last Admin: 10/07/18 11:51 Dose: 1 applicatio Pantoprazole Sodium (Protonix) 40 mg PO BID [facility] Last Admin: 10/07/18 11:49 Dose: 40 mg Sodium Chloride () 5 - 15 ml IV UD PRN PRN Reason: SALINE FLUSH Last Admin: 10/07/18 04:12 Dose: 10 ml Medical Necessity - Tobacco Use Smoking Status: Never smoker Tobacco Use: Non-smoker Assessment/Plan All Active Problems (Last Reviewed 10/04/18 @ 04:38 by Jeferson Villa MD) Acute encephalopathy (Acute) YESENIA (acute kidney injury) (Acute) Pancytopenia (Acute) 1. Acute metabolic encephalopathy due to acute bronchitis was initially admitted and managed for pneumonia; CXR was however negative respiratory panel isolated human Last pneumo virus Currently on supportive treatment with breathing treatments. Also on IV ceftriaxone. Was initially on IV vancomycin and Levaquin but these were DC'd after blood culture results. now back to her baseline 2. Acute streptococcal bacteremia Source of bacteremia is still not clear. Preliminary blood cultures both grew alphahemolytic Streptococcus. She had an echo done on 10/04/2018 which was negative for vegetations. Early on IV ceftriaxone. ID consulted. Awaiting recommendation. 3. Pancytopenia platelets have fallen to 44 today. WBCs 2.9 a hemoglobin is 8.2 today with platelets being 44. She was supposed to get bone marrow biopsy today. However in light of bacteremia and biopsy been an invasive process, will hold off on bone marrow biopsy for now until repeat blood culture was also obtained. Hematology on board. 4. Acute bronchitis: as under 1. 5. GI bleed due to severe thrombocytopenia resolved. had some mild bleeding from rectum. received platelet transfusion now stable. will continue to monitor DVT prophylaxis: SCDs Code status; DNRCC Code Visit Inpatient E&M: 10937 Subs Hosp L3
--- NOTE | 2018-10-07 12:30 | PN_ITS ---
Patient Problems: Active and Suspected Problems (Last Reviewed 10/04/18 @ 04:38 by Jeferson Villa MD) Acute encephalopathy (Acute) YESENIA (acute kidney injury) (Acute) Subjective: Patient seen and examined this morning. Her mother is by her bedside. Patient was initially sleeping but woke up and was able to respond to some questions. She denied any headache, chest pain or blurred vision, shortness of breath, abdominal pain, diarrhea vomiting. I discussed with the hematology nurse practitioner Anne-Marie Hooks about patient going for a previously schedule bone marrow biopsy today. However, patient's initial blood cultures showed preliminary report of alphahemolytic Streptococcus. Such, infectious disease was consulted. Per discussion with family, and based on patient's positive blood cultures and with a bone marrow biopsy being invasive procedure, I discussed with hematology about holding off on the bone marrow biopsy for now as ID apparently also did not think it was a good idea at this particular point. Will await repeat blood cultures which were taken yesterday to see if these are also positive. Labs and vitals reviewed. She developed a mild fever yesterday with temperature peaking at 99.8 Fahrenheit. Platelets have also fallen to 44 today. Vitals/I&O's: Vital Signs Temp Pulse Resp BP Pulse Ox 97.3 F L 82 16 126/48 H 92 10/07/18 09:43 10/07/18 10:58 10/07/18 09:43 10/07/18 09:43 10/07/18 10:00 Oxygen Flow Rate (L/min) 1.5 Oxygen Delivery Method Nasal Cannula Weight: 204 lb 12.951 oz Body Mass Index (BMI) 44.3 Intake and Output for Last 24 Hours 10/05/18 10/06/18 10/07/18 23:59 23:59 23:59 Intake Total 1285 / 1285 2960 / 2960 100 / 100 Output Total 100 / 100 Balance 1185 / 1185 2960 / 2960 100 / 100 General: Alert, Cooperative, No apparent distress, - - Down's syndrome HEENT: Atraumatic, PERRLA, EOMI, Normocephalic Oral: Dry Mucosa Neck: Supple, No JVD, Negative Carotid Bruits Lungs: - - mildly decreased breath sounds bibasally, no wheeze or crackles Cardiovascular: Regular rate, Regular Rhythm, Normal S1, Normal S2, No murmurs Abdomen: Bowel Sounds Present, Soft, Non Tender, Non-Distended, No Hepato- splenomegaly Extremities: No clubbing, No cyanosis, No edema, Capillary Refill Less than 3 Seconds Skin: No rashes, No breakdown Musculoskeletal: No Tenderness to Palpation of Joints or Extremities Lymphatic: No Cervical, Supraclavicular, or Inguinal Adenopathy Neurological: Cranial nerves II-XII grossly intact, Motor Exam 5/5 strength throughout Psych/Mental Status: Normal Affect, Appropriate Microbiology Past 72 Hours 10/03/18 17:33 Blood Culture (Wb) - Left Hand Blood Culture - Final 10/03/18 17:33 Blood Culture (Wb) - Right Forearm Bacteria Detection (PCR) - Final 10/03/18 17:33 Blood Culture (Wb) - Right Forearm Blood Culture - Final Streptococcus mutans 10/03/18 18:23 Urine, Catheterized Urine Culture - Final Culture exhibits no growth. 10/03/18 22:50 Stool Enteric Bacteriology - Final 10/03/18 23:27 Mucosa - Nasopharyngeal Respiratory Panel (PCR) - Final Human [place] [facility] Results 10/06/18 05:26: Diff Path Review Reviewed 10/07/18 09:55: WBC 2.9 L, RBC 2.84 L, Hgb 8.2 L, Hct 26.9 L, MCV 94.7, MCH 28.9, MCHC 30.5 L, RDW 18.8 H, RDW Differential 64.9 H, Plt Count 44 L*, MPV 10.7, Immature Gran % (Auto) 0.700, Neut % (Auto) 78.0 H, Lymph % (Auto) 14.3 L, [place] % (Auto) 7.0, Eos % (Auto) 0.0, Baso % (Auto) 0.0, Absolute Neuts (auto) 2.2, Absolute Lymphs (auto) 0.41 L, Total Counted Not Reportable, Differential Comment COMMENT, Diff Path Review May foll Current Medications Ceftriaxone Sodium 2 gm/ (Sodium Chloride) 50 mls @ 100 mls/hr IV Q24 [facility] Last Admin: 10/07/18 11:47 Dose: 100 mls/hr Levothyroxine Sodium (Synthroid) 75 mcg PO DAILY@0600 [facility] Last Admin: 10/07/18 04:12 Dose: 75 mcg Magnesium Hydroxide (Milk Of Magnesia) 30 ml PO DAILY PRN PRN Reason: Constipation Nutritional Formula (Lactose Free) (Ensure Enlive) 120 ml PO 4X/DAY ASIA Last Admin: 10/07/18 12:00 Dose: 120 ml Nystatin (Mycostatin Powder) 1 applic TOPICAL BID ASIA; Protocol Last Admin: 10/07/18 11:51 Dose: 1 applicatio Pantoprazole Sodium (Protonix) 40 mg PO BID ASIA Last Admin: 10/07/18 11:49 Dose: 40 mg Sodium Chloride () 5 - 15 ml IV UD PRN PRN Reason: SALINE FLUSH Last Admin: 10/07/18 04:12 Dose: 10 ml Medical Necessity - Tobacco Use Smoking Status: Never smoker Tobacco Use: Non-smoker Assessment/Plan All Active Problems (Last Reviewed 10/04/18 @ 04:38 by Jeferson Villa MD) Acute encephalopathy (Acute) YESENIA (acute kidney injury) (Acute) Pancytopenia (Acute) 1. Acute metabolic encephalopathy due to acute bronchitis * was initially admitted and managed for pneumonia; CXR was however negative * respiratory panel isolated human Last pneumo virus * Currently on supportive treatment with breathing treatments. * Also on IV ceftriaxone. Was initially on IV vancomycin and Levaquin but these were DC'd after blood culture results. * now back to her baseline * 2. Acute streptococcal bacteremia * Source of bacteremia is still not clear. Preliminary blood cultures both grew alphahemolytic Streptococcus. * She had an echo done on 10/04/2018 which was negative for vegetations. Early on IV ceftriaxone. * ID consulted. Awaiting recommendation. * 3. Pancytopenia * platelets have fallen to 44 today. * WBCs 2.9 a hemoglobin is 8.2 today with platelets being 44. * She was supposed to get bone marrow biopsy today. However in light of bacteremia and biopsy been an invasive process, will hold off on bone marrow biopsy for now until repeat blood culture was also obtained. * Hematology on board. * 4. Acute bronchitis: as under 1. 5. GI bleed due to severe thrombocytopenia * resolved. had some mild bleeding from rectum. received platelet transfusion * now stable. * will continue to monitor * DVT prophylaxis: SCDs Code status; DNRCC Code Visit Inpatient E&M: 97805 Subs Hosp L3
--- NOTE | 2018-10-07 13:11 | PCM.HP.ID ---
Problem List (1) Bacteremia Status: Acute Reason for Consult: (+) bcx Consulted by: Dr. Swan History of Present Illness: The patient is a 42 year old F with Down syndrome and prior heart surgery age 14 who presented with SOB, fatigue, weakness. Her mother reports she lives in prison, since start of the year a lot of fatigue and poor appetite. Found to have some pancytopenia, BMBx planned for this week outpt. Has longstanding bad teeth. Had routine dental check 1.5 weeks ago, given amox x1 for prophylaxis. Multiple extractions recommended. Over a few days last week, worsened weakness. Some dry cough. Taken to ED by EMS, started on vanc, zosyn, and dose of levaquin. Bcx now with S. mutans. Metapneumovirus was (+). YESENIA improved. Abx narrowed to ceftriaxone. ROS unobtainable due to mental status. - Medical History Past Medical History (Chronic Problems): Chronic Problems (Last Reviewed 10/04/18 @ 04:38 by Jeferson Villa MD) Gout (Chronic) Chronic ulcer of left heel (Chronic) Right hip pain (Chronic) Hypothyroidism (Chronic) Hypertension (Chronic) Dry skin (Chronic) Down syndrome (Chronic) Allergies/Adverse Reactions: Allergies No Known Allergies Allergy (Verified 09/26/18 13:05) Home Medications: Ambulatory Orders Medication Instructions Recorded allopurinol 300 mg tablet 300 mg PO DAILY #90 tab 05/13/18 irbesartan 75 mg tablet 75 mg PO DAILY #90 tab 05/13/18 levothyroxine 75 mcg tablet 75 mcg PO DAILY #90 tab 05/13/18 omeprazole 20 mg capsule,delayed 20 mg PO DAILY #90 cap 05/13/18 release white petrolatum topical jelly 1 applic TOPICAL BID PRN g 05/13/18 sertraline 100 mg tablet 100 mg PO DAILY #90 tab 08/20/18 diclofenac sodium 50 mg 50 mg PO BID #60 tab 08/21/18 tablet,delayed release Ammonium Lactate 1 applic TOPICAL BID 10/03/18 Calcium Carbonate/Vitamin D3 1 each PO DAILY 10/03/18 [Calcium 500+D Tablet Chew] Carbamazepine [Carbamazepine ER] 400 mg PO BID 10/03/18 Doxycycline Hyclate 20 mg PO BID 10/03/18 Furosemide [Lasix] 20 mg PO DAILY 10/03/18 Nystatin [Nystop] 1 applic TP BID 10/03/18 busPIRone [Buspar] 5 mg PO TID 10/03/18 - Social History Tobacco Use: non-smoker Vital Signs Temp Pulse Resp BP Pulse Ox 97.3 F L 82 16 126/48 H 92 10/07/18 09:43 10/07/18 10:58 10/07/18 09:43 10/07/18 09:43 10/07/18 10:00 Oxygen Flow Rate (L/min) 1.5 Oxygen Delivery Method Nasal Cannula Weight: 92.9 kg Body Mass Index (BMI) 44.3 Microbiology Past 72 Hours 10/03/18 17:33 Blood Culture - Final Blood Culture (Wb) - Left Hand 10/03/18 17:33 Bacteria Detection (PCR) - Final Blood Culture (Wb) - Right Forearm Blood Culture - Final Streptococcus mutans 10/03/18 18:23 Urine Culture - Final Urine, Catheterized Culture exhibits no growth. 10/03/18 22:50 Enteric Bacteriology - Final Stool Laboratory Tests Past 24 Hrs 10/06/18 10/07/18 05:26 09:55 WBC 2.9 L RBC 2.84 L Hgb 8.2 L Hct 26.9 L MCV 94.7 MCH 28.9 MCHC 30.5 L RDW 18.8 H RDW Differential 64.9 H Plt Count 44 L* MPV 10.7 Immature Gran % (Auto) 0.700 Neut % (Auto) 78.0 H Lymph % (Auto) 14.3 L [place] % (Auto) 7.0 Eos % (Auto) 0.0 Baso % (Auto) 0.0 Absolute Neuts (auto) 2.2 Absolute Lymphs (auto) 0.41 L Total Counted Not Reportable Differential Comment COMMENT Diff Path Review Reviewed December - Other Studies Radiology: [] reviewed Other Studies: [] Route of nutrition/ use of supplements: [] Nutritional Intake: [] IV Site: [] Hwang Catheter: [] - Physical Exam General: Cooperative, No apparent distress HEENT: Atraumatic, PERRLA, EOMI, - - multiple bad teeth Neck: Supple, No Nodes Lungs: Rhonchi, Wheezes Cardiovascular: Regular rate, Regular Rhythm Abdomen: Soft, Non Tender, Non-Distended Extremities: Edema Skin: No rashes IV Site: Peripheral, without redness Musculoskeletal: No Tenderness to Palpation of Joints or Extremities Neurological: Cranial nerves II-XII grossly intact - Assessment/Plan Antibiotics: [] Assessment/Plan: [] Active and Suspected Problems (Last Reviewed 10/04/18 @ 04:38 by Jeferson Villa MD) Acute encephalopathy (Acute) YESENIA (acute kidney injury) (Acute) Metapneumovirus infection Strep mutans bacteremia - this is oral bob, likely due to her bad teeth and recent dental cleaning. D/w Dr. Pedraza yesterday, abx narrowed to ceftriaxone. Will check panorex. Plan will be for d/c home on po abx with dental followup soon for extractions. YESENIA - improved pancytopenia - bone marrow bx planned, recommend delaying until tomorrow or the next day as long as repeat bcx remains neg. Will follow, thank you.
--- NOTE | 2018-10-07 13:48 | PCM.PN.REN ---
Patient Problems: Active and Suspected Problems (Last Reviewed 10/04/18 @ 04:38 by Jeferson Villa MD) Acute encephalopathy (Acute) YESENIA (acute kidney injury) (Acute) Bacteremia (Acute) Subjective: no new events - Physical Exam General: Alert, Oriented x3, Cooperative HEENT: Atraumatic, PERRLA, EOMI, Normocephalic Neck: Supple, No JVD, Negative Carotid Bruits Lungs: Clear to auscultation, Normal air movement Cardiovascular: Regular rate, No murmurs Abdomen: Bowel Sounds Present, Soft, Non Tender Extremities: No edema, Capillary Refill Less than 3 Seconds Skin: No rashes, No breakdown Musculoskeletal: No Tenderness to Palpation of Joints or Extremities Neurological: Cranial nerves II-XII grossly intact Psych/Mental Status: Normal Affect, Appropriate Vital Signs Temp Pulse Resp BP Pulse Ox 97.3 F L 82 16 126/48 H 92 10/07/18 09:43 10/07/18 10:58 10/07/18 09:43 10/07/18 09:43 10/07/18 10:00 Oxygen Flow Rate (L/min) 1.5 Oxygen Delivery Method Nasal Cannula Weight: 92.9 kg Body Mass Index (BMI) 44.3 Intake and Output for Last 24 Hours 10/05/18 10/06/18 10/07/18 23:59 23:59 23:59 Intake Total 1285 / 1285 2960 / 2960 350 / 350 Output Total 100 / 100 Balance 1185 / 1185 2960 / 2960 350 / 350 Microbiology Past 72 Hours 10/03/18 17:33 Blood Culture - Final Blood Culture (Wb) - Left Hand 10/03/18 17:33 Bacteria Detection (PCR) - Final Blood Culture (Wb) - Right Forearm Blood Culture - Final Streptococcus mutans 10/03/18 18:23 Urine Culture - Final Urine, Catheterized Culture exhibits no growth. 10/03/18 22:50 Enteric Bacteriology - Final Stool Laboratory Tests Past 24 Hrs 10/06/18 10/07/18 05:26 09:55 WBC 2.9 L RBC 2.84 L Hgb 8.2 L Hct 26.9 L MCV 94.7 MCH 28.9 MCHC 30.5 L RDW 18.8 H RDW Differential 64.9 H Plt Count 44 L* MPV 10.7 Immature Gran % (Auto) 0.700 Neut % (Auto) 78.0 H Lymph % (Auto) 14.3 L [place] % (Auto) 7.0 Eos % (Auto) 0.0 Baso % (Auto) 0.0 Absolute Neuts (auto) 2.2 Absolute Lymphs (auto) 0.41 L Total Counted Not Reportable Differential Comment COMMENT Diff Path Review Reviewed December Medical Necessity - Tobacco Use Smoking Status: Never smoker Tobacco Use: Non-smoker Assessment/Plan All Active Problems (Last Reviewed 10/04/18 @ 04:38 by Jeferson Villa MD) Acute encephalopathy (Acute) YESENIA (acute kidney injury) (Acute) Bacteremia (Acute) Pancytopenia (Acute) 1-acute kidney injury. Patient has normal baseline creatinine. UA showed 15 protein, no RBCs no WBCs. Acute kidney injury is most probably prerenal from diclofenac(which is NSAIDs), HUNTER inhibitor, Lasix along with decrease oral intake cr continues to improve 2-hypertension: Blood pressure is well controlled. 3-acute bronchitis due to viral infection. Symptomatic management as per the hospitalist 4-leukemia with pancytopenia. Hematology/oncology is on board. 5-hypothyroidism. Patient was started on levothyroxine. plan fluid can be stopped
--- NOTE | 2018-10-07 13:53 | ONC.PN.INPT ---
- Problem List (1) Pancytopenia Status: Acute (2) Ischemic toe Status: Acute Subjective Date of Service:: 10/07/18 Pancytopenia Ms. Sandie Riojas is a very pleasant 42-year-old female with a past medical history positive for Down syndrome, hypothyroidism and hypertension who was recently referred to hematology for workup of newly identified pancytopenia. Endorsing approximate 30 pound weight loss in the last 6 weeks attributable to disinterest in food and early satiety, in addition to decreased activity levels. Evaluated by Dr. Granado on 09/26/2018. BMBX recommended with list of differentials inclusive of primary bone marrow disease (MDS and leukemia) and biopsy was scheduled for 10/08/2018. In the interim, patient developed worsening lethargy, cough and generalized weakness. As a result she was presented to [facility] emergency department on 10/03/2018 as advised by her warp trucker Dr. Centeno and subsequently admitted for management of bronchitis and acute kidney injury (assumed prerenal associated with dehydration). Hematology consult has been requested in light of worsening thrombocytopenia as of 10/04/2018 and rectal bleeding x1 incident on 10/04/2018. Given platelet transfusion for count of 34,000 in light of rectal bleeding. Bone marrow biopsy planned for today held d/t + blood culture, strep. New complaint of right 3rd toe pain. Patient nor mother at the bedside can recall a time of injury. Specifically denies calf pain and any other episodes of bleeding/abnormal bruising. Past Medical History: Chronic Problems (Last Reviewed 10/04/18 @ 04:38 by Jeferson Villa MD) Gout (Chronic) Chronic ulcer of left heel (Chronic) Right hip pain (Chronic) Hypothyroidism (Chronic) Hypertension (Chronic) Dry skin (Chronic) Down syndrome (Chronic) Past Medical History - Most Recent Inpatient Visit Past Medical History Start: 10/03/18 22:48 Text: Status: Complete Freq: ONCE Protocol: Document 10/03/18 22:48 ALBINA (Rec: 10/03/18 23:36 KA [id number]) BMI Required to complete PMH What is Patient's BMI 44.3 Past Medical History Unable History Recalled Yes Query Text:Pt Unable/Family Not Present Neurologic Medical History Hx Dementia/Alzheimer's No: DOWNS SYNDROME Hx Parkinson's Disease No Hx Seizures No: DOWN SYNDROME Hx Multiple Sclerosis No Hx Migraines No Cardiac Medical History VTE Present on Admission No Hx of Deep Vein Thrombosis/VTE/PE No Hx Hypertension No Hx Chest Pain/Angina No Hx Heart Attack No Hx Cardiac Surgery/Stents/Etc. 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, [facility] [facility], Respiratory Medical History Hx COPD No Hx Emphysema No Hx Smoking No Smoking Status Never smoker Tobacco Use Non-smoker Hx Tobacco Use in last 12 months No Hx Sleep Apnea Yes CPAP Yes BIPAP No STOP Results Positive GI Medical History Hx Ulcer No Hx Hepatitis No Hx Cirrhosis No Hx GI Bleed No Hx Unplanned Weight Loss Yes: this admission Genitourinary Medical History Indwelling Catheter in Place on Arrival/ No Admission Hx Renal Disease No Hx Dialysis No Musculoskeletal History Hx Arthritis Yes: per mother Hx Rheumatoid Arthritis No Endocrine Medical History Hx Diabetes No Hx Thyroid Disease Yes Hematologic Medical History Patient unable to answer at this time ( Yes ie. confused, unresponsive etc...) Hx of Blood Transfusion No Hx of Transfusion in last 3 Months No Ever experience any problems with No transfusion(s)? Hx of Preganancy in last 3 Months No Nurse Filling Out Transfusion & KADUDDEL Questions: Date: 10/03/18 Time: 23:34 Psycho/Social Medical History Hx Depression No Hx Anxiety No Hx Behavior Disorder No Hx Alcohol Use No Hx Substance Use No Other Medical History Hx Blood Disorders No Hx Anemia No Hx Cancer No Hx Drug Resistant Organism No Wound/Pressure Injury Present on Arrival Yes: R abd, L groin /Admission Query Text:If yes, chart assessment in Shift/Clinical Findings Central Line/PICC/VAD Present on Arrival No /Admission Antibiotics within last 7 days? No Methicillin Resistant Staphylococcus aureus Screening Active MRSA No Risk for Readmission Number of Risk Factors 3 At Risk for Readmission Patient is At Risk For Readmission Patient is eligible for Call Back Y Past Medical History (Last Reviewed 10/04/18 @ 04:38 by Jeferson Villa MD) Dry skin (Chronic) Down syndrome (Chronic) Past Surgical History (Last Reviewed 10/04/18 @ 04:38 by Jeferson Villa MD) History of cataract surgery (Acute) History of open heart surgery (Acute) History of tubal ligation (Acute) Maternal Family History: Family History (Last Reviewed 10/04/18 @ 04:38 by Jeferson Villa MD) Father Diabetes Hypertension Heart disease Grandmother Heart disease Diabetes Grandfather Heart disease - Social History [place]: [place] Smoking Status: Never smoker Tobacco Use: Non-smoker Review of Systems Constitutional:: Reports: Weight loss. Denies: Fever, Sweats, Appetite change, Chills Cardiovascular:: Denies: Chest pain, Palpitations, Dyspnea on exertion, Orthopnea, PND, Shortness of breath Respiratory: Reports: Cough - improving. Denies: Hemoptysis, Shortness of Breath, Wheezing Gastrointestinal:: Reports: Hemorrhoids. Denies: Abdominal pain, Nausea, Vomiting, Diarrhea, Constipation, Melena, Hematochezia Genitourinary: Denies: Dysuria, Hematuria, 15, Flank pain Musculoskeletal:: Reports: - - right 3rd toe pain. Denies: Back pain, Myalgia, Arthralgia Skin: Denies: Rash, Skin Changes, Wounds Neurological:: Denies: Headache, Dizziness, Numbness, Tingling, Visual changes, Tinnitus, Hearing loss Psychiatric: Denies: Anxiety, Depression, Homicidal Ideations, Suicidal Ideations Vital Signs Height 4 ft 9 in Weight: 204 lb 12.951 oz Weight in Pounds 204.8 lbs Pulse Ox 92 Temperature 97.3 F Pulse Rate 82 Respiratory Rate 16 Blood Pressure 126/48 Blood Pressure Position Supine - Physical Exam General: Alert, No apparent distress HEENT: Atraumatic, Normocephalic Oropharynx:: Negative for: Dry mucosa, Ulcerated lesions Neck:: Supple, Trachea midline. Negative for: JVD, bilateral Cardiac:: Regular rate, Regular rhythm, Normal S1, Normal S2. Negative for: Murmur Lungs: Wheezes, Excusion symmetrical. Negative for: Rhonchi, Diminished, Tachypneic, Increased respiratory effort Abdomen:: Bowel sounds x 4, Soft, Non-tender, Non-distended, Obese. Negative for: Hepatosplenomegaly Extremities:: - - right 3rd toe ischemic. Negative for: Cyanosis, Edema, Calf tenderness Neurological: Neuro grossly intact Skin:: Negative for: Lesions, Rash, Petechiae, Ecchymosis Psychiatric:: Euthymic Lymphatics:: Negative for: Cervical lymphadenopathy, Supraclavicular lymphadenopathy, Axillary lymphadenopathy Laboratory Data: Microbiology 10/03/18 17:33 Blood Culture - Final Blood Culture (Wb) - Left Hand 10/03/18 17:33 Bacteria Detection (PCR) - Final Blood Culture (Wb) - Right Forearm Blood Culture - Final Streptococcus mutans 10/03/18 18:23 Urine Culture - Final Urine, Catheterized Culture exhibits no growth. 10/03/18 22:50 Enteric Bacteriology - Final Stool Laboratory Tests 10/07/18 10/06/18 Range/Units 09:55 05:26 WBC 2.9 L (4.4-11.0) K/mm3 RBC 2.84 L (4.2-5.4) M/mm3 Hgb 8.2 L (12.0-15.0) g/dl Hct 26.9 L (37-47) % MCV 94.7 (81-99) fL MCH 28.9 (27.0-32.0) pg MCHC 30.5 L (32-36) g/gl RDW 18.8 H (11.6-14.6) % RDW Differential 64.9 H (35.1-43.9) fl Plt Count 44 L* (150-450) K/mm3 MPV 10.7 (6.2-12.0) fl Immature Gran % (Auto) 0.700 (0.0-0.9) % Neut % (Auto) 78.0 H (47-70) % Lymph % (Auto) 14.3 L (19-41) % [place] % (Auto) 7.0 (0-10) % Eos % (Auto) 0.0 (0-5) % Baso % (Auto) 0.0 (0-1) % Absolute Neuts (auto) 2.2 (2.0-7.7) X10^3/uL Absolute Lymphs (auto) 0.41 L (0.83-4.51) X10^3/ul Total Counted Not Reportable Differential Comment COMMENT Diff Path Review May foll Reviewed Assessment and Plan 1. Pancytopenia-as evidenced by hemoglobin 8.2 and platelets 44,000, WBC 2.2 today. Pancytopenia has been newly identified, in the context of nearly 30 pound weight loss in the last 6 weeks, concerning for primary bone disease inclusive of MDS or leukemia. Advise BMBX as soon as patient is able. In the interim, patient is not exhibiting any overt signs of bleeding or bruising at the present time. Transfuse for platelets less than 20,000 or less than 30,000 in the presence of bleeding and hemoglobin less than 7. 2. Ischemic toe- right 3rd. Finding discussed with Dr. Swan. Anne-Marie Hooks, MSN, CONTENT PRODUCTION SPECIALIST, AOCNP Medications: Prescriptions This Visit Medication Instructions Recorded Ammonium Lactate 1 applic TOPICAL BID 10/03/18 Calcium Carbonate/Vitamin D3 1 each PO DAILY 10/03/18 [Calcium 500+D Tablet Chew] Carbamazepine [Carbamazepine ER] 400 mg PO BID 10/03/18 Doxycycline Hyclate 20 mg PO BID 10/03/18 Furosemide [Lasix] 20 mg PO DAILY 10/03/18 Nystatin [Nystop] 1 applic TP BID 10/03/18 busPIRone [Buspar] 5 mg PO TID 10/03/18 Primary Care Provider: Nicanor Salter DO Referring Provider:
--- NOTE | 2018-10-07 16:46 | CT_ITS ---
STUDY: CT SOFT TISSUE NECK WITH CONTRAST REASON FOR EXAM: Female, 42 years old. Mandibular abscess RADIATION DOSAGE (If Supplied By Facility): CTDIvol = ( 22.74 ) mGy, DLP = ( 641.70 ) mGycm TECHNIQUE: The patient was scanned in a multi-detector CT scanner. High resolution transaxial imaging was performed following intravenous administration of Isovue 300 100 IV. Sagittal and coronal images were reconstructed. Individualized dose optimization techniques were used for this CT. COMPARISON: None. FINDINGS: Normal bilateral parotid glands. Normal bilateral laborer livestock spaces. Normal bilateral parapharyngeal spaces. Normal bilateral carotid spaces. Normal bilateral sublingual and submandibular glands and spaces. Normal visualized nasopharynx. Normal retropharyngeal space. Normal perivertebral space. Normal visualized bilateral faucial tonsils. The visualized tongue, tongue base and oropharynx are normal. There are minimally enlarged lymph nodes of the neck, with preservation of normal alycia architecture, consistent with a reactive lymph hyperplasia. There is no demonstrated solid or cystic mass lesion. There is no abnormal contrast enhancement. There is mild subcutaneous fatty stranding lateral to the left mandible. There is no evidence of abscess. Normal epiglottis, bilateral vallecula and hypopharynx. The pre-epiglottic and paraglottic adipose spaces are normal. Normal visualized bilateral piriform sinuses, aryepiglottic folds, vocal cords, and arytenoid-cricoid articulations. Normal subglottic trachea. Normal bilateral lobes of the thyroid gland. Normal visualized pulmonary apices. There is mild mucosal thickening of the maxillary sinuses, sphenoid sinuses, and several ethmoid air cells bilaterally. There is multilevel degenerative changes of the cervical spine. CT/Soft Tissue Neck WITH Contrast IMPRESSION: Subcutaneous fatty stranding on the left lateral to the mandible. There is no evidence of abscess or soft tissue gas. Chronic pansinusitis. Electronically Signed: Naresh Martinez MD at 19:06 EST , Service support ,
[2018-10-08] VITALS (13 sets, daily range): BP systolic 125–146; BP diastolic 45–58; PULSE 69–89; RESP 16–20; TEMP 36.6–37.1; O2SAT 92–98
--- NOTE | 2018-10-08 00:15 | CPS ---
pt refused cpap tonight, 2l nasal o2, pt cooperated with application of cannula
[2018-10-08 06:27] LABS: Absolute Lymphocyte Count 0.35 X10^3/ul (0.83-4.51); Basophil# 0.01 X10^3/uL; Basophil% 0.4 % (0-1); Hematocrit 25.2 % (37-47); Hemoglobin 7.5 g/dl (12.0-15.0); Lymphocyte # 0.35 X10^3/ul (4.0); Lymphocyte % 13.8 % (19-41); Mean Corp Hgb Conc 29.8 g/gl (32-36); Mean Corpuscular Hgb 29.3 pg (27.0-32.0); Mean Corpuscular Volume 98.4 fL (81-99); Mean Platelet Vol. 12.5 fl (6.2-12.0); Monocyte% 7.9 % (0-10); Neutrophil # 1.95 X10^3/uL (2.7-7.7); Neutrophil % 76.7 % (47-70); RBC Distribution Width CV 18.3 % (11.6-14.6); RBC Distribution Width SD 61.9 fl (35.1-43.9); Red Blood Count 2.56 M/mm3 (4.2-5.4); White Blood Count 2.5 K/mm3 (4.4-11.0)
[2018-10-08] MEDS: Levothyroxine 75 MCG Tablet PO (06:29)
[2018-10-08 06:37] LABS: Differential Indicated SCAN CRITERIA MET; POSITIVE COUNT NO; POSITIVE DIFFERENTIAL YES; POSITIVE MORPHOLOGY YES; Platelet Count 44 K/mm3 (150-450)
[2018-10-08 06:45] LABS: Anion Gap 7 (5-15); BUN 30 mg/dL (7-18); Calcium,Total 7.2 mg/dL (8.5-10.1); Chloride 109 mmol/L (98-107); Creatinine, Serum 1.58 mg/dL (0.55-1.02); EST Glomerular Filtration Rate 38 mL/min (>60); Est Glom Filt Rate - Afr Amer 46 mL/min (>60); Estimated Creatinine Clearance 68.03 ml/min; Glucose 106 mg/dL (74-106); Potassium 3.6 mmol/L (3.5-5.1); Sodium Level 141 mmol/L (136-145)
[2018-10-08 07:10] LABS: Differential Comment SCAN; Platelet Estimate MKD DEC (ADEQ)
[2018-10-08 07:11] LABS: Platelet Morphology LARGE
[2018-10-08] MEDS: Pantoprazole Sodium 40 MG Tablet PO ×2 (08:38→22:41)
[2018-10-08] MEDS: Nystatin Powder 15gm Bottle 1 APPLIC TOPICAL ×2 (08:38→22:41)
--- NOTE | 2018-10-08 08:51 | RAD_ITS ---
STUDY: X-RAY - RIGHT FOOT CLINICAL: Female, 42 years old. Soft tissue swelling. TECHNIQUE: AP and lateral view(s) of the foot. COMPARISON: None. FINDINGS: There is a plantar calcaneal spur. Normal visualized subtalar, talonavicular, calcaneocuboid, tarsal and tarsometatarsal articulations. Normal metatarsi. Normal metatarsophalangeal joint of the great toe. Normal tibial and fibular sesamoid bones. Normal interphalangeal joint of the great toe. Normal phalanges of the great toe. Normal second through fifth metatarsophalangeal joints. Normal interphalangeal joints and phalanges of the lesser toes. There is non-specific soft tissue swelling of the foot. RAD/Foot 2 Views IMPRESSION: Nonspecific soft tissue swelling. Small plantar spur. Electronically Signed: Reese Adames, at 15:09 EST , Service support ,
--- NOTE | 2018-10-08 11:39 | PCM.PN.ID ---
Patient Problems: Active and Suspected Problems (Last Reviewed 10/04/18 @ 04:38 by Jeferson Villa MD) Acute encephalopathy (Acute) YESENIA (acute kidney injury) (Acute) Bacteremia (Acute) Ischemic toe (Acute) Subjective: Feeling ok, no fever, no pain. - Physical Exam General: Alert, Cooperative Lungs: Clear to auscultation, Normal air movement Cardiovascular: Regular rate, Regular Rhythm Abdomen: Soft, Non Tender, Non-Distended Skin: No rashes Vital Signs Temp Pulse Resp BP Pulse Ox 97.9 F 72 16 126/45 H 97 10/08/18 09:20 10/08/18 10:25 10/08/18 09:20 10/08/18 09:20 10/08/18 09:20 Oxygen Flow Rate (L/min) 2 Oxygen Delivery Method Room Air Weight: 92.9 kg Body Mass Index (BMI) 44.3 Intake and Output for Last 24 Hours 10/06/18 10/07/18 10/08/18 23:59 23:59 23:59 Intake Total 2960 / 2960 570 / 570 270 / 270 Output Total 200 / 200 650 / 650 Balance 2960 / 2960 370 / 370 -380 / -380 Microbiology Past 72 Hours 10/07/18 18:50 Streptococcus pneumoniae Antigen (M - Final Urine Catheter - Catheter 10/07/18 18:50 Legionella Antigen - Final Urine Catheter - Catheter 10/03/18 17:33 Blood Culture - Final Blood Culture (Wb) - Left Hand 10/03/18 17:33 Bacteria Detection (PCR) - Final Blood Culture (Wb) - Right Forearm Blood Culture - Final Streptococcus mutans 10/03/18 18:23 Urine Culture - Final Urine, Catheterized Culture exhibits no growth. Laboratory Tests Past 24 Hrs 10/06/18 10/08/18 10/08/18 05:26 05:50 05:50 WBC 2.5 L RBC 2.56 L Hgb 7.5 L Hct 25.2 L MCV 98.4 MCH 29.3 MCHC 29.8 L RDW 18.3 H RDW Differential 61.9 H Plt Count 44 L* MPV 12.5 H Immature Gran % (Auto) 1.200 H Neut % (Auto) 76.7 H Lymph % (Auto) 13.8 L [place] % (Auto) 7.9 Eos % (Auto) 0.0 Baso % (Auto) 0.4 Absolute Neuts (auto) 2.0 Absolute Lymphs (auto) 0.35 L Total Counted Not Reportable Differential Comment SCAN Diff Path Review Reviewed December foll Platelet Estimate MKD DEC Plt Morphology Comment LARGE Sodium 141 Potassium 3.6 Chloride 109 H Carbon Dioxide 25.0 Anion Gap 7 BUN 30 H Creatinine 1.58 H Estim Creat Clear Calc 68.03 Est GFR (MDRD) Af Amer 46 L Est GFR (MDRD) Non-Af 38 L BUN/Creatinine Ratio 19.0 Glucose 106 Calcium 7.2 L Medical Necessity - Tobacco Use Smoking Status: Never smoker Tobacco Use: Non-smoker Route of nutrition/ use of supplements: [] Nutritional Intake: [] IV Site: [] Hwang Catheter: [] - Assessment/Plan Antibiotics: [] Assessment/Plan: [] Active and Suspected Problems (Last Reviewed 10/04/18 @ 04:38 by Jeferson Villa MD) Acute encephalopathy (Acute) YESENIA (acute kidney injury) (Acute) Metapneumovirus infection Strep mutans bacteremia - this is oral bob, likely due to her bad teeth and recent dental cleaning. No abscess seen on CT. Cont ceftriaxone. Plan will be for d/c on augmentin 500mg bid for 7 days with dentistry follow YESENIA - improved pancytopenia - bone marrow bx planned, ok to do now as bcx neg for 48 hours. Will follow, d/w primary team
--- NOTE | 2018-10-08 13:41 | ONC.PN.INPT ---
- Problem List (1) Pancytopenia Status: Acute (2) Ischemic toe Status: Acute Subjective Date of Service:: 10/08/18 Pancytopenia Ms. Sandie Riojas is a very pleasant 42-year-old female with a past medical history positive for Down syndrome, hypothyroidism and hypertension who was recently referred to hematology for workup of newly identified pancytopenia. Endorsing approximate 30 pound weight loss in the last 6 weeks attributable to disinterest in food and early satiety, in addition to decreased activity levels. Evaluated by Dr. Granado on 09/26/2018. BMBX recommended with list of differentials inclusive of primary bone marrow disease (MDS and leukemia) and biopsy was scheduled for 10/08/2018. In the interim, patient developed worsening lethargy, cough and generalized weakness. 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 Centeno and subsequently admitted for management of bronchitis and acute kidney injury (assumed prerenal associated with dehydration). Given platelet transfusion 10/04/18 for count of 34,000 in light of rectal bleeding x 1 incident/ Upon entering the room, patient is sitting upright in chair. Denies any pain with the exception of right 3rd and 5th toes, describes as sore. Otherwise, denies any bleeding or new areas of bruises. Past Medical History: Chronic Problems (Last Reviewed 10/04/18 @ 04:38 by Jeferson Villa MD) Gout (Chronic) Chronic ulcer of left heel (Chronic) Right hip pain (Chronic) Hypothyroidism (Chronic) Hypertension (Chronic) Dry skin (Chronic) Down syndrome (Chronic) Past Medical History - Most Recent Inpatient Visit Past Medical History Start: 10/03/18 22:48 Text: Status: Complete Freq: ONCE Protocol: Document 10/03/18 22:48 KA (Rec: 10/03/18 23:36 KA [id number]) BMI Required to complete PMH What is Patient's BMI 44.3 Past Medical History Unable History Recalled Yes Query Text:Pt Unable/Family Not Present Neurologic Medical History Hx Dementia/Alzheimer's No: DOWNS SYNDROME Hx Parkinson's Disease No Hx Seizures No: DOWN SYNDROME Hx Multiple Sclerosis No Hx Migraines No Cardiac Medical History VTE Present on Admission No Hx of Deep Vein Thrombosis/VTE/PE No Hx Hypertension No Hx Chest Pain/Angina No Hx Heart Attack No Hx Cardiac Surgery/Stents/Etc. 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, [facility], Respiratory Medical History Hx COPD No Hx Emphysema No Hx Smoking No Smoking Status Never smoker Tobacco Use Non-smoker Hx Tobacco Use in last 12 months No Hx Sleep Apnea Yes CPAP Yes BIPAP No STOP Results Positive GI Medical History Hx Ulcer No Hx Hepatitis No Hx Cirrhosis No Hx GI Bleed No Hx Unplanned Weight Loss Yes: this admission Genitourinary Medical History Indwelling Catheter in Place on Arrival/ No Admission Hx Renal Disease No Hx Dialysis No Musculoskeletal History Hx Arthritis Yes: per mother Hx Rheumatoid Arthritis No Endocrine Medical History Hx Diabetes No Hx Thyroid Disease Yes Hematologic Medical History Patient unable to answer at this time ( Yes ie. confused, unresponsive etc...) Hx of Blood Transfusion No Hx of Transfusion in last 3 Months No Ever experience any problems with No transfusion(s)? Hx of Preganancy in last 3 Months No Nurse Filling Out Transfusion & KADUDDEL Questions: Date: 10/03/18 Time: 23:34 Psycho/Social Medical History Hx Depression No Hx Anxiety No Hx Behavior Disorder No Hx Alcohol Use No Hx Substance Use No Other Medical History Hx Blood Disorders No Hx Anemia No Hx Cancer No Hx Drug Resistant Organism No Wound/Pressure Injury Present on Arrival Yes: R abd, L groin /Admission Query Text:If yes, chart assessment in Shift/Clinical Findings Central Line/PICC/VAD Present on Arrival No /Admission Antibiotics within last 7 days? No Methicillin Resistant Staphylococcus aureus Screening Active MRSA No Risk for Readmission Number of Risk Factors 3 At Risk for Readmission Patient is At Risk For Readmission Patient is eligible for Call Back Y Past Medical History (Last Reviewed 10/04/18 @ 04:38 by Jeferson Villa MD) Dry skin (Chronic) Down syndrome (Chronic) Past Surgical History (Last Reviewed 10/04/18 @ 04:38 by Jeferson Villa MD) History of cataract surgery (Acute) History of open heart surgery (Acute) History of tubal ligation (Acute) Maternal Family History: Family History (Last Reviewed 10/04/18 @ 04:38 by Jeferson Villa MD) Father Diabetes Hypertension Heart disease Grandmother Heart disease Diabetes Grandfather Heart disease - 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 Denies: Fever, Sweats, Chills Cardiovascular:: Denies: Chest pain, Palpitations, Dyspnea on exertion, Orthopnea, PND, Shortness of breath Respiratory: Reports: Cough - non productive. Denies: Hemoptysis, Shortness of Breath, Wheezing Gastrointestinal:: Reports: Hemorrhoids - h/o. Denies: Abdominal pain, Nausea, Vomiting, Diarrhea, Constipation, Melena, Hematochezia Genitourinary: Denies: Dysuria, Hematuria, 15, Flank pain Musculoskeletal:: Denies: Back pain Skin: Denies: Rash, Skin Changes Neurological:: Denies: Headache, Dizziness, Numbness, Tingling, Visual changes, Tinnitus, Hearing loss Vital Signs Height 4 ft 9 in Weight: 204 lb 12.951 oz Weight in Pounds 204.8 lbs Pulse Ox 97 Temperature 97.9 F Pulse Rate 72 Respiratory Rate 16 Blood Pressure 126/45 Blood Pressure Position Sitting - Physical Exam General: Alert, No apparent distress HEENT: Atraumatic, Normocephalic Oropharynx:: Negative for: Dry mucosa, Ulcerated lesions Neck:: Supple, Trachea midline. Negative for: JVD, bilateral Cardiac:: Regular rate, Regular rhythm, Normal S1, Normal S2 Lungs: Clear to auscultation, Excusion symmetrical. Negative for: Rhonchi, Wheezes Abdomen:: Bowel sounds x 4, Soft, Non-tender, Non-distended, Obese. Negative for: Hepatosplenomegaly Extremities:: - - right 3rd and 5th toe. Negative for: Cyanosis, Edema Neurological: Neuro grossly intact Skin:: Negative for: Lesions, Rash, Petechiae, Ecchymosis Psychiatric:: Appropriate affect, Euthymic Lymphatics:: Negative for: Cervical lymphadenopathy, Supraclavicular lymphadenopathy, Axillary lymphadenopathy Laboratory Data: Microbiology 10/06/18 11:05 Blood Culture - Preliminary Blood Culture (Wb) - Venous No growth in 48 hours. 10/06/18 11:18 Blood Culture - Preliminary Blood Culture (Wb) - Venous No growth in 48 hours. 10/07/18 18:50 Streptococcus pneumoniae Antigen (M - Final Urine Catheter - Catheter 10/07/18 18:50 Legionella Antigen - Final Urine Catheter - Catheter 10/03/18 17:33 Blood Culture - Final Blood Culture (Wb) - Left Hand 10/03/18 17:33 Bacteria Detection (PCR) - Final Blood Culture (Wb) - Right Forearm Blood Culture - Final Streptococcus mutans 10/03/18 18:23 Urine Culture - Final Urine, Catheterized Culture exhibits no growth. Laboratory Tests 10/08/18 10/08/18 Range/Units 05:50 05:50 WBC 2.5 L (4.4-11.0) K/mm3 RBC 2.56 L (4.2-5.4) M/mm3 Hgb 7.5 L (12.0-15.0) g/dl Hct 25.2 L (37-47) % MCV 98.4 (81-99) fL MCH 29.3 (27.0-32.0) pg MCHC 29.8 L (32-36) g/gl RDW 18.3 H (11.6-14.6) % RDW Differential 61.9 H (35.1-43.9) fl Plt Count 44 L* (150-450) K/mm3 MPV 12.5 H (6.2-12.0) fl Immature Gran % (Auto) 1.200 H (0.0-0.9) % Neut % (Auto) 76.7 H (47-70) % Lymph % (Auto) 13.8 L (19-41) % [place] % (Auto) 7.9 (0-10) % Eos % (Auto) 0.0 (0-5) % Baso % (Auto) 0.4 (0-1) % Absolute Neuts (auto) 2.0 (2.0-7.7) X10^3/uL Absolute Lymphs (auto) 0.35 L (0.83-4.51) X10^3/ul Total Counted Not Reportable Differential Comment SCAN Diff Path Review May foll Platelet Estimate MKD DEC (ADEQ) Plt Morphology Comment LARGE Sodium 141 (136-145) mmol/L Potassium 3.6 (3.5-5.1) mmol/L Chloride 109 H (98-107) mmol/L Carbon Dioxide 25.0 (21.0-32.0) mmol/L Anion Gap 7 (5-15) BUN 30 H (7-18) mg/dL Creatinine 1.58 H (0.55-1.02) mg/dL Estim Creat Clear Calc 68.03 ml/min Est GFR (MDRD) Af Amer 46 L (>60) mL/min Est GFR (MDRD) Non-Af 38 L (>60) mL/min BUN/Creatinine Ratio 19.0 (10-20) RATIO Glucose 106 (74-106) mg/dL Calcium 7.2 L (8.5-10.1) mg/dL Diagnostic Data: Diagnostic Data Chest X-Ray 10/07/18 05:55 IMPRESSION: Findings suggestive of mild degree of vascular congestion and CHF. There has been essentially no change. Electronically Signed: Reese Adames MD at 15:12 EST , Service support , Soft Tissue Neck CT 10/07/18 16:46 IMPRESSION: Subcutaneous fatty stranding on the left lateral to the mandible. There is no evidence of abscess or soft tissue gas. Chronic pansinusitis. Electronically Signed: Naresh Martinez MD at 19:06 EST , Service support , Assessment and Plan 1. Pancytopenia-as evidenced by hemoglobin 7.5 and platelets 44,000, WBC 2.5 today. Pancytopenia has been newly identified, in the context of nearly 30 pound weight loss in the last 6 weeks, concerning for primary bone disease inclusive of MDS or leukemia. Thus, Advise BMBX as soon as patient is able. Appears ID is endorsing BMBX now given neg Bcx. In the interim, patient is not exhibiting any overt signs of bleeding or bruising at the present time. Transfuse for platelets less than 20,000 or less than 30,000 in the presence of bleeding and hemoglobin less than 7. Case discussed with Dr. Swan 10/08/18. Anne-Marie Hooks, MSN, [employer], AOCNP Medications: Prescriptions This Visit Medication Instructions Recorded Ammonium Lactate 1 applic TOPICAL BID 10/03/18 Calcium Carbonate/Vitamin D3 1 each PO DAILY 10/03/18 [Calcium 500+D Tablet Chew] Carbamazepine [Carbamazepine ER] 400 mg PO BID 10/03/18 Doxycycline Hyclate 20 mg PO BID 10/03/18 Furosemide [Lasix] 20 mg PO DAILY 10/03/18 Nystatin [Nystop] 1 applic TP BID 10/03/18 busPIRone [Buspar] 5 mg PO TID 10/03/18 Primary Care Provider: Nicanor Salter DO Referring Provider:
--- NOTE | 2018-10-08 13:46 | PN_ITS ---
- Problem List (1) Pancytopenia Status: Acute (2) Ischemic toe Status: Acute Subjective Date of Service:: 10/08/18 Pancytopenia Ms. Sandie Riojas is a very pleasant 42-year-old female with a past medical history positive for Down syndrome, hypothyroidism and hypertension who was recently referred to hematology for workup of newly identified pancytopenia. Endorsing approximate 30 pound weight loss in the last 6 weeks attributable to disinterest in food and early satiety, in addition to decreased activity levels. Evaluated by Dr. Granado on 09/26/2018. BMBX recommended with list of differentials inclusive of primary bone marrow disease (MDS and leukemia) and biopsy was scheduled for 10/08/2018. In the interim, patient developed worsening lethargy, cough and generalized weakness. 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 Given platelet transfusion 10/04/18 for count of 34,000 in light of rectal bleeding x 1 incident/ Upon entering the room, patient is sitting upright in chair. Denies any pain with the exception of right 3rd and 5th toes, describes as sore. Otherwise, denies any bleeding or new areas of bruises. Past Medical History: Chronic Problems (Last Reviewed 10/04/18 @ 04:38 by Jeferson Villa MD) Gout (Chronic) Chronic ulcer of left heel (Chronic) Right hip pain (Chronic) Hypothyroidism (Chronic) Hypertension (Chronic) Dry skin (Chronic) Down syndrome (Chronic) Past Medical History - Most Recent Inpatient Visit Past Medical History Start: 10/03/18 22:48 Text: Status: Complete Freq: ONCE Protocol: Document 10/03/18 22:48 KA (Rec: 10/03/18 23:36 KA [id number]) BMI Required to complete PMH What is Patient's BMI 44.3 Past Medical History Unable History Recalled Yes Query Text:Pt Unable/Family Not Present Neurologic Medical History Hx Dementia/Alzheimer's No: DOWNS SYNDROME Hx Parkinson's Disease No Hx Seizures No: DOWN SYNDROME Hx Multiple Sclerosis No Hx Migraines No Cardiac Medical History VTE Present on Admission No Hx of Deep Vein Thrombosis/VTE/PE No Hx Hypertension No Hx Chest Pain/Angina No Hx Heart Attack No Hx Cardiac Surgery/Stents/Etc. 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 Hx Heart Failure No Hx Pacemaker/AICD No Hx Irregular Heartbeat and/or Afib No Hx Anticoagulant Therapy No Query Text:(Coumadin, Aspirin, Plavix, Xarelto, etc.) Hx Pain in Legs when Walking/Leg Cramps No: SEEN DISCOVERY GUIDE Q 3 YRS CHECK UP, [facility], Respiratory Medical History Hx COPD No Hx Emphysema No Hx Smoking No Smoking Status Never smoker Tobacco Use Non-smoker Hx Tobacco Use in last 12 months No Hx Sleep Apnea Yes CPAP Yes BIPAP No STOP Results Positive GI Medical History Hx Ulcer No Hx Hepatitis No Hx Cirrhosis No Hx GI Bleed No Hx Unplanned Weight Loss Yes: this admission Genitourinary Medical History Indwelling Catheter in Place on Arrival/ No Admission Hx Renal Disease No Hx Dialysis No Musculoskeletal History Hx Arthritis Yes: per mother Hx Rheumatoid Arthritis No Endocrine Medical History Hx Diabetes No Hx Thyroid Disease Yes Hematologic Medical History Patient unable to answer at this time ( Yes ie. confused, unresponsive etc...) Hx of Blood Transfusion No Hx of Transfusion in last 3 Months No Ever experience any problems with No transfusion(s)? Hx of Preganancy in last 3 Months No Nurse Filling Out Transfusion & KADUDDEL Questions: Date: 10/03/18 Time: 23:34 Psycho/Social Medical History Hx Depression No Hx Anxiety No Hx Behavior Disorder No Hx Alcohol Use No Hx Substance Use No Other Medical History Hx Blood Disorders No Hx Anemia No Hx Cancer No Hx Drug Resistant Organism No Wound/Pressure Injury Present on Arrival Yes: R abd, L groin /Admission Query Text:If yes, chart assessment in Shift/Clinical Findings Central Line/PICC/VAD Present on Arrival No /Admission Antibiotics within last 7 days? No Methicillin Resistant Staphylococcus aureus Screening Active MRSA No Risk for Readmission Number of Risk Factors 3 At Risk for Readmission Patient is At Risk For Readmission Patient is eligible for Call Back Y Past Medical History (Last Reviewed 10/04/18 @ 04:38 by Jeferson Villa MD) Dry skin (Chronic) Down syndrome (Chronic) Past Surgical History (Last Reviewed 10/04/18 @ 04:38 by Jeferson Villa MD) History of cataract surgery (Acute) History of open heart surgery (Acute) History of tubal ligation (Acute) Maternal Family History: Family History (Last Reviewed 10/04/18 @ 04:38 by Jeferson Villa MD) Father Diabetes Hypertension Heart disease Grandmother Heart disease Diabetes Grandfather Heart disease - Social History Lives: Prison Smoking Status: Never smoker Tobacco Use: Non-smoker Review of Systems Constitutional:: Reports: Weakness, Fatigue, Weight loss. Denies: Fever, Sweats, Chills Cardiovascular:: Denies: Chest pain, Palpitations, Dyspnea on exertion, Orthopnea, PND, Shortness of breath Respiratory: Reports: Cough - non productive. Denies: Hemoptysis, Shortness of Breath, Wheezing Gastrointestinal:: Reports: Hemorrhoids - h/o. Denies: Abdominal pain, Nausea, Vomiting, Diarrhea, Constipation, Melena, Hematochezia Genitourinary: Denies: Dysuria, Hematuria, 15, Flank pain Musculoskeletal:: Denies: Back pain Skin: Denies: Rash, Skin Changes Neurological:: Denies: Headache, Dizziness, Numbness, Tingling, Visual changes, Tinnitus, Hearing loss Vital Signs Height 4 ft 9 in Weight: 204 lb 12.951 oz Weight in Pounds 204.8 lbs Pulse Ox 97 Temperature 97.9 F Pulse Rate 72 Respiratory Rate 16 Blood Pressure 126/45 Blood Pressure Position Sitting - Physical Exam General: Alert, No apparent distress HEENT: Atraumatic, Normocephalic Oropharynx:: Negative for: Dry mucosa, Ulcerated lesions Neck:: Supple, Trachea midline. Negative for: JVD, bilateral Cardiac:: Regular rate, Regular rhythm, Normal S1, Normal S2 Lungs: Clear to auscultation, Excusion symmetrical. Negative for: Rhonchi, Wheezes Abdomen:: Bowel sounds x 4, Soft, Non-tender, Non-distended, Obese. Negative for: Hepatosplenomegaly Extremities:: - - right 3rd and 5th toe. Negative for: Cyanosis, Edema Neurological: Neuro grossly intact Skin:: Negative for: Lesions, Rash, Petechiae, Ecchymosis Psychiatric:: Appropriate affect, Euthymic Lymphatics:: Negative for: Cervical lymphadenopathy, Supraclavicular lymphadenopathy, Axillary lymphadenopathy Laboratory Data: Microbiology 10/06/18 11:05 Blood Culture - Preliminary Blood Culture (Wb) - Venous No growth in 48 hours. 10/06/18 11:18 Blood Culture - Preliminary Blood Culture (Wb) - Venous No growth in 48 hours. 10/07/18 18:50 Streptococcus pneumoniae Antigen (M - Final Urine Catheter - Catheter 10/07/18 18:50 Legionella Antigen - Final Urine Catheter - Catheter 10/03/18 17:33 Blood Culture - Final Blood Culture (Wb) - Left Hand 10/03/18 17:33 Bacteria Detection (PCR) - Final Blood Culture (Wb) - Right Forearm Blood Culture - Final Streptococcus mutans 10/03/18 18:23 Urine Culture - Final Urine, Catheterized Culture exhibits no growth. Laboratory Tests 10/08/18 10/08/18 Range/Units 05:50 05:50 WBC 2.5 L (4.4-11.0) K/mm3 RBC 2.56 L (4.2-5.4) M/mm3 Hgb 7.5 L (12.0-15.0) g/dl Hct 25.2 L (37-47) % MCV 98.4 (81-99) fL MCH 29.3 (27.0-32.0) pg MCHC 29.8 L (32-36) g/gl RDW 18.3 H (11.6-14.6) % RDW Differential 61.9 H (35.1-43.9) fl Plt Count 44 L* (150-450) K/mm3 MPV 12.5 H (6.2-12.0) fl Immature Gran % (Auto) 1.200 H (0.0-0.9) % Neut % (Auto) 76.7 H (47-70) % Lymph % (Auto) 13.8 L (19-41) % [place] % (Auto) 7.9 (0-10) % Eos % (Auto) 0.0 (0-5) % Baso % (Auto) 0.4 (0-1) % Absolute Neuts (auto) 2.0 (2.0-7.7) X10^3/uL Absolute Lymphs (auto) 0.35 L (0.83-4.51) X10^3/ul Total Counted Not Reportable Differential Comment SCAN Diff Path Review May foll Platelet Estimate MKD DEC (ADEQ) Plt Morphology Comment LARGE Sodium 141 (136-145) mmol/L Potassium 3.6 (3.5-5.1) mmol/L Chloride 109 H (98-107) mmol/L Carbon Dioxide 25.0 (21.0-32.0) mmol/L Anion Gap 7 (5-15) BUN 30 H (7-18) mg/dL Creatinine 1.58 H (0.55-1.02) mg/dL Estim Creat Clear Calc 68.03 ml/min Est GFR (MDRD) Af Amer 46 L (>60) mL/min Est GFR (MDRD) Non-Af 38 L (>60) mL/min BUN/Creatinine Ratio 19.0 (10-20) RATIO Glucose 106 (74-106) mg/dL Calcium 7.2 L (8.5-10.1) mg/dL Diagnostic Data: Diagnostic Data Chest X-Ray 10/07/18 05:55 IMPRESSION: Findings suggestive of mild degree of vascular congestion and CHF. There has been essentially no change. Electronically Signed: Reese Adames MD at 15:12 EST , Service support , Soft Tissue Neck CT 10/07/18 16:46 IMPRESSION: Subcutaneous fatty stranding on the left lateral to the mandible. There is no evidence of abscess or soft tissue gas. Chronic pansinusitis. Electronically Signed: Naresh Martinez MD at 19:06 EST , Service support , Assessment and Plan 1. Pancytopenia-as evidenced by hemoglobin 7.5 and platelets 44,000, WBC 2.5 today. Pancytopenia has been newly identified, in the context of nearly 30 pound weight loss in the last 6 weeks, concerning for primary bone disease inclusive of MDS or leukemia. Thus, Advise BMBX as soon as patient is able. Appears ID is endorsing BMBX now given neg Bcx. In the interim, patient is not exhibiting any overt signs of bleeding or bruising at the present time. Transfuse for platelets less than 20,000 or less than 30,000 in the presence of bleeding and hemoglobin less than 7. Case discussed with Dr. Swan 10/08/18. Anne-Marie Hooks, MSN, BUSINESS DEVELOPMENT CONSULTANT, AOCNP Medications: Prescriptions This Visit Medication Instructions Recorded Ammonium Lactate 1 applic TOPICAL BID 10/03/18 Calcium Carbonate/Vitamin D3 1 each PO DAILY 10/03/18 [Calcium 500+D Tablet Chew] Carbamazepine [Carbamazepine ER] 400 mg PO BID 10/03/18 Doxycycline Hyclate 20 mg PO BID 10/03/18 Furosemide [Lasix] 20 mg PO DAILY 10/03/18 Nystatin [Nystop] 1 applic TP BID 10/03/18 busPIRone [Buspar] 5 mg PO TID 10/03/18 Primary Care Provider: Nicanor Salter DO Referring Provider:
--- NOTE | 2018-10-08 14:02 | PCM.PN.HOSP ---
Patient Problems: Active and Suspected Problems (Last Reviewed 10/04/18 @ 04:38 by Jeferson Villa MD) Acute encephalopathy (Acute) YESENIA (acute kidney injury) (Acute) Bacteremia (Acute) Ischemic toe (Acute) Subjective: Patient seen and examined today. She feels better and has no complaints. No active events overnight. Review of systems otherwise negative. Repeat blood cultures are negative. Discussed with ID, will obtain bone marrow biopsy before patient is discharged. Per discussion with radiology, bone marrow biopsy to be done tomorrow at 9:30am. Labs and vitals reviewed. Vitals/I&O's: Vital Signs Temp Pulse Resp BP Pulse Ox 97.9 F 72 16 126/45 H 97 10/08/18 09:20 10/08/18 10:25 10/08/18 09:20 10/08/18 09:20 10/08/18 09:20 Oxygen Flow Rate (L/min) 2 Oxygen Delivery Method Room Air Weight: 204 lb 12.951 oz Body Mass Index (BMI) 44.3 Intake and Output for Last 24 Hours 10/06/18 10/07/18 10/08/18 23:59 23:59 23:59 Intake Total 2960 / 2960 570 / 570 270 / 270 Output Total 200 / 200 650 / 650 Balance 2960 / 2960 370 / 370 -380 / -380 General: Alert, Cooperative, No apparent distress, - - Down's syndrome HEENT: Atraumatic, PERRLA, EOMI, Normocephalic Oral: Dry Mucosa Neck: Supple, No JVD, Negative Carotid Bruits Lungs: - - mildly decreased breath sounds bibasally, no wheeze or crackles Cardiovascular: Regular rate, Regular Rhythm, Normal S1, Normal S2, No murmurs Abdomen: Bowel Sounds Present, Soft, Non Tender, Non-Distended, No Hepato-splenomegaly Extremities: No clubbing, No cyanosis, No edema, Capillary Refill Less than 3 Seconds; tenderness and dark discoloration of right middle toe; has tenderness with movement of toe. Ecchymotic patch on sole of right foot, below right middle toe. Has mild petechiae on both LEs Skin: No rashes, No breakdown Musculoskeletal: No Tenderness to Palpation of Joints or Extremities Lymphatic: No Cervical, Supraclavicular, or Inguinal Adenopathy Neurological: Cranial nerves II-XII grossly intact, Motor Exam 5/5 strength throughout Psych/Mental Status: Normal Affect, Appropriate Microbiology Past 72 Hours 10/06/18 11:05 Blood Culture (Wb) - Venous Blood Culture - Preliminary No growth in 48 hours. 10/06/18 11:18 Blood Culture (Wb) - Venous Blood Culture - Preliminary No growth in 48 hours. 10/07/18 18:50 Urine Catheter - Catheter Streptococcus pneumoniae Antigen (M - Final 10/07/18 18:50 Urine Catheter - Catheter Legionella Antigen - Final 10/03/18 17:33 Blood Culture (Wb) - Left Hand Blood Culture - Final 10/03/18 17:33 Blood Culture (Wb) - Right Forearm Bacteria Detection (PCR) - Final 10/03/18 17:33 Blood Culture (Wb) - Right Forearm Blood Culture - Final Streptococcus mutans 10/03/18 18:23 Urine, Catheterized Urine Culture - Final Culture exhibits no growth. Laboratory Results 10/08/18 05:50: WBC 2.5 L, RBC 2.56 L, Hgb 7.5 L, Hct 25.2 L, MCV 98.4, MCH 29.3, MCHC 29.8 L, RDW 18.3 H, RDW Differential 61.9 H, Plt Count 44 L*, MPV 12.5 H, Immature Gran % (Auto) 1.200 H, Neut % (Auto) 76.7 H, Lymph % (Auto) 13.8 L, [place] % (Auto) 7.9, Eos % (Auto) 0.0, Baso % (Auto) 0.4, Absolute Neuts (auto) 2.0, Absolute Lymphs (auto) 0.35 L, Total Counted Not Reportable, Differential Comment SCAN, Diff Path Review May ceci, Platelet Estimate MKD DEC, Plt Morphology Comment LARGE 10/08/18 05:50: Sodium 141, Potassium 3.6, Chloride 109 H, Carbon Dioxide 25.0, Anion Gap 7, BUN 30 H, Creatinine 1.58 H, Estim Creat Clear Calc 68.03, Est GFR (MDRD) Af Amer 46 L, Est GFR (MDRD) Non-Af 38 L, BUN/Creatinine Ratio 19.0, Glucose 106, Calcium 7.2 L Current Medications Ceftriaxone Sodium 2 gm/ (Sodium Chloride) 50 mls @ 100 mls/hr IV Q24 ASIA Last Admin: 10/08/18 08:37 Dose: 100 mls/hr Levothyroxine Sodium (Synthroid) 75 mcg PO DAILY@0600 [facility] Last Admin: 10/08/18 06:29 Dose: 75 mcg Magnesium Hydroxide (Milk Of Magnesia) 30 ml PO DAILY PRN PRN Reason: Constipation Nutritional Formula (Lactose Free) (Ensure Enlive) 120 ml PO 4X/DAY [facility] Last Admin: 10/08/18 08:39 Dose: Not Given Nystatin (Mycostatin Powder) 1 applic TOPICAL BID [facility]; Protocol Last Admin: 10/08/18 08:38 Dose: 1 applicatio Pantoprazole Sodium (Protonix) 40 mg PO BID [facility] Last Admin: 10/08/18 08:38 Dose: 40 mg Sodium Chloride () 5 - 15 ml IV UD PRN PRN Reason: SALINE FLUSH Last Admin: 10/07/18 04:12 Dose: 10 ml Medical Necessity - Tobacco Use Smoking Status: Never smoker Tobacco Use: Non-smoker Assessment/Plan All Active Problems (Last Reviewed 10/04/18 @ 04:38 by Jeferson Villa MD) Acute encephalopathy (Acute) YESENIA (acute kidney injury) (Acute) Bacteremia (Acute) Ischemic toe (Acute) Pancytopenia (Acute) 1. Acute metabolic encephalopathy due to acute bronchitis resolved. Feels much better today. sitting up in a chair and answering questions on IV ceftriaxone repeat blood cultures were negative. Initial blood culture grew human metapneumovirus continue breathing treatments 2. Acute streptococcal bacteremia preliminary blood cultures grew alphahemolytic streptococcus repeat blood cultures were negative. 2D echo done on 10/04/18 was negative. On IV ceftriaxone Per ID, this is likely due to oral bob, due to her bad teeth and recent dental cleaning. No abscesses seen per soft tissue CT scan to have PO augmentin 500mg bid x 7 days when ready for discharged. 3. Pancytopenia platelets are still 44 today. Hb has fallen to 7.5 today to havae bone marrow biopsy tomorrow morning. hematology on board 4. Acute bronchitis: as under 1. 5. GI bleed due to severe thrombocytopenia resolved. now stable. will continue to monitor DVT prophylaxis: SCDs Code status; DNRCC Code Visit Inpatient E&M: 19885 Subs Hosp L3
--- NOTE | 2018-10-08 14:09 | PN_ITS ---
Patient Problems: Active and Suspected Problems (Last Reviewed 10/04/18 @ 04:38 by Jeferson Villa MD) Acute encephalopathy (Acute) YESENIA (acute kidney injury) (Acute) Bacteremia (Acute) Ischemic toe (Acute) Subjective: Patient seen and examined today. She feels better and has no complaints. No active events overnight. Review of systems otherwise negative. Repeat blood cultures are negative. Discussed with ID, will obtain bone marrow biopsy before patient is discharged. Per discussion with radiology, bone marrow biopsy to be done tomorrow at 9:30am. Labs and vitals reviewed. Vitals/I&O's: Vital Signs Temp Pulse Resp BP Pulse Ox 97.9 F 72 16 126/45 H 97 10/08/18 09:20 10/08/18 10:25 10/08/18 09:20 10/08/18 09:20 10/08/18 09:20 Oxygen Flow Rate (L/min) 2 Oxygen Delivery Method Room Air Weight: 204 lb 12.951 oz Body Mass Index (BMI) 44.3 Intake and Output for Last 24 Hours 10/06/18 10/07/18 10/08/18 23:59 23:59 23:59 Intake Total 2960 / 2960 570 / 570 270 / 270 Output Total 200 / 200 650 / 650 Balance 2960 / 2960 370 / 370 -380 / -380 General: Alert, Cooperative, No apparent distress, - - Down's syndrome HEENT: Atraumatic, PERRLA, EOMI, Normocephalic Oral: Dry Mucosa Neck: Supple, No JVD, Negative Carotid Bruits Lungs: - - mildly decreased breath sounds bibasally, no wheeze or crackles Cardiovascular: Regular rate, Regular Rhythm, Normal S1, Normal S2, No murmurs Abdomen: Bowel Sounds Present, Soft, Non Tender, Non-Distended, No Hepato-splenomegaly Extremities: No clubbing, No cyanosis, No edema, Capillary Refill Less than 3 Seconds; tenderness and dark discoloration of right middle toe; has tenderness with movement of toe. Ecchymotic patch on sole of right foot, below right middle toe. Has mild petechiae on both LEs Skin: No rashes, No breakdown Musculoskeletal: No Tenderness to Palpation of Joints or Extremities Lymphatic: No Cervical, Supraclavicular, or Inguinal Adenopathy Neurological: Cranial nerves II-XII grossly intact, Motor Exam 5/5 strength throughout Psych/Mental Status: Normal Affect, Appropriate Microbiology Past 72 Hours 10/06/18 11:05 Blood Culture (Wb) - Venous Blood Culture - Preliminary No growth in 48 hours. 10/06/18 11:18 Blood Culture (Wb) - Venous Blood Culture - Preliminary No growth in 48 hours. 10/07/18 18:50 Urine Catheter - Catheter Streptococcus pneumoniae Antigen (M - Final 10/07/18 18:50 Urine Catheter - Catheter Legionella Antigen - Final 10/03/18 17:33 Blood Culture (Wb) - Left Hand Blood Culture - Final 10/03/18 17:33 Blood Culture (Wb) - Right Forearm Bacteria Detection (PCR) - Final 10/03/18 17:33 Blood Culture (Wb) - Right Forearm Blood Culture - Final Streptococcus mutans 10/03/18 18:23 Urine, Catheterized Urine Culture - Final Culture exhibits no growth. Laboratory Results 10/08/18 05:50: WBC 2.5 L, RBC 2.56 L, Hgb 7.5 L, Hct 25.2 L, MCV 98.4, MCH 29.3, MCHC 29.8 L, RDW 18.3 H, RDW Differential 61.9 H, Plt Count 44 L*, MPV 12.5 H, Immature Gran % (Auto) 1.200 H, Neut % (Auto) 76.7 H, Lymph % (Auto) 13.8 L, [place] % (Auto) 7.9, Eos % (Auto) 0.0, Baso % (Auto) 0.4, Absolute Neuts (auto) 2.0, Absolute Lymphs (auto) 0.35 L, Total Counted Not Reportable, Differential Comment SCAN, Diff Path Review May ceci, Platelet Estimate MKD DEC, Plt Morphology Comment LARGE 10/08/18 05:50: Sodium 141, Potassium 3.6, Chloride 109 H, Carbon Dioxide 25.0, Anion Gap 7, BUN 30 H, Creatinine 1.58 H, Estim Creat Clear Calc 68.03, Est GFR (MDRD) Af Amer 46 L, Est GFR (MDRD) Non-Af 38 L, BUN/Creatinine Ratio 19.0, Glucose 106, Calcium 7.2 L Current Medications Ceftriaxone Sodium 2 gm/ (Sodium Chloride) 50 mls @ 100 mls/hr IV Q24 ASIA Last Admin: 10/08/18 08:37 Dose: 100 mls/hr Levothyroxine Sodium (Synthroid) 75 mcg PO DAILY@0600 [facility] Last Admin: 10/08/18 06:29 Dose: 75 mcg Magnesium Hydroxide (Milk Of Magnesia) 30 ml PO DAILY PRN PRN Reason: Constipation Nutritional Formula (Lactose Free) (Ensure Enlive) 120 ml PO 4X/DAY [facility] Last Admin: 10/08/18 08:39 Dose: Not Given Nystatin (Mycostatin Powder) 1 applic TOPICAL BID [facility]; Protocol Last Admin: 10/08/18 08:38 Dose: 1 applicatio Pantoprazole Sodium (Protonix) 40 mg PO BID [facility] Last Admin: 10/08/18 08:38 Dose: 40 mg Sodium Chloride () 5 - 15 ml IV UD PRN PRN Reason: SALINE FLUSH Last Admin: 10/07/18 04:12 Dose: 10 ml Medical Necessity - Tobacco Use Smoking Status: Never smoker Tobacco Use: Non-smoker Assessment/Plan All Active Problems (Last Reviewed 10/04/18 @ 04:38 by Jeferson Villa MD) Acute encephalopathy (Acute) YESENIA (acute kidney injury) (Acute) Bacteremia (Acute) Ischemic toe (Acute) Pancytopenia (Acute) 1. Acute metabolic encephalopathy due to acute bronchitis * resolved. Feels much better today. sitting up in a chair and answering questions * on IV ceftriaxone * repeat blood cultures were negative. Initial blood culture grew human metapneumovirus * continue breathing treatments * 2. Acute streptococcal bacteremia * preliminary blood cultures grew alphahemolytic streptococcus * repeat blood cultures were negative. * 2D echo done on 10/04/18 was negative. On IV ceftriaxone * Per ID, this is likely due to oral bob, due to her bad teeth and recent dental cleaning. No abscesses seen per soft tissue CT scan * to have PO augmentin 500mg bid x 7 days when ready for discharged. * 3. Pancytopenia * platelets are still 44 today. Hb has fallen to 7.5 today * to havae bone marrow biopsy tomorrow morning. * hematology on board * 4. Acute bronchitis: as under 1. 5. GI bleed due to severe thrombocytopenia * resolved. * now stable. * will continue to monitor * DVT prophylaxis: SCDs Code status; DNRCC Code Visit Inpatient E&M: 17218 Subs Hosp L3
--- NOTE | 2018-10-08 14:59 | PCM.PN.REN ---
Patient Problems: Active and Suspected Problems (Last Reviewed 10/04/18 @ 04:38 by Jeferson Villa MD) Acute encephalopathy (Acute) YESENIA (acute kidney injury) (Acute) Bacteremia (Acute) Ischemic toe (Acute) Subjective: no new events - Physical Exam General: Alert, Oriented x3, Cooperative HEENT: Atraumatic, PERRLA, EOMI, Normocephalic Neck: Supple, No JVD, Negative Carotid Bruits Lungs: Clear to auscultation, Normal air movement Cardiovascular: Regular rate, No murmurs Abdomen: Bowel Sounds Present, Soft, Non Tender Extremities: No edema, Capillary Refill Less than 3 Seconds Skin: No rashes, No breakdown Musculoskeletal: No Tenderness to Palpation of Joints or Extremities Neurological: Cranial nerves II-XII grossly intact Psych/Mental Status: Normal Affect, Appropriate Vital Signs Temp Pulse Resp BP Pulse Ox 97.9 F 72 16 126/45 H 97 10/08/18 09:20 10/08/18 10:25 10/08/18 09:20 10/08/18 09:20 10/08/18 09:20 Oxygen Flow Rate (L/min) 2 Oxygen Delivery Method Room Air Weight: 92.9 kg Body Mass Index (BMI) 44.3 Intake and Output for Last 24 Hours 10/06/18 10/07/18 10/08/18 23:59 23:59 23:59 Intake Total 2960 / 2960 570 / 570 270 / 270 Output Total 200 / 200 650 / 650 Balance 2960 / 2960 370 / 370 -380 / -380 Microbiology Past 72 Hours 10/06/18 11:05 Blood Culture - Preliminary Blood Culture (Wb) - Venous No growth in 48 hours. 10/06/18 11:18 Blood Culture - Preliminary Blood Culture (Wb) - Venous No growth in 48 hours. 10/07/18 18:50 Streptococcus pneumoniae Antigen (M - Final Urine Catheter - Catheter 10/07/18 18:50 Legionella Antigen - Final Urine Catheter - Catheter 10/03/18 17:33 Blood Culture - Final Blood Culture (Wb) - Left Hand 10/03/18 17:33 Bacteria Detection (PCR) - Final Blood Culture (Wb) - Right Forearm Blood Culture - Final Streptococcus mutans 10/03/18 18:23 Urine Culture - Final Urine, Catheterized Culture exhibits no growth. Laboratory Tests Past 24 Hrs 10/08/18 10/08/18 05:50 05:50 WBC 2.5 L RBC 2.56 L Hgb 7.5 L Hct 25.2 L MCV 98.4 MCH 29.3 MCHC 29.8 L RDW 18.3 H RDW Differential 61.9 H Plt Count 44 L* MPV 12.5 H Immature Gran % (Auto) 1.200 H Neut % (Auto) 76.7 H Lymph % (Auto) 13.8 L [place] % (Auto) 7.9 Eos % (Auto) 0.0 Baso % (Auto) 0.4 Absolute Neuts (auto) 2.0 Absolute Lymphs (auto) 0.35 L Total Counted Not Reportable Differential Comment SCAN Diff Path Review May foll Platelet Estimate MKD DEC Plt Morphology Comment LARGE Sodium 141 Potassium 3.6 Chloride 109 H Carbon Dioxide 25.0 Anion Gap 7 BUN 30 H Creatinine 1.58 H Estim Creat Clear Calc 68.03 Est GFR (MDRD) Af Amer 46 L Est GFR (MDRD) Non-Af 38 L BUN/Creatinine Ratio 19.0 Glucose 106 Calcium 7.2 L Medical Necessity - Tobacco Use Smoking Status: Never smoker Tobacco Use: Non-smoker Assessment/Plan All Active Problems (Last Reviewed 10/04/18 @ 04:38 by Jeferson Villa MD) Acute encephalopathy (Acute) YESENIA (acute kidney injury) (Acute) Bacteremia (Acute) Ischemic toe (Acute) Pancytopenia (Acute) 1-acute kidney injury. Patient has normal baseline creatinine. UA showed 15 protein, no RBCs no WBCs. Acute kidney injury is most probably prerenal from diclofenac(which is NSAIDs), HUNTER inhibitor, Lasix along with decrease oral intake cr continues to improve 2-hypertension: Blood pressure is well controlled. 3-acute bronchitis due to viral infection. Symptomatic management as per the hospitalist 4-leukemia with pancytopenia. Hematology/oncology is on board. 5-hypothyroidism. Patient was started on levothyroxine.
--- NOTE | 2018-10-08 19:38 | CON.PCM_ITS ---
Reason for Consult Date of Consultation: 10/08/18 Reason for Consultation: Blue toe History of Present Illness: The patient is a 42 year old female with history of Down's syndrome, hypertension, hx of previous heart surgery at age 14, who was overall doing well living at halfway until recently when she had developed fatigue, poor appetite, weight loss and recently found to have significant anemia and thrombocytopenia. Patient also being treated with antibiotics by ID service for recent bacteremia, patient also has acute kidney injury. Patient did have a cough and SOB. Patient is scheduled to undergo a bone marrow biopsy tomorrow for further evaluation. Patient has been admitted here at hospital since last week. It was noted over weekend right 3rd toe was very purple in color, patient's mother states normal feet are normal white in color. 5th toe is purple now, and has purple bruise spot on the bottom of the foot at base of the 3rd toe. Patient's mother relates the purple color is not as dark today. There has been no known injury. Patient with no complaints of pain at time of evaluation. Patient had right foot xray which was negative for any acute abnormality. Patient's history was obtained by chart review and also from patient's mother as patient with Down's syndrome and not able to obtain history from her. Past Medical History Past Medical History (Chronic Problems): Chronic Problems (Last Reviewed 10/04/18 @ 04:38 by Jeferson Villa MD) Gout (Chronic) Chronic ulcer of left heel (Chronic) Right hip pain (Chronic) Hypothyroidism (Chronic) Hypertension (Chronic) Dry skin (Chronic) Down syndrome (Chronic) Medical History: Medical History (Last Reviewed 10/04/18 @ 04:38 by Jeferson Villa MD) Dry skin (Chronic) L85.3 Down syndrome (Chronic) Q90.9 Allergies No Known Allergies Allergy (Verified 09/26/18 13:05) Home Medications: Ambulatory Orders Medication Instructions Recorded allopurinol 300 mg tablet 300 mg PO DAILY #90 tab 05/13/18 irbesartan 75 mg tablet 75 mg PO DAILY #90 tab 05/13/18 levothyroxine 75 mcg tablet 75 mcg PO DAILY #90 tab 05/13/18 omeprazole 20 mg capsule,delayed 20 mg PO DAILY #90 cap 05/13/18 release white petrolatum topical jelly 1 applic TOPICAL BID PRN g 10/01/18 sertraline 100 mg tablet 100 mg PO DAILY #90 tab 08/20/18 diclofenac sodium 50 mg 50 mg PO BID #60 tab 08/21/18 tablet,delayed release Ammonium Lactate 1 applic TOPICAL BID 10/03/18 Calcium Carbonate/Vitamin D3 1 each PO DAILY 10/03/18 [Calcium 500+D Tablet Chew] Carbamazepine [Carbamazepine ER] 400 mg PO BID 10/03/18 Doxycycline Hyclate 20 mg PO BID 10/03/18 Furosemide [Lasix] 20 mg PO DAILY 10/03/18 Nystatin [Nystop] 1 applic TP BID 10/03/18 busPIRone [Buspar] 5 mg PO TID 10/03/18 Surgical History: Surgical History (Last Reviewed 10/04/18 @ 04:38 by Jeferson Villa MD) History of cataract surgery Z98.49 History of open heart surgery Z98.890 age 14 History of tubal ligation Z98.51 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 Denies: Chills, Fever Gastrointestinal: Denies: Nausea, Vomiting Musculoskeletal: Denies: Foot Pain Skin: Reports: Wounds - Relates had a large skin crack to the right heel, which recently healed Psychiatric: Reports: - - Downs syndrome Hematologic/ Lymphatic: Reports: Anemia, Purpura, - - thrombocytopenia Patient Problems: Active and Suspected Problems (Last Reviewed 10/04/18 @ 04:38 by Jeferson Villa MD) Acute encephalopathy (Acute) YESENIA (acute kidney injury) (Acute) Bacteremia (Acute) Ischemic toe (Acute) - Physical Exam General: Alert, Cooperative, No apparent distress Extremities: No edema - no edema to the foot/ankle or leg bilateral, no evidence of infection to the foot or ankle bilateral., Capillary Refill Less than 3 Seconds - bilateral toes w/ exception of right 3rd toe which has delayed CFT to the distal plantar aspect but normal to the dorsal aspect of the right 3rd toe., No Calf Tenderness, Cyanosis - There is a general cyanosis appearance to the foot right worse than left., Peripheral Pulses Normal - pedal pulses intact with very strong palpable PT pulse bilateral. Toes are cool to touch, - - Patient has blue toes 3-5 on the right foot to the plantar aspect, 3rd toe is the most affected. There are no open lesions bilateral foot/ankle, no gangrene or tissue loss bilateral foot/ankle. There is intact blister to the plantar distal 3rd and 5th toes on right foot, there is no drainage, no visible abscess, no cellulitis, no necrosis, no maloder, no fluctuance, no crepitus bilateral foot/ankle. Light touch intact to foot/ankle bilateral, with intact motor function bilateral foot/ankle. There is no POP or pain on ROM to the foot/ankle bilateral, no pain to the toes on the right foot w/ palpation or with ROM. There is chronic contracture of the toes bilateral. Muscle strength intact to the foot/ankle bilateral. No evidence of compartment syndrome bilateral. Vital Signs Temp Pulse Resp BP Pulse Ox 98.1 F 79 16 133/55 H 96 10/08/18 15:20 10/08/18 15:20 10/08/18 15:20 10/08/18 15:20 10/08/18 15:20 Oxygen Flow Rate (L/min) 2 Oxygen Delivery Method Room Air Weight: 92.9 kg Body Mass Index (BMI) 44.3 Intake and Output for Last 24 Hours 10/06/18 10/07/18 10/08/18 23:59 23:59 23:59 Intake Total 2960 / 2960 570 / 570 510 / 510 Output Total 200 / 200 650 / 650 Balance 2960 / 2960 370 / 370 -140 / -140 Microbiology Past 72 Hours 10/06/18 11:05 Blood Culture - Preliminary Blood Culture (Wb) - Venous No growth in 48 hours. 10/06/18 11:18 Blood Culture - Preliminary Blood Culture (Wb) - Venous No growth in 48 hours. 10/07/18 18:50 Streptococcus pneumoniae Antigen (M - Final Urine Catheter - Catheter 10/07/18 18:50 Legionella Antigen - Final Urine Catheter - Catheter 10/03/18 17:33 Blood Culture - Final Blood Culture (Wb) - Left Hand 10/03/18 17:33 Bacteria Detection (PCR) - Final Blood Culture (Wb) - Right Forearm Blood Culture - Final Streptococcus mutans 10/03/18 18:23 Urine Culture - Final Urine, Catheterized Culture exhibits no growth. Laboratory Tests Past 24 Hrs 10/08/18 10/08/18 05:50 05:50 WBC 2.5 L RBC 2.56 L Hgb 7.5 L Hct 25.2 L MCV 98.4 MCH 29.3 MCHC 29.8 L RDW 18.3 H RDW Differential 61.9 H Plt Count 44 L* MPV 12.5 H Immature Gran % (Auto) 1.200 H Neut % (Auto) 76.7 H Lymph % (Auto) 13.8 L [place] % (Auto) 7.9 Eos % (Auto) 0.0 Baso % (Auto) 0.4 Absolute Neuts (auto) 2.0 Absolute Lymphs (auto) 0.35 L Total Counted Not Reportable Differential Comment SCAN Diff Path Review May foll Platelet Estimate MKD DEC Plt Morphology Comment LARGE Sodium 141 Potassium 3.6 Chloride 109 H Carbon Dioxide 25.0 Anion Gap 7 BUN 30 H Creatinine 1.58 H Estim Creat Clear Calc 68.03 Est GFR (MDRD) Af Amer 46 L Est GFR (MDRD) Non-Af 38 L BUN/Creatinine Ratio 19.0 Glucose 106 Calcium 7.2 L Assessment/Plan All Active Problems (Last Reviewed 10/04/18 @ 04:38 by Jeferson Villa MD) Acute encephalopathy (Acute) YESENIA (acute kidney injury) (Acute) Bacteremia (Acute) Ischemic toe (Acute) Pancytopenia (Acute) Blue toe syndrome right foot 42 yo old patient w/ Down's syndrome has symptoms of blue toe syndrome to the lesser toes of the right foot, with 3rd toe most affected. Patient's has strong palpable PT pulse to foot, CFT < 2 seconds to all other toes with delay to the right 3rd toe to distal plantar aspect, patient with with recent bacteremia, significant anemia and thrombocytopenia, as well acute encephalopathy, and acute kidney injury - currently undergoing further workup to determine presence of underlying medical condition, patient scheduled to get bone marrow biopsy tomorrow. Noninvasive lower extremity arterial studies ordered for further evaluation on lower extremity arterial flow, and also spoke with Dr. Jaramillo from vascular - who will also see patient due to concern for ischemia to toes. I did speak to and reviewed with patient's mother. Podiatry will continue to follow, thank you for consultation.
--- NOTE | 2018-10-08 22:57 | ART_ITS ---
Reason For Study: Blue Toes Procedure A bilateral lower extremity continuous wave Doppler with analog waveform analysis and ankle brachial indexes. Left Segmental Pressures Left brachial= 125mmHg. Left posterior tibial artery = 180mmHg. Left dorsalis pedis artery = 179mmHg. Left digit = 127 mmHg. Right Segmental Pressures Right brachial= 129mmHg. Right posterior tibial artery = 169mmHg. Right dorsalis pedis artery = 144mmHg. Right digit = 112 mmHg. Indices The right ankle brachial index by the posterior tibial artery is 1.31. The right ankle brachial index by the dorsalis pedis is 1.12. The right digital-brachial index is 0.87. The left ankle brachial index by the posterior tibial artery is 1.40. The left ankle brachial index by the dorsalis pedis is 1.39. The left digital-brachial index is 0.98. Interpretation Summary 1. bilateral no evidence occlussive disease at rest with triphasic flow and NASH 1.31/1.40. 2. No evidence of small vessel disease with DBI 0.87/0.98. Ordering Physician: Cyrus Fernandez Referring Physician: Nicanor Salter Performed By: Stella Guzmán RDCS/RVT
--- NOTE | 2018-10-08 22:57 | ADU_ITS ---
Reason For Study: Blue Toes Right Velocities Left Velocities Ext. Iliac Artery, dist = 178 cm./sec. Ext Iliac Artery, dist = 181 cm./sec. Common Femoral Artery, dist = 179 cm./sec. Common Femoral Artery, dist = 152 cm./sec. Supf Femoral Artery, prox = 166 cm./sec. Supf. Femoral Artery, prox = 150 cm./sec. Supf Femoral Artery, mid = 135 cm./sec. Supf. Femoral Artery, mid = 131 cm./sec. Supf Femoral Artery, dist. = 126 cm./sec. Supf. Femoral Artery, dist = 111 cm./sec. Profunda Femoral Artery = 85 cm./sec. Profunda Femoral Artery = 97 cm./sec. Popliteal Artery, prox. = 115 cm./sec. Popliteal Artery, proximal, = 89 cm./sec. Popliteal Artery, dist = 83 cm./sec. Popliteal Artery, distal = 117 cm./sec. Post. Tibial Artery, prox = 179 cm./sec. Post. Tibial Artery, prox = 74 cm./sec. Post. Tibial Artery, mid = 159 cm./sec. Post Tibial Artery, mid = 169 cm./sec. Post. Tibial Artery, dist = 119 cm./sec. Post Tibial Artery, dist. = 107 cm./sec. Peroneal Artery, prox = 26 cm./sec. Peroneal Artery, prox = 94 cm./sec. Peroneal Artery, mid = 86 cm./sec. Peroneal Artery, mid = 84 cm./sec. Peroneal Artery,dist = 61 cm./sec. Peroneal Artery,dist. = 57 cm./sec. Ant. Tibial Artery, prox = 97 cm./sec. Ant.Tibial Artery, prox = 101 cm./sec. Ant. Tibial Artery, mid = 90 cm./sec. Ant Tibial Artery, mid = 72 cm./sec. Ant. Tibial Artery, dist = 67 cm./sec. Ant. Tibial Artery, distal = 87 cm./sec. Rt DPA: 72cm/s. Lt DPA: 100 cm/s. Procedure Exam performed portable in patient room. Interpretation Summary 1. Bilateral no stenosis visualized with triphasic flow noted through all vessels. Ordering Physician: Cyrus Fernandez Referring Physician: Nicanor Salter Performed By: Stella Guzmán RDCS, RVT
[2018-10-09] VITALS (16 sets, daily range): BP systolic 122–157; BP diastolic 41–84; PULSE 68–82; RESP 14–23; TEMP 35.8–37.2; O2SAT 89–100; BMI 44.3
[2018-10-09 06:07] LABS: Anion Gap 8 (5-15); BUN 30 mg/dL (7-18); BUN/Creat Ratio 19.1 RATIO (10-20); Calcium,Total 7.4 mg/dL (8.5-10.1); Chloride 107 mmol/L (98-107); Creatinine, Serum 1.57 mg/dL (0.55-1.02); EST Glomerular Filtration Rate 38 mL/min (>60); Est Glom Filt Rate - Afr Amer 46 mL/min (>60); Estimated Creatinine Clearance 68.46 ml/min; Glucose 94 mg/dL (74-106); Potassium 3.6 mmol/L (3.5-5.1); Sodium Level 142 mmol/L (136-145)
[2018-10-09 06:33] LABS: Absolute Lymphocyte Count 0.38 X10^3/ul (0.83-4.51); Absolute Neutrophil Count 2.1 X10^3/uL (2.0-7.7); Basophil# 0.03 X10^3/uL; Basophil% 1.1 % (0-1); Hematocrit 26.5 % (37-47); Hemoglobin 7.7 g/dl (12.0-15.0); Lymphocyte # 0.38 X10^3/ul (4.0); Mean Corp Hgb Conc 29.1 g/gl (32-36); Mean Corpuscular Hgb 28.5 pg (27.0-32.0); Mean Corpuscular Volume 98.1 fL (81-99); Mean Platelet Vol. 12.4 fl (6.2-12.0); Monocyte# 0.22 X10^3/uL; Monocyte% 8.1 % (0-10); Neutrophil # 2.06 X10^3/uL (2.7-7.7); Neutrophil % 75.7 % (47-70); RBC Distribution Width CV 18.4 % (11.6-14.6); RBC Distribution Width SD 62.9 fl (35.1-43.9); White Blood Count 2.7 K/mm3 (4.4-11.0)
[2018-10-09 06:43] LABS: Platelet Count 46 K/mm3 (150-450)
[2018-10-09 06:44] LABS: Differential Indicated SCAN CRITERIA MET; POSITIVE COUNT YES; POSITIVE DIFFERENTIAL YES; POSITIVE MORPHOLOGY NO
[2018-10-09 07:06] LABS: Differential Comment SCAN; Platelet Estimate MKD DEC (ADEQ)
--- NOTE | 2018-10-09 07:57 | CT_ITS ---
PROCEDURE: CT GUIDED BONE marrow biopsy of the posterior left iliac bone. DATE: October 09, 2018. INDICATION: Female, 42 years old. Possible leukemia. PHYSICIAN: Reese Adames M.D. RADIATION DOSAGE (If Supplied By Facility): CTDIvol = ( 22.74 ) mGy, DLP = ( 641.7 ) mGycm. Individualized dose optimization techniques were utilized. PROCEDURE: The risks, benefits, and alternatives to the procedure were explained to the patient. The specific risk of hemorrhage requiring further treatment or intervention was detailed and accepted. Follow-up instructions were discussed with the patient as well. Written informed consent was obtained. The patient was brought into the CT suite and placed in the prone position. . An appropriate entry site was identified. The overlying skin was prepped and draped in the usual sterile fashion. 1% lidocaine was administered subcutaneously for local anesthesia. Conscious sedation was performed. The patient received 2 mg of Versed and 100 mcg of fentanyl intravenously. Conscious sedation was started on 9:28 AM and terminated at 9:58 AM. The patient was independently monitored by the department nurse. Under CT guidance, a bone marrow biopsy and bone marrow aspirates were performed utilizing an 11-gauge core biopsy needle. The specimens were then placed in the appropriate fluid and transported to the laboratory for analysis. Hemostasis was obtained. The patient tolerated the procedure well without immediate complications. CT/Biopsy/Inj or Needle Placement IMPRESSION: Successful CT guided bone marrow biopsy of the posterior aspect of the left iliac bone, as described above. Electronically Signed: Reese Adames, at 11:09 EST , Service support ,
[2018-10-09] MEDS: Midazolam 2 MG/2 ML Syringe IV (09:25)
[2018-10-09] MEDS: fentaNYL 100 MCG/2 ML Ampul IV (09:28)
[2018-10-09] MEDS: fentaNYL 100 MCG/2 ML Ampul 50 MCG IV (09:51)
[2018-10-09 10:15] LABS: Pathologist Review Reviewed
[2018-10-09 10:17] LABS: Pathologist Review Reviewed
--- NOTE | 2018-10-09 10:19 | PCM.PN.HOSP ---
Patient Problems: Active and Suspected Problems (Last Reviewed 10/09/18 @ 11:55 by Jose Jaramillo MD) Acute encephalopathy (Acute) YESENIA (acute kidney injury) (Acute) Bacteremia (Acute) Ischemic toe (Acute) PAD (peripheral artery disease) (Acute) Subjective: Patient seen and examined. She had no complaints overnight. Review of systems otherwise negative. Vitals reviewed. Physical for bone marrow biopsy 9:30 AM this morning. Podiatry reviewed patient on account of discolored toes and think it's blue toe syndrome. Podiatry recommended vascular surgery consult and she is to have arterial duplex today. Vitals/I&O's: Vital Signs Temp Pulse Resp BP Pulse Ox 96.5 F L 77 17 124/71 H 92 10/09/18 09:01 10/09/18 10:09 10/09/18 10:09 10/09/18 10:09 10/09/18 10:09 Oxygen Flow Rate (L/min) [7] 2 Oxygen Flow Rate (L/min) [6] 2 Oxygen Flow Rate (L/min) [5] 2 Oxygen Flow Rate (L/min) [4] 2 Oxygen Flow Rate (L/min) [3] 4 Oxygen Flow Rate (L/min) [2] 4 Oxygen Flow Rate (L/min) 2 Oxygen Delivery Method [7] Nasal Cannula Oxygen Delivery Method [6] Nasal Cannula Oxygen Delivery Method [5] Nasal Cannula Oxygen Delivery Method [4] Nasal Cannula Oxygen Delivery Method [3] Nasal Cannula Oxygen Delivery Method [2] Nasal Cannula Oxygen Delivery Method [1 ( Room Air Initial Baseline)] Oxygen Delivery Method Room Air Weight: 204 lb 12.951 oz Body Mass Index (BMI) 44.3 Intake and Output for Last 24 Hours 10/07/18 10/08/18 10/09/18 23:59 23:59 23:59 Intake Total 570 / 570 610 / 610 50 / 50 Output Total 200 / 200 800 / 800 0 / 0 Balance 370 / 370 -190 / -190 50 / 50 General: Alert, Cooperative, No apparent distress, - - Down's syndrome HEENT: Atraumatic, PERRLA, EOMI, Normocephalic Oral: Dry Mucosa Neck: Supple, No JVD, Negative Carotid Bruits Lungs: - - mildly decreased breath sounds bibasally, no wheeze or crackles Cardiovascular: Regular rate, Regular Rhythm, Normal S1, Normal S2, No murmurs Abdomen: Bowel Sounds Present, Soft, Non Tender, Non-Distended, No Hepato-splenomegaly Extremities: No clubbing, No cyanosis, No edema, Capillary Refill Less than 3 Seconds; tenderness and dark discoloration of right middle toe; has tenderness with movement of toe. Ecchymotic patch on sole of right foot, below right middle toe. Has mild petechiae on both LEs. Minimal bluish discoloration of right little toe. Distal pulses strong and palpable Skin: No rashes, No breakdown Musculoskeletal: No Tenderness to Palpation of Joints or Extremities Lymphatic: No Cervical, Supraclavicular, or Inguinal Adenopathy Neurological: Cranial nerves II-XII grossly intact, Motor Exam 5/5 strength throughout Psych/Mental Status: Normal Affect, Appropriate Microbiology Past 72 Hours 10/06/18 11:05 Blood Culture (Wb) - Venous Blood Culture - Preliminary No growth in 48 hours. 10/06/18 11:18 Blood Culture (Wb) - Venous Blood Culture - Preliminary No growth in 48 hours. 10/07/18 18:50 Urine Catheter - Catheter Streptococcus pneumoniae Antigen (M - Final 10/07/18 18:50 Urine Catheter - Catheter Legionella Antigen - Final 10/03/18 17:33 Blood Culture (Wb) - Left Hand Blood Culture - Final 10/03/18 17:33 Blood Culture (Wb) - Right Forearm Bacteria Detection (PCR) - Final 10/03/18 17:33 Blood Culture (Wb) - Right Forearm Blood Culture - Final Streptococcus mutans 10/03/18 18:23 Urine, Catheterized Urine Culture - Final Culture exhibits no growth. Laboratory Results 10/07/18 09:55: Diff Path Review Reviewed 10/08/18 05:50: Diff Path Review Reviewed 10/09/18 05:05: WBC 2.7 L, RBC 2.70 L, Hgb 7.7 L, Hct 26.5 L, MCV 98.1, MCH 28.5, MCHC 29.1 L, RDW 18.4 H, RDW Differential 62.9 H, Plt Count 46 L*, MPV 12.4 H, Immature Gran % (Auto) 1.100 H, Neut % (Auto) 75.7 H, Lymph % (Auto) 14.0 L, [place] % (Auto) 8.1, Eos % (Auto) 0.0, Baso % (Auto) 1.1 H, Absolute Neuts (auto) 2.1, Absolute Lymphs (auto) 0.38 L, Total Counted Not Reportable, Differential Comment SCAN, Diff Path Review December foll, Platelet Estimate MKD 10/09/18 05:05: Sodium 142, Potassium 3.6, Chloride 107, Carbon Dioxide 27.0, Anion Gap 8, BUN 30 H, Creatinine 1.57 H, Estim Creat Clear Calc 68.46, Est GFR (MDRD) Af Amer 46 L, Est GFR (MDRD) Non-Af 38 L, BUN/Creatinine Ratio 19.1, Glucose 94, Calcium 7.4 L Current Medications Ceftriaxone Sodium 2 gm/ (Sodium Chloride) 50 mls @ 100 mls/hr IV Q24 [facility] Last Admin: 10/08/18 08:37 Dose: 100 mls/hr Sodium Chloride () 500 mls @ 0 mls/hr IV .Q0M [facility] Stop: 10/09/18 23:59 Levothyroxine Sodium (Synthroid) 75 mcg PO DAILY@0600 [facility] Last Admin: 10/08/18 06:29 Dose: 75 mcg Magnesium Hydroxide (Milk Of Magnesia) 30 ml PO DAILY PRN PRN Reason: Constipation Nutritional Formula (Lactose Free) (Ensure Enlive) 120 ml PO 4X/DAY [facility] Last Admin: 10/09/18 10:15 Dose: Not Given Nystatin (Mycostatin Powder) 1 applic TOPICAL BID [facility]; Protocol Last Admin: 10/08/18 22:41 Dose: 1 applicatio Pantoprazole Sodium (Protonix) 40 mg PO BID [facility] Last Admin: 10/08/18 22:41 Dose: 40 mg Sodium Chloride () 5 - 15 ml IV UD PRN PRN Reason: SALINE FLUSH Last Admin: 10/07/18 04:12 Dose: 10 ml Medical Necessity - Tobacco Use Smoking Status: Never smoker Tobacco Use: Non-smoker Assessment/Plan All Active Problems (Last Reviewed 10/09/18 @ 11:55 by Jose Jaramillo MD) Acute encephalopathy (Acute) YESENIA (acute kidney injury) (Acute) Bacteremia (Acute) Ischemic toe (Acute) PAD (peripheral artery disease) (Acute) Pancytopenia (Acute) 1. Acute metabolic encephalopathy due to acute bronchitis resolved. on IV ceftriaxone repeat blood cultures were negative. Initial blood culture grew Strep mutans, and respiratory panel isolated human metapneumovirus continue breathing treatments 2. Acute streptococcal bacteremia preliminary blood cultures grew alphahemolytic streptococcus repeat blood cultures were negative. 2D echo done on 10/04/18 was negative. On IV ceftriaxone Per ID, this is likely due to oral bob, due to her bad teeth and recent dental cleaning. No abscesses seen per soft tissue CT scan to have PO augmentin 500mg bid x 7 days when ready for discharge. 3. Pancytopenia platelets are still 44 today. Hb is 7.7 today to have bone marrow biopsy today by radiology hematology on board 4. Acute bronchitis: as under 1. 5. BLue toe syndrome of right foot has bluish discoloration of right middle and little toes, more severe with middle toe than little toe podiatry consulted; recommend arterial duplex to assess for any ischemia vascular surgery also consulted by podiatry; await rec's 6. YESENIA: Cr is 1.57, baseline is <1. Was 2.31 on admission. AK I was thought to be likely due to prerenal cause from diclofenac, HNUTER inhibitor and Lasix use as well as decreased oral anti- Cr has slowly trended down to 1.57. We will continue to monitor. Nephrology on board. 7. GI bleed due to severe thrombocytopenia resolved. now stable. will continue to monitor DVT prophylaxis: SCDs Code status; DNRCC Disposition: for discharge to TCU when ready Code Visit Inpatient E&M: 04960 Subs Hosp L2
--- NOTE | 2018-10-09 10:24 | PN_ITS ---
Patient Problems: Active and Suspected Problems (Last Reviewed 10/09/18 @ 11:55 by Jose Jaramillo MD) Acute encephalopathy (Acute) YESENIA (acute kidney injury) (Acute) Bacteremia (Acute) Ischemic toe (Acute) PAD (peripheral artery disease) (Acute) Subjective: Patient seen and examined. She had no complaints overnight. Review of systems otherwise negative. Vitals reviewed. Physical for bone marrow biopsy 9:30 AM this morning. Podiatry reviewed patient on account of discolored toes and think it's blue toe syndrome. Podiatry recommended vascular surgery consult and she is to have arterial duplex today. Vitals/I&O's: Vital Signs Temp Pulse Resp BP Pulse Ox 96.5 F L 77 17 124/71 H 92 10/09/18 09:01 10/09/18 10:09 10/09/18 10:09 10/09/18 10:09 10/09/18 10:09 Oxygen Flow Rate (L/min) [7] 2 Oxygen Flow Rate (L/min) [6] 2 Oxygen Flow Rate (L/min) [5] 2 Oxygen Flow Rate (L/min) [4] 2 Oxygen Flow Rate (L/min) [3] 4 Oxygen Flow Rate (L/min) [2] 4 Oxygen Flow Rate (L/min) 2 Oxygen Delivery Method [7] Nasal Cannula Oxygen Delivery Method [6] Nasal Cannula Oxygen Delivery Method [5] Nasal Cannula Oxygen Delivery Method [4] Nasal Cannula Oxygen Delivery Method [3] Nasal Cannula Oxygen Delivery Method [2] Nasal Cannula Oxygen Delivery Method [1 ( Room Air Initial Baseline)] Oxygen Delivery Method Room Air Weight: 204 lb 12.951 oz Body Mass Index (BMI) 44.3 Intake and Output for Last 24 Hours 10/07/18 10/08/18 10/09/18 23:59 23:59 23:59 Intake Total 570 / 570 610 / 610 50 / 50 Output Total 200 / 200 800 / 800 0 / 0 Balance 370 / 370 -190 / -190 50 / 50 General: Alert, Cooperative, No apparent distress, - - Down's syndrome HEENT: Atraumatic, PERRLA, EOMI, Normocephalic Oral: Dry Mucosa Neck: Supple, No JVD, Negative Carotid Bruits Lungs: - - mildly decreased breath sounds bibasally, no wheeze or crackles Cardiovascular: Regular rate, Regular Rhythm, Normal S1, Normal S2, No murmurs Abdomen: Bowel Sounds Present, Soft, Non Tender, Non-Distended, No Hepato- splenomegaly Extremities: No clubbing, No cyanosis, No edema, Capillary Refill Less than 3 Seconds; tenderness and dark discoloration of right middle toe; has tenderness with movement of toe. Ecchymotic patch on sole of right foot, below right middle toe. Has mild petechiae on both LEs. Minimal bluish discoloration of right little toe. Distal pulses strong and palpable Skin: No rashes, No breakdown Musculoskeletal: No Tenderness to Palpation of Joints or Extremities Lymphatic: No Cervical, Supraclavicular, or Inguinal Adenopathy Neurological: Cranial nerves II-XII grossly intact, Motor Exam 5/5 strength throughout Psych/Mental Status: Normal Affect, Appropriate Microbiology Past 72 Hours 10/06/18 11:05 Blood Culture (Wb) - Venous Blood Culture - Preliminary No growth in 48 hours. 10/06/18 11:18 Blood Culture (Wb) - Venous Blood Culture - Preliminary No growth in 48 hours. 10/07/18 18:50 Urine Catheter - Catheter Streptococcus pneumoniae Antigen (M - Final 10/07/18 18:50 Urine Catheter - Catheter Legionella Antigen - Final 10/03/18 17:33 Blood Culture (Wb) - Left Hand Blood Culture - Final 10/03/18 17:33 Blood Culture (Wb) - Right Forearm Bacteria Detection (PCR) - Final 10/03/18 17:33 Blood Culture (Wb) - Right Forearm Blood Culture - Final Streptococcus mutans 10/03/18 18:23 Urine, Catheterized Urine Culture - Final Culture exhibits no growth. Laboratory Results 10/07/18 09:55: Diff Path Review Reviewed 10/08/18 05:50: Diff Path Review Reviewed 10/09/18 05:05: WBC 2.7 L, RBC 2.70 L, Hgb 7.7 L, Hct 26.5 L, MCV 98.1, MCH 28.5, MCHC 29.1 L, RDW 18.4 H, RDW Differential 62.9 H, Plt Count 46 L*, MPV 12.4 H, Immature Gran % (Auto) 1.100 H, Neut % (Auto) 75.7 H, Lymph % (Auto) 14.0 L, [place] % (Auto) 8.1, Eos % (Auto) 0.0, Baso % (Auto) 1.1 H, Absolute Neuts (auto) 2.1, Absolute Lymphs (auto) 0.38 L, Total Counted Not Reportable, Differential Comment SCAN, Diff Path Review May foll, Platelet Estimate MKD 10/09/18 05:05: Sodium 142, Potassium 3.6, Chloride 107, Carbon Dioxide 27.0, Anion Gap 8, BUN 30 H, Creatinine 1.57 H, Estim Creat Clear Calc 68.46, Est GFR (MDRD) Af Amer 46 L, Est GFR (MDRD) Non-Af 38 L, BUN/Creatinine Ratio 19.1, G lucose 94, Calcium 7.4 L Current Medications Ceftriaxone Sodium 2 gm/ (Sodium Chloride) 50 mls @ 100 mls/hr IV Q24 [facility] Last Admin: 10/08/18 08:37 Dose: 100 mls/hr Sodium Chloride () 500 mls @ 0 mls/hr IV .Q0M [facility] Stop: 10/09/18 23:59 Levothyroxine Sodium (Synthroid) 75 mcg PO DAILY@0600 [facility] Last Admin: 10/08/18 06:29 Dose: 75 mcg Magnesium Hydroxide (Milk Of Magnesia) 30 ml PO DAILY PRN PRN Reason: Constipation Nutritional Formula (Lactose Free) (Ensure Enlive) 120 ml PO 4X/DAY [facility] Last Admin: 10/09/18 10:15 Dose: Not Given Nystatin (Mycostatin Powder) 1 applic TOPICAL BID [facility]; Protocol Last Admin: 10/08/18 22:41 Dose: 1 applicatio Pantoprazole Sodium (Protonix) 40 mg PO BID [facility] Last Admin: 10/08/18 22:41 Dose: 40 mg Sodium Chloride () 5 - 15 ml IV UD PRN PRN Reason: SALINE FLUSH Last Admin: 10/07/18 04:12 Dose: 10 ml Medical Necessity - Tobacco Use Smoking Status: Never smoker Tobacco Use: Non-smoker Assessment/Plan All Active Problems (Last Reviewed 10/09/18 @ 11:55 by Jose Jaramillo MD) Acute encephalopathy (Acute) YESENIA (acute kidney injury) (Acute) Bacteremia (Acute) Ischemic toe (Acute) PAD (peripheral artery disease) (Acute) Pancytopenia (Acute) 1. Acute metabolic encephalopathy due to acute bronchitis * resolved. * on IV ceftriaxone * repeat blood cultures were negative. Initial blood culture grew Strep mutans, and respiratory panel isolated human metapneumovirus * continue breathing treatments * 2. Acute streptococcal bacteremia * preliminary blood cultures grew alphahemolytic streptococcus * repeat blood cultures were negative. * 2D echo done on 10/04/18 was negative. On IV ceftriaxone * Per ID, this is likely due to oral bob, due to her bad teeth and recent dental cleaning. No abscesses seen per soft tissue CT scan * to have PO augmentin 500mg bid x 7 days when ready for discharge. * 3. Pancytopenia * platelets are still 44 today. Hb is 7.7 today * to have bone marrow biopsy today by radiology * hematology on board * 4. Acute bronchitis: as under 1. 5. BLue toe syndrome of right foot * has bluish discoloration of right middle and little toes, more severe with middle toe than little toe * podiatry consulted; recommend arterial duplex to assess for any ischemia * vascular surgery also consulted by podiatry; await rec's * 6. YESENIA: * Cr is 1.57, baseline is <1. Was 2.31 on admission. * AK I was thought to be likely due to prerenal cause from diclofenac, HUNTER inhibitor and Lasix use as well as decreased oral anti- * Cr has slowly trended down to 1.57. We will continue to monitor. * Nephrology on board. * 7. GI bleed due to severe thrombocytopenia * resolved. * now stable. * will continue to monitor * DVT prophylaxis: SCDs Code status; DNRCC Disposition: for discharge to TCU when ready Code Visit Inpatient E&M: 71147 Subs Hosp L2
[2018-10-09] MEDS: Levothyroxine 75 MCG Tablet PO (10:57)
[2018-10-09] MEDS: Pantoprazole Sodium 40 MG Tablet PO ×2 (10:57→21:34)
[2018-10-09] MEDS: Nystatin Powder 15gm Bottle 1 APPLIC TOPICAL ×2 (10:58→21:33)
--- NOTE | 2018-10-09 11:21 | PCM.PN.REN ---
Patient Problems: Active and Suspected Problems (Last Reviewed 10/04/18 @ 04:38 by Jeferson Villa MD) Acute encephalopathy (Acute) YESENIA (acute kidney injury) (Acute) Bacteremia (Acute) Ischemic toe (Acute) Subjective: events noted - Physical Exam General: Alert, Oriented x3, Cooperative HEENT: Atraumatic, PERRLA, EOMI, Normocephalic Neck: Supple, No JVD, Negative Carotid Bruits Lungs: Clear to auscultation, Normal air movement Cardiovascular: Regular rate, No murmurs Abdomen: Bowel Sounds Present, Soft, Non Tender Extremities: No edema, Capillary Refill Less than 3 Seconds Skin: No rashes, No breakdown Musculoskeletal: No Tenderness to Palpation of Joints or Extremities Neurological: Cranial nerves II-XII grossly intact Psych/Mental Status: Normal Affect, Appropriate Vital Signs Temp Pulse Resp BP Pulse Ox 96.5 F L 74 16 132/74 H 94 10/09/18 09:01 10/09/18 11:15 10/09/18 10:14 10/09/18 10:14 10/09/18 10:14 Oxygen Flow Rate (L/min) [7] 2 Oxygen Flow Rate (L/min) [6] 2 Oxygen Flow Rate (L/min) [5] 2 Oxygen Flow Rate (L/min) [4] 2 Oxygen Flow Rate (L/min) [3] 4 Oxygen Flow Rate (L/min) [2] 4 Oxygen Flow Rate (L/min) 2 Oxygen Delivery Method [7] Nasal Cannula Oxygen Delivery Method [6] Nasal Cannula Oxygen Delivery Method [5] Nasal Cannula Oxygen Delivery Method [4] Nasal Cannula Oxygen Delivery Method [3] Nasal Cannula Oxygen Delivery Method [2] Nasal Cannula Oxygen Delivery Method [1 ( Room Air Initial Baseline)] Oxygen Delivery Method Room Air Weight: 92.9 kg Body Mass Index (BMI) 44.3 Intake and Output for Last 24 Hours 10/07/18 10/08/18 10/09/18 23:59 23:59 23:59 Intake Total 570 / 570 610 / 610 50 / 50 Output Total 200 / 200 800 / 800 0 / 0 Balance 370 / 370 -190 / -190 50 / 50 Microbiology Past 72 Hours 10/06/18 11:05 Blood Culture - Preliminary Blood Culture (Wb) - Venous No growth in 48 hours. 10/06/18 11:18 Blood Culture - Preliminary Blood Culture (Wb) - Venous No growth in 48 hours. 10/07/18 18:50 Streptococcus pneumoniae Antigen (M - Final Urine Catheter - Catheter 10/07/18 18:50 Legionella Antigen - Final Urine Catheter - Catheter 10/03/18 17:33 Blood Culture - Final Blood Culture (Wb) - Left Hand 10/03/18 17:33 Bacteria Detection (PCR) - Final Blood Culture (Wb) - Right Forearm Blood Culture - Final Streptococcus mutans 10/03/18 18:23 Urine Culture - Final Urine, Catheterized Culture exhibits no growth. Laboratory Tests Past 24 Hrs 10/07/18 10/08/18 10/09/18 09:55 05:50 05:05 WBC 2.7 L RBC 2.70 L Hgb 7.7 L Hct 26.5 L MCV 98.1 MCH 28.5 MCHC 29.1 L RDW 18.4 H RDW Differential 62.9 H Plt Count 46 L* MPV 12.4 H Immature Gran % (Auto) 1.100 H Neut % (Auto) 75.7 H Lymph % (Auto) 14.0 L [place] % (Auto) 8.1 Eos % (Auto) 0.0 Baso % (Auto) 1.1 H Absolute Neuts (auto) 2.1 Absolute Lymphs (auto) 0.38 L Total Counted Not Reportable Differential Comment SCAN Diff Path Review Reviewed Reviewed December foll Platelet Estimate MKD DEC Sodium Potassium Chloride Carbon Dioxide Anion Gap BUN Creatinine Estim Creat Clear Calc Est GFR (MDRD) Af Amer Est GFR (MDRD) Non-Af BUN/Creatinine Ratio Glucose Calcium 10/09/18 05:05 WBC RBC Hgb Hct MCV MCH MCHC RDW RDW Differential Plt Count MPV Immature Gran % (Auto) Neut % (Auto) Lymph % (Auto) [place] % (Auto) Eos % (Auto) Baso % (Auto) Absolute Neuts (auto) Absolute Lymphs (auto) Total Counted Differential Comment Diff Path Review Platelet Estimate Sodium 142 Potassium 3.6 Chloride 107 Carbon Dioxide 27.0 Anion Gap 8 BUN 30 H Creatinine 1.57 H Estim Creat Clear Calc 68.46 Est GFR (MDRD) Af Amer 46 L Est GFR (MDRD) Non-Af 38 L BUN/Creatinine Ratio 19.1 Glucose 94 Calcium 7.4 L Medical Necessity - Tobacco Use Smoking Status: Never smoker Tobacco Use: Non-smoker Assessment/Plan All Active Problems (Last Reviewed 10/04/18 @ 04:38 by Jeferson Villa MD) Acute encephalopathy (Acute) YESENIA (acute kidney injury) (Acute) Bacteremia (Acute) Ischemic toe (Acute) Pancytopenia (Acute) 1-acute kidney injury. Patient has normal baseline creatinine. UA showed 15 protein, no RBCs no WBCs. Acute kidney injury is most probably prerenal from diclofenac(which is NSAIDs), HUNTER inhibitor, Lasix along with decrease oral intake cr stable 2-hypertension: Blood pressure is well controlled.
--- NOTE | 2018-10-09 11:57 | CON.PCM_ITS ---
Problem List (1) PAD (peripheral artery disease) Status: Acute Reason for Consult Date of Consultation: 10/09/18 History of Present Illness: The patient is a 42 year old F was admitted and is getting worked up for pancytopenia. Was due for a bone marrow biopsy apparently was feeling worse was brought into the emergency room and is now here for the biopsy. Had noted some toe discoloration is been seen by podiatry. Vascular surgery asked to evaluate for this. No family at the bedside at this point the patient with Down syndrome. Much of the notes are obtained from the EMR. She is due for vascular lab testing but none is been done at this point. No open sores or wounds increasing. She does have some discoloration to the toes but slightly decreased cap refill but overall okay. Does not appear to have any pain related to the toes as best I can ascertain. [] Past Medical History Past Medical History (Chronic Problems): Chronic Problems (Last Reviewed 10/09/18 @ 11:55 by Jose Jaramillo MD) Gout (Chronic) Chronic ulcer of left heel (Chronic) Right hip pain (Chronic) Hypothyroidism (Chronic) Hypertension (Chronic) Dry skin (Chronic) Down syndrome (Chronic) Medical History: Medical History (Last Reviewed 10/09/18 @ 11:55 by Jose Jaramillo MD) Dry skin (Chronic) L85.3 Down syndrome (Chronic) Q90.9 Allergies No Known Allergies Allergy (Verified 09/26/18 13:05) Home Medications: Ambulatory Orders Medication Instructions Recorded allopurinol 300 mg tablet 300 mg PO DAILY #90 tab 05/13/18 irbesartan 75 mg tablet 75 mg PO DAILY #90 tab 05/13/18 levothyroxine 75 mcg tablet 75 mcg PO DAILY #90 tab 05/13/18 omeprazole 20 mg capsule,delayed 20 mg PO DAILY #90 cap 05/13/18 release white petrolatum topical jelly 1 applic TOPICAL BID PRN g 05/13/18 sertraline 100 mg tablet 100 mg PO DAILY #90 tab 08/20/18 diclofenac sodium 50 mg 50 mg PO BID #60 tab 08/21/18 tablet,delayed release Ammonium Lactate 1 applic TOPICAL BID 10/03/18 Calcium Carbonate/Vitamin D3 1 each PO DAILY 10/03/18 [Calcium 500+D Tablet Chew] Carbamazepine [Carbamazepine ER] 400 mg PO BID 10/03/18 Doxycycline Hyclate 20 mg PO BID 10/03/18 Furosemide [Lasix] 20 mg PO DAILY 10/03/18 Nystatin [Nystop] 1 applic TP BID 10/03/18 busPIRone [Buspar] 5 mg PO TID 10/03/18 Surgical History: Surgical History (Last Reviewed 10/09/18 @ 11:55 by Jose Jaramillo MD) History of cataract surgery Z98.49 History of open heart surgery Z98.890 age 14 History of tubal ligation Z98.51 Lives: [facility] Smoking Status: Never smoker Tobacco Use: Non-smoker - *Family History Maternal Family History: Family History (Last Reviewed 10/04/18 @ 04:38 by Jeferson Villa MD) Father Diabetes Hypertension Heart disease Grandmother Heart disease Diabetes Grandfather Heart disease Review of Systems Constitutional: Reports: Anorexia HEENT: Denies: Head Aches, Sinus Congestion, Sinus Drainage Cardiovascular: Denies: Chest Pain, Palpitations Respiratory: Denies: Cough, Shortness of breath at rest, Sputum production Gastrointestinal: Denies: Abdominal Pain, Nausea, Vomiting Musculoskeletal: Denies: Joint Pain, Joint Tenderness Patient Problems: Active and Suspected Problems (Last Reviewed 10/09/18 @ 11:55 by Jose Jaramillo MD) Acute encephalopathy (Acute) YESENIA (acute kidney injury) (Acute) Bacteremia (Acute) Ischemic toe (Acute) PAD (peripheral artery disease) (Acute) - Physical Exam General: Alert HEENT: Atraumatic, PERRLA Oral: Moist Mucosa Neck: Supple Lungs: Clear to auscultation Cardiovascular: Regular rate Abdomen: Soft, Non Tender Extremities: - - Mild edema both legs Normal palpable posterior tibial pulses bilaterally, difficult to feel dorsalis pedis pulse Refill noted No open sores or wounds noted Some purplish discoloration of the toes noted Vital Signs Temp Pulse Resp BP Pulse Ox 96.5 F L 74 16 132/74 H 94 10/09/18 09:01 10/09/18 11:15 10/09/18 10:14 10/09/18 10:14 10/09/18 10:14 Oxygen Flow Rate (L/min) [7] 2 Oxygen Flow Rate (L/min) [6] 2 Oxygen Flow Rate (L/min) [5] 2 Oxygen Flow Rate (L/min) [4] 2 Oxygen Flow Rate (L/min) [3] 4 Oxygen Flow Rate (L/min) [2] 4 Oxygen Flow Rate (L/min) 2 Oxygen Delivery Method [7] Nasal Cannula Oxygen Delivery Method [6] Nasal Cannula Oxygen Delivery Method [5] Nasal Cannula Oxygen Delivery Method [4] Nasal Cannula Oxygen Delivery Method [3] Nasal Cannula Oxygen Delivery Method [2] Nasal Cannula Oxygen Delivery Method [1 ( Room Air Initial Baseline)] Oxygen Delivery Method Room Air Weight: 204 lb 12.951 oz Body Mass Index (BMI) 44.3 Intake and Output for Last 24 Hours 10/07/18 10/08/18 10/09/18 23:59 23:59 23:59 Intake Total 570 / 570 610 / 610 50 / 50 Output Total 200 / 200 800 / 800 0 / 0 Balance 370 / 370 -190 / -190 50 / 50 Microbiology Past 72 Hours 10/06/18 11:05 Blood Culture - Preliminary Blood Culture (Wb) - Venous No growth in 48 hours. 10/06/18 11:18 Blood Culture - Preliminary Blood Culture (Wb) - Venous No growth in 48 hours. 10/07/18 18:50 Streptococcus pneumoniae Antigen (M - Final Urine Catheter - Catheter 10/07/18 18:50 Legionella Antigen - Final Urine Catheter - Catheter 10/03/18 17:33 Blood Culture - Final Blood Culture (Wb) - Left Hand 10/03/18 17:33 Bacteria Detection (PCR) - Final Blood Culture (Wb) - Right Forearm Blood Culture - Final Streptococcus mutans 10/03/18 18:23 Urine Culture - Final Urine, Catheterized Culture exhibits no growth. Laboratory Tests Past 24 Hrs 10/07/18 10/08/18 10/09/18 09:55 05:50 05:05 WBC 2.7 L RBC 2.70 L Hgb 7.7 L Hct 26.5 L MCV 98.1 MCH 28.5 MCHC 29.1 L RDW 18.4 H RDW Differential 62.9 H Plt Count 46 L* MPV 12.4 H Immature Gran % (Auto) 1.100 H Neut % (Auto) 75.7 H Lymph % (Auto) 14.0 L [place] % (Auto) 8.1 Eos % (Auto) 0.0 Baso % (Auto) 1.1 H Absolute Neuts (auto) 2.1 Absolute Lymphs (auto) 0.38 L Total Counted Not Reportable Differential Comment SCAN Diff Path Review Reviewed Reviewed December foll Platelet Estimate MKD DEC Sodium Potassium Chloride Carbon Dioxide Anion Gap BUN Creatinine Estim Creat Clear Calc Est GFR (MDRD) Af Amer Est GFR (MDRD) Non-Af BUN/Creatinine Ratio Glucose Calcium 10/09/18 05:05 WBC RBC Hgb Hct MCV MCH MCHC RDW RDW Differential Plt Count MPV Immature Gran % (Auto) Neut % (Auto) Lymph % (Auto) [place] % (Auto) Eos % (Auto) Baso % (Auto) Absolute Neuts (auto) Absolute Lymphs (auto) Total Counted Differential Comment Diff Path Review Platelet Estimate Sodium 142 Potassium 3.6 Chloride 107 Carbon Dioxide 27.0 Anion Gap 8 BUN 30 H Creatinine 1.57 H Estim Creat Clear Calc 68.46 Est GFR (MDRD) Af Amer 46 L Est GFR (MDRD) Non-Af 38 L BUN/Creatinine Ratio 19.1 Glucose 94 Calcium 7.4 L Assessment/Plan All Active Problems (Last Reviewed 10/09/18 @ 11:55 by Jose Jaramillo MD) Acute encephalopathy (Acute) YESENIA (acute kidney injury) (Acute) Bacteremia (Acute) Ischemic toe (Acute) PAD (peripheral artery disease) (Acute) Pancytopenia (Acute) Patient admitted in with underlying pancytopenia is getting workup with hematology. #1. PAD. She will get some studies just to look for any evidence of small v essel disease. She does have some dependent rubor and probably related to underlying medical conditions. She appears to have normal palpable posterior tibial pulses. We will just make sure she has adequate waveform out at the digits. No intervention needed at this point. We will continue to follow along as needed. And await the vascular lab studies and review from there.
--- NOTE | 2018-10-09 12:37 | ONC.PN.INPT ---
- Problem List (1) Pancytopenia Status: Acute (2) Ischemic toe Status: Acute Subjective Date of Service:: 10/09/[address] guided BMBX earlier this morning. Denies any pain at the biopsy site. Reports right 3rd toe is tiny bit sore, relatively unchanged from yesterday. Otherwise, reports improvement in her cough and denies any incidence of bleeding, including bleeding after BM Past Medical History: Chronic Problems (Last Reviewed 10/09/18 @ 11:55 by Jose Jaramillo MD) Gout (Chronic) Chronic ulcer of left heel (Chronic) Right hip pain (Chronic) Hypothyroidism (Chronic) Hypertension (Chronic) Dry skin (Chronic) Down syndrome (Chronic) Past Medical History - Most Recent Inpatient Visit Past Medical History Start: 10/03/18 22:48 Text: Status: Complete Freq: ONCE Protocol: Document 10/03/18 22:48 KA (Rec: 10/03/18 23:36 KA [id number]) BMI Required to complete PMH What is Patient's BMI 44.3 Past Medical History Unable History Recalled Yes Query Text:Pt Unable/Family Not Present Neurologic Medical History Hx Dementia/Alzheimer's No: DOWNS SYNDROME Hx Parkinson's Disease No Hx Seizures No: DOWN SYNDROME Hx Multiple Sclerosis No Hx Migraines No Cardiac Medical History VTE Present on Admission No Hx of Deep Vein Thrombosis/VTE/PE No Hx Hypertension No Hx Chest Pain/Angina No Hx Heart Attack No Hx Cardiac Surgery/Stents/Etc. 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, [facility] [facility], Respiratory Medical History Hx COPD No Hx Emphysema No Hx Smoking No Smoking Status Never smoker Tobacco Use Non-smoker Hx Tobacco Use in last 12 months No Hx Sleep Apnea Yes CPAP Yes BIPAP No STOP Results Positive GI Medical History Hx Ulcer No Hx Hepatitis No Hx Cirrhosis No Hx GI Bleed No Hx Unplanned Weight Loss Yes: this admission Genitourinary Medical History Indwelling Catheter in Place on Arrival/ No Admission Hx Renal Disease No Hx Dialysis No Musculoskeletal History Hx Arthritis Yes: per mother Hx Rheumatoid Arthritis No Endocrine Medical History Hx Diabetes No Hx Thyroid Disease Yes Hematologic Medical History Patient unable to answer at this time ( Yes ie. confused, unresponsive etc...) Hx of Blood Transfusion No Hx of Transfusion in last 3 Months No Ever experience any problems with No transfusion(s)? Hx of Preganancy in last 3 Months No Nurse Filling Out Transfusion & KADUDDEL Questions: Date: 10/03/18 Time: 23:34 Psycho/Social Medical History Hx Depression No Hx Anxiety No Hx Behavior Disorder No Hx Alcohol Use No Hx Substance Use No Other Medical History Hx Blood Disorders No Hx Anemia No Hx Cancer No Hx Drug Resistant Organism No Wound/Pressure Injury Present on Arrival Yes: R abd, L groin /Admission Query Text:If yes, chart assessment in Shift/Clinical Findings Central Line/PICC/VAD Present on Arrival No /Admission Antibiotics within last 7 days? No Methicillin Resistant Staphylococcus aureus Screening Active MRSA No Risk for Readmission Number of Risk Factors 3 At Risk for Readmission Patient is At Risk For Readmission Patient is eligible for Call Back Y Past Medical History (Last Reviewed 10/04/18 @ 04:38 by Jeferson Villa MD) Dry skin (Chronic) Down syndrome (Chronic) Past Surgical History (Last Reviewed 10/04/18 @ 04:38 by Jeferson Villa MD) History of cataract surgery (Acute) History of open heart surgery (Acute) History of tubal ligation (Acute) Maternal Family History: Family History (Last Reviewed 10/04/18 @ 04:38 by Jeferson Villa MD) Father Diabetes Hypertension Heart disease Grandmother Heart disease Diabetes Grandfather Heart disease - Social History Lives: Detention Smoking Status: Never smoker Tobacco Use: Non-smoker Review of Systems Constitutional:: Reports: Fatigue, Weight loss, Appetite change. Denies: Fever, Sweats, Chills Cardiovascular:: Denies: Chest pain, Palpitations, Dyspnea on exertion, Orthopnea, PND, Shortness of breath Respiratory: Reports: Cough. Denies: Hemoptysis, Shortness of Breath, Wheezing Gastrointestinal:: Denies: Abdominal pain, Nausea, Vomiting, Diarrhea, Constipation, Melena, Hematochezia Genitourinary: Denies: Dysuria, Hematuria, 15, Flank pain Musculoskeletal:: Reports: - - right 3rd toe sore Skin: Denies: Rash, Skin Changes, Wounds Neurological:: Denies: Headache, Dizziness, Numbness, Tingling, Visual changes Psychiatric: Denies: Anxiety, Depression, Homicidal Ideations, Suicidal Ideations Vital Signs Height 4 ft 9 in Weight: 204 lb 12.951 oz Weight in Pounds 204.8 lbs Pulse Ox 94 Temperature 96.5 F Pulse Rate [7] 71 Pulse Rate [6] 68 Pulse Rate [5] 71 Pulse Rate [4] 70 Pulse Rate [3] 75 Pulse Rate [2] 80 Pulse Rate [1 (Initial 82 Baseline)] Pulse Rate 74 Respiratory Rate [7] 15 Respiratory Rate [6] 16 Respiratory Rate [5] 23 Respiratory Rate [4] 17 Respiratory Rate [3] 16 Respiratory Rate [2] 17 Respiratory Rate [1 (Initial 15 Baseline)] Respiratory Rate 16 Blood Pressure [7] 140/56 Blood Pressure [6] 140/58 Blood Pressure [5] 157/79 Blood Pressure [4] 156/69 Blood Pressure [3] 145/58 Blood Pressure [1 (Initial 155/84 Baseline)] Blood Pressure 132/74 Blood Pressure Position Semi-Fowlers - Physical Exam General: Alert, No apparent distress HEENT: Atraumatic, Normocephalic Oropharynx:: Negative for: Dry mucosa, Ulcerated lesions Neck:: Supple, Trachea midline. Negative for: JVD, bilateral Cardiac:: Regular rate, Regular rhythm, Normal S1, Normal S2 Lungs: Wheezes - faint expiratory, Diminished, Excusion symmetrical. Negative for: Rhonchi Abdomen:: Bowel sounds x 4, Soft, Non-tender, Non-distended, Obese. Negative for: Hepatosplenomegaly - difficult to discern d/t abd girth Extremities:: Edema - trace BLE,, - - Left hip BMBX site covered with DSD, no bleeding noted. Surrounding integument intact.. Negative for: Cyanosis, Calf tenderness Skin:: - - right 3rd and 5th toes/pad of right foot blue/purple. Negative for: Lesions, Rash, Petechiae, Ecchymosis Psychiatric:: Euthymic Lymphatics:: Negative for: Cervical lymphadenopathy, Supraclavicular lymphadenopathy, Axillary lymphadenopathy Laboratory Data: Microbiology 10/06/18 11:05 Blood Culture - Preliminary Blood Culture (Wb) - Venous No growth in 48 hours. 10/06/18 11:18 Blood Culture - Preliminary Blood Culture (Wb) - Venous No growth in 48 hours. 10/07/18 18:50 Streptococcus pneumoniae Antigen (M - Final Urine Catheter - Catheter 10/07/18 18:50 Legionella Antigen - Final Urine Catheter - Catheter 10/03/18 17:33 Blood Culture - Final Blood Culture (Wb) - Left Hand 10/03/18 17:33 Bacteria Detection (PCR) - Final Blood Culture (Wb) - Right Forearm Blood Culture - Final Streptococcus mutans 10/03/18 18:23 Urine Culture - Final Urine, Catheterized Culture exhibits no growth. Laboratory Tests 10/09/18 10/09/18 10/08/18 Range/Units 05:05 05:05 05:50 WBC 2.7 L (4.4-11.0) K/mm3 RBC 2.70 L (4.2-5.4) M/mm3 Hgb 7.7 L (12.0-15.0) g/dl Hct 26.5 L (37-47) % MCV 98.1 (81-99) fL MCH 28.5 (27.0-32.0) pg MCHC 29.1 L (32-36) g/gl RDW 18.4 H (11.6-14.6) % RDW Differential 62.9 H (35.1-43.9) fl Plt Count 46 L* (150-450) K/mm3 MPV 12.4 H (6.2-12.0) fl Immature Gran % (Auto) 1.100 H (0.0-0.9) % Neut % (Auto) 75.7 H (47-70) % Lymph % (Auto) 14.0 L (19-41) % Carbon % (Auto) 8.1 (0-10) % Eos % (Auto) 0.0 (0-5) % Baso % (Auto) 1.1 H (0-1) % Absolute Neuts (auto) 2.1 (2.0-7.7) X10^3/uL Absolute Lymphs (auto) 0.38 L (0.83-4.51) X10^3/ul Total Counted Not Reportable Differential Comment SCAN Diff Path Review May foll Reviewed Platelet Estimate MKD DEC (ADEQ) Sodium 142 (136-145) mmol/L Potassium 3.6 (3.5-5.1) mmol/L Chloride 107 (98-107) mmol/L Carbon Dioxide 27.0 (21.0-32.0) mmol/L Anion Gap 8 (5-15) BUN 30 H (7-18) mg/dL Creatinine 1.57 H (0.55-1.02) mg/dL Estim Creat Clear Calc 68.46 ml/min Est GFR (MDRD) Af Amer 46 L (>60) mL/min Est GFR (MDRD) Non-Af 38 L (>60) mL/min BUN/Creatinine Ratio 19.1 (10-20) RATIO Glucose 94 (74-106) mg/dL Calcium 7.4 L (8.5-10.1) mg/dL 10/07/18 Range/Units 09:55 WBC (4.4-11.0) K/mm3 RBC (4.2-5.4) M/mm3 Hgb (12.0-15.0) g/dl Hct (37-47) % MCV (81-99) fL MCH (27.0-32.0) pg MCHC (32-36) g/gl RDW (11.6-14.6) % RDW Differential (35.1-43.9) fl Plt Count (150-450) K/mm3 MPV (6.2-12.0) fl Immature Gran % (Auto) (0.0-0.9) % Neut % (Auto) (47-70) % Lymph % (Auto) (19-41) % Carbon % (Auto) (0-10) % Eos % (Auto) (0-5) % Baso % (Auto) (0-1) % Absolute Neuts (auto) (2.0-7.7) X10^3/uL Absolute Lymphs (auto) (0.83-4.51) X10^3/ul Total Counted Differential Comment Diff Path Review Reviewed Platelet Estimate (ADEQ) Sodium (136-145) mmol/L Potassium (3.5-5.1) mmol/L Chloride (98-107) mmol/L Carbon Dioxide (21.0-32.0) mmol/L Anion Gap (5-15) BUN (7-18) mg/dL Creatinine (0.55-1.02) mg/dL Estim Creat Clear Calc ml/min Est GFR (MDRD) Af Amer (>60) mL/min Est GFR (MDRD) Non-Af (>60) mL/min BUN/Creatinine Ratio (10-20) RATIO Glucose (74-106) mg/dL Calcium (8.5-10.1) mg/dL Diagnostic Data: Diagnostic Data Chest X-Ray 10/07/18 05:55 IMPRESSION: Findings suggestive of mild degree of vascular congestion and CHF. There has been essentially no change. Electronically Signed: Reese Adames MD at 15:12 EST , Service support , Soft Tissue Neck CT 10/07/18 16:46 IMPRESSION: Subcutaneous fatty stranding on the left lateral to the mandible. There is no evidence of abscess or soft tissue gas. Chronic pansinusitis. Electronically Signed: Naresh Martinez MD at 19:06 EST , Service support , Foot X-Ray 10/08/18 08:51 IMPRESSION: Nonspecific soft tissue swelling. Small plantar spur. Electronically Signed: Reese Adames, at 15:09 EST , Service support , Biopsy CT 10/09/18 07:57 IMPRESSION: Successful CT guided bone marrow biopsy of the posterior aspect of the left iliac bone, as described above. Electronically Signed: Reese Adames, at 11:09 EST , Service support , Assessment and Plan 1. Pancytopenia-as evidenced by hemoglobin 7.7 and platelets 46,000, WBC 2.7 today. Overall, counts are stable. No active bleeding. Underwent CT guided BMBX earlier this morning under the care of Dr. Black. Will await results. 2. Discoloration of toes/right foot- Podiatry/vascular on board. Arterial doppler pending. Anne-Marie Hooks, MSN, [employer] BOARDING MACHINE OPERATOR, AOCNP Medications: Prescriptions This Visit Medication Instructions Recorded Ammonium Lactate 1 applic TOPICAL BID 10/03/18 Calcium Carbonate/Vitamin D3 1 each PO DAILY 10/03/18 [Calcium 500+D Tablet Chew] Carbamazepine [Carbamazepine ER] 400 mg PO BID 10/03/18 Doxycycline Hyclate 20 mg PO BID 10/03/18 Furosemide [Lasix] 20 mg PO DAILY 10/03/18 Nystatin [Nystop] 1 applic TP BID 10/03/18 busPIRone [Buspar] 5 mg PO TID 10/03/18 Medications Added to Medication List This Visit Category Date Time Status 0.9% Normal Saline 500 ml Med 10/09/18 08:30 Active IV KVO mls/hr Primary Care Provider: Nicanor Salter DO Referring Provider:
--- NOTE | 2018-10-09 12:41 | PN_ITS ---
- Problem List (1) Pancytopenia Status: Acute (2) Ischemic toe Status: Acute Subjective Date of Service:: 10/09/[address] guided BMBX earlier this morning. Denies any pain at the biopsy site. Reports right 3rd toe is tiny bit sore, relatively unchanged from yesterday. Otherwise, reports improvement in her cough and denies any incidence of bleeding, including bleeding after BM Past Medical History: Chronic Problems (Last Reviewed 10/09/18 @ 11:55 by Jose Jaramillo MD) Gout (Chronic) Chronic ulcer of left heel (Chronic) Right hip pain (Chronic) Hypothyroidism (Chronic) Hypertension (Chronic) Dry skin (Chronic) Down syndrome (Chronic) Past Medical History - Most Recent Inpatient Visit Past Medical History Start: 10/03/18 22:48 Text: Status: Complete Freq: ONCE Protocol: Document 10/03/18 22:48 KA (Rec: 10/03/18 23:36 KA [id number]) BMI Required to complete PMH What is Patient's BMI 44.3 Past Medical History Unable History Recalled Yes Query Text:Pt Unable/Family Not Present Neurologic Medical History Hx Dementia/Alzheimer's No: DOWNS SYNDROME Hx Parkinson's Disease No Hx Seizures No: DOWN SYNDROME Hx Multiple Sclerosis No Hx Migraines No Cardiac Medical History VTE Present on Admission No Hx of Deep Vein Thrombosis/VTE/PE No Hx Hypertension No Hx Chest Pain/Angina No Hx Heart Attack No Hx Cardiac Surgery/Stents/Etc. 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, [facility], Respiratory Medical History Hx COPD No Hx Emphysema No Hx Smoking No Smoking Status Never smoker Tobacco Use Non-smoker Hx Tobacco Use in last 12 months No Hx Sleep Apnea Yes CPAP Yes BIPAP No STOP Results Positive GI Medical History Hx Ulcer No Hx Hepatitis No Hx Cirrhosis No Hx GI Bleed No Hx Unplanned Weight Loss Yes: this admission Genitourinary Medical History Indwelling Catheter in Place on Arrival/ No Admission Hx Renal Disease No Hx Dialysis No Musculoskeletal History Hx Arthritis Yes: per mother Hx Rheumatoid Arthritis No Endocrine Medical History Hx Diabetes No Hx Thyroid Disease Yes Hematologic Medical History Patient unable to answer at this time ( Yes ie. confused, unresponsive etc...) Hx of Blood Transfusion No Hx of Transfusion in last 3 Months No Ever experience any problems with No transfusion(s)? Hx of Preganancy in last 3 Months No Nurse Filling Out Transfusion & KADUDDEL Questions: Date: 10/03/18 Time: 23:34 Psycho/Social Medical History Hx Depression No Hx Anxiety No Hx Behavior Disorder No Hx Alcohol Use No Hx Substance Use No Other Medical History Hx Blood Disorders No Hx Anemia No Hx Cancer No Hx Drug Resistant Organism No Wound/Pressure Injury Present on Arrival Yes: R abd, L groin /Admission Query Text:If yes, chart assessment in Shift/Clinical Findings Central Line/PICC/VAD Present on Arrival No /Admission Antibiotics within last 7 days? No Methicillin Resistant Staphylococcus aureus Screening Active MRSA No Risk for Readmission Number of Risk Factors 3 At Risk for Readmission Patient is At Risk For Readmission Patient is eligible for Call Back Y Past Medical History (Last Reviewed 10/04/18 @ 04:38 by Jeferson Villa MD) Dry skin (Chronic) Down syndrome (Chronic) Past Surgical History (Last Reviewed 10/04/18 @ 04:38 by Jeferson Villa MD) History of cataract surgery (Acute) History of open heart surgery (Acute) History of tubal ligation (Acute) Maternal Family History: Family History (Last Reviewed 10/04/18 @ 04:38 by Jeferson Villa MD) Father Diabetes Hypertension Heart disease Grandmother Heart disease Diabetes Grandfather Heart disease - Social History Lives: Retirement Smoking Status: Never smoker Tobacco Use: Non-smoker Review of Systems Constitutional:: Reports: Fatigue, Weight loss, Appetite change. Denies: Fever, Sweats, Chills Cardiovascular:: Denies: Chest pain, Palpitations, Dyspnea on exertion, Orthopnea, PND, Shortness of breath Respiratory: Reports: Cough. Denies: Hemoptysis, Shortness of Breath, Wheezing Gastrointestinal:: Denies: Abdominal pain, Nausea, Vomiting, Diarrhea, Constipation, Melena, Hematochezia Genitourinary: Denies: Dysuria, Hematuria, 15, Flank pain Musculoskeletal:: Reports: - - right 3rd toe sore Skin: Denies: Rash, Skin Changes, Wounds Neurological:: Denies: Headache, Dizziness, Numbness, Tingling, Visual changes Psychiatric: Denies: Anxiety, Depression, Homicidal Ideations, Suicidal Ideations Vital Signs Height 4 ft 9 in Weight: 204 lb 12.951 oz Weight in Pounds 204.8 lbs Pulse Ox 94 Temperature 96.5 F Pulse Rate [7] 71 Pulse Rate [6] 68 Pulse Rate [5] 71 Pulse Rate [4] 70 Pulse Rate [3] 75 Pulse Rate [2] 80 Pulse Rate [1 (Initial 82 Baseline)] Pulse Rate 74 Respiratory Rate [7] 15 Respiratory Rate [6] 16 Respiratory Rate [5] 23 Respiratory Rate [4] 17 Respiratory Rate [3] 16 Respiratory Rate [2] 17 Respiratory Rate [1 (Initial 15 Baseline)] Respiratory Rate 16 Blood Pressure [7] 140/56 Blood Pressure [6] 140/58 Blood Pressure [5] 157/79 Blood Pressure [4] 156/69 Blood Pressure [3] 145/58 Blood Pressure [1 (Initial 155/84 Baseline)] Blood Pressure 132/74 Blood Pressure Position Semi-Fowlers - Physical Exam General: Alert, No apparent distress HEENT: Atraumatic, Normocephalic Oropharynx:: Negative for: Dry mucosa, Ulcerated lesions Neck:: Supple, Trachea midline. Negative for: JVD, bilateral Cardiac:: Regular rate, Regular rhythm, Normal S1, Normal S2 Lungs: Wheezes - faint expiratory, Diminished, Excusion symmetrical. Negative for: Rhonchi Abdomen:: Bowel sounds x 4, Soft, Non-tender, Non-distended, Obese. Negative for: Hepatosplenomegaly - difficult to discern d/t abd girth Extremities:: Edema - trace BLE,, - - Left hip BMBX site covered with DSD, no bleeding noted. Surrounding integument intact.. Negative for: Cyanosis, Calf tenderness Skin:: - - right 3rd and 5th toes/pad of right foot blue/purple. Negative for: Lesions, Rash, Petechiae, Ecchymosis Psychiatric:: Euthymic Lymphatics:: Negative for: Cervical lymphadenopathy, Supraclavicular lymphadenopathy, Axillary lymphadenopathy Laboratory Data: Microbiology 10/06/18 11:05 Blood Culture - Preliminary Blood Culture (Wb) - Venous No growth in 48 hours. 10/06/18 11:18 Blood Culture - Preliminary Blood Culture (Wb) - Venous No growth in 48 hours. 10/07/18 18:50 Streptococcus pneumoniae Antigen (M - Final Urine Catheter - Catheter 10/07/18 18:50 Legionella Antigen - Final Urine Catheter - Catheter 10/03/18 17:33 Blood Culture - Final Blood Culture (Wb) - Left Hand 10/03/18 17:33 Bacteria Detection (PCR) - Final Blood Culture (Wb) - Right Forearm Blood Culture - Final Streptococcus mutans 10/03/18 18:23 Urine Culture - Final Urine, Catheterized Culture exhibits no growth. Laboratory Tests 10/09/18 10/09/18 10/08/18 Range/Units 05:05 05:05 05:50 WBC 2.7 L (4.4-11.0) K/mm3 RBC 2.70 L (4.2-5.4) M/mm3 Hgb 7.7 L (12.0-15.0) g/dl Hct 26.5 L (37-47) % MCV 98.1 (81-99) fL MCH 28.5 (27.0-32.0) pg MCHC 29.1 L (32-36) g/gl RDW 18.4 H (11.6-14.6) % RDW Differential 62.9 H (35.1-43.9) fl Plt Count 46 L* (150-450) K/mm3 MPV 12.4 H (6.2-12.0) fl Immature Gran % (Auto) 1.100 H (0.0-0.9) % Neut % (Auto) 75.7 H (47-70) % Lymph % (Auto) 14.0 L (19-41) % [place] % (Auto) 8.1 (0-10) % Eos % (Auto) 0.0 (0-5) % Baso % (Auto) 1.1 H (0-1) % Absolute Neuts (auto) 2.1 (2.0-7.7) X10^3/uL Absolute Lymphs (auto) 0.38 L (0.83-4.51) X10^3/ul Total Counted Not Reportable Differential Comment SCAN Diff Path Review May foll Reviewed Platelet Estimate MKD DEC (ADEQ) Sodium 142 (136-145) mmol/L Potassium 3.6 (3.5-5.1) mmol/L Chloride 107 (98-107) mmol/L Carbon Dioxide 27.0 (21.0-32.0) mmol/L Anion Gap 8 (5-15) BUN 30 H (7-18) mg/dL Creatinine 1.57 H (0.55-1.02) mg/dL Estim Creat Clear Calc 68.46 ml/min Est GFR (MDRD) Af Amer 46 L (>60) mL/min Est GFR (MDRD) Non-Af 38 L (>60) mL/min BUN/Creatinine Ratio 19.1 (10-20) RATIO Glucose 94 (74-106) mg/dL Calcium 7.4 L (8.5-10.1) mg/dL 10/07/18 Range/Units 09:55 WBC (4.4-11.0) K/mm3 RBC (4.2-5.4) M/mm3 Hgb (12.0-15.0) g/dl Hct (37-47) % MCV (81-99) fL MCH (27.0-32.0) pg MCHC (32-36) g/gl RDW (11.6-14.6) % RDW Differential (35.1-43.9) fl Plt Count (150-450) K/mm3 MPV (6.2-12.0) fl Immature Gran % (Auto) (0.0-0.9) % Neut % (Auto) (47-70) % Lymph % (Auto) (19-41) % [place] % (Auto) (0-10) % Eos % (Auto) (0-5) % Baso % (Auto) (0-1) % Absolute Neuts (auto) (2.0-7.7) X10^3/uL Absolute Lymphs (auto) (0.83-4.51) X10^3/ul Total Counted Differential Comment Diff Path Review Reviewed Platelet Estimate (ADEQ) Sodium (136-145) mmol/L Potassium (3.5-5.1) mmol/L Chloride (98-107) mmol/L Carbon Dioxide (21.0-32.0) mmol/L Anion Gap (5-15) BUN (7-18) mg/dL Creatinine (0.55-1.02) mg/dL Estim Creat Clear Calc ml/min Est GFR (MDRD) Af Amer (>60) mL/min Est GFR (MDRD) Non-Af (>60) mL/min BUN/Creatinine Ratio (10-20) RATIO Glucose (74-106) mg/dL Calcium (8.5-10.1) mg/dL Diagnostic Data: Diagnostic Data Chest X-Ray 10/07/18 05:55 IMPRESSION: Findings suggestive of mild degree of vascular congestion and CHF. There has been essentially no change. Electronically Signed: Reese Adames MD at 15:12 EST , Service support , Soft Tissue Neck CT 10/07/18 16:46 IMPRESSION: Subcutaneous fatty stranding on the left lateral to the mandible. There is no evidence of abscess or soft tissue gas. Chronic pansinusitis. Electronically Signed: Naresh Martinez MD at 19:06 EST , Service support , Foot X-Ray 10/08/18 08:51 IMPRESSION: Nonspecific soft tissue swelling. Small plantar spur. Electronically Signed: Reese Adames, at 15:09 EST , Service support , Biopsy CT 10/09/18 07:57 IMPRESSION: Successful CT guided bone marrow biopsy of the posterior aspect of the left iliac bone, as described above. Electronically Signed: Reese Adames, at 11:09 EST , Service support , Assessment and Plan 1. Pancytopenia-as evidenced by hemoglobin 7.7 and platelets 46,000, WBC 2.7 today. Overall, counts are stable. No active bleeding. Underwent CT guided BMBX earlier this morning under the care of Dr. Black. Will await results. 2. Discoloration of toes/right foot- Podiatry/vascular on board. Arterial doppler pending. Anne-Marie Hooks, MSN, [employer], AOCNP Medications: Prescriptions This Visit Medication Instructions Recorded Ammonium Lactate 1 applic TOPICAL BID 10/03/18 Calcium Carbonate/Vitamin D3 1 each PO DAILY 10/03/18 [Calcium 500+D Tablet Chew] Carbamazepine [Carbamazepine ER] 400 mg PO BID 10/03/18 Doxycycline Hyclate 20 mg PO BID 10/03/18 Furosemide [Lasix] 20 mg PO DAILY 10/03/18 Nystatin [Nystop] 1 applic TP BID 10/03/18 busPIRone [Buspar] 5 mg PO TID 10/03/18 Medications Added to Medication List This Visit Category Date Time Status 0.9% Normal Saline 500 ml Med 10/09/18 08:30 Active IV KVO mls/hr Primary Care Provider: Nicanor Salter DO Referring Provider:
--- NOTE | 2018-10-09 13:41 | PCM.PN.ID ---
Patient Problems: Active and Suspected Problems (Last Reviewed 10/09/18 @ 11:55 by Jose Jaramillo MD) Acute encephalopathy (Acute) YESENIA (acute kidney injury) (Acute) Bacteremia (Acute) Ischemic toe (Acute) PAD (peripheral artery disease) (Acute) Subjective: BMBx done, no fever, denies pain, feeling well - Physical Exam General: Alert, Cooperative, No apparent distress Lungs: Clear to auscultation, Normal air movement Cardiovascular: Regular rate, Regular Rhythm Abdomen: Soft, Non Tender, Non-Distended Skin: No rashes Vital Signs Temp Pulse Resp BP Pulse Ox 96.5 F L 74 16 132/74 H 94 10/09/18 09:01 10/09/18 11:15 10/09/18 10:14 10/09/18 10:14 10/09/18 10:14 Oxygen Flow Rate (L/min) [7] 2 Oxygen Flow Rate (L/min) [6] 2 Oxygen Flow Rate (L/min) [5] 2 Oxygen Flow Rate (L/min) [4] 2 Oxygen Flow Rate (L/min) [3] 4 Oxygen Flow Rate (L/min) [2] 4 Oxygen Flow Rate (L/min) 2 Oxygen Delivery Method [7] Nasal Cannula Oxygen Delivery Method [6] Nasal Cannula Oxygen Delivery Method [5] Nasal Cannula Oxygen Delivery Method [4] Nasal Cannula Oxygen Delivery Method [3] Nasal Cannula Oxygen Delivery Method [2] Nasal Cannula Oxygen Delivery Method [1 ( Room Air Initial Baseline)] Oxygen Delivery Method Room Air Weight: 92.9 kg Body Mass Index (BMI) 44.3 Intake and Output for Last 24 Hours 10/07/18 10/08/18 10/09/18 23:59 23:59 23:59 Intake Total 570 / 570 610 / 610 123 / 123 Output Total 200 / 200 800 / 800 0 / 0 Balance 370 / 370 -190 / -190 123 / 123 Microbiology Past 72 Hours 10/06/18 11:05 Blood Culture - Preliminary Blood Culture (Wb) - Venous No growth in 48 hours. 10/06/18 11:18 Blood Culture - Preliminary Blood Culture (Wb) - Venous No growth in 48 hours. 10/07/18 18:50 Streptococcus pneumoniae Antigen (M - Final Urine Catheter - Catheter 10/07/18 18:50 Legionella Antigen - Final Urine Catheter - Catheter 10/03/18 17:33 Blood Culture - Final Blood Culture (Wb) - Left Hand 10/03/18 17:33 Bacteria Detection (PCR) - Final Blood Culture (Wb) - Right Forearm Blood Culture - Final Streptococcus mutans Laboratory Tests Past 24 Hrs 10/07/18 10/08/18 10/09/18 09:55 05:50 05:05 WBC 2.7 L RBC 2.70 L Hgb 7.7 L Hct 26.5 L MCV 98.1 MCH 28.5 MCHC 29.1 L RDW 18.4 H RDW Differential 62.9 H Plt Count 46 L* MPV 12.4 H Immature Gran % (Auto) 1.100 H Neut % (Auto) 75.7 H Lymph % (Auto) 14.0 L [place] % (Auto) 8.1 Eos % (Auto) 0.0 Baso % (Auto) 1.1 H Absolute Neuts (auto) 2.1 Absolute Lymphs (auto) 0.38 L Total Counted Not Reportable Differential Comment SCAN Diff Path Review Reviewed Reviewed December foll Platelet Estimate MKD DEC Sodium Potassium Chloride Carbon Dioxide Anion Gap BUN Creatinine Estim Creat Clear Calc Est GFR (MDRD) Af Amer Est GFR (MDRD) Non-Af BUN/Creatinine Ratio Glucose Calcium 10/09/18 05:05 WBC RBC Hgb Hct MCV MCH MCHC RDW RDW Differential Plt Count MPV Immature Gran % (Auto) Neut % (Auto) Lymph % (Auto) [place] % (Auto) Eos % (Auto) Baso % (Auto) Absolute Neuts (auto) Absolute Lymphs (auto) Total Counted Differential Comment Diff Path Review Platelet Estimate Sodium 142 Potassium 3.6 Chloride 107 Carbon Dioxide 27.0 Anion Gap 8 BUN 30 H Creatinine 1.57 H Estim Creat Clear Calc 68.46 Est GFR (MDRD) Af Amer 46 L Est GFR (MDRD) Non-Af 38 L BUN/Creatinine Ratio 19.1 Glucose 94 Calcium 7.4 L Medical Necessity - Tobacco Use Smoking Status: Never smoker Tobacco Use: Non-smoker Route of nutrition/ use of supplements: [] Nutritional Intake: [] IV Site: [] Hwang Catheter: [] - Assessment/Plan Antibiotics: [] Assessment/Plan: [] Active and Suspected Problems (Last Reviewed 10/04/18 @ 04:38 by Jeferson Villa MD) Acute encephalopathy (Acute) YESENIA (acute kidney injury) (Acute) Metapneumovirus infection Strep mutans bacteremia - this is oral bob, likely due to her bad teeth and recent dental cleaning. No abscess seen on CT. Cont ceftriaxone. Plan will be for d/c on augmentin 875mg bid for 7 days with dentistry follow YESENIA - improved pancytopenia - bone marrow bx done Will follow
--- NOTE | 2018-10-09 18:23 | PCM.PROGNOTE ---
Patient Problems: Active and Suspected Problems (Last Reviewed 10/09/18 @ 11:55 by Jose Jaramillo MD) Acute encephalopathy (Acute) YESENIA (acute kidney injury) (Acute) Bacteremia (Acute) Ischemic toe (Acute) PAD (peripheral artery disease) (Acute) Subjective: Patient was seen by Dr. Jaramillo from vascular surgery today - no intervention needed at this time. Patient also had CT guided bone marrow biopsy this morning - results pending. - Physical Exam Vital Signs Temp Pulse Resp BP Pulse Ox 96.4 F L 73 18 130/41 H 98 10/09/18 15:00 10/09/18 16:16 10/09/18 15:00 10/09/18 15:00 10/09/18 15:00 Oxygen Flow Rate (L/min) [7] 2 Oxygen Flow Rate (L/min) [6] 2 Oxygen Flow Rate (L/min) [5] 2 Oxygen Flow Rate (L/min) [4] 2 Oxygen Flow Rate (L/min) [3] 4 Oxygen Flow Rate (L/min) [2] 4 Oxygen Flow Rate (L/min) 2 Oxygen Delivery Method [7] Nasal Cannula Oxygen Delivery Method [6] Nasal Cannula Oxygen Delivery Method [5] Nasal Cannula Oxygen Delivery Method [4] Nasal Cannula Oxygen Delivery Method [3] Nasal Cannula Oxygen Delivery Method [2] Nasal Cannula Oxygen Delivery Method [1 ( Room Air Initial Baseline)] Oxygen Delivery Method Room Air Weight: 92.9 kg Body Mass Index (BMI) 44.3 Intake and Output for Last 24 Hours 10/07/18 10/08/18 10/09/18 23:59 23:59 23:59 Intake Total 570 / 570 610 / 610 123 / 123 Output Total 200 / 200 800 / 800 0 / 0 Balance 370 / 370 -190 / -190 123 / 123 Microbiology Past 72 Hours 10/06/18 11:05 Blood Culture - Preliminary Blood Culture (Wb) - Venous No growth in 48 hours. 10/06/18 11:18 Blood Culture - Preliminary Blood Culture (Wb) - Venous No growth in 48 hours. 10/07/18 18:50 Streptococcus pneumoniae Antigen (M - Final Urine Catheter - Catheter 10/07/18 18:50 Legionella Antigen - Final Urine Catheter - Catheter 10/03/18 17:33 Blood Culture - Final Blood Culture (Wb) - Left Hand 10/03/18 17:33 Bacteria Detection (PCR) - Final Blood Culture (Wb) - Right Forearm Blood Culture - Final Streptococcus mutans Laboratory Tests Past 24 Hrs 10/07/18 10/08/18 10/09/18 09:55 05:50 05:05 WBC 2.7 L RBC 2.70 L Hgb 7.7 L Hct 26.5 L MCV 98.1 MCH 28.5 MCHC 29.1 L RDW 18.4 H RDW Differential 62.9 H Plt Count 46 L* MPV 12.4 H Immature Gran % (Auto) 1.100 H Neut % (Auto) 75.7 H Lymph % (Auto) 14.0 L [place] % (Auto) 8.1 Eos % (Auto) 0.0 Baso % (Auto) 1.1 H Absolute Neuts (auto) 2.1 Absolute Lymphs (auto) 0.38 L Total Counted Not Reportable Differential Comment SCAN Diff Path Review Reviewed Reviewed December foll Platelet Estimate MKD DEC Sodium Potassium Chloride Carbon Dioxide Anion Gap BUN Creatinine Estim Creat Clear Calc Est GFR (MDRD) Af Amer Est GFR (MDRD) Non-Af BUN/Creatinine Ratio Glucose Calcium 10/09/18 05:05 WBC RBC Hgb Hct MCV MCH MCHC RDW RDW Differential Plt Count MPV Immature Gran % (Auto) Neut % (Auto) Lymph % (Auto) [place] % (Auto) Eos % (Auto) Baso % (Auto) Absolute Neuts (auto) Absolute Lymphs (auto) Total Counted Differential Comment Diff Path Review Platelet Estimate Sodium 142 Potassium 3.6 Chloride 107 Carbon Dioxide 27.0 Anion Gap 8 BUN 30 H Creatinine 1.57 H Estim Creat Clear Calc 68.46 Est GFR (MDRD) Af Amer 46 L Est GFR (MDRD) Non-Af 38 L BUN/Creatinine Ratio 19.1 Glucose 94 Calcium 7.4 L Medical Necessity - Tobacco Use Smoking Status: Never smoker Tobacco Use: Non-smoker Assessment/Plan All Active Problems (Last Reviewed 10/09/18 @ 11:55 by Jose Jaramillo MD) Acute encephalopathy (Acute) YESENIA (acute kidney injury) (Acute) Bacteremia (Acute) Ischemic toe (Acute) PAD (peripheral artery disease) (Acute) Pancytopenia (Acute) Blue toe syndrome right foot 42 yo old patient w/ Down's syndrome has symptoms of blue toe syndrome to the lesser toes of the right foot, with 3rd toe most affected. Patient with with recent bacteremia, significant anemia and thrombocytopenia, as well acute encephalopathy, and acute kidney injury - currently undergoing further workup to determine presence of underlying medical condition - bone marrow biopsy results pending. Noninvasive lower extremity arterial studies ordered for further evaluation on lower extremity arterial flow. Reviewed Dr. Jaramillo from vascular - and no intervention at this point. Continue to monitor toes at this time. I discussed and reviewed with patient's mother today. Podiatry will continue to follow.
[2018-10-10] VITALS (8 sets, daily range): BP systolic 112–154; BP diastolic 46–56; PULSE 65–82; RESP 16–18; TEMP 36.6–37.4; O2SAT 93–100
[2018-10-10] MEDS: Levothyroxine 75 MCG Tablet PO (05:14)
--- NOTE | 2018-10-10 05:48 | CPS ---
pt refused cpap with hospital machine
[2018-10-10 06:22] LABS: Absolute Lymphocyte Count 0.48 X10^3/ul (0.83-4.51); Absolute Neutrophil Count 2.2 X10^3/uL (2.0-7.7); Basophil# 0.02 X10^3/uL; Basophil% 0.7 % (0-1); Hematocrit 26.6 % (37-47); Hemoglobin 7.9 g/dl (12.0-15.0); Lymphocyte # 0.48 X10^3/ul (4.0); Lymphocyte % 16.6 % (19-41); Mean Corp Hgb Conc 29.7 g/gl (32-36); Mean Corpuscular Hgb 28.4 pg (27.0-32.0); Mean Corpuscular Volume 95.7 fL (81-99); Monocyte# 0.18 X10^3/uL; Monocyte% 6.2 % (0-10); Neutrophil # 2.19 X10^3/uL (2.7-7.7); Neutrophil % 75.5 % (47-70); RBC Distribution Width CV 18.5 % (11.6-14.6); RBC Distribution Width SD 65.3 fl (35.1-43.9); Red Blood Count 2.78 M/mm3 (4.2-5.4); White Blood Count 2.9 K/mm3 (4.4-11.0)
[2018-10-10 06:28] LABS: Anion Gap 10 (5-15); BUN 25 mg/dL (7-18); Calcium,Total 7.4 mg/dL (8.5-10.1); Chloride 106 mmol/L (98-107); Creatinine, Serum 1.47 mg/dL (0.55-1.02); EST Glomerular Filtration Rate 41 mL/min (>60); Est Glom Filt Rate - Afr Amer 50 mL/min (>60); Estimated Creatinine Clearance 73.12 ml/min; Glucose 86 mg/dL (74-106); Potassium 3.4 mmol/L (3.5-5.1); Sodium Level 141 mmol/L (136-145)
[2018-10-10 06:29] LABS: Differential Indicated SCAN CRITERIA MET; POSITIVE COUNT YES; POSITIVE DIFFERENTIAL YES; POSITIVE MORPHOLOGY YES; Platelet Count 44 K/mm3 (150-450)
[2018-10-10 07:16] LABS: Differential Comment SCAN; Hypochromasia 1+; Platelet Estimate MKD DEC (ADEQ); Platelet Morphology LARGE; Polychromasia 1+
[2018-10-10 07:17] LABS: Microcytosis 1+
[2018-10-10 09:00] LABS: Pathologist Review Reviewed
[2018-10-10] MEDS: Nystatin Powder 15gm Bottle 1 APPLIC TOPICAL (09:33)
[2018-10-10] MEDS: Pantoprazole Sodium 40 MG Tablet PO (09:33)
--- NOTE | 2018-10-10 10:15 | PCM.PN.ID ---
Patient Problems: Active and Suspected Problems (Last Reviewed 10/09/18 @ 11:55 by Jose Jaramillo MD) Acute encephalopathy (Acute) YESENIA (acute kidney injury) (Acute) Bacteremia (Acute) Ischemic toe (Acute) PAD (peripheral artery disease) (Acute) Subjective: Feeling ok, no fever, no abd pain. - Physical Exam General: Alert, Cooperative, No apparent distress Lungs: Rhonchi - bases Cardiovascular: Regular rate, Regular Rhythm Abdomen: Soft, Non Tender, Non-Distended Skin: No rashes Vital Signs Temp Pulse Resp BP Pulse Ox 97.8 F 72 16 112/49 L 98 10/10/18 09:00 10/10/18 09:00 10/10/18 09:00 10/10/18 09:00 10/10/18 09:00 Oxygen Flow Rate (L/min) [7] 2 Oxygen Flow Rate (L/min) [6] 2 Oxygen Flow Rate (L/min) [5] 2 Oxygen Flow Rate (L/min) [4] 2 Oxygen Flow Rate (L/min) [3] 4 Oxygen Flow Rate (L/min) [2] 4 Oxygen Flow Rate (L/min) 2 Oxygen Delivery Method [7] Nasal Cannula Oxygen Delivery Method [6] Nasal Cannula Oxygen Delivery Method [5] Nasal Cannula Oxygen Delivery Method [4] Nasal Cannula Oxygen Delivery Method [3] Nasal Cannula Oxygen Delivery Method [2] Nasal Cannula Oxygen Delivery Method [1 ( Room Air Initial Baseline)] Oxygen Delivery Method Room Air Weight: 92.9 kg Body Mass Index (BMI) 44.3 Intake and Output for Last 24 Hours 10/08/18 10/09/18 10/10/18 23:59 23:59 23:59 Intake Total 610 / 610 183 / 183 60 / 60 Output Total 800 / 800 0 / 0 Balance -190 / -190 183 / 183 60 / 60 Microbiology Past 72 Hours 10/06/18 11:05 Blood Culture - Preliminary Blood Culture (Wb) - Venous No growth in 48 hours. 10/06/18 11:18 Blood Culture - Preliminary Blood Culture (Wb) - Venous No growth in 48 hours. 10/07/18 18:50 Streptococcus pneumoniae Antigen (M - Final Urine Catheter - Catheter 10/07/18 18:50 Legionella Antigen - Final Urine Catheter - Catheter 10/03/18 17:33 Blood Culture - Final Blood Culture (Wb) - Left Hand 10/03/18 17:33 Bacteria Detection (PCR) - Final Blood Culture (Wb) - Right Forearm Blood Culture - Final Streptococcus mutans Laboratory Tests Past 24 Hrs 10/07/18 10/08/18 10/09/18 09:55 05:50 05:05 WBC RBC Hgb Hct MCV MCH MCHC RDW RDW Differential Plt Count Immature Gran % (Auto) Neut % (Auto) Lymph % (Auto) [place] % (Auto) Eos % (Auto) Baso % (Auto) Absolute Neuts (auto) Absolute Lymphs (auto) Total Counted Differential Comment Diff Path Review Reviewed Reviewed Reviewed Platelet Estimate Plt Morphology Comment Polychromasia Hypochromasia Microcytosis Sodium Potassium Chloride Carbon Dioxide Anion Gap BUN Creatinine Estim Creat Clear Calc Est GFR (MDRD) Af Amer Est GFR (MDRD) Non-Af BUN/Creatinine Ratio Glucose Calcium 10/10/18 10/10/18 05:55 05:55 WBC 2.9 L RBC 2.78 L Hgb 7.9 L Hct 26.6 L MCV 95.7 MCH 28.4 MCHC 29.7 L RDW 18.5 H RDW Differential 65.3 H Plt Count 44 L* Immature Gran % (Auto) 1.000 H Neut % (Auto) 75.5 H Lymph % (Auto) 16.6 L [place] % (Auto) 6.2 Eos % (Auto) 0.0 Baso % (Auto) 0.7 Absolute Neuts (auto) 2.2 Absolute Lymphs (auto) 0.48 L Total Counted Not Reportable Differential Comment SCAN Diff Path Review May foll Platelet Estimate MKD DEC Plt Morphology Comment LARGE Polychromasia 1+ Hypochromasia 1+ Microcytosis 1+ Sodium 141 Potassium 3.4 L Chloride 106 Carbon Dioxide 25.0 Anion Gap 10 BUN 25 H Creatinine 1.47 H Estim Creat Clear Calc 73.12 Est GFR (MDRD) Af Amer 50 L Est GFR (MDRD) Non-Af 41 L BUN/Creatinine Ratio 17.0 Glucose 86 Calcium 7.4 L Medical Necessity - Tobacco Use Smoking Status: Never smoker Tobacco Use: Non-smoker Route of nutrition/ use of supplements: [] Nutritional Intake: [] IV Site: [] Hwang Catheter: [] - Assessment/Plan Antibiotics: [] Assessment/Plan: [] Active and Suspected Problems (Last Reviewed 10/04/18 @ 04:38 by Jeferson Villa MD) Acute encephalopathy (Acute) YESENIA (acute kidney injury) (Acute) Metapneumovirus infection Strep mutans bacteremia - this is oral bob, likely due to her bad teeth and recent dental cleaning. No abscess seen on CT. On ceftriaxone, will change to augmentin. Plan will be for d/c on augmentin 875mg bid for 5 days with dentistry follow up. YESENIA - improved pancytopenia - bone marrow bx done Will follow
[2018-10-10] MEDS: Amox/Clavulanate 875 MG Tablet PO (11:26)
--- NOTE | 2018-10-10 13:11 | PCM.PN.REN ---
Patient Problems: Active and Suspected Problems (Last Reviewed 10/09/18 @ 11:55 by Jose Jaramillo MD) Acute encephalopathy (Acute) YESENIA (acute kidney injury) (Acute) Bacteremia (Acute) Ischemic toe (Acute) PAD (peripheral artery disease) (Acute) Subjective: no new events vascular note reviewed - Physical Exam General: Alert, Oriented x3, Cooperative HEENT: Atraumatic, PERRLA, EOMI, Normocephalic Neck: Supple, No JVD, Negative Carotid Bruits Lungs: Clear to auscultation, Normal air movement Cardiovascular: Regular rate, No murmurs Abdomen: Bowel Sounds Present, Soft, Non Tender Extremities: No edema, Capillary Refill Less than 3 Seconds Skin: No rashes, No breakdown Musculoskeletal: No Tenderness to Palpation of Joints or Extremities Neurological: Cranial nerves II-XII grossly intact Psych/Mental Status: Normal Affect, Appropriate Vital Signs Temp Pulse Resp BP Pulse Ox 97.8 F 65 16 112/49 L 98 10/10/18 09:00 10/10/18 11:15 10/10/18 09:00 10/10/18 09:00 10/10/18 09:00 Oxygen Flow Rate (L/min) [7] 2 Oxygen Flow Rate (L/min) [6] 2 Oxygen Flow Rate (L/min) [5] 2 Oxygen Flow Rate (L/min) [4] 2 Oxygen Flow Rate (L/min) [3] 4 Oxygen Flow Rate (L/min) [2] 4 Oxygen Flow Rate (L/min) 2 Oxygen Delivery Method [7] Nasal Cannula Oxygen Delivery Method [6] Nasal Cannula Oxygen Delivery Method [5] Nasal Cannula Oxygen Delivery Method [4] Nasal Cannula Oxygen Delivery Method [3] Nasal Cannula Oxygen Delivery Method [2] Nasal Cannula Oxygen Delivery Method [1 ( Room Air Initial Baseline)] Oxygen Delivery Method Room Air Weight: 92.9 kg Body Mass Index (BMI) 44.3 Intake and Output for Last 24 Hours 10/08/18 10/09/18 10/10/18 23:59 23:59 23:59 Intake Total 610 / 610 183 / 183 620 / 620 Output Total 800 / 800 0 / 0 Balance -190 / -190 183 / 183 620 / 620 Microbiology Past 72 Hours 10/06/18 11:05 Blood Culture - Preliminary Blood Culture (Wb) - Venous No growth in 48 hours. 10/06/18 11:18 Blood Culture - Preliminary Blood Culture (Wb) - Venous No growth in 48 hours. 10/07/18 18:50 Streptococcus pneumoniae Antigen (M - Final Urine Catheter - Catheter 10/07/18 18:50 Legionella Antigen - Final Urine Catheter - Catheter 10/03/18 17:33 Blood Culture - Final Blood Culture (Wb) - Left Hand 10/03/18 17:33 Bacteria Detection (PCR) - Final Blood Culture (Wb) - Right Forearm Blood Culture - Final Streptococcus mutans Laboratory Tests Past 24 Hrs 10/09/18 10/10/18 10/10/18 05:05 05:55 05:55 WBC 2.9 L RBC 2.78 L Hgb 7.9 L Hct 26.6 L MCV 95.7 MCH 28.4 MCHC 29.7 L RDW 18.5 H RDW Differential 65.3 H Plt Count 44 L* Immature Gran % (Auto) 1.000 H Neut % (Auto) 75.5 H Lymph % (Auto) 16.6 L [place] % (Auto) 6.2 Eos % (Auto) 0.0 Baso % (Auto) 0.7 Absolute Neuts (auto) 2.2 Absolute Lymphs (auto) 0.48 L Total Counted Not Reportable Differential Comment SCAN Diff Path Review Reviewed December foll Platelet Estimate MKD DEC Plt Morphology Comment LARGE Polychromasia 1+ Hypochromasia 1+ Microcytosis 1+ Sodium 141 Potassium 3.4 L Chloride 106 Carbon Dioxide 25.0 Anion Gap 10 BUN 25 H Creatinine 1.47 H Estim Creat Clear Calc 73.12 Est GFR (MDRD) Af Amer 50 L Est GFR (MDRD) Non-Af 41 L BUN/Creatinine Ratio 17.0 Glucose 86 Calcium 7.4 L Medical Necessity - Tobacco Use Smoking Status: Never smoker Tobacco Use: Non-smoker Assessment/Plan All Active Problems (Last Reviewed 10/09/18 @ 11:55 by Jose Jaramillo MD) Acute encephalopathy (Acute) YESENIA (acute kidney injury) (Acute) Bacteremia (Acute) Ischemic toe (Acute) PAD (peripheral artery disease) (Acute) Pancytopenia (Acute) 1-acute kidney injury. Patient has normal baseline creatinine. UA showed 15 protein, no RBCs no WBCs. Acute kidney injury is most probably prerenal from diclofenac(which is NSAIDs), HUNTER inhibitor, Lasix along with decrease oral intake cr stable 2-hypertension: Blood pressure is well controlled.
--- NOTE | 2018-10-10 16:03 | CHAPLAIN ---
Type of Pastoral Visit ___ Initial Visit _x__ Follow-up Visit ___ On-call Visit ___ General Patient Visit ___ Spiritual Assessment ___ Family Conference ___ Bereavement ___ Rapid Response ___ Code Blue ___ Other (describe below) Pastoral Care Referral From _x__ Patient ___ Family ___ Nurse ___ Physician ___ Professor Of Social Work ___ Threader ___ Other (describe below) Sacrament/Intervention _x__ Active listening ___ Anointing ___ Mu-Ism ___ Bereavement ___ Communion ___ Carla exploration ___ ___ Life review _x__ Prayer ___ Reconciliation ___ Sacrament of Sick ___ Supportive presence ___ Wedding ___ Other (describe below) Pastoral Comments
--- NOTE | 2018-10-10 16:17 | TREXTCAR_ITS ---
- Diet 10/07/18 13:10 Diet: Regular Diet Food consistency:: Mechanical Soft/Ground Liquid Consistency:: Regular/Thin Dietary Modifications:: Mechanical Soft Diet Is pt able to select menu?: No Diet Comments: Supervision (staff / family) seated at 90 degrees; meds whole w/ purees - Routine Orders/Code Status Enema Type: Fleetz Enema Frequency: Daily PRN Suppository Type: Dulcolax 10mg Suppository Frequency: Daily PRN - Wound(s) bilateral groins Wound Type: excoriation RLQ of abdomen above groin Wound Type: possible opened blister - Therapies Physical Therapy: Eval and Treat Occupational Therapy: Eval and Treat - Problem/Diagnosis (1) Acute bronchitis Status: Acute Comment: Due to human Last pneumo virus Current Visit: Yes (2) YESENIA (acute kidney injury) Status: Acute Current Visit: Yes (3) Acute encephalopathy Status: Acute Current Visit: Yes (4) Bacteremia Status: Acute Comment: Streptococcus mutans Current Visit: Yes (5) Ischemic toe Status: Acute Current Visit: Yes (6) PAD (peripheral artery disease) Status: Chronic Current Visit: Yes (7) Pancytopenia Status: Acute Current Visit: No (8) Chronic ulcer of left heel Status: Chronic Current Visit: No (9) Down syndrome Status: Chronic Current Visit: No (10) Dry skin Status: Chronic Current Visit: No (11) Gout Status: Chronic Current Visit: No (12) Hypertension Status: Chronic Current Visit: No (13) Hypothyroidism Status: Chronic Current Visit: No (14) Right hip pain Status: Chronic Current Visit: No (15) Left atrial enlargement Status: Chronic Comment: Moderate Current Visit: Yes (16) Mild right atrial enlargement Status: Chronic Current Visit: Yes - Allergies/Procedures Done in Hospital Allergies/Adverse Reactions: Allergies No Known Allergies Allergy (Verified 09/26/18 13:05) Procedures: Transthoracic Echo - Interpretation Summary The study was technically limited. Contrast injection was performed. Left ventricular systolic function is normal. The estimated ejection fraction is 70 %. The left atrium is moderately enlarged. The right atrium is mildly enlarged. Moderate diffuse mitral valve thickening. Moderate (2+) eccentric mitral valve insufficiency. Mild to moderate (1-2+) tricuspid valve insufficiency. Moderate focal aortic valve thickening. Trivial aortic valve insufficiency. Trivial pulmonic valve insufficiency. Right ventricular systolic pressure estimated to be 30 mmHg. Diastolic function is indeterminate. Comment: Secondary to a technically difficult study a small perimembranous interventricular septal defect, previously commented upon on the previous transthoracic echocardiogram from 07/12/2012, was not visualized, however, cannot necessarily be excluded., - - Bone marrow biopsy on 10/09/2018 - Type of Care/Length of Stay Estimated LOS: Convalescent Care Less Than 30 days Type of Care Needed: Skilled Rehab Potential: Fair Prognosis: Fair - Additional Orders/Day of Discharge Additional Orders: Needs to see a dentist H&P will serve as current which was dated: 10/03/18 Day of Discharge: 10/10/18 - Dietary and Speech Recommendations Dietitian Recommendations/Changes: Recommend continue regular diet with altered consistency per PARTS DELIVERY DRIVER. - Follow Up Care Primary Care Physician: Nicanor Salter DO [Primary Care Provider] - Please follow up with your Primary Care Physician in: folowing DC from TCU Please Follow Up With: Van Centeno MD When: as needed Please Follow Up With: Papito Madison MD When: 2 weeks
--- NOTE | 2018-10-10 16:25 | PCM.DC.SUM ---
Discharge Date and Diagnosis - Problem List Patient Problems: Active and Suspected Problems (Last Reviewed 10/09/18 @ 11:55 by Jose Jaramillo MD) Infection due to human metapneumovirus (hMPV) (Acute) Streptococcal bacteremia (Acute) Blue toe syndrome (Acute) Gastrointestinal bleeding (Acute) Date of Admission: 10/03/18 Date of Discharge: 10/10/18 - Primary Discharge Diagnosis Active and Suspected Problems (Last Reviewed 10/09/18 @ 11:55 by Jose Jaramillo MD) Acute encephalopathy (Acute) YESENIA (acute kidney injury) (Acute) Bacteremia (Acute) Streptococcus mutans Ischemic toe (Acute) Acute bronchitis (Acute) Due to human Last pneumo virus GI bleed related to thrombocytopenia - Secondary Discharge Diagnosis Chronic Problems (Last Reviewed 10/09/18 @ 11:55 by Jose Jaramillo MD) PAD (peripheral artery disease) (Chronic) Left atrial enlargement (Chronic) Moderate Mild right atrial enlargement (Chronic) Gout (Chronic) Chronic ulcer of left heel (Chronic) Right hip pain (Chronic) Hypothyroidism (Chronic) Hypertension (Chronic) Dry skin (Chronic) Down syndrome (Chronic) Hospital Course and Treatment Imaging Results: Clinical Impression(s) from Imaging Studies Chest X-Ray 10/03/18 17:15 IMPRESSION: Mild vascular congestion. Hypoinflation lungs. Cardiomegaly. Electronically Signed: Joaquim Doty DO at 17:49 EST Tel , Service support , Chest X-Ray 10/04/18 13:10 IMPRESSION: No significant interval change. Electronically Signed: Karan Borrego DO at 18:40 EST Tel [phone], Service support , Chest X-Ray 10/07/18 05:55 IMPRESSION: Findings suggestive of mild degree of vascular congestion and CHF. There has been essentially no change. Electronically Signed: Reese Adames MD at 15:12 EST , Service support , Soft Tissue Neck CT 10/07/18 16:46 IMPRESSION: Subcutaneous fatty stranding on the left lateral to the mandible. There is no evidence of abscess or soft tissue gas. Chronic pansinusitis. Electronically Signed: Naresh Martinez MD at 19:06 EST , Service support , Foot X-Ray 10/08/18 08:51 IMPRESSION: Nonspecific soft tissue swelling. Small plantar spur. Electronically Signed: Reese Adames, at 15:09 EST , Service support , Biopsy CT 10/09/18 07:57 IMPRESSION: Successful CT guided bone marrow biopsy of the posterior aspect of the left iliac bone, as described above. Electronically Signed: Reese Adames, at 11:09 EST , Service support , Laboratory Results - last 24 hr 10/09/18 10/10/18 10/10/18 05:05 05:55 05:55 WBC 2.9 L RBC 2.78 L Hgb 7.9 L Hct 26.6 L MCV 95.7 MCH 28.4 MCHC 29.7 L RDW 18.5 H RDW Differential 65.3 H Plt Count 44 L* Immature Gran % (Auto) 1.000 H Neut % (Auto) 75.5 H Lymph % (Auto) 16.6 L Ballard % (Auto) 6.2 Eos % (Auto) 0.0 Baso % (Auto) 0.7 Absolute Neuts (auto) 2.2 Absolute Lymphs (auto) 0.48 L Total Counted Not Reportable Differential Comment SCAN Diff Path Review Reviewed May foll Platelet Estimate MKD DEC Plt Morphology Comment LARGE Polychromasia 1+ Hypochromasia 1+ Microcytosis 1+ Sodium 141 Potassium 3.4 L Chloride 106 Carbon Dioxide 25.0 Anion Gap 10 BUN 25 H Creatinine 1.47 H Estim Creat Clear Calc 73.12 Est GFR (MDRD) Af Amer 50 L Est GFR (MDRD) Non-Af 41 L BUN/Creatinine Ratio 17.0 Glucose 86 Calcium 7.4 L Microbiology 10/06/18 11:05 Blood Culture (Wb) - Venous Blood Culture - Preliminary No growth in 48 hours. 10/06/18 11:18 Blood Culture (Wb) - Venous Blood Culture - Preliminary No growth in 48 hours. 10/07/18 18:50 Urine Catheter - Catheter Streptococcus pneumoniae Antigen (M - Final 10/07/18 18:50 Urine Catheter - Catheter Legionella Antigen - Final 10/03/18 17:33 Blood Culture (Wb) - Left Hand Blood Culture - Final 10/03/18 17:33 Blood Culture (Wb) - Right Forearm Bacteria Detection (PCR) - Final 10/03/18 17:33 Blood Culture (Wb) - Right Forearm Blood Culture - Final Streptococcus mutans 10/03/18 18:23 Urine, Catheterized Urine Culture - Final Culture exhibits no growth. 10/03/18 22:50 Stool Enteric Bacteriology - Final 10/03/18 23:27 Mucosa - Nasopharyngeal Respiratory Panel (PCR) - Final Human [place] 10/03/18 22:50 Stool C. difficile DNA Amplification - Final Dr. Madison-nephrology Dr. Van Nguyen-infectious disease [facility] - Hematology/Oncology Operations: None Procedures: Transesophageal Echo - Interpretation Summary The study was technically limited. Contrast injection was performed. Left ventricular systolic function is normal. The estimated ejection fraction is 70 %. The left atrium is moderately enlarged. The right atrium is mildly enlarged. Moderate diffuse mitral valve thickening. Moderate (2+) eccentric mitral valve insufficiency. Mild to moderate (1-2+) tricuspid valve insufficiency. Moderate focal aortic valve thickening. Trivial aortic valve insufficiency. Trivial pulmonic valve insufficiency. Right ventricular systolic pressure estimated to be 30 mmHg. Diastolic function is indeterminate. Comment: Secondary to a technically difficult study a small perimembranous interventricular septal defect, previously commented upon on the previous transthoracic echocardiogram from 07/12/2012, was not visualized, however, cannot necessarily be excluded., - - Bone marrow biopsy-results pending Transfusion-2 units Platelets Summary of Care Provided: The patient is a 42 year old F with a past medical history of Down syndrome who has recently been followed by Dr. Granado for workup for possible leukemia. She was brought to the emergency department at [facility] on 10/03/2018 with complaints of lethargy. She had an appointment scheduled with Dr. Centeno on 10/03/2018. She was so weak on that day that she could not walk and Dr. Centeno referred her to the emergency department. Vital signs in the emergency department were temp 97, pulse 68, respiratory rate 16, blood pressure 142/52 and the pulse ox was 96%. White blood cell count was 5.4 with 86.5% neutrophils. Hemoglobin was 9.8 and the platelet count was 46,000. Sodium was low at 132 and the creatinine was 2.31, up from 0.65 in May 2018. Lactic acid was normal at 1.5. AST was mildly elevated at 48 and the ALT was mildly elevated at 165. BNP was 211. UA showed 0 WBCs per high-power field. Chest x-ray showed hypoinflation with mild vascular congestion. It was negative for infiltrates or pleural effusions. She was admitted to the hospital with a diagnosis of acute kidney injury and acute metabolic encephalopathy with pancytopenia. Dr. Langley was consulted for acute renal failure. Dr. Granado was also consulted and she was seen by Anne-Marie Hooks. She was apparently scheduled for a bone marrow biopsy next week. Blood cultures done at admission were positive for Streptococcus mutans and the respiratory panel was positive for human Last pneumo virus. Dr. Nguyen was consulted and he felt the strep mutans likely came from bad teeth and a recent dental cleaning. He narrowed the antibiotic to ceftriaxone and recommended dental follow-up in the very near future for extractions. He recommended delaying the bone marrow biopsy until follow-up blood cultures were negative. A surface echocardiogram was obtained and showed a 70% ejection fraction with moderate left atrial enlargement and mild right atrial enlargement. There were no vegetations visualized. Blood cultures drawn on had no growth and the patient had a bone marrow biopsy done by Dr. Adames on 10/09/2018. She was discharged to shelter on 10/10/2018. She will follow-up with Dr. Salter following discharge from [facility]. She will follow-up with Dr. Centeno as needed and with Dr. Madison in 2 weeks. Results of the bone marrow biopsy are still pending at the time of discharge and she will follow-up with Dr. Granado to discuss the results. She will need to see a dentist as soon as possible to arrange for extractions of carious teeth. PHYSICAL EXAM: GENERAL: alert, oriented X 3, Cooperative, NAD, Down syndrome ORAL: Dry mucosa NECK: No JVD, supple, trachea midline LUNGS: CTA but mildly diminished, symmetric chest expansion, no rales, no wheezes, no rhonchi HEART: RRR, Normal S1 and S2, no rub, no gallop, no murmur ABDOMEN: soft, NT, ND, BS present, no guarding with palpation EXTREMITIES: no edema, no cyanosis, no calf tenderness SKIN: No rashes, no breakdown NEUROLOGIC: no focal neurologic deficits PSYCH: appropriate, normal affect, pleasant This note was generated with [employer] software. It may contain incorrect words, spelling, and punctuation that were not noted in checking the note before signing. Patient Problems: Active and Suspected Problems (Last Reviewed 10/09/18 @ 11:55 by Jose Jaramillo MD) Infection due to human metapneumovirus (hMPV) (Acute) Streptococcal bacteremia (Acute) Blue toe syndrome (Acute) Gastrointestinal bleeding (Acute) - Physical Exam Vital Signs Temp Pulse Resp BP Pulse Ox 99.4 F H 70 18 140/46 H 100 10/10/18 15:00 10/10/18 15:19 10/10/18 15:00 10/10/18 15:00 10/10/18 15:00 Oxygen Flow Rate (L/min) [7] 2 Oxygen Flow Rate (L/min) [6] 2 Oxygen Flow Rate (L/min) [5] 2 Oxygen Flow Rate (L/min) [4] 2 Oxygen Flow Rate (L/min) [3] 4 Oxygen Flow Rate (L/min) [2] 4 Oxygen Flow Rate (L/min) 2 Oxygen Delivery Method [7] Nasal Cannula Oxygen Delivery Method [6] Nasal Cannula Oxygen Delivery Method [5] Nasal Cannula Oxygen Delivery Method [4] Nasal Cannula Oxygen Delivery Method [3] Nasal Cannula Oxygen Delivery Method [2] Nasal Cannula Oxygen Delivery Method [1 ( Room Air Initial Baseline)] Oxygen Delivery Method Room Air Weight: 204 lb 12.951 oz Body Mass Index (BMI) 44.3 Intake and Output for Last 24 Hours 10/08/18 10/09/18 10/10/18 23:59 23:59 23:59 Intake Total 610 / 610 183 / 183 620 / 620 Output Total 800 / 800 0 / 0 Balance -190 / -190 183 / 183 620 / 620 Microbiology Past 72 Hours 10/06/18 11:05 Blood Culture - Preliminary Blood Culture (Wb) - Venous No growth in 48 hours. 10/06/18 11:18 Blood Culture - Preliminary Blood Culture (Wb) - Venous No growth in 48 hours. 10/07/18 18:50 Streptococcus pneumoniae Antigen (M - Final Urine Catheter - Catheter 10/07/18 18:50 Legionella Antigen - Final Urine Catheter - Catheter Laboratory Tests Past 24 Hrs 10/09/18 10/10/18 10/10/18 05:05 05:55 05:55 WBC 2.9 L RBC 2.78 L Hgb 7.9 L Hct 26.6 L MCV 95.7 MCH 28.4 MCHC 29.7 L RDW 18.5 H RDW Differential 65.3 H Plt Count 44 L* Immature Gran % (Auto) 1.000 H Neut % (Auto) 75.5 H Lymph % (Auto) 16.6 L Ballard % (Auto) 6.2 Eos % (Auto) 0.0 Baso % (Auto) 0.7 Absolute Neuts (auto) 2.2 Absolute Lymphs (auto) 0.48 L Total Counted Not Reportable Differential Comment SCAN Diff Path Review Reviewed May foll Platelet Estimate MKD DEC Plt Morphology Comment LARGE Polychromasia 1+ Hypochromasia 1+ Microcytosis 1+ Sodium 141 Potassium 3.4 L Chloride 106 Carbon Dioxide 25.0 Anion Gap 10 BUN 25 H Creatinine 1.47 H Estim Creat Clear Calc 73.12 Est GFR (MDRD) Af Amer 50 L Est GFR (MDRD) Non-Af 41 L BUN/Creatinine Ratio 17.0 Glucose 86 Calcium 7.4 L Home Medications: Medications to take at Discharge white petrolatum topical jelly 1 applic TOPICAL BID PRN g 05/13/18 Ammonium Lactate 1 applic TOPICAL BID 10/03/18 Calcium Carbonate/Vitamin D3 [Calcium 500+D Tablet Chew] 1 each PO DAILY 10/03/18 Carbamazepine [Carbamazepine ER] 400 mg PO BID 10/03/18 Nystatin [Nystop] 1 applic TP BID 10/03/18 busPIRone [Buspar] 5 mg PO TID 10/03/18 Allopurinol [Zyloprim] 300 mg PO DAILY 10/10/18 Amox/Clavulanate Tablet [Augmentin Tablet] 875 mg PO BID 10/10/18 Levothyroxine [Synthroid] 75 mcg PO DAILY 10/10/18 Omeprazole [Prilosec] 20 mg PO DAILY 10/10/18 Sertraline HCl [Zoloft] 100 mg PO DAILY 10/10/18 Primary Care Physician: Nicanor Salter DO [Primary Care Provider] - Please follow up with your Primary Care Physician in: folowing DC from TCU Please Follow Up With: Van Centeno MD When: as needed Please Follow Up With: Papito Madison MD When: 2 weeks Disposition: [facility] Minutes spent on discharge:: 45 Patient Condition:: Stable Medical Necessity - Tobacco Use Smoking Status: Never smoker Tobacco Use: Non-smoker Meaningful Use Info Meaningful Use Diagnoses (Choose all that apply): None applicable Code Visit Inpatient E&M: 99531 Disch Hosp
--- NOTE | 2018-10-10 16:29 | DS.PCM_ITS ---
Discharge Date and Diagnosis - Problem List Patient Problems: Active and Suspected Problems (Last Reviewed 10/09/18 @ 11:55 by Jose Jaramillo MD) Infection due to human metapneumovirus (hMPV) (Acute) Streptococcal bacteremia (Acute) Blue toe syndrome (Acute) Gastrointestinal bleeding (Acute) Date of Admission: 10/03/18 Date of Discharge: 10/10/18 - Primary Discharge Diagnosis Active and Suspected Problems (Last Reviewed 10/09/18 @ 11:55 by Jose Jaramillo MD) Acute encephalopathy (Acute) YESENIA (acute kidney injury) (Acute) Bacteremia (Acute) Streptococcus mutans Ischemic toe (Acute) Acute bronchitis (Acute) Due to human Last pneumo virus GI bleed related to thrombocytopenia - Secondary Discharge Diagnosis Chronic Problems (Last Reviewed 10/09/18 @ 11:55 by Jose Jaramillo MD) PAD (peripheral artery disease) (Chronic) Left atrial enlargement (Chronic) Moderate Mild right atrial enlargement (Chronic) Gout (Chronic) Chronic ulcer of left heel (Chronic) Right hip pain (Chronic) Hypothyroidism (Chronic) Hypertension (Chronic) Dry skin (Chronic) Down syndrome (Chronic) Hospital Course and Treatment Imaging Results: Clinical Impression(s) from Imaging Studies Chest X-Ray 10/03/18 17:15 IMPRESSION: Mild vascular congestion. Hypoinflation lungs. Cardiomegaly. Electronically Signed: Joaquim Doty DO at 17:49 EST Tel , Service support , Chest X-Ray 10/04/18 13:10 IMPRESSION: No significant interval change. Electronically Signed: Karan Borrego DO at 18:40 EST Tel [phone], Service support , Chest X-Ray 10/07/18 05:55 IMPRESSION: Findings suggestive of mild degree of vascular congestion and CHF. There has been essentially no change. Electronically Signed: Reese Adames MD at 15:12 EST , Service support , Soft Tissue Neck CT 10/07/18 16:46 IMPRESSION: Subcutaneous fatty stranding on the left lateral to the mandible. There is no evidence of abscess or soft tissue gas. Chronic pansinusitis. Electronically Signed: Naresh Martinez MD at 19:06 EST , Service support , Foot X-Ray 10/08/18 08:51 IMPRESSION: Nonspecific soft tissue swelling. Small plantar spur. Electronically Signed: Reese Adames, at 15:09 EST , Service support , Biopsy CT 10/09/18 07:57 IMPRESSION: Successful CT guided bone marrow biopsy of the posterior aspect of the left iliac bone, as described above. Electronically Signed: Reese Adames, at 11:09 EST , Service support , Laboratory Results - last 24 hr 10/09/18 10/10/18 10/10/18 05:05 05:55 05:55 WBC 2.9 L RBC 2.78 L Hgb 7.9 L Hct 26.6 L MCV 95.7 MCH 28.4 MCHC 29.7 L RDW 18.5 H RDW Differential 65.3 H Plt Count 44 L* Immature Gran % (Auto) 1.000 H Neut % (Auto) 75.5 H Lymph % (Auto) 16.6 L [place] % (Auto) 6.2 Eos % (Auto) 0.0 Baso % (Auto) 0.7 Absolute Neuts (auto) 2.2 Absolute Lymphs (auto) 0.48 L Total Counted Not Reportable Differential Comment SCAN Diff Path Review Reviewed May foll Platelet Estimate MKD DEC Plt Morphology Comment LARGE Polychromasia 1+ Hypochromasia 1+ Microcytosis 1+ Sodium 141 Potassium 3.4 L Chloride 106 Carbon Dioxide 25.0 Anion Gap 10 BUN 25 H Creatinine 1.47 H Estim Creat Clear Calc 73.12 Est GFR (MDRD) Af Amer 50 L Est GFR (MDRD) Non-Af 41 L BUN/Creatinine Ratio 17.0 Glucose 86 Calcium 7.4 L Microbiology 10/06/18 11:05 Blood Culture (Wb) - Venous Blood Culture - Preliminary No growth in 48 hours. 10/06/18 11:18 Blood Culture (Wb) - Venous Blood Culture - Preliminary No growth in 48 hours. 10/07/18 18:50 Urine Catheter - Catheter Streptococcus pneumoniae Antigen (M - Final 10/07/18 18:50 Urine Catheter - Catheter Legionella Antigen - Final 10/03/18 17:33 Blood Culture (Wb) - Left Hand Blood Culture - Final 10/03/18 17:33 Blood Culture (Wb) - Right Forearm Bacteria Detection (PCR) - Final 10/03/18 17:33 Blood Culture (Wb) - Right Forearm Blood Culture - Final Streptococcus mutans 10/03/18 18:23 Urine, Catheterized Urine Culture - Final Culture exhibits no growth. 10/03/18 22:50 Stool Enteric Bacteriology - Final 10/03/18 23:27 Mucosa - Nasopharyngeal Respiratory Panel (PCR) - Final Human Imboden 10/03/18 22:50 Stool C. difficile DNA Amplification - Final Dr. Madison-nephrology Dr. Van Nguyen-infectious disease [facility] - Hematology/Oncology Operations: None Procedures: Transesophageal Echo - Interpretation Summary The study was technically limited. Contrast injection was performed. Left ventricular systolic function is normal. The estimated ejection fraction is 70 %. The left atrium is moderately enlarged. The right atrium is mildly enlarged. Moderate diffuse mitral valve thickening. Moderate (2+) eccentric mitral valve insufficiency. Mild to moderate (1-2+) tricuspid valve insufficiency. Moderate focal aortic valve thickening. Trivial aortic valve insufficiency. Trivial pulmonic valve insufficiency. Right ventricular systolic pressure estimated to be 30 mmHg. Diastolic function is indeterminate. Comment: Secondary to a technically difficult study a small perimembranous interventricular septal defect, previously commented upon on the previous transthoracic echocardiogram from 07/12/2012, was not visualized, however, cannot necessarily be excluded., - - Bone marrow biopsy-results pending Transfusion-2 units Platelets Summary of Care Provided: The patient is a 42 year old F with a past medical history of Down syndrome who has recently been followed by Dr. Granado for workup for possible leukemia. She was brought to the emergency department at [facility] on 10/03/2018 with complaints of lethargy. She had an appointment scheduled with Dr. Centeno on 10/03/2018. She was so weak on that day that she could not walk and Dr. Centeno referred her to the emergency department. Vital signs in the emergency department were temp 97, pulse 68, respiratory rate 16, blood pressure 142/52 and the pulse ox was 96%. White blood cell count was 5.4 with 86.5% neutrophils. Hemoglobin was 9.8 and the platelet count was 46,000. Sodium was low at 132 and the creatinine was 2.31, up from 0.65 in May 2018. Lactic acid was normal at 1.5. AST was mildly elevated at 48 and the ALT was mildly elevated at 165. BNP was 211. UA showed 0 WBCs per high-power field. Chest x- ray showed hypoinflation with mild vascular congestion. It was negative for infiltrates or pleural effusions. She was admitted to the hospital with a diagnosis of acute kidney injury and acute metabolic encephalopathy with pancytopenia. Dr. Langley was consulted for acute renal failure. Dr. Granado was also consulted and she was seen by Anne-Marie Hooks. She was apparently scheduled for a bone marrow biopsy next week. Blood cultures done at admission were positive for Streptococcus mutans and the respiratory panel was positive fo r human Last pneumo virus. Dr. Nguyen was consulted and he felt the strep mutans likely came from bad teeth and a recent dental cleaning. He narrowed the antibiotic to ceftriaxone and recommended dental follow-up in the very near future for extractions. He recommended delaying the bone marrow biopsy until follow-up blood cultures were negative. A surface echocardiogram was obtained and showed a 70% ejection fraction with moderate left atrial enlargement and mild right atrial enlargement. There were no vegetations visualized. Blood cultures drawn on had no growth and the patient had a bone marrow biopsy done by Dr. Adames on 10/09/2018. She was [facility] to [facility] on 10/10/2018. She will follow-up with Dr. Salter following discharge from [facility]. She will follow-up with Dr. Centeno as needed and with Dr. Madison in 2 weeks. Results of the bone marrow biopsy are still pending at the time of discharge and she will follow-up with Dr. Granado to discuss the results. She will need to see a dentist as soon as possible to arrange for extractions of carious teeth. PHYSICAL EXAM: GENERAL: alert, oriented X 3, Cooperative, NAD, Down syndrome ORAL: Dry mucosa NECK: No JVD, supple, trachea midline LUNGS: CTA but mildly diminished, symmetric chest expansion, no rales, no wheezes, no rhonchi HEART: RRR, Normal S1 and S2, no rub, no gallop, no murmur ABDOMEN: soft, NT, ND, BS present, no guarding with palpation EXTREMITIES: no edema, no cyanosis, no calf tenderness SKIN: No rashes, no breakdown NEUROLOGIC: no focal neurologic deficits PSYCH: appropriate, normal affect, pleasant This note was generated with [employer] software. It may contain incorrect words, spelling, and punctuation that were not noted in checking the note before signing. Patient Problems: Active and Suspected Problems (Last Reviewed 10/09/18 @ 11:55 by Jose Jaramillo MD) Infection due to human metapneumovirus (hMPV) (Acute) Streptococcal bacteremia (Acute) Blue toe syndrome (Acute) Gastrointestinal bleeding (Acute) - Physical Exam Vital Signs Temp Pulse Resp BP Pulse Ox 99.4 F H 70 18 140/46 H 100 10/10/18 15:00 10/10/18 15:19 10/10/18 15:00 10/10/18 15:00 10/10/18 15:00 Oxygen Flow Rate (L/min) [7] 2 Oxygen Flow Rate (L/min) [6] 2 Oxygen Flow Rate (L/min) [5] 2 Oxygen Flow Rate (L/min) [4] 2 Oxygen Flow Rate (L/min) [3] 4 Oxygen Flow Rate (L/min) [2] 4 Oxygen Flow Rate (L/min) 2 Oxygen Delivery Method [7] Nasal Cannula Oxygen Delivery Method [6] Nasal Cannula Oxygen Delivery Method [5] Nasal Cannula Oxygen Delivery Method [4] Nasal Cannula Oxygen Delivery Method [3] Nasal Cannula Oxygen Delivery Method [2] Nasal Cannula Oxygen Delivery Method [1 ( Room Air Initial Baseline)] Oxygen Delivery Method Room Air Weight: 204 lb 12.951 oz Body Mass Index (BMI) 44.3 Intake and Output for Last 24 Hours 10/08/18 10/09/18 10/10/18 23:59 23:59 23:59 Intake Total 610 / 610 183 / 183 620 / 620 Output Total 800 / 800 0 / 0 Balance -190 / -190 183 / 183 620 / 620 Microbiology Past 72 Hours 10/06/18 11:05 Blood Culture - Preliminary Blood Culture (Wb) - Venous No growth in 48 hours. 10/06/18 11:18 Blood Culture - Preliminary Blood Culture (Wb) - Venous No growth in 48 hours. 10/07/18 18:50 Streptococcus pneumoniae Antigen (M - Final Urine Catheter - Catheter 10/07/18 18:50 Legionella Antigen - Final Urine Catheter - Catheter Laboratory Tests Past 24 Hrs 10/09/18 10/10/18 10/10/18 05:05 05:55 05:55 WBC 2.9 L RBC 2.78 L Hgb 7.9 L Hct 26.6 L MCV 95.7 MCH 28.4 MCHC 29.7 L RDW 18.5 H RDW Differential 65.3 H Plt Count 44 L* Immature Gran % (Auto) 1.000 H Neut % (Auto) 75.5 H Lymph % (Auto) 16.6 L [place] % (Auto) 6.2 Eos % (Auto) 0.0 Baso % (Auto) 0.7 Absolute Neuts (auto) 2.2 Absolute Lymphs (auto) 0.48 L Total Counted Not Reportable Differential Comment SCAN Diff Path Review Reviewed May foll Platelet Estimate MKD DEC Plt Morphology Comment LARGE Polychromasia 1+ Hypochromasia 1+ Microcytosis 1+ Sodium 141 Potassium 3.4 L Chloride 106 Carbon Dioxide 25.0 Anion Gap 10 BUN 25 H Creatinine 1.47 H Estim Creat Clear Calc 73.12 Est GFR (MDRD) Af Amer 50 L Est GFR (MDRD) Non-Af 41 L BUN/Creatinine Ratio 17.0 Glucose 86 Calcium 7.4 L Home Medications: Medications to take at Discharge white petrolatum topical jelly 1 applic TOPICAL BID PRN g 05/13/18 Ammonium Lactate 1 applic TOPICAL BID 10/03/18 Calcium Carbonate/Vitamin D3 [Calcium 500+D Tablet Chew] 1 each PO DAILY 10/03/18 Carbamazepine [Carbamazepine ER] 400 mg PO BID 10/03/18 Nystatin [Nystop] 1 applic TP BID 10/03/18 busPIRone [Buspar] 5 mg PO TID 10/03/18 Allopurinol [Zyloprim] 300 mg PO DAILY 10/10/18 Amox/Clavulanate Tablet [Augmentin Tablet] 875 mg PO BID 10/10/18 Levothyroxine [Synthroid] 75 mcg PO DAILY 10/10/18 Omeprazole [Prilosec] 20 mg PO DAILY 10/10/18 Sertraline HCl [Zoloft] 100 mg PO DAILY 10/10/18 Primary Care Physician: Nicanor Salter DO [Primary Care Provider] - Please follow up with your Primary Care Physician in: folowing DC from TCU Please Follow Up With: Van Centeno MD When: as needed Please Follow Up With: Papito Madison MD When: 2 weeks Disposition: [facility] facility Minutes spent on discharge:: 45 Patient Condition:: Stable Medical Necessity - Tobacco Use Smoking Status: Never smoker Tobacco Use: Non-smoker Meaningful Use Info Meaningful Use Diagnoses (Choose all that apply): None applicable Code Visit Inpatient E&M: 15225 Disch Hosp
--- NOTE | 2018-10-10 17:53 | NURSING ---
REPORT CALLED TO NATI IN TCU
[2018-10-11 13:05] LABS: Pathologist Review Reviewed
== END 2018-10-10 18:39 | disposition skilled nursing facility (03) | DRG 682 ==
LOC: ED 16:59 → PCU 21:16
PROVIDERS: Internal Medicine; Nurse Practitioner Family; Student in an Organized Health Care Education/Training Program; Admitting Provider Hospitalist; Emergency Provider Emergency Medicine; Family Provider Family Medicine; PCP Family Medicine; Visit Provider Internal Medicine
DX: N17.9 Acute kidney failure, unspecified (principal); G93.41 Metabolic encephalopathy; K62.5 Hemorrhage of anus and rectum; R78.81 Bacteremia; D61.818 Other pancytopenia; J20.8 Acute bronchitis due to other specified organisms; B97.81 Human metapneumovirus as the cause of diseases classified elsewhere; Q90.9 Down syndrome, unspecified; E86.0 Dehydration; E03.9 Hypothyroidism, unspecified; B95.4 Other streptococcus as the cause of diseases classified elsewhere; I73.9 Peripheral vascular disease, unspecified; D69.6 Thrombocytopenia, unspecified; M10.9 Gout, unspecified; I10 Essential (primary) hypertension; K02.9 Dental caries, unspecified; I99.8 Other disorder of circulatory system
CPT/HCPCS: 36415; 70491; 71045; 71046; 73620; 77012; 80048; 80053; 80069; 80076; 80156; 80202; 81001; 82140; 82533; 82607; 82803; 83605; 83880; 84439; 84443; 84481; 85014; 85018; 85025; 85027; 85610; 85730; 86850; 86900; 86965; 87040; 87077; 87086; 87149; 87186; 87449; 87493; 87506; 87633; 92526; 92610; 93005; 93306; 93922; 93925; 94660; 94762; 97110; 97162; 97166; 97530; 97535; 97802; 97803; 99156; 99157; 99285; J7030; J7040; P9037; Q9957; Q9967; A4216; C8929; J0696

== ENCOUNTER 2018-10-10 18:45 | Inpatient (IN) | payer MEDICARE, MEDICAID, SELFPAY ==
[2018-10-09 06:33] VITALS: BMI 44.3
[2018-10-10 19:18] VITALS: BP 120/43; PULSE 73; RESP 18; TEMP 37.3; O2SAT 96; BMI 48.8
--- NOTE | 2018-10-10 19:33 | NURSING ---
Pt arrived from [facility] at 1845 via wheelchair
[2018-10-10 20:29] VITALS: BMI 48.8
--- NOTE | 2018-10-10 20:54 | PCM.HP.STD ---
Problem List (1) Infection due to human metapneumovirus (hMPV) Status: Acute (2) Streptococcal bacteremia Status: Acute (3) Blue toe syndrome Status: Acute (4) Gastrointestinal bleeding Status: Acute (5) Sleep apnea Status: Chronic (6) GERD (gastroesophageal reflux disease) Status: Chronic (7) Depression Status: Chronic (8) Osteoarthritis Status: Chronic (9) Seizure disorder Status: Chronic (10) Edema Status: Chronic (11) Acute encephalopathy Status: Acute (12) YESENIA (acute kidney injury) Status: Acute (13) Acute bronchitis Status: Acute Comment: Due to human Last pneumo virus (14) Gout Status: Chronic (15) Hypothyroidism Status: Chronic Qualifiers: (16) Hypertension Status: Chronic Qualifiers: (17) Down syndrome Status: Chronic History of Present Illness Date of Admission: 10/10/18 Chief Complaint: Here for rehabilitation, strengthening, prior to discharge to [facility]. The patient is a 42 year old Female with below past medical history presented to [facility] Emergency Department 10/03/2018 with acute change in mental status. 10/03/2018 EKG sinus rhythm with first degree AV block, LVH with widening. Worsening mental status, shortness of breath x 2 months, lethargy. CPAP broken. Bone marrow biopsy scheduled. Hemoglobin 9.8, Platelet 46. BUN up, Cr up, UA negative, lactic acid 1.5, BNP okay. IV Fluids given. 10/03/2018 Admit to Hospital. IV Fluids for acute kidney injury. Pancultured, respiratory panel. Vancomycin, Zosyn IV for broad spectrum coverage. IV Synthroid, IV hydrocortisone. 10/04/2018 Echo LVSF normal. EF 70%. 10/05/2018 Chest X-ray mild vascular congestion, CHF. 10/07/2018 CT neck NEGATIVE abscess. X-ray right foot, small plantar spur. 10/09/2018 Bone marrow biopsy performed, results pending. Acute delirium secondary to bronchitis from strep mutans, human metapneumovirus treated with IV Rocephin. Strep bacteremia secondar to poor dental hygiene treated with IV Rocephin, then Augmentin. Bone marrow biopsy for pancytopenia, follow up with Hematology. Vascular surgery, Podiatry consulted for blue toe, NASH doppler recommended. Acute kidney injury secondary to Diclofenac, ACEI, Lasix, Dehydration, improved but not at baseline. GI bleed secondary to thrombocytopenia resolved. 10/10/2018 Admit to TCU with debility, here for rehabilitation, strengthening, prior to discharge [facility]. Past Medical History Past Medical History (Chronic Problems): Chronic Problems (Last Reviewed 10/09/18 @ 11:55 by Jose Jaramillo MD) PAD (peripheral artery disease) (Chronic) Left atrial enlargement (Chronic) Moderate Mild right atrial enlargement (Chronic) Sleep apnea (Chronic) GERD (gastroesophageal reflux disease) (Chronic) Depression (Chronic) Osteoarthritis (Chronic) Seizure disorder (Chronic) Edema (Chronic) Gout (Chronic) Chronic ulcer of left heel (Chronic) Right hip pain (Chronic) Hypothyroidism (Chronic) Hypertension (Chronic) Dry skin (Chronic) Down syndrome (Chronic) Medical History: Medical History (Last Reviewed 10/09/18 @ 11:55 by Jose Jaramillo MD) Dry skin (Chronic) L85.3 Down syndrome (Chronic) Q90.9 Allergies No Known Allergies Allergy (Verified 09/26/18 13:05) Home Medications: Ambulatory Orders Medication Instructions Recorded white petrolatum topical jelly 1 applic TOPICAL BID PRN g 05/13/18 Ammonium Lactate 1 applic TOPICAL BID 10/03/18 Calcium Carbonate/Vitamin D3 1 each PO DAILY 10/03/18 [Calcium 500+D Tablet Chew] Carbamazepine [Carbamazepine ER] 400 mg PO BID 10/03/18 Nystatin [Nystop] 1 applic TP BID 10/03/18 busPIRone [Buspar] 5 mg PO TID 10/03/18 Allopurinol [Zyloprim] 300 mg PO DAILY 10/10/18 Amox/Clavulanate Tablet [Augmentin 875 mg PO BID 10/10/18 Tablet] Levothyroxine [Synthroid] 75 mcg PO DAILY 10/10/18 Omeprazole [Prilosec] 20 mg PO DAILY 10/10/18 Sertraline HCl [Zoloft] 100 mg PO DAILY 10/10/18 Surgical History: Surgical History (Last Reviewed 10/09/18 @ 11:55 by Jose Jaramillo MD) History of cataract surgery Z98.49 History of open heart surgery Z98.890 age 14 History of tubal ligation Z98.51 Surgical History: cataract, - - Tubal ligation, open heart surgery. 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 Smoking Status: Never smoker Tobacco Use: Non-smoker Alcohol: None Drugs: None - *Family History Maternal Family History: Family History (Last Reviewed 10/04/18 @ 04:38 by Jeferson Villa MD) Father Diabetes Hypertension Heart disease Grandmother Heart disease Diabetes Grandfather Heart disease History Items: No pertinent history Paternal Family History: Family History (Last Reviewed 10/04/18 @ 04:38 by Jeferson Villa MD) Father Diabetes Hypertension Heart disease Grandmother Heart disease Diabetes Grandfather Heart disease History Items: No pertinent history Review of Systems Constitutional: Denies: Chills, Fever, Weight Change HEENT: Denies: Head Aches, Sinus Congestion, Sinus Drainage Cardiovascular: Denies: Chest Pain, Palpitations Respiratory: Denies: Cough, Shortness of breath at rest, Sputum production Gastrointestinal: Denies: Abdominal Pain, Nausea, Vomiting Genitourinary: Denies: Dysuria Musculoskeletal: Denies: Joint Pain, Joint Tenderness Skin: Denies: Rash, Wounds Neurological: Denies: Numbness, Tingling, Focal weakness Psychiatric: Denies: Anxiety, Depression, Homicidal Ideations, Suicidal Ideations Hematologic/ Lymphatic: Denies: Easy Bruising, Easy Bleeding VTE Information - Inpt Only VTE Present on Admission: No VTE Mechan Device Prophylaxis: Knee High KRISTEN Hose VTE Pharm Prophylaxis ordered?: No Reason prophylaxis not ordered:: Medical Contraindication Patient Problems: Active and Suspected Problems (Last Reviewed 10/09/18 @ 11:55 by Jose Jaramillo MD) Infection due to human metapneumovirus (hMPV) (Acute) Streptococcal bacteremia (Acute) Blue toe syndrome (Acute) Gastrointestinal bleeding (Acute) - Physical Exam General: Alert, Oriented x3, Cooperative HEENT: Atraumatic, PERRLA, EOMI, Normocephalic Neck: Supple, No JVD, Negative Carotid Bruits Lungs: Normal air movement, Rhonchi, Wheezes - Few. Cardiovascular: Regular rate, No murmurs Abdomen: Bowel Sounds Present, Soft, Non Tender Extremities: No edema, Capillary Refill Less than 3 Seconds Skin: No rashes, No breakdown Musculoskeletal: No Tenderness to Palpation of Joints or Extremities Neurological: Cranial nerves II-XII grossly intact Psych/Mental Status: Normal Affect, Appropriate Vital Signs Temp Pulse Resp BP Pulse Ox 99.2 F H 73 18 120/43 L 96 10/10/18 19:18 10/10/18 19:18 10/10/18 19:18 10/10/18 19:18 10/10/18 19:18 Oxygen Delivery Method Room Air Weight: 101.98 kg Body Mass Index (BMI) 48.8 Assessment/Plan All Active Problems (Last Reviewed 10/09/18 @ 11:55 by Jose Jaramillo MD) Acute encephalopathy (Acute) YESENIA (acute kidney injury) (Acute) Bacteremia (Acute) Ischemic toe (Acute) Acute bronchitis (Acute) Infection due to human metapneumovirus (hMPV) (Acute) Streptococcal bacteremia (Acute) Blue toe syndrome (Acute) Gastrointestinal bleeding (Acute) Pancytopenia (Acute) 42 year old female with below past medical history hospitalized for acute delirium secondary to human metapneumovirus bronchitis, complicated by strep bacteremia, acute kidney injury, blue toe, pancytopenia requiring bone marrow biopsy, admitted to TCU with debility, here for rehabilitation, strengthening, prior to discharge [facility]. Debility - PT/OT. Dysphagia - ST. Pain - Tylenol 1000MG Q6H PRN mild pain. Bowel - Miralax 17GM daily, Senna/colace 1 tablet BID, Dulcolax 10MG [place] daily PRN. Pneumonia vaccination - Consider Pneumovax 23. DVT prophylaxis - Hold due to pancytopenia, recent GI bleed. Gout - Allopurinol 300MG daily. Skin irritation - Lac-Hydrin topical BID, Petroleum jelly BID PRN. Bronchitis/strep bacteremia - Augmentin 875MG BID thru 10/15/2018. Anxiety - Buspar 5MG TID, resident doing well with chronic chcf use, GDR clinically contraindicated. Hypocalcemia - Calcium D 1 tablet daily. Behavioral disorder - Tegretol not necessary, stop Tegretol. Hypothyroidism - Levothyroxine 75MCG daily. Tinea Corporis - Nystatin powder BID abdominal folds. GERD - Pantoprazole 20MG daily. Depression - Sertraline 100MG daily, resident doing well with chronic chcf use, GDR clinically contraindicated. Pancytopenia - Bone marrow biopsy results, follow up with Hematology.
--- NOTE | 2018-10-10 21:03 | HP.PCM_ITS ---
Problem List (1) Infection due to human metapneumovirus (hMPV) Status: Acute (2) Streptococcal bacteremia Status: Acute (3) Blue toe syndrome Status: Acute (4) Gastrointestinal bleeding Status: Acute (5) Sleep apnea Status: Chronic (6) GERD (gastroesophageal reflux disease) Status: Chronic (7) Depression Status: Chronic (8) Osteoarthritis Status: Chronic (9) Seizure disorder Status: Chronic (10) Edema Status: Chronic (11) Acute encephalopathy Status: Acute (12) YESENIA (acute kidney injury) Status: Acute (13) Acute bronchitis Status: Acute Comment: Due to human Last pneumo virus (14) Gout Status: Chronic (15) Hypothyroidism Status: Chronic Qualifiers: (16) Hypertension Status: Chronic Qualifiers: (17) Down syndrome Status: Chronic History of Present Illness Date of Admission: 10/10/18 Chief Complaint: Here for rehabilitation, strengthening, prior to discharge to long term. The patient is a 42 year old Female with below past medical history presented to [facility] Emergency Department 10/03/2018 with acute change in mental status. 10/03/2018 EKG sinus rhythm with first degree AV block, LVH with widening. Worsening mental status, shortness of breath x 2 months, lethargy. CPAP broken. Bone marrow biopsy scheduled. Hemoglobin 9.8, Platelet 46. BUN up, Cr up, UA negative, lactic acid 1.5, BNP okay. IV Fluids given. 10/03/2018 Admit to Hospital. IV Fluids for acute kidney injury. Pancultured, respiratory panel. Vancomycin, Zosyn IV for broad spectrum coverage. IV Synthroid, IV hydrocortisone. 10/04/2018 Echo LVSF normal. EF 70%. 10/05/2018 Chest X-ray mild vascular congestion, CHF. 10/07/2018 CT neck NEGATIVE abscess. X-ray right foot, small plantar spur. 10/09/2018 Bone marrow biopsy performed, results pending. Acute delirium secondary to bronchitis from strep mutans, human metapneumovirus treated with IV Rocephin. Strep bacteremia secondar to poor dental hygiene treated with IV Rocephin, then Augmentin. Bone marrow biopsy for pancytopenia, follow up with Hematology. Vascular surgery, Podiatry consulted for blue toe, NASH doppler recommended. Acute kidney injury secondary to Diclofenac, ACEI, Lasix, Dehydration, improved but not at baseline. GI bleed secondary to thrombocytopenia resolved. 10/10/2018 Admit to TCU with debility, here for rehabilitation, strengthening, prior to discharge long term. Past Medical History Past Medical History (Chronic Problems): Chronic Problems (Last Reviewed 10/09/18 @ 11:55 by Jose Jaramillo MD) PAD (peripheral artery disease) (Chronic) Left atrial enlargement (Chronic) Moderate Mild right atrial enlargement (Chronic) Sleep apnea (Chronic) GERD (gastroesophageal reflux disease) (Chronic) Depression (Chronic) Osteoarthritis (Chronic) Seizure disorder (Chronic) Edema (Chronic) Gout (Chronic) Chronic ulcer of left heel (Chronic) Right hip pain (Chronic) Hypothyroidism (Chronic) Hypertension (Chronic) Dry skin (Chronic) Down syndrome (Chronic) Medical History: Medical History (Last Reviewed 10/09/18 @ 11:55 by Jose Jaramillo MD) Dry skin (Chronic) L85.3 Down syndrome (Chronic) Q90.9 Allergies No Known Allergies Allergy (Verified 09/26/18 13:05) Home Medications: Ambulatory Orders Medication Instructions Recorded white petrolatum topical jelly 1 applic TOPICAL BID PRN g 05/13/18 Ammonium Lactate 1 applic TOPICAL BID 10/03/18 Calcium Carbonate/Vitamin D3 1 each PO DAILY 10/03/18 [Calcium 500+D Tablet Chew] Carbamazepine [Carbamazepine ER] 400 mg PO BID 10/03/18 Nystatin [Nystop] 1 applic TP BID 10/03/18 busPIRone [Buspar] 5 mg PO TID 10/03/18 Allopurinol [Zyloprim] 300 mg PO DAILY 10/10/18 Amox/Clavulanate Tablet [Augmentin 875 mg PO BID 10/10/18 Tablet] Levothyroxine [Synthroid] 75 mcg PO DAILY 10/10/18 Omeprazole [Prilosec] 20 mg PO DAILY 10/10/18 Sertraline HCl [Zoloft] 100 mg PO DAILY 10/10/18 Surgical History: Surgical History (Last Reviewed 10/09/18 @ 11:55 by Jose Jaramillo MD) History of cataract surgery Z98.49 History of open heart surgery Z98.890 age 14 History of tubal ligation Z98.51 Surgical History: cataract, - - Tubal ligation, open heart surgery. Psychiatric History: Anxiety, Depression DOCTOR OF PODIATRIC MEDICINE History: No pertinent DOCTOR OF PODIATRIC MEDICINE history Lives: Retirement - skilled nursing. Smoking Status: Never smoker Tobacco Use: Non-smoker Alcohol: None Drugs: None - *Family History Maternal Family History: Family History (Last Reviewed 10/04/18 @ 04:38 by Jeferson Villa MD) Father Diabetes Hypertension Heart disease Grandmother Heart disease Diabetes Grandfather Heart disease History Items: No pertinent history Paternal Family History: Family History (Last Reviewed 10/04/18 @ 04:38 by Jeferson Villa MD) Father Diabetes Hypertension Heart disease Grandmother Heart disease Diabetes Grandfather Heart disease History Items: No pertinent history Review of Systems Constitutional: Denies: Chills, Fever, Weight Change HEENT: Denies: Head Aches, Sinus Congestion, Sinus Drainage Cardiovascular: Denies: Chest Pain, Palpitations Respiratory: Denies: Cough, Shortness of breath at rest, Sputum production Gastrointestinal: Denies: Abdominal Pain, Nausea, Vomiting Genitourinary: Denies: Dysuria Musculoskeletal: Denies: Joint Pain, Joint Tenderness Skin: Denies: Rash, Wounds Neurological: Denies: Numbness, Tingling, Focal weakness Psychiatric: Denies: Anxiety, Depression, Homicidal Ideations, Suicidal Ideations Hematologic/ Lymphatic: Denies: Easy Bruising, Easy Bleeding VTE Information - Inpt Only VTE Present on Admission: No VTE Mechan Device Prophylaxis: Knee High KRISTEN Hose VTE Pharm Prophylaxis ordered?: No Reason prophylaxis not ordered:: Medical Contraindication Patient Problems: Active and Suspected Problems (Last Reviewed 10/09/18 @ 11:55 by Jose Jaramillo MD) Infection due to human metapneumovirus (hMPV) (Acute) Streptococcal bacteremia (Acute) Blue toe syndrome (Acute) Gastrointestinal bleeding (Acute) - Physical Exam General: Alert, Oriented x3, Cooperative HEENT: Atraumatic, PERRLA, EOMI, Normocephalic Neck: Supple, No JVD, Negative Carotid Bruits Lungs: Normal air movement, Rhonchi, Wheezes - Few. Cardiovascular: Regular rate, No murmurs Abdomen: Bowel Sounds Present, Soft, Non Tender Extremities: No edema, Capillary Refill Less than 3 Seconds Skin: No rashes, No breakdown Musculoskeletal: No Tenderness to Palpation of Joints or Extremities Neurological: Cranial nerves II-XII grossly intact Psych/Mental Status: Normal Affect, Appropriate Vital Signs Temp Pulse Resp BP Pulse Ox 99.2 F H 73 18 120/43 L 96 10/10/18 19:18 10/10/18 19:18 10/10/18 19:18 10/10/18 19:18 10/10/18 19:18 Oxygen Delivery Method Room Air Weight: 101.98 kg Body Mass Index (BMI) 48.8 Assessment/Plan All Active Problems (Last Reviewed 10/09/18 @ 11:55 by Jose Jaramillo MD) Acute encephalopathy (Acute) YESENIA (acute kidney injury) (Acute) Bacteremia (Acute) Ischemic toe (Acute) Acute bronchitis (Acute) Infection due to human metapneumovirus (hMPV) (Acute) Streptococcal bacteremia (Acute) Blue toe syndrome (Acute) Gastrointestinal bleeding (Acute) Pancytopenia (Acute) 42 year old female with below past medical history hospitalized for acute delirium secondary to human metapneumovirus bronchitis, complicated by strep bacteremia, acute kidney injury, blue toe, pancytopenia requiring bone marrow biopsy, admitted to TCU with debility, here for rehabilitation, strengthening, prior to discharge long term. * Debility - PT/OT. * Dysphagia - ST. * Pain - Tylenol 1000MG Q6H PRN mild pain. * Bowel - Miralax 17GM daily, Senna/colace 1 tablet BID, Dulcolax 10MG OK daily PRN. * Pneumonia vaccination - Consider Pneumovax 23. * DVT prophylaxis - Hold due to pancytopenia, recent GI bleed. * Gout - Allopurinol 300MG daily. * Skin irritation - Lac-Hydrin topical BID, Petroleum jelly BID PRN. * Bronchitis/strep bacteremia - Augmentin 875MG BID thru 10/15/2018. * Anxiety - Buspar 5MG TID, resident doing well with chronic nursing home use, GDR clinically contraindicated. * Hypocalcemia - Calcium D 1 tablet daily. * Behavioral disorder - Tegretol not necessary, stop Tegretol. * Hypothyroidism - Levothyroxine 75MCG daily. * Tinea Corporis - Nystatin powder BID abdominal folds. * GERD - Pantoprazole 20MG daily. 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 * Pancytopenia - Bone marrow biopsy results, follow up with Hematology.
[2018-10-10] MEDS: Amox/Clavulanate 875 MG Tablet PO (22:44)
[2018-10-10] MEDS: Calcium Carb/Vitamin D 1 TABLET Tablet PO (22:44)
[2018-10-10] MEDS: busPIRone 5 MG Tablet PO (22:45)
[2018-10-10 22:58] VITALS: PULSE 73; O2SAT 99
[2018-10-11 06:26] LABS: Absolute Lymphocyte Count 0.38 X10^3/ul (0.83-4.51); Absolute Neutrophil Count 2.1 X10^3/uL (2.0-7.7); Basophil# 0.01 X10^3/uL; Basophil% 0.4 % (0-1); Hematocrit 24.4 % (37-47); Hemoglobin 7.2 g/dl (12.0-15.0); Lymphocyte # 0.38 X10^3/ul (4.0); Lymphocyte % 14.6 % (19-41); Mean Corp Hgb Conc 29.5 g/gl (32-36); Mean Corpuscular Hgb 28.8 pg (27.0-32.0); Mean Corpuscular Volume 97.6 fL (81-99); Mean Platelet Vol. 12.8 fl (6.2-12.0); Monocyte# 0.14 X10^3/uL; Monocyte% 5.4 % (0-10); Neutrophil # 2.05 X10^3/uL (2.7-7.7); Neutrophil % 78.5 % (47-70); RBC Distribution Width CV 17.8 % (11.6-14.6); RBC Distribution Width SD 60.5 fl (35.1-43.9); White Blood Count 2.6 K/mm3 (4.4-11.0)
[2018-10-11 06:28] LABS: Anion Gap 8 (5-15); BUN 25 mg/dL (7-18); BUN/Creat Ratio 17.4 RATIO (10-20); Calcium,Total 7.1 mg/dL (8.5-10.1); Chloride 104 mmol/L (98-107); Creatinine, Serum 1.44 mg/dL (0.55-1.02); EST Glomerular Filtration Rate 42 mL/min (>60); Est Glom Filt Rate - Afr Amer 51 mL/min (>60); Estimated Creatinine Clearance 81.93 ml/min; Glucose 82 mg/dL (74-106); Potassium 3.8 mmol/L (3.5-5.1); Sodium Level 136 mmol/L (136-145)
[2018-10-11 06:34] LABS: Differential Indicated SCAN CRITERIA MET; POSITIVE COUNT YES; POSITIVE DIFFERENTIAL YES; POSITIVE MORPHOLOGY NO; Platelet Count 45 K/mm3 (150-450)
[2018-10-11] MEDS: Amox/Clavulanate 875 MG Tablet PO ×2 (06:49→16:15)
[2018-10-11] MEDS: Menthol/Lanolin/Calamine/Znox 113 GM Tube 1 APPLIC TOPICAL ×2 (06:49→16:16)
[2018-10-11] MEDS: Polyethylene Glycol 3350 17 GM PACKET PO (06:49)
[2018-10-11] MEDS: busPIRone 5 MG Tablet PO ×3 (06:49→20:01)
[2018-10-11] MEDS: Ammonium Lactate 225 gm Bottle 1 APPLIC TOPICAL ×2 (06:50→16:16)
[2018-10-11] MEDS: Pantoprazole Sodium 20 MG Tablet PO (06:51)
[2018-10-11] MEDS: Senna/Docusate Sodium 1 Tablet PO ×2 (06:51→16:15)
[2018-10-11] MEDS: Levothyroxine 75 MCG Tablet PO (06:51)
[2018-10-11] MEDS: Allopurinol 300 MG Tablet PO (06:52)
[2018-10-11] MEDS: Sertraline 100 MG Tablet PO (06:52)
[2018-10-11] MEDS: Calcium Carb/Vitamin D 1 TABLET Tablet PO (06:52)
[2018-10-11] MEDS: Nystatin Powder 15gm Bottle 1 APPLIC TOPICAL ×2 (06:52→16:16)
[2018-10-11 07:30] LABS: Differential Comment SCAN; Platelet Estimate MKD DEC (ADEQ)
[2018-10-11 08:15] LABS: Carbamazepine (Tegretol) 0.7 ug/mL (4.0-12.0)
--- NOTE | 2018-10-11 08:32 | NURSING ---
Dr Sorensen reviewed labs. NO to D/C tegretol.
[2018-10-11] MEDS: Tuberculin,Purif.prot.deriv. 50 TU/ML Vial 5 ML ID (10:12)
--- NOTE | 2018-10-11 10:23 | NURSING ---
ALL CARE PROVIDED IN ROOM T/O THIS SHIFT D/T DROPLET/CONTACT PRECAUTIONS
[2018-10-11 13:17] LABS: Pathologist Review Reviewed
[2018-10-11 16:00] VITALS: BP 116/47; PULSE 67; RESP 16; TEMP 36.6; O2SAT 95
--- NOTE | 2018-10-12 01:40 | NURSING ---
Pt remains in isolation precautions. All care provided in room.
[2018-10-12] MEDS: Acetaminophen 500 MG Tablet 1000 MG PO (02:57)
[2018-10-12] MEDS: Senna/Docusate Sodium 1 Tablet PO ×2 (06:32→17:35)
[2018-10-12] MEDS: Sertraline 100 MG Tablet PO (06:32)
[2018-10-12] MEDS: busPIRone 5 MG Tablet PO ×3 (06:33→20:48)
[2018-10-12] MEDS: Nystatin Powder 15gm Bottle 1 APPLIC TOPICAL ×2 (06:33→20:49)
[2018-10-12] MEDS: Ammonium Lactate 225 gm Bottle 1 APPLIC TOPICAL ×2 (06:33→17:38)
[2018-10-12] MEDS: Levothyroxine 75 MCG Tablet PO (06:33)
[2018-10-12] MEDS: Amox/Clavulanate 875 MG Tablet PO ×2 (06:33→17:35)
[2018-10-12] MEDS: Pantoprazole Sodium 20 MG Tablet PO (06:33)
[2018-10-12] MEDS: Menthol/Lanolin/Calamine/Znox 113 GM Tube 1 APPLIC TOPICAL ×2 (06:33→17:37)
[2018-10-12] MEDS: Allopurinol 300 MG Tablet PO (08:36)
[2018-10-12] MEDS: Calcium Carb/Vitamin D 1 TABLET Tablet PO (08:36)
[2018-10-12 15:55] VITALS: BP 112/41; PULSE 69; RESP 18; TEMP 36.4; O2SAT 96
--- NOTE | 2018-10-12 23:55 | NURSING ---
All care provided in room during shift d/t isolation precautions from human meta virus.
[2018-10-13] MEDS: Amox/Clavulanate 875 MG Tablet PO ×2 (06:13→18:16)
[2018-10-13] MEDS: Sertraline 100 MG Tablet PO (06:13)
[2018-10-13] MEDS: Nystatin Powder 15gm Bottle 1 APPLIC TOPICAL ×2 (06:13→20:34)
[2018-10-13] MEDS: Senna/Docusate Sodium 1 Tablet PO (06:13)
[2018-10-13] MEDS: busPIRone 5 MG Tablet PO ×3 (06:13→20:34)
[2018-10-13] MEDS: Menthol/Lanolin/Calamine/Znox 113 GM Tube 1 APPLIC TOPICAL ×2 (06:13→18:16)
[2018-10-13] MEDS: Pantoprazole Sodium 20 MG Tablet PO (06:13)
[2018-10-13] MEDS: Levothyroxine 75 MCG Tablet PO (06:13)
[2018-10-13] MEDS: Ammonium Lactate 225 gm Bottle 1 APPLIC TOPICAL ×2 (06:15→18:16)
--- NOTE | 2018-10-13 10:17 | NURSING ---
PT REMAINS IN ISOLATION, ALL TREATMENTS DONE IN ROOM
[2018-10-13] MEDS: Calcium Carb/Vitamin D 1 TABLET Tablet PO (11:51)
[2018-10-13] MEDS: Allopurinol 300 MG Tablet PO (11:52)
[2018-10-13 15:41] VITALS: BP 121/85; PULSE 72; RESP 18; TEMP 36.5; O2SAT 98
--- NOTE | 2018-10-14 00:58 | NURSING ---
All care provided in room during shift d/t isolation precautions for human meta virus.
[2018-10-14] MEDS: Levothyroxine 75 MCG Tablet PO (05:46)
[2018-10-14] MEDS: Nystatin Powder 15gm Bottle 1 APPLIC TOPICAL ×2 (05:46→22:51)
[2018-10-14] MEDS: Sertraline 100 MG Tablet PO (05:46)
[2018-10-14] MEDS: busPIRone 5 MG Tablet PO ×3 (05:46→22:51)
[2018-10-14] MEDS: Pantoprazole Sodium 20 MG Tablet PO (05:46)
[2018-10-14] MEDS: Menthol/Lanolin/Calamine/Znox 113 GM Tube 1 APPLIC TOPICAL ×2 (05:46→18:04)
[2018-10-14] MEDS: Ammonium Lactate 225 gm Bottle 1 APPLIC TOPICAL ×2 (05:47→18:04)
[2018-10-14] MEDS: Allopurinol 300 MG Tablet PO (09:25)
[2018-10-14] MEDS: Calcium Carb/Vitamin D 1 TABLET Tablet PO (09:25)
[2018-10-14] MEDS: Amox/Clavulanate 875 MG Tablet PO ×2 (09:26→18:03)
[2018-10-14 15:43] VITALS: BP 120/55; PULSE 73; RESP 18; TEMP 35.7; O2SAT 94
--- NOTE | 2018-10-15 03:02 | NURSING ---
All care provided in room d/t isolation precautions from human meta virus
[2018-10-15] MEDS: Sertraline 100 MG Tablet PO (04:45)
[2018-10-15] MEDS: Pantoprazole Sodium 20 MG Tablet PO (04:45)
[2018-10-15] MEDS: Levothyroxine 75 MCG Tablet PO (04:45)
[2018-10-15] MEDS: Ammonium Lactate 225 gm Bottle 1 APPLIC TOPICAL ×2 (04:46→18:05)
[2018-10-15] MEDS: busPIRone 5 MG Tablet PO ×3 (04:46→20:08)
[2018-10-15] MEDS: Menthol/Lanolin/Calamine/Znox 113 GM Tube 1 APPLIC TOPICAL ×2 (04:47→18:04)
[2018-10-15] MEDS: Nystatin Powder 15gm Bottle 1 APPLIC TOPICAL ×2 (04:47→20:06)
[2018-10-15] MEDS: Senna/Docusate Sodium 1 Tablet PO ×2 (04:47→18:03)
[2018-10-15] MEDS: Calcium Carb/Vitamin D 1 TABLET Tablet PO (08:27)
[2018-10-15] MEDS: Amox/Clavulanate 875 MG Tablet PO ×2 (08:27→18:03)
[2018-10-15] MEDS: Allopurinol 300 MG Tablet PO (08:27)
--- NOTE | 2018-10-15 13:27 | PCM.PN.RX ---
<Scar Hernández D - Last Filed: 10/15/18 13:27> Progress Note - Pharmacy Subjective: TCU Admission Objective: Allergies No Known Allergies Allergy (Verified 09/26/18 13:05) Current Medications Generic Name Dose Route Start Last Admin Trade Name Freq PRN Reason Stop Dose Admin Acetaminophen 1,000 mg 10/10/18 21:18 10/12/18 02:57 Tylenol PO 1,000 mg Q6H PRN PRN Administration MILD PAIN (1-10/20) Allopurinol 300 mg 10/11/18 08:00 10/15/18 08:27 Zyloprim PO 300 mg DAILY@0800 ASIA Administration Amoxicillin/Clavulanate Potassium 875 mg 10/13/18 18:00 10/15/18 08:27 Augmentin Tablet PO 10/15/18 23:59 875 mg 0730,1800 ASIA Administration Bisacodyl 10 mg 10/10/18 19:56 Dulcolax RECTAL DAILY PRN CONSTIPATION Buspirone HCl 5 mg 10/10/18 22:00 10/15/18 04:46 Buspar PO 5 mg TID ASIA Administration Calamine/Phenol 1 applic 10/11/18 06:00 10/15/18 04:47 Calmoseptine Ointment TOPICAL 1 applicatio BID ASIA Administration Protocol Calcium/Vitamin D 1 tablet 10/10/18 21:00 10/15/18 08:27 Os-Jerrell 500mg + D PO 1 tablet DAILYCM ASIA Administration Lactic Acid 1 applic 10/11/18 06:00 10/15/18 04:46 Lac-Hydrin, Amlactin TOPICAL 1 applicatio BID ASIA Administration Levothyroxine Sodium 75 mcg 10/11/18 06:00 10/15/18 04:45 Synthroid PO 75 mcg DAILY@0600 ASIA Administration Multi-Ingredient Ointment 1 applic 10/11/18 04:20 Aquaphor TOPICAL BID PRN PRN DRY SKIN Nystatin 1 applic 10/12/18 22:00 10/15/18 04:47 Mycostatin Powder TOPICAL 1 applicatio 0600,2200 ASIA Administration Protocol Pantoprazole Sodium 20 mg 10/11/18 06:00 10/15/18 04:45 Protonix PO 20 mg DAILY ASIA Administration Polyethylene Glycol 17 gm 10/11/18 06:00 10/15/18 04:47 Miralax PO Not Given DAILY ASIA Senna/Docusate Sodium 1 tablet 10/11/18 06:00 10/15/18 04:47 Senokot-S, Mattie-Colace PO 1 tablet BID ASIA Administration Sertraline HCl 100 mg 10/11/18 06:00 10/15/18 04:45 Zoloft PO 100 mg DAILY ASIA Administration Tuberculin PPD 5 tu 10/18/18 10:00 Tubersol, Aplisol, Ppd ID 10/18/18 10:01 X1 ONE Problem List (Last Reviewed 10/09/18 @ 11:55 by Jose Jaramillo MD) Infection due to human metapneumovirus (hMPV) (Acute) Streptococcal bacteremia (Acute) Blue toe syndrome (Acute) Gastrointestinal bleeding (Acute) Sleep apnea (Chronic) GERD (gastroesophageal reflux disease) (Chronic) Depression (Chronic) Osteoarthritis (Chronic) Seizure disorder (Chronic) Edema (Chronic) Vital Signs Temp Pulse Resp BP Pulse Ox 96.2 F L 73 18 120/55 L 94 10/14/18 15:43 10/14/18 15:43 10/14/18 15:43 10/14/18 15:43 10/14/18 15:43 Oxygen Delivery Method Room Air Weight: 101.98 kg Body Mass Index (BMI) 48.8 Sodium 136 mmol/L (136-145) 10/11/18 05:28 Potassium 3.8 mmol/L (3.5-5.1) 10/11/18 05:28 Chloride 104 mmol/L (98-107) 10/11/18 05:28 Carbon Dioxide 24.0 mmol/L (21.0-32.0) 10/11/18 05:28 Anion Gap 8 (5-15) 10/11/18 05:28 BUN 25 mg/dL (7-18) H 10/11/18 05:28 Creatinine 1.44 mg/dL (0.55-1.02) H 10/11/18 05:28 Est GFR (MDRD) Af Amer 51 mL/min (>60) L 10/11/18 05:28 Est GFR (MDRD) Non-Af 42 mL/min (>60) L 10/11/18 05:28 BUN/Creatinine Ratio 17.4 RATIO (10-20) 10/11/18 05:28 Glucose 82 mg/dL (74-106) 10/11/18 05:28 Assessment/Plan: 1) Pain APAP for mild pain. Continue to monitor prn medication use, daily pain scores. 2) ID Amox/Clav until 10/15. Continue to monitor s/s infection. 3) Hypothyroidism Levothyroxine daily. Continue to monitor s/s hyper/hypothyroidism. 4) Gout Allopurinol daily. Continue to monitor s/s gout. 5) GI Pantoprazole daily. Continue to monitor s/s GI distress. Psychotropic Medications: 6) Anxiety/Depression Buspirone 3x daily, sertraline daily. Continue to monitor s/s anxiety, for s/s serotonin syndrome with dual serotonergic agents. Unnecessary Medications: None Bowel Regimen: 7) Senna/s, PEG, prn bisacodyl. Continue to monitor prn medication use, for constipation/diarrhea. Date of Note:: 10/15/18 - Provider Comments Provider responsibility: Provider responsible to enter orders to implement recommendations <Alan Campbell Chi - Last Filed: 10/15/18 17:54> Progress Note - Pharmacy Subjective: [] Objective: Allergies No Known Allergies Allergy (Verified 09/26/18 13:05) Current Medications Generic Name Dose Route Start Last Admin Trade Name Freq PRN Reason Stop Dose Admin Acetaminophen 1,000 mg 10/10/18 21:18 10/12/18 02:57 Tylenol PO 1,000 mg Q6H PRN PRN Administration MILD PAIN (1-3/10) Allopurinol 300 mg 10/11/18 08:00 10/15/18 08:27 Zyloprim PO 300 mg DAILY@0800 ASIA Administration Amoxicillin/Clavulanate Potassium 875 mg 10/13/18 18:00 10/15/18 08:27 Augmentin Tablet PO 10/15/18 23:59 875 mg 0730,1800 ASIA Administration Bisacodyl 10 mg 10/10/18 19:56 Dulcolax RECTAL DAILY PRN CONSTIPATION Buspirone HCl 5 mg 10/10/18 22:00 10/15/18 13:31 Buspar PO 5 mg TID ASIA Administration Calamine/Phenol 1 applic 10/11/18 06:00 10/15/18 04:47 Calmoseptine Ointment TOPICAL 1 applicatio BID ASIA Administration Protocol Calcium/Vitamin D 1 tablet 10/10/18 21:00 10/15/18 08:27 Os-Jerrell 500mg + D PO 1 tablet DAILYCM ASIA Administration Lactic Acid 1 applic 10/11/18 06:00 10/15/18 04:46 Lac-Hydrin, Amlactin TOPICAL 1 applicatio BID ASIA Administration Levothyroxine Sodium 75 mcg 10/11/18 06:00 10/15/18 04:45 Synthroid PO 75 mcg DAILY@0600 ASIA Administration Multi-Ingredient Ointment 1 applic 10/11/18 04:20 Aquaphor TOPICAL BID PRN PRN DRY SKIN Nystatin 1 applic 10/12/18 22:00 10/15/18 04:47 Mycostatin Powder TOPICAL 1 applicatio 0600,2200 ASIA Administration Protocol Pantoprazole Sodium 20 mg 10/11/18 06:00 10/15/18 04:45 Protonix PO 20 mg DAILY ASIA Administration Polyethylene Glycol 17 gm 10/11/18 06:00 10/15/18 04:47 Miralax PO Not Given DAILY ASIA Senna/Docusate Sodium 1 tablet 10/11/18 06:00 10/15/18 04:47 Senokot-S, Mattie-Colace PO 1 tablet BID ASIA Administration Sertraline HCl 100 mg 10/11/18 06:00 10/15/18 04:45 Zoloft PO 100 mg DAILY ASIA Administration Tuberculin PPD 5 tu 10/18/18 10:00 Tubersol, Aplisol, Ppd ID 10/18/18 10:01 X1 ONE Problem List (Last Reviewed 10/09/18 @ 11:55 by Jose Jaramillo MD) Infection due to human metapneumovirus (hMPV) (Acute) Streptococcal bacteremia (Acute) Blue toe syndrome (Acute) Gastrointestinal bleeding (Acute) Sleep apnea (Chronic) GERD (gastroesophageal reflux disease) (Chronic) Depression (Chronic) Osteoarthritis (Chronic) Seizure disorder (Chronic) Edema (Chronic) Vital Signs Temp Pulse Resp BP Pulse Ox 97.6 F L 72 18 122/59 H 99 10/15/18 15:37 10/15/18 15:37 10/15/18 15:37 10/15/18 15:37 10/15/18 15:37 Oxygen Delivery Method Room Air Weight: 101.98 kg Body Mass Index (BMI) 48.8 Sodium 136 mmol/L (136-145) 10/11/18 05:28 Potassium 3.8 mmol/L (3.5-5.1) 10/11/18 05:28 Chloride 104 mmol/L (98-107) 10/11/18 05:28 Carbon Dioxide 24.0 mmol/L (21.0-32.0) 10/11/18 05:28 Anion Gap 8 (5-15) 10/11/18 05:28 BUN 25 mg/dL (7-18) H 10/11/18 05:28 Creatinine 1.44 mg/dL (0.55-1.02) H 10/11/18 05:28 Est GFR (MDRD) Af Amer 51 mL/min (>60) L 10/11/18 05:28 Est GFR (MDRD) Non-Af 42 mL/min (>60) L 10/11/18 05:28 BUN/Creatinine Ratio 17.4 RATIO (10-20) 10/11/18 05:28 Glucose 82 mg/dL (74-106) 10/11/18 05:28 Assessment/Plan: Psychotropic Medications: Unnecessary Medications: Bowel Regimen: - Provider Comments Provider responsibility: Provider responsible to enter orders to implement recommendations Provider Comments to Recommendations by Pharmacy: Agree
[2018-10-15 15:37] VITALS: BP 122/59; PULSE 72; RESP 18; TEMP 36.4; O2SAT 99
[2018-10-15] MEDS: Acetaminophen 500 MG Tablet 1000 MG PO (20:13)
[2018-10-16] MEDS: Levothyroxine 75 MCG Tablet PO (06:08)
[2018-10-16] MEDS: Nystatin Powder 15gm Bottle 1 APPLIC TOPICAL (06:08)
[2018-10-16] MEDS: busPIRone 5 MG Tablet PO ×3 (06:08→21:07)
[2018-10-16] MEDS: Ammonium Lactate 225 gm Bottle 1 APPLIC TOPICAL ×2 (06:08→18:10)
[2018-10-16] MEDS: Sertraline 100 MG Tablet PO (06:08)
[2018-10-16] MEDS: Pantoprazole Sodium 20 MG Tablet PO (06:08)
[2018-10-16] MEDS: Menthol/Lanolin/Calamine/Znox 113 GM Tube 1 APPLIC TOPICAL ×2 (06:08→18:10)
--- NOTE | 2018-10-16 06:41 | NURSING ---
Pt with red colored, soft BM this morning. Specimen cup and hat placed in br. Will pass on to dayshiange and Dr Campbell.
[2018-10-16] MEDS: Calcium Carb/Vitamin D 1 TABLET Tablet PO (08:44)
[2018-10-16] MEDS: Allopurinol 300 MG Tablet PO (08:44)
--- NOTE | 2018-10-16 10:05 | CASEMGMT ---
Plan of care meeting held. Resident present as well as resident family. No discharge date set. Resident to continue with further care and treatment on the Transitional Care Unit. Resident plans to discharge back to shelter vs. nursing facility. Will continue to follow. Danay MCNAIR, ERICKA
--- NOTE | 2018-10-16 10:22 | NURSING ---
operations supervisor 2nd shift nurse noted red tinged stool this AM, sent to lab for occult. results negative.
[2018-10-16 15:31] VITALS: BP 133/60; PULSE 72; RESP 18; TEMP 35.8; O2SAT 91
[2018-10-16] MEDS: Senna/Docusate Sodium 1 Tablet PO (18:09)
[2018-10-17] MEDS: busPIRone 5 MG Tablet PO ×3 (05:52→20:13)
[2018-10-17] MEDS: Sertraline 100 MG Tablet PO (05:53)
[2018-10-17] MEDS: Senna/Docusate Sodium 1 Tablet PO ×2 (05:53→17:14)
[2018-10-17] MEDS: Pantoprazole Sodium 20 MG Tablet PO (05:53)
[2018-10-17] MEDS: Levothyroxine 75 MCG Tablet PO (05:53)
[2018-10-17] MEDS: Ammonium Lactate 225 gm Bottle 1 APPLIC TOPICAL ×2 (05:54→17:15)
[2018-10-17] MEDS: Menthol/Lanolin/Calamine/Znox 113 GM Tube 1 APPLIC TOPICAL ×2 (05:55→17:15)
[2018-10-17] MEDS: Nystatin Powder 15gm Bottle 1 APPLIC TOPICAL ×2 (06:03→20:15)
--- NOTE | 2018-10-17 08:23 | NURSING ---
NO for mirtazapine 7.5mg PO qHS d/t poor appetite.
[2018-10-17] MEDS: Calcium Carb/Vitamin D 1 TABLET Tablet PO (09:04)
[2018-10-17] MEDS: Allopurinol 300 MG Tablet PO (09:05)
--- NOTE | 2018-10-17 13:06 | CASEMGMT ---
Addendum entered by Corie Cartagena 10/17/18 14:42: Reviewed and approved social work student documentation. Danay Cartagena MEDICAL IMAGING TECHNOLOGIST, [employer] Original Note: Brief interview for mental status (BIMS) and mood (PHQ-9) completed on this day. BIMS score . PHQ-9 score 11/06. Shayy Mims social work student
[2018-10-17 16:00] VITALS: BP 130/63; PULSE 78; RESP 18; TEMP 37.2; O2SAT 99
[2018-10-17] MEDS: Mirtazapine 15 MG Tablet 7.5 MG PO (20:14)
[2018-10-18] MEDS: Levothyroxine 75 MCG Tablet PO (04:51)
[2018-10-18] MEDS: Sertraline 100 MG Tablet PO (04:51)
[2018-10-18] MEDS: Senna/Docusate Sodium 1 Tablet PO ×2 (04:51→16:24)
[2018-10-18] MEDS: Pantoprazole Sodium 20 MG Tablet PO (04:51)
[2018-10-18] MEDS: busPIRone 5 MG Tablet PO ×3 (04:51→20:52)
[2018-10-18] MEDS: Ammonium Lactate 225 gm Bottle 1 APPLIC TOPICAL ×2 (04:51→16:24)
[2018-10-18] MEDS: Nystatin Powder 15gm Bottle 1 APPLIC TOPICAL ×2 (04:52→20:53)
[2018-10-18] MEDS: Menthol/Lanolin/Calamine/Znox 113 GM Tube 1 APPLIC TOPICAL ×2 (04:52→16:25)
[2018-10-18 06:08] LABS: Anion Gap 8 (5-15); BUN 13 mg/dL (7-18); BUN/Creat Ratio 10.9 RATIO (10-20); Calcium,Total 7.5 mg/dL (8.5-10.1); Chloride 101 mmol/L (98-107); Creatinine, Serum 1.19 mg/dL (0.55-1.02); EST Glomerular Filtration Rate 53 mL/min (>60); Est Glom Filt Rate - Afr Amer 64 mL/min (>60); Estimated Creatinine Clearance 96.38 ml/min; Glucose 77 mg/dL (74-106); Potassium 4.2 mmol/L (3.5-5.1); Sodium Level 137 mmol/L (136-145)
[2018-10-18 06:43] LABS: Absolute Lymphocyte Count 0.46 X10^3/ul (0.83-4.51); Basophil# 0.02 X10^3/uL; Basophil% 0.7 % (0-1); Eosinophil# 0.01 X10^3/uL; Eosinophils% 0.4 % (0-5); Hematocrit 26.5 % (37-47); Hemoglobin 7.7 g/dl (12.0-15.0); Lymphocyte # 0.46 X10^3/ul (4.0); Lymphocyte % 16.8 % (19-41); Mean Corp Hgb Conc 29.1 g/gl (32-36); Mean Corpuscular Hgb 28.8 pg (27.0-32.0); Mean Corpuscular Volume 99.3 fL (81-99); Mean Platelet Vol. 11.8 fl (6.2-12.0); Monocyte# 0.18 X10^3/uL; Monocyte% 6.6 % (0-10); Neutrophil # 2.02 X10^3/uL (2.7-7.7); Neutrophil % 73.7 % (47-70); Platelet Count 81 K/mm3 (150-450); RBC Distribution Width CV 18.4 % (11.6-14.6); RBC Distribution Width SD 61.7 fl (35.1-43.9); Red Blood Count 2.67 M/mm3 (4.2-5.4); White Blood Count 2.7 K/mm3 (4.4-11.0)
[2018-10-18 06:55] LABS: Differential Indicated SCAN CRITERIA MET; POSITIVE COUNT NO; POSITIVE DIFFERENTIAL YES; POSITIVE MORPHOLOGY NO
[2018-10-18] MEDS: Calcium Carb/Vitamin D 1 TABLET Tablet PO (08:38)
[2018-10-18] MEDS: Allopurinol 300 MG Tablet PO (08:38)
--- NOTE | 2018-10-18 09:38 | CASEMGMT ---
Advanced Directives Telephone call to resident mother, Camelia. Camelia reporting to be guardian of resident. This medical social consultant requesting for documents to be brought unit next time Camelia is in in order to be able to add to resident medical chart. Camelia reporting to need to get another copy from the civil attorney. Camelia planning to bring in documents to be added to resident chart. This medical social consultant thanking Camelai Cartagena PIPE FITTER WELDING, ERICKA
[2018-10-18] MEDS: Tuberculin,Purif.prot.deriv. 50 TU/ML Vial 5 ML ID (12:34)
[2018-10-18 15:16] VITALS: BP 142/78; PULSE 78; RESP 18; TEMP 35.8; O2SAT 92
--- NOTE | 2018-10-18 16:15 | PCM.PROGNOTE ---
Patient Problems: Active and Suspected Problems (Last Reviewed 10/09/18 @ 11:55 by Jose Jaramillo MD) Infection due to human metapneumovirus (hMPV) (Acute) Streptococcal bacteremia (Acute) Blue toe syndrome (Acute) Gastrointestinal bleeding (Acute) Subjective: This 42 year old female with multiple comorbidities was seen this afternoon for follow up of right blue toe. She has pain to her toe and ball of the foot that is aggravated with direct touch. She denies fever, chills, illness. She is pleasant and participates in the exam in a minimal manner. - Physical Exam General: Alert, Cooperative, No apparent distress Extremities: No cyanosis, No edema, Capillary Refill Less than 3 Seconds - Digits 1, 2, 4, 5 right foot and all digits left foot. There is continued blue discoloration only to the distal third toe that extends about to the interphalangeal joint level. The toe pulp is warm to touch and there is no gangrenous changes or loosening of the nail noted., Peripheral Pulses Normal - 2-4 PT DP pulse bilateral Skin: - - There is no open lesion, maceration, streaking, erythema, or infection odor. The third blue toe is noted as described above. There is no discoloration to the adjacent distal toes. There is continued mottled appearance to the sub-third metatarsal head region which is tender to touch and there is no blister formation Musculoskeletal: Muscle Wasting, - - Rigid dorsal contraction of lesser toes with prominent metatarsal heads bilateral. Active range of motion digits bilateral. Pain to palpate right third toe and plantar right foot mottled appearance. The compartments remain soft bilateral foot Neurological: Sensory exam intact to light touch and pain Psych/Mental Status: Normal Affect, Appropriate Vital Signs Temp Pulse Resp BP Pulse Ox 96.5 F L 78 18 142/78 H 92 10/18/18 15:16 10/18/18 15:16 10/18/18 15:16 10/18/18 15:16 10/18/18 15:16 Oxygen Delivery Method Room Air Weight: 99.138 kg Body Mass Index (BMI) 48.8 Intake and Output for Last 24 Hours 10/16/18 10/17/18 10/18/18 23:59 23:59 23:59 Intake Total 1080 / 1080 540 / 540 480 / 480 Balance 1080 / 1080 540 / 540 480 / 480 Microbiology Past 72 Hours 10/16/18 08:48 Stool Occult Blood (KAYLIN) - Final Stool Laboratory Tests Past 24 Hrs 10/18/18 10/18/18 05:05 05:05 WBC 2.7 L RBC 2.67 L Hgb 7.7 L Hct 26.5 L MCV 99.3 H MCH 28.8 MCHC 29.1 L RDW 18.4 H RDW Differential 61.7 H Plt Count 81 L MPV 11.8 Immature Gran % (Auto) 1.800 H Neut % (Auto) 73.7 H Lymph % (Auto) 16.8 L Payne % (Auto) 6.6 Eos % (Auto) 0.4 Baso % (Auto) 0.7 Absolute Neuts (auto) 2.0 Absolute Lymphs (auto) 0.46 L Total Counted Not Reportable Sodium 137 Potassium 4.2 Chloride 101 Carbon Dioxide 28.0 Anion Gap 8 BUN 13 Creatinine 1.19 H Estim Creat Clear Calc 96.38 Est GFR (MDRD) Af Amer 64 Est GFR (MDRD) Non-Af 53 L BUN/Creatinine Ratio 10.9 Glucose 77 Calcium 7.5 L Medical Necessity - Tobacco Use Smoking Status: Never smoker Tobacco Use: Non-smoker Assessment/Plan All Active Problems (Last Reviewed 10/09/18 @ 11:55 by Jose Jaramillo MD) Acute encephalopathy (Acute) YESENIA (acute kidney injury) (Acute) Bacteremia (Acute) Ischemic toe (Acute) Acute bronchitis (Acute) Infection due to human metapneumovirus (hMPV) (Acute) Streptococcal bacteremia (Acute) Blue toe syndrome (Acute) Gastrointestinal bleeding (Acute) Pancytopenia (Acute) Blue toe syndrome right foot (unknown etiology vs microembolism vs small vessel vasocontraction) Down syndrome Other comorbidities 42 yo old patient w/ Down's syndrome has symptoms of blue toe syndrome to the 3rd toe of the right foot. Patient with with recent bacteremia, significant anemia and thrombocytopenia, as well acute encephalopathy, and acute kidney injury which has been stabilizing. She resides in the transitional care unit. Noninvasive lower extremity arterial studies ordered for further evaluation on lower extremity arterial flow. Reviewed Dr. Jaramillo from vascular - and no intervention at this point. No infection or progression is noted. To continue to monitor weekly. I also recommend topical vasodilation ointment only to the distal ischemic site; order placed. Podiatry will continue to follow while in transitional care unit. Please call if questions. Citlalli Roman DPM, [facility] [phone]
[2018-10-18] MEDS: Nitroglycerin Oint 1 INCH PACKET 0.5 INCH TRANSDERM. (18:00)
[2018-10-18] MEDS: Mirtazapine 15 MG Tablet 7.5 MG PO (20:53)
[2018-10-19] MEDS: Acetaminophen 500 MG Tablet 1000 MG PO ×2 (02:27→21:11)
[2018-10-19 02:44] VITALS: BP 142/69; PULSE 90; RESP 16; TEMP 38.2; O2SAT 94
--- NOTE | 2018-10-19 02:56 | RAD_ITS ---
STUDY: X-RAY CHEST REASON FOR EXAM: Female, 42 years old. Productive cough TECHNIQUE: Single frontal view of the chest. COMPARISON: 10/07/2018 FINDINGS: Median sternotomy wires. Right perihilar alveolar disease. There is no demonstrated pleural abnormality. Stable cardiomediastinal silhouette. Normal mediastinum and antonino. Normal visualized pulmonary arteries. Normal visualized aortic arch and descending thoracic aorta. Normal visualized thoracic spine. Normal visualized ribs, clavicles, and shoulders. There is no demonstrated abnormality of the visualized soft tissue structures of the upper abdomen. RAD/Chest 1 View (Portable) IMPRESSION: Right perihilar alveolar disease. Electronically Signed: Rehan Zavala MD at 6:41 EST Tel , Service support ,
--- NOTE | 2018-10-19 03:02 | NURSING ---
RN into assist pt to restroom. Pt cheeks noted to be red. Forehead warm. Vitals obtained. Pt with fever. Lungs clear. Pt coughing up thick yellow mucus. Dr Campbell notified. N.O. CXR, resp panel cefdinir x7 days and zpack. Will continue to monitor/
[2018-10-19] MEDS: Azithromycin 250 MG Tablet 500 MG PO (03:32)
[2018-10-19] MEDS: Cefdinir 300 MG Capsule PO ×2 (03:32→16:42)
[2018-10-19] MEDS: Nystatin Powder 15gm Bottle 1 APPLIC TOPICAL ×2 (04:35→21:02)
[2018-10-19] MEDS: Ammonium Lactate 225 gm Bottle 1 APPLIC TOPICAL ×2 (04:35→16:38)
[2018-10-19] MEDS: busPIRone 5 MG Tablet PO ×3 (04:35→21:02)
[2018-10-19] MEDS: Pantoprazole Sodium 20 MG Tablet PO (04:35)
[2018-10-19] MEDS: Menthol/Lanolin/Calamine/Znox 113 GM Tube 1 APPLIC TOPICAL ×2 (04:35→18:05)
[2018-10-19] MEDS: Senna/Docusate Sodium 1 Tablet PO ×2 (04:35→16:37)
[2018-10-19] MEDS: Levothyroxine 75 MCG Tablet PO (04:35)
[2018-10-19] MEDS: Nitroglycerin Oint 1 INCH PACKET 0.5 INCH TRANSDERM. ×2 (04:35→16:35)
[2018-10-19] MEDS: Sertraline 100 MG Tablet PO (04:35)
[2018-10-19] MEDS: Polyethylene Glycol 3350 17 GM PACKET PO (06:39)
[2018-10-19] MEDS: Calcium Carb/Vitamin D 1 TABLET Tablet PO (08:39)
[2018-10-19] MEDS: Allopurinol 300 MG Tablet PO (08:39)
--- NOTE | 2018-10-19 13:12 | NURSING ---
Dr. Campbell notified of increased behaviors, refusing to eat etc. Stated he will follow, but we are currently treating pneumonia this may increase behaviors. family does not wish to be back on tegratol. NNO at this time
[2018-10-19 15:28] VITALS: BP 137/47; PULSE 88; RESP 18; TEMP 36; O2SAT 97
[2018-10-19] MEDS: Mirtazapine 15 MG Tablet 7.5 MG PO (21:02)
[2018-10-19] MEDS: Azithromycin 250 MG Tablet PO (21:03)
[2018-10-20] MEDS: Menthol/Lanolin/Calamine/Znox 113 GM Tube 1 APPLIC TOPICAL ×2 (05:57→16:37)
[2018-10-20] MEDS: busPIRone 5 MG Tablet PO ×3 (05:57→20:44)
[2018-10-20] MEDS: Nystatin Powder 15gm Bottle 1 APPLIC TOPICAL ×2 (05:57→20:44)
[2018-10-20] MEDS: Cefdinir 300 MG Capsule PO ×2 (05:57→16:35)
[2018-10-20] MEDS: Ammonium Lactate 225 gm Bottle 1 APPLIC TOPICAL ×2 (05:57→16:36)
[2018-10-20] MEDS: Levothyroxine 75 MCG Tablet PO (05:58)
[2018-10-20] MEDS: Pantoprazole Sodium 20 MG Tablet PO (05:58)
[2018-10-20] MEDS: Senna/Docusate Sodium 1 Tablet PO ×2 (05:58→17:25)
[2018-10-20] MEDS: Sertraline 100 MG Tablet PO (05:58)
[2018-10-20] MEDS: Nitroglycerin Oint 1 INCH PACKET 0.5 INCH TRANSDERM. ×2 (05:58→16:42)
[2018-10-20] MEDS: Allopurinol 300 MG Tablet PO (08:16)
[2018-10-20] MEDS: Calcium Carb/Vitamin D 1 TABLET Tablet PO (08:16)
[2018-10-20 15:18] VITALS: BP 126/56; PULSE 88; RESP 18; TEMP 36.5; O2SAT 96
[2018-10-20 16:42] VITALS: BP 125/56; PULSE 88
[2018-10-20] MEDS: Acetaminophen 500 MG Tablet 1000 MG PO (19:42)
[2018-10-20] MEDS: Mirtazapine 15 MG Tablet 7.5 MG PO (20:44)
[2018-10-20] MEDS: Azithromycin 250 MG Tablet PO (20:44)
[2018-10-21] MEDS: Pantoprazole Sodium 20 MG Tablet PO (04:53)
[2018-10-21] MEDS: Levothyroxine 75 MCG Tablet PO (04:54)
[2018-10-21] MEDS: Nitroglycerin Oint 1 INCH PACKET 0.5 INCH TRANSDERM. ×2 (04:54→17:29)
[2018-10-21] MEDS: busPIRone 5 MG Tablet PO ×3 (04:54→21:11)
[2018-10-21] MEDS: Sertraline 100 MG Tablet PO (04:54)
[2018-10-21] MEDS: Nystatin Powder 15gm Bottle 1 APPLIC TOPICAL ×2 (04:55→21:14)
[2018-10-21] MEDS: Cefdinir 300 MG Capsule PO ×2 (04:55→17:30)
[2018-10-21] MEDS: Ammonium Lactate 225 gm Bottle 1 APPLIC TOPICAL ×2 (04:55→17:28)
[2018-10-21] MEDS: Menthol/Lanolin/Calamine/Znox 113 GM Tube 1 APPLIC TOPICAL ×2 (04:55→17:28)
[2018-10-21] MEDS: Calcium Carb/Vitamin D 1 TABLET Tablet PO (08:52)
[2018-10-21] MEDS: Allopurinol 300 MG Tablet PO (08:52)
[2018-10-21] MEDS: Acetaminophen 500 MG Tablet 1000 MG PO (15:25)
[2018-10-21 16:00] VITALS: BP 113/43; PULSE 81; RESP 20; TEMP 36; O2SAT 99
--- NOTE | 2018-10-21 16:57 | CHAPLAIN ---
Type of Pastoral Visit ___ Initial Visit _x__ Follow-up Visit ___ On-call Visit ___ General Patient Visit ___ Spiritual Assessment ___ Family Conference ___ Bereavement ___ Rapid Response ___ Code Blue ___ Other (describe below) Pastoral Care Referral From ___ Patient _x__ Family ___ Nurse ___ Physician ___ Paleontological Helper ___ Conditioning Coach ___ Other (describe below) Sacrament/Intervention ___ Active listening ___ Anointing ___ Jain ___ Bereavement ___ Communion ___ Carla exploration ___ ___ Life review _x__ Prayer ___ Reconciliation ___ Sacrament of Sick _x__ Supportive presence ___ Wedding ___ Other (describe below) Pastoral Comments met family members and patient previously when pt was on PCU; pt is welcoming but limited in words; pt is offered support and affirming words; pt welcomes prayer support
--- NOTE | 2018-10-21 17:56 | RAD_ITS ---
STUDY: X-RAY - LEFT HIP REASON FOR EXAM: Female, 42 years old. Pain TECHNIQUE: 3 views of the hip. COMPARISON: None. FINDINGS: Normal femoral head, neck, intertrochanteric region and visualized proximal femur. Normal acetabulum. Normal hip joint. Normal visualized superior and inferior pubic rami and ischial tuberosities. RAD/HIP, UNI W/ Pelvis 2-3 Views IMPRESSION: Normal x-ray examination of the hip. Electronically Signed: Rocky Stubbs DO at 19:07 EDT Tel [phone], Service support ,
--- NOTE | 2018-10-21 17:59 | NURSING ---
Pt c/o pain in left hip during therapy and a limp was noted. Dr. Campbell ordered an xray of left hip and knee.
--- NOTE | 2018-10-21 18:03 | NURSING ---
No need for pt to follow [facility] Dr per Dr Campbell, pt kidneys improved.
--- NOTE | 2018-10-21 18:30 | RAD_ITS ---
STUDY: X-RAY - LEFT KNEE REASON FOR EXAM: Female, 42 years old. Left knee pain TECHNIQUE: AP and lateral view(s) of the knee. COMPARISON: None. FINDINGS: There are tricompartmental osteophytes. There is mild narrowing of the medial joint space compartment. There is mild soft tissue edema. There are benign soft tissue ossifications. No acute fractures. RAD/Knee 1 or 2 Views IMPRESSION: Osteoarthrosis no acute fractures Soft tissue edema Electronically Signed: Van Wood, at 19:24 EDT Tel , Service support ,
[2018-10-21] MEDS: Azithromycin 250 MG Tablet PO (21:11)
[2018-10-21] MEDS: Mirtazapine 15 MG Tablet 7.5 MG PO (21:11)
[2018-10-22 05:15] VITALS: BP 123/74; PULSE 76
[2018-10-22] MEDS: Nitroglycerin Oint 1 INCH PACKET 0.5 INCH TRANSDERM. ×2 (05:15→18:03)
[2018-10-22] MEDS: Sertraline 100 MG Tablet PO (05:15)
[2018-10-22] MEDS: Pantoprazole Sodium 20 MG Tablet PO (05:15)
[2018-10-22] MEDS: Cefdinir 300 MG Capsule PO ×2 (05:15→18:01)
[2018-10-22] MEDS: busPIRone 5 MG Tablet PO ×2 (05:15→21:15)
[2018-10-22] MEDS: Levothyroxine 75 MCG Tablet PO (05:15)
[2018-10-22] MEDS: Senna/Docusate Sodium 1 Tablet PO ×2 (05:17→18:01)
[2018-10-22] MEDS: Acetaminophen 500 MG Tablet 1000 MG PO (05:22)
[2018-10-22] MEDS: Menthol/Lanolin/Calamine/Znox 113 GM Tube 1 APPLIC TOPICAL ×2 (05:26→18:02)
[2018-10-22] MEDS: Ammonium Lactate 225 gm Bottle 1 APPLIC TOPICAL ×2 (05:26→18:01)
[2018-10-22] MEDS: Nystatin Powder 15gm Bottle 1 APPLIC TOPICAL ×2 (05:27→21:19)
[2018-10-22 05:52] VITALS: O2SAT 97
--- NOTE | 2018-10-22 07:19 | NURSING ---
Pt complaint of Lt hip pain this AM. Pt lying on Lt hip most of the night while in bed refusing to roll to the Rt or lie on her back for a little while. Much encouragement was given numerous times but pt still refusing.
[2018-10-22] MEDS: Calcium Carb/Vitamin D 1 TABLET Tablet PO (08:19)
[2018-10-22] MEDS: Allopurinol 300 MG Tablet PO (08:19)
--- NOTE | 2018-10-22 08:57 | CASEMGMT ---
Addendum entered by Corie Cartagena 10/22/18 10:53: Reviewed and approved social work student documentation. Danay Cartagena VALVING MACHINE OPERATOR, CENTER MAKER HAND Original Note: Brief interview for mental status (BIMS) and mood (PHQ-9) completed on this day. BIMS score 10/25. PHQ-9 score 10/09
--- NOTE | 2018-10-22 10:09 | MDS.RN ---
Information for the mds was obtained from review of the clinical record, interview of resident, staff, and direct observation of resident's care.
--- NOTE | 2018-10-22 10:37 | NURSING ---
Dr. Campbell reviewed xray results, NNO.
--- NOTE | 2018-10-22 14:04 | NURSING ---
Addendum entered by Radha Love 10/23/18 08:24: Dr. Roman's office called at 0821 and said Nitro paste could be dc'd at discharge from TCU on Sunday, 10/28. Original Note: Call to Dr. Roman's office regarding how long nitro paste should be used to right foot. Dr. Roman to call back .
--- NOTE | 2018-10-22 14:33 | NURSING ---
Patient returned from appointment with [facility] Hatfield.
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
[2018-10-22 16:00] VITALS: BP 105/73; PULSE 64; RESP 20; TEMP 36.8; O2SAT 91
[2018-10-22 18:03] VITALS: BP 105/73; PULSE 64
--- NOTE | 2018-10-22 18:18 | NURSING ---
Pt family requesting glucosamine supplement. Dr. Campbell updated, glucosamine will be included in discharge medication list.
[2018-10-22] MEDS: Azithromycin 250 MG Tablet PO (21:15)
[2018-10-22] MEDS: Mirtazapine 15 MG Tablet 7.5 MG PO (21:15)
--- NOTE | 2018-10-22 21:55 | DCINST_ITS ---
- Discharge Diagnoses Current Active Problems: Current Active and Chronic Problems (Last Reviewed 10/22/18 @ 13:20 by Olga Doss) Infection due to human metapneumovirus (hMPV) (Acute) Streptococcal bacteremia (Acute) Blue toe syndrome (Acute) Gastrointestinal bleeding (Acute) Sleep apnea (Chronic) GERD (gastroesophageal reflux disease) (Chronic) Depression (Chronic) Osteoarthritis (Chronic) Seizure disorder (Chronic) Edema (Chronic) You will use the following diet at home:: No restrictions, Regular Your food should be the consistency of: Regular Your liquids should be the consistency of: Regular/Thin Discharge Activity: Return to Normal Activity, May Shower, Use Walker Weight Bearing Status: Weight bearing as tolerated Call your doctor if you observe: Fever of 101 or Higher, Inability to urinate, Inability to have a bowel movement, Shortness of breath, Chest pain, Uncontrolled pain Allergies/Adverse Reactions: Allergies No Known Allergies Allergy (Verified 10/22/18 13:21) Medications to take at Discharge white petrolatum topical jelly 1 applic TOPICAL BID PRN g 05/13/18 Ammonium Lactate 1 applic TOPICAL BID 10/03/18 Calcium Carbonate/Vitamin D3 [Calcium 500+D Tablet Chew] 1 each PO DAILY 10/03/18 Nystatin [Nystop] 1 applic TP BID 10/03/18 busPIRone [Buspar] 5 mg PO TID 10/03/18 Allopurinol [Zyloprim] 300 mg PO DAILY 10/10/18 Levothyroxine [Synthroid] 75 mcg PO DAILY 10/10/18 Omeprazole [Prilosec] 20 mg PO DAILY 10/10/18 Sertraline HCl [Zoloft] 100 mg PO DAILY 10/10/18 Acetaminophen [Tylenol] 1,000 mg PO Q6H PRN PRN tablet 10/22/18 Menthol/Lanolin/Calamine/Znox [Calmoseptine Ointment] 1 applic TOPICAL BID tube 10/22/18 Mirtazapine [Remeron] 7.5 mg PO QHS #30 tablet 10/22/18 Nitroglycerin Oint [Nitrobid] 0.5 inch TRANSDERM. Q12 #60 packet 10/22/18 The following prescriptions were given: Mirtazapine [Remeron] 7.5 mg PO QHS #30 tablet Nitroglycerin Oint [Nitrobid] 0.5 inch TRANSDERM. Q12 #60 packet Primary Care Physician: Nicanor Salter DO [Primary Care Provider] - Please follow up with your Primary Care Physician in: 1 week. Test Results: Test results from this visit will be discussed in further detail at your follow- up appointment, if applicable. Please Follow Up With: Pema Granado MD When: 2 weeks. Please Follow Up With: Citlalli Roman DPM When: 2 weeks. Proposed Discharge Date: 10/28/18
--- NOTE | 2018-10-22 21:55 | PCM.DC.SUM ---
Discharge Date and Diagnosis - Problem List Patient Problems: Active and Suspected Problems (Last Reviewed 10/22/18 @ 13:20 by Olga Doss) Infection due to human metapneumovirus (hMPV) (Acute) Streptococcal bacteremia (Acute) Blue toe syndrome (Acute) Gastrointestinal bleeding (Acute) Date of Admission: 10/10/18 Date of Discharge: 10/28/18 - Primary Discharge Diagnosis Active and Suspected Problems (Last Reviewed 10/22/18 @ 13:20 by Olga Doss) Infection due to human metapneumovirus (hMPV) (Acute) Streptococcal bacteremia (Acute) Blue toe syndrome (Acute) Gastrointestinal bleeding (Acute) - Secondary Discharge Diagnosis Chronic Problems (Last Reviewed 10/22/18 @ 13:20 by Olga Doss) PAD (peripheral artery disease) (Chronic) Left atrial enlargement (Chronic) Moderate Mild right atrial enlargement (Chronic) Sleep apnea (Chronic) GERD (gastroesophageal reflux disease) (Chronic) Depression (Chronic) Osteoarthritis (Chronic) Seizure disorder (Chronic) Edema (Chronic) Gout (Chronic) Chronic ulcer of left heel (Chronic) Right hip pain (Chronic) Hypothyroidism (Chronic) Hypertension (Chronic) Dry skin (Chronic) Down syndrome (Chronic) Hospital Course and Treatment Imaging Results: 10/10/18 19:53 Diet: Regular Diet Food consistency:: Mechanical Soft/Ground Liquid Consistency:: Regular/Thin Dietary Modifications:: Mechanical Soft Diet Is pt able to select menu?: No Diet Comments: Supervision (staff/family) seated at 90 degrees; meds whole w/ purees Clinical Impression(s) from Imaging Studies Chest X-Ray 10/19/18 02:56 IMPRESSION: Right perihilar alveolar disease. Electronically Signed: Rehan Zavala MD at 6:41 EST Tel , Service support , Hip/Pelvis X-Ray 10/21/18 17:56 IMPRESSION: Normal x-ray examination of the hip. Electronically Signed: Rocky Stubbs DO at 19:07 EDT Tel [phone], Service support , Knee X-Ray 10/21/18 18:30 IMPRESSION: Osteoarthrosis no acute fractures Soft tissue edema Electronically Signed: Van Wood, at 19:24 EDT Tel , Service support , Operations: None Procedures: None Summary of Care Provided: The patient is a 42 year old Female with below past medical history hospitalized for acute delirium secondary to human metapneumovirus bronchitis, complicated by strep bacteremia, acute kidney injury, blue toe, pancytopenia requiring bone marrow biopsy, admitted to TCU with debility, here for rehabilitation, strengthening, prior to discharge halfway. Bone marrow biopsy inconclusive, Dr. Granado recommends second opinion at [facility]. Resident treated for aspiration pneumonitis with Cefdinir, Azithromycin, resolved. Discharge to halfway with Home Health Care. Patient Problems: Active and Suspected Problems (Last Reviewed 10/22/18 @ 13:20 by Olga Doss) Infection due to human metapneumovirus (hMPV) (Acute) Streptococcal bacteremia (Acute) Blue toe syndrome (Acute) Gastrointestinal bleeding (Acute) - Physical Exam Vital Signs Temp Pulse Resp BP Pulse Ox 98.3 F 64 20 H 105/73 91 10/22/18 16:00 10/22/18 18:03 10/22/18 16:00 10/22/18 18:03 10/22/18 16:00 Oxygen Delivery Method Room Air Weight: 97.211 kg Body Mass Index (BMI) 48.8 Intake and Output for Last 24 Hours 10/20/18 10/21/18 10/22/18 23:59 23:59 23:59 Intake Total 460 / 460 840 / 840 Balance 460 / 460 840 / 840 Discharge Diet: No Restrictions Discharge Activity: Return to Normal Activity, May Shower, Use Walker Weight Bearing Status: Weight bearing as tolerated Call your doctor if you observe: Fever of 101 or Higher, Inability to urinate, Inability to have a bowel movement, Shortness of breath, Chest pain, Uncontrolled pain Home Medications: Medications to take at Discharge white petrolatum topical jelly 1 applic TOPICAL BID PRN g 05/13/18 Ammonium Lactate 1 applic TOPICAL BID 10/03/18 Calcium Carbonate/Vitamin D3 [Calcium 500+D Tablet Chew] 1 each PO DAILY 10/03/18 Nystatin [Nystop] 1 applic TP BID 10/03/18 busPIRone [Buspar] 5 mg PO TID 10/03/18 Allopurinol [Zyloprim] 300 mg PO DAILY 10/10/18 Levothyroxine [Synthroid] 75 mcg PO DAILY 10/10/18 Omeprazole [Prilosec] 20 mg PO DAILY 10/10/18 Sertraline HCl [Zoloft] 100 mg PO DAILY 10/10/18 Acetaminophen [Tylenol] 1,000 mg PO Q6H PRN PRN tablet 10/22/18 Menthol/Lanolin/Calamine/Znox [Calmoseptine Ointment] 1 applic TOPICAL BID tube 10/22/18 Mirtazapine [Remeron] 7.5 mg PO QHS #30 tablet 10/22/18 Nitroglycerin Oint [Nitrobid] 0.5 inch TRANSDERM. Q12 #60 packet 10/22/18 Following Prescrptions Were Given to Patient: Mirtazapine [Remeron] 7.5 mg PO QHS #30 tablet Nitroglycerin Oint [Nitrobid] 0.5 inch TRANSDERM. Q12 #60 packet Primary Care Physician: Nicanor Salter DO [Primary Care Provider] - Please follow up with your Primary Care Physician in: 1 week. Please Follow Up With: Pema Granado MD When: 2 weeks. Please Follow Up With: Citlalli Roman DPM When: 2 weeks. Disposition: Home with Home Health Minutes spent on discharge:: 35 Patient Condition:: Stable Medical Necessity - Tobacco Use Smoking Status: Never smoker Tobacco Use: Non-smoker Meaningful Use Info Meaningful Use Diagnoses (Choose all that apply): None applicable
--- NOTE | 2018-10-22 21:58 | HHNOTE_ITS ---
Home Health Note - Plan Overview of reason of hospitalization: The patient is a 42 year old Female with below past medical history hospitalized for acute delirium secondary to human metapneumovirus bronchitis, complicated by strep bacteremia, acute kidney injury, blue toe, pancytopenia requiring bone marrow biopsy, admitted to TCU with debility, here for rehabilitation, strengthening, prior to discharge assisted. Bone marrow biopsy inconclusive, Dr. Granado recommends second opinion at [facility]. Resident treated for aspiration pneumonitis with Cefdinir, Azithromycin, resolved. Discharge to assisted with Home Health Care. Problems: Patient was seen for (Last Reviewed 10/22/18 @ 13:20 by Olga Doss) Infection due to human metapneumovirus (hMPV) (Acute) Streptococcal bacteremia (Acute) Blue toe syndrome (Acute) Gastrointestinal bleeding (Acute) Sleep apnea (Chronic) GERD (gastroesophageal reflux disease) (Chronic) Depression (Chronic) Osteoarthritis (Chronic) Seizure disorder (Chronic) Edema (Chronic) Complete List of Medical Problems (Last Reviewed 10/22/18 @ 13:20 by Olga Doss) Acute encephalopathy (Acute) YESENIA (acute kidney injury) (Acute) Bacteremia (Acute) Ischemic toe (Acute) PAD (peripheral artery disease) (Chronic) Acute bronchitis (Acute) Left atrial enlargement (Chronic) Mild right atrial enlargement (Chronic) Infection due to human metapneumovirus (hMPV) (Acute) Streptococcal bacteremia (Acute) Blue toe syndrome (Acute) Gastrointestinal bleeding (Acute) Sleep apnea (Chronic) GERD (gastroesophageal reflux disease) (Chronic) Depression (Chronic) Osteoarthritis (Chronic) Seizure disorder (Chronic) Edema (Chronic) Gout (Chronic) Pancytopenia (Acute) Chronic ulcer of left heel (Chronic) Right hip pain (Chronic) Hypothyroidism (Chronic) Hypertension (Chronic) Dry skin (Chronic) Down syndrome (Chronic) - Requirements and Reasons Disciplines Needed/Ordered: Fdc, Physical Therapy Reason for Disciplines: Disease Specific Monitoring/education, Medication Management/Knowledge Deficit, Gait Training, Stair Training, Fall Prevention, Home Safety/Equipment Instruction, Balance and/or Posture Training, Transfer Training, Swallowing Exercise/Education Related To: Limited/Poor Endurance, Shortness of Breath with Activity, Physical Impairments, Unsteady Gait/Balance, Fall Risk Patient is unable to leave the home: Without Aid of Supportive Devices (crutches, cane, wheelchair, walker), Without the assistance of another person - Additional Disciplines Additional Disciplines Needed/Ordered: Occupational Therapy
[2018-10-23 05:24] VITALS: BP 115/62; PULSE 61
[2018-10-23] MEDS: Nitroglycerin Oint 1 INCH PACKET 0.5 INCH TRANSDERM. ×2 (05:24→17:41)
[2018-10-23] MEDS: Cefdinir 300 MG Capsule PO ×2 (05:25→17:40)
[2018-10-23] MEDS: busPIRone 5 MG Tablet PO ×3 (05:25→21:08)
[2018-10-23] MEDS: Pantoprazole Sodium 20 MG Tablet PO (05:25)
[2018-10-23] MEDS: Polyethylene Glycol 3350 17 GM PACKET PO (05:25)
[2018-10-23] MEDS: Senna/Docusate Sodium 1 Tablet PO ×2 (05:25→17:40)
[2018-10-23] MEDS: Levothyroxine 75 MCG Tablet PO (05:25)
[2018-10-23] MEDS: Sertraline 100 MG Tablet PO (05:25)
[2018-10-23] MEDS: Acetaminophen 500 MG Tablet 1000 MG PO (05:31)
[2018-10-23] MEDS: Menthol/Lanolin/Calamine/Znox 113 GM Tube 1 APPLIC TOPICAL ×2 (05:37→17:42)
[2018-10-23] MEDS: Ammonium Lactate 225 gm Bottle 1 APPLIC TOPICAL ×2 (05:37→17:42)
[2018-10-23] MEDS: Nystatin Powder 15gm Bottle 1 APPLIC TOPICAL ×2 (05:38→21:08)
[2018-10-23 05:40] VITALS: O2SAT 97
[2018-10-23] MEDS: Allopurinol 300 MG Tablet PO (08:37)
[2018-10-23] MEDS: Calcium Carb/Vitamin D 1 TABLET Tablet PO (08:37)
--- NOTE | 2018-10-23 10:29 | CASEMGMT ---
Social Work Discharge information and home health orders faxed to Cinthya at [facility]. Danay Cartagena STENO TYPIST, ERICKA
[2018-10-23 16:00] VITALS: BP 148/68; PULSE 78; RESP 18; TEMP 35.9; O2SAT 93
[2018-10-23 17:41] VITALS: BP 148/68; PULSE 78
--- NOTE | 2018-10-23 18:02 | RAD_ITS ---
STUDY: X-RAY - ABDOMEN/PELVIS REASON FOR EXAM: Female, 42 years old. Abdominal pain. TECHNIQUE: AP supine and decubitus views of the abdomen and pelvis. COMPARISON: Prior comparison studies are not available for review at this time. FINDINGS: Normal visualized lung bases. There is an unremarkable bowel gas pattern. There is no demonstrated free abdominal air. There is no obvious organomegaly, mass or dilated bowel. Patient has had a sternotomy. Normal soft tissue structures. There are diffuse degenerative changes of the visualized lumbar spine. RAD/Abd Decub and/or Erect(Portabl IMPRESSION: No radiographic evidence of acute intra-abdominal disease. Electronically Signed: Mackenzie Jaramillo MD at 7:24 EDT , Service support ,
[2018-10-23] MEDS: Mirtazapine 15 MG Tablet 7.5 MG PO (21:09)
[2018-10-24] MEDS: Menthol/Lanolin/Calamine/Znox 113 GM Tube 1 APPLIC TOPICAL ×2 (06:04→17:18)
[2018-10-24] MEDS: busPIRone 5 MG Tablet PO ×3 (06:04→20:56)
[2018-10-24 06:05] VITALS: BP 139/61; PULSE 86
[2018-10-24] MEDS: Nitroglycerin Oint 1 INCH PACKET 0.5 INCH TRANSDERM. ×2 (06:05→17:20)
[2018-10-24] MEDS: Nystatin Powder 15gm Bottle 1 APPLIC TOPICAL ×2 (06:05→20:56)
[2018-10-24] MEDS: Ammonium Lactate 225 gm Bottle 1 APPLIC TOPICAL ×2 (06:05→17:18)
[2018-10-24] MEDS: Pantoprazole Sodium 20 MG Tablet PO (06:06)
[2018-10-24] MEDS: Levothyroxine 75 MCG Tablet PO (06:06)
[2018-10-24] MEDS: Senna/Docusate Sodium 1 Tablet PO ×2 (06:06→17:17)
[2018-10-24] MEDS: Sertraline 100 MG Tablet PO (06:06)
[2018-10-24] MEDS: Cefdinir 300 MG Capsule PO ×2 (06:06→17:18)
[2018-10-24] MEDS: Allopurinol 300 MG Tablet PO (08:42)
[2018-10-24] MEDS: Calcium Carb/Vitamin D 1 TABLET Tablet PO (08:42)
--- NOTE | 2018-10-24 08:56 | NURSING ---
KUB was ordered to check for stool, Dr. Campbell reviewed, NNO.
[2018-10-24] MEDS: Acetaminophen 500 MG Tablet 1000 MG PO (09:31)
--- NOTE | 2018-10-24 12:45 | PCM.PROGNOTE ---
Patient Problems: Active and Suspected Problems (Last Reviewed 10/22/18 @ 13:20 by Olga Doss) Infection due to human metapneumovirus (hMPV) (Acute) Streptococcal bacteremia (Acute) Blue toe syndrome (Acute) Gastrointestinal bleeding (Acute) Subjective: This 42 year old female with multiple comorbidities was seen this afternoon for follow up of right blue toe. Patient's family member is by her side during evaluation. Some improving tenderness to her toe and ball of the foot. She denies fever, chills, illness. - Physical Exam General: Alert, Cooperative, No apparent distress Extremities: No edema, Capillary Refill Less than 3 Seconds - Digits 1, 2, 4, 5 right foot and all digits left foot. There is continued blue discoloration only to the distal third toe that extends about to the interphalangeal joint level. The toe pulp is warm to touch and there is no gangrenous changes or loosening of the nail noted. DP and PT pulses palpable bilateral Skin: - - There continues to be no open lesion/ulcers/wounds, maceration, streaking, erythema, or malodor. The third blue toe is noted as described above. There is no discoloration to the adjacent distal toes. There is continued mottled appearance to the sub-third metatarsal head region which is slightly tender to touch. Musculoskeletal: - - Rigid dorsally contracted hammertoes of digits 2 through 5 bilateral with prominent metatarsal heads. Tenderness to palpate the right third toe and the plantar right foot and area of after mentioned mottled appearance around third met head. The compartments are soft bilateral. Neurological: Sensory exam intact to light touch and pain Psych/Mental Status: Normal Affect, Appropriate Vital Signs Temp Pulse Resp BP Pulse Ox 96.7 F L 86 18 139/61 H 93 10/23/18 16:00 10/24/18 06:05 10/23/18 16:00 10/24/18 06:05 10/23/18 16:00 Oxygen Delivery Method Room Air Weight: 97.211 kg Body Mass Index (BMI) 48.8 Intake and Output for Last 24 Hours 10/22/18 10/23/18 10/24/18 23:59 23:59 23:59 Intake Total 840 / 840 420 / 420 240 / 240 Balance 840 / 840 420 / 420 240 / 240 Medical Necessity - Tobacco Use Smoking Status: Never smoker Tobacco Use: Non-smoker Assessment/Plan All Active Problems (Last Reviewed 10/22/18 @ 13:20 by Olga Doss) Acute encephalopathy (Acute) YESENIA (acute kidney injury) (Acute) Bacteremia (Acute) Ischemic toe (Acute) Acute bronchitis (Acute) Infection due to human metapneumovirus (hMPV) (Acute) Streptococcal bacteremia (Acute) Blue toe syndrome (Acute) Gastrointestinal bleeding (Acute) Pancytopenia (Acute) Blue toe syndrome right foot (unknown etiology vs microembolism vs small vessel vasocontraction) Down syndrome Other comorbidities This 42 yo old patient w/ Down's syndrome has symptoms of blue toe syndrome to the 3rd toe of the right foot in area of plantar 3rd met head. Patient with with recent bacteremia, significant anemia and thrombocytopenia, as well acute encephalopathy, and acute kidney injury which has been stabilizing. She was seen in TCU again this afternoon with her family member present. Dr. Jaramillo with vascular reviewed LEAS studies and advises no intervention at this point. No infection or progression continues to be noted. To continue with topical vasodilation ointment by nursing staff as currently instructed until patient is discharged. Podiatry will continue to follow while in transitional care unit. Please call if questions.
[2018-10-24 15:31] VITALS: BP 110/53; PULSE 74; RESP 18; TEMP 36.8; O2SAT 91
[2018-10-24 17:20] VITALS: BP 110/23; PULSE 74
[2018-10-24] MEDS: Mirtazapine 15 MG Tablet 7.5 MG PO (20:56)
[2018-10-25] MEDS: Levothyroxine 75 MCG Tablet PO (06:16)
[2018-10-25] MEDS: Cefdinir 300 MG Capsule PO ×2 (06:16→16:34)
[2018-10-25] MEDS: busPIRone 5 MG Tablet PO ×3 (06:16→20:38)
[2018-10-25] MEDS: Pantoprazole Sodium 20 MG Tablet PO (06:16)
[2018-10-25] MEDS: Senna/Docusate Sodium 1 Tablet PO ×2 (06:16→16:33)
[2018-10-25] MEDS: Menthol/Lanolin/Calamine/Znox 113 GM Tube 1 APPLIC TOPICAL ×2 (06:16→16:32)
[2018-10-25] MEDS: Nystatin Powder 15gm Bottle 1 APPLIC TOPICAL ×2 (06:16→20:38)
[2018-10-25] MEDS: Sertraline 100 MG Tablet PO (06:16)
[2018-10-25 06:24] LABS: Anion Gap 7 (5-15); BUN 15 mg/dL (7-18); BUN/Creat Ratio 12.6 RATIO (10-20); Calcium,Total 7.7 mg/dL (8.5-10.1); Chloride 101 mmol/L (98-107); Creatinine, Serum 1.19 mg/dL (0.55-1.02); EST Glomerular Filtration Rate 53 mL/min (>60); Est Glom Filt Rate - Afr Amer 64 mL/min (>60); Estimated Creatinine Clearance 94.51 ml/min; Glucose 79 mg/dL (74-106); Potassium 4.5 mmol/L (3.5-5.1); Sodium Level 136 mmol/L (136-145)
[2018-10-25 06:29] VITALS: BP 134/63; PULSE 86
[2018-10-25] MEDS: Nitroglycerin Oint 1 INCH PACKET 0.5 INCH TRANSDERM. ×2 (06:29→16:33)
[2018-10-25 06:30] LABS: Carbamazepine (Tegretol) < 0.5 ug/mL (4.0-12.0)
[2018-10-25] MEDS: Ammonium Lactate 225 gm Bottle 1 APPLIC TOPICAL ×2 (06:39→16:32)
[2018-10-25 06:47] LABS: Absolute Lymphocyte Count 0.58 X10^3/ul (0.83-4.51); Absolute Neutrophil Count 2.8 X10^3/uL (2.0-7.7); Basophil# 0.01 X10^3/uL; Basophil% 0.3 % (0-1); Eosinophil# 0.01 X10^3/uL; Eosinophils% 0.3 % (0-5); Hematocrit 26.3 % (37-47); Hemoglobin 7.5 g/dl (12.0-15.0); Lymphocyte # 0.58 X10^3/ul (4.0); Lymphocyte % 16.2 % (19-41); Mean Corp Hgb Conc 28.5 g/gl (32-36); Mean Corpuscular Hgb 28.8 pg (27.0-32.0); Mean Corpuscular Volume 101.2 fL (81-99); Mean Platelet Vol. 11.6 fl (6.2-12.0); Monocyte# 0.17 X10^3/uL; Monocyte% 4.8 % (0-10); Neutrophil # 2.76 X10^3/uL (2.7-7.7); Neutrophil % 77.3 % (47-70); Platelet Count 117 K/mm3 (150-450); RBC Distribution Width CV 18.9 % (11.6-14.6); RBC Distribution Width SD 66.5 fl (35.1-43.9); White Blood Count 3.6 K/mm3 (4.4-11.0)
[2018-10-25 06:54] LABS: Differential Indicated SCAN CRITERIA MET; POSITIVE COUNT NO; POSITIVE DIFFERENTIAL YES; POSITIVE MORPHOLOGY YES
[2018-10-25 07:25] LABS: Anisocytosis 1+; Differential Comment SCAN; Platelet Estimate MOD DEC (ADEQ)
[2018-10-25 07:26] LABS: Hypochromasia 1+; Microcytosis 1+; Polychromasia 1+
[2018-10-25] MEDS: Allopurinol 300 MG Tablet PO (07:47)
[2018-10-25] MEDS: Calcium Carb/Vitamin D 1 TABLET Tablet PO (07:47)
[2018-10-25 15:40] VITALS: BP 124/56; PULSE 81; RESP 18; TEMP 37; O2SAT 93
[2018-10-25] MEDS: Mirtazapine 15 MG Tablet 7.5 MG PO (20:38)
[2018-10-26] MEDS: Menthol/Lanolin/Calamine/Znox 113 GM Tube 1 APPLIC TOPICAL ×2 (05:42→15:20)
[2018-10-26] MEDS: Ammonium Lactate 225 gm Bottle 1 APPLIC TOPICAL ×2 (05:43→17:11)
[2018-10-26] MEDS: busPIRone 5 MG Tablet PO ×3 (05:43→20:52)
[2018-10-26 05:44] VITALS: BP 111/52; PULSE 77
[2018-10-26] MEDS: Nitroglycerin Oint 1 INCH PACKET 0.5 INCH TRANSDERM. ×2 (05:44→17:10)
[2018-10-26] MEDS: Senna/Docusate Sodium 1 Tablet PO ×2 (05:49→17:11)
[2018-10-26] MEDS: Sertraline 100 MG Tablet PO (05:49)
[2018-10-26] MEDS: Levothyroxine 75 MCG Tablet PO (05:49)
[2018-10-26] MEDS: Pantoprazole Sodium 20 MG Tablet PO (05:49)
[2018-10-26] MEDS: Nystatin Powder 15gm Bottle 1 APPLIC TOPICAL ×2 (05:49→20:52)
[2018-10-26] MEDS: Allopurinol 300 MG Tablet PO (08:13)
[2018-10-26] MEDS: Calcium Carb/Vitamin D 1 TABLET Tablet PO (08:13)
[2018-10-26 16:00] VITALS: BP 129/66; PULSE 75; RESP 20; TEMP 36.9; O2SAT 96
[2018-10-26 17:10] VITALS: BP 129/66; PULSE 75
[2018-10-26] MEDS: Mirtazapine 15 MG Tablet 7.5 MG PO (20:51)
[2018-10-27] MEDS: Menthol/Lanolin/Calamine/Znox 113 GM Tube 1 APPLIC TOPICAL ×2 (06:06→17:35)
[2018-10-27] MEDS: Ammonium Lactate 225 gm Bottle 1 APPLIC TOPICAL ×2 (06:06→17:35)
[2018-10-27] MEDS: Nystatin Powder 15gm Bottle 1 APPLIC TOPICAL ×2 (06:06→20:31)
[2018-10-27 06:07] VITALS: BP 170/78; PULSE 71
[2018-10-27] MEDS: Pantoprazole Sodium 20 MG Tablet PO (06:07)
[2018-10-27] MEDS: busPIRone 5 MG Tablet PO ×3 (06:07→20:32)
[2018-10-27] MEDS: Nitroglycerin Oint 1 INCH PACKET 0.5 INCH TRANSDERM. ×2 (06:07→17:31)
[2018-10-27] MEDS: Sertraline 100 MG Tablet PO (06:07)
[2018-10-27] MEDS: Levothyroxine 75 MCG Tablet PO (06:07)
[2018-10-27] MEDS: Senna/Docusate Sodium 1 Tablet PO ×2 (06:07→17:31)
[2018-10-27] MEDS: Calcium Carb/Vitamin D 1 TABLET Tablet PO (08:08)
[2018-10-27] MEDS: Allopurinol 300 MG Tablet PO (08:08)
[2018-10-27 16:00] VITALS: BP 123/60; PULSE 78; RESP 16; TEMP 36.9; O2SAT 100
[2018-10-27] MEDS: Mirtazapine 15 MG Tablet 7.5 MG PO (20:31)
[2018-10-27] MEDS: Acetaminophen 500 MG Tablet 1000 MG PO (20:36)
[2018-10-28] MEDS: Pantoprazole Sodium 20 MG Tablet PO (06:06)
[2018-10-28] MEDS: busPIRone 5 MG Tablet PO (06:06)
[2018-10-28] MEDS: Levothyroxine 75 MCG Tablet PO (06:06)
[2018-10-28] MEDS: Senna/Docusate Sodium 1 Tablet PO (06:06)
[2018-10-28] MEDS: Sertraline 100 MG Tablet PO (06:06)
[2018-10-28] MEDS: Menthol/Lanolin/Calamine/Znox 113 GM Tube 1 APPLIC TOPICAL (06:07)
[2018-10-28] MEDS: Ammonium Lactate 225 gm Bottle 1 APPLIC TOPICAL (06:07)
[2018-10-28] MEDS: Nystatin Powder 15gm Bottle 1 APPLIC TOPICAL (06:07)
[2018-10-28] MEDS: Calcium Carb/Vitamin D 1 TABLET Tablet PO (08:14)
[2018-10-28] MEDS: Allopurinol 300 MG Tablet PO (08:14)
[2018-10-28 12:18] VITALS: BP 104/60; PULSE 80; RESP 18; TEMP 37.1; O2SAT 97
--- NOTE | 2018-11-04 10:11 | MDS.RN ---
Information for the mds was obtained from review of the clinical record, interview of resident, staff, and direct observation of resident's care.
== END 2018-10-28 12:20 | disposition home health service (06) | DRG 948 ==
PROVIDERS: Admitting Provider Family Medicine Geriatric Medicine; Family Provider Family Medicine; PCP Family Medicine; Referring Provider Family Medicine Geriatric Medicine; Visit Provider Family Medicine Geriatric Medicine
DX: R53.81 Other malaise (principal); I75.029 Atheroembolism of unspecified lower extremity; R78.81 Bacteremia; D61.818 Other pancytopenia; B97.81 Human metapneumovirus as the cause of diseases classified elsewhere; K21.9 Gastro-esophageal reflux disease without esophagitis; G47.30 Sleep apnea, unspecified; M19.90 Unspecified osteoarthritis, unspecified site; F32.9 Major depressive disorder, single episode, unspecified; J20.8 Acute bronchitis due to other specified organisms; M10.9 Gout, unspecified; E03.9 Hypothyroidism, unspecified; I10 Essential (primary) hypertension; Q90.9 Down syndrome, unspecified; G40.909 Epilepsy, unspecified, not intractable, without status epilepticus; B35.4 Tinea corporis; F41.9 Anxiety disorder, unspecified; B95.5 Unspecified streptococcus as the cause of diseases classified elsewhere
CPT/HCPCS: 36415; 71045; 73502; 73560; 74019; 80048; 80156; 82274; 85025; 87633; 88305; 88311; 88313; 88342; 92507; 92526; 97110; 97116; 97163; 97166; 97530; 97535; 97802

== ENCOUNTER → 2018-11-21 16:23 | Outpatient (CLI) | payer MEDICARE, MEDICAID, SELFPAY ==
[2018-10-31 13:19] VITALS: BMI 46.5
[2018-11-21 17:35] LABS: Anion Gap 7 (5-15); BUN 18 mg/dL (7-18); BUN/Creat Ratio 16.8 RATIO (10-20); Calcium,Total 8.2 mg/dL (8.5-10.1); Chloride 105 mmol/L (98-107); Creatinine, Serum 1.07 mg/dL (0.55-1.02); EST Glomerular Filtration Rate 60 mL/min (>60); Est Glom Filt Rate - Afr Amer 72 mL/min (>60); Glucose 74 mg/dL (74-106); Magnesium 2.1 mg/dL (1.6-2.6); Potassium 4.1 mmol/L (3.5-5.1); Sodium Level 139 mmol/L (136-145)
[2018-11-21 17:44] LABS: Absolute Lymphocyte Count 0.49 X10^3/ul (0.83-4.51); Absolute Neutrophil Count 2.4 X10^3/uL (2.0-7.7); Basophil# 0.02 X10^3/uL; Basophil% 0.6 % (0-1); Eosinophil# 0.09 X10^3/uL; Eosinophils% 2.8 % (0-5); Hematocrit 27.2 % (37-47); Hemoglobin 8.5 g/dl (12.0-15.0); Lymphocyte # 0.49 X10^3/ul (4.0); Lymphocyte % 15.5 % (19-41); Mean Corp Hgb Conc 31.3 g/gl (32-36); Mean Corpuscular Hgb 30.8 pg (27.0-32.0); Mean Corpuscular Volume 98.6 fL (81-99); Mean Platelet Vol. 10.2 fl (6.2-12.0); Monocyte# 0.13 X10^3/uL; Monocyte% 4.1 % (0-10); Neutrophil # 2.43 X10^3/uL (2.7-7.7); Neutrophil % 76.7 % (47-70); Platelet Count 115 K/mm3 (150-450); RBC Distribution Width CV 17.3 % (11.6-14.6); RBC Distribution Width SD 60.8 fl (35.1-43.9); Red Blood Count 2.76 M/mm3 (4.2-5.4); White Blood Count 3.2 K/mm3 (4.4-11.0)
[2018-11-21 17:45] LABS: Differential Indicated SCAN CRITERIA MET; POSITIVE COUNT NO; POSITIVE DIFFERENTIAL YES; POSITIVE MORPHOLOGY NO
== END ==
PROVIDERS: Family Provider Family Medicine; PCP Family Medicine
DX: D61.818 Other pancytopenia (principal)
CPT/HCPCS: 36415; 80048; 83735; 85025

== ENCOUNTER → 2018-11-26 11:44 | Outpatient (CLI) | payer MEDICARE, MEDICAID, SELFPAY ==
[2018-10-31 13:19] VITALS: BMI 46.5
[2018-11-26 13:02] LABS: BUN 16 mg/dL (7-18); Chloride 107 mmol/L (98-107); Creatinine, Serum 1.15 mg/dL (0.55-1.02); EST Glomerular Filtration Rate 55 mL/min (>60); Est Glom Filt Rate - Afr Amer 66 mL/min (>60); Magnesium 2.1 mg/dL (1.6-2.6); Potassium 4.2 mmol/L (3.5-5.1); Sodium Level 143 mmol/L (136-145)
[2018-11-26 13:05] LABS: Absolute Lymphocyte Count 0.44 X10^3/ul (0.83-4.51); Absolute Neutrophil Count 2.5 X10^3/uL (2.0-7.7); Basophil# 0.02 X10^3/uL; Basophil% 0.6 % (0-1); Differential Indicated SCAN CRITERIA MET; Eosinophil# 0.08 X10^3/uL; Eosinophils% 2.5 % (0-5); Hematocrit 28.3 % (37-47); Hemoglobin 8.4 g/dl (12.0-15.0); Lymphocyte # 0.44 X10^3/ul (4.0); Lymphocyte % 13.9 % (19-41); Mean Corp Hgb Conc 29.7 g/gl (32-36); Mean Corpuscular Hgb 30.2 pg (27.0-32.0); Mean Corpuscular Volume 101.8 fL (81-99); Mean Platelet Vol. 10.7 fl (6.2-12.0); Monocyte# 0.13 X10^3/uL; Monocyte% 4.1 % (0-10); Neutrophil # 2.48 X10^3/uL (2.7-7.7); Neutrophil % 78.3 % (47-70); POSITIVE COUNT NO; POSITIVE DIFFERENTIAL YES; POSITIVE MORPHOLOGY YES; Platelet Count 146 K/mm3 (150-450); RBC Distribution Width CV 18.2 % (11.6-14.6); RBC Distribution Width SD 65.9 fl (35.1-43.9); Red Blood Count 2.78 M/mm3 (4.2-5.4); White Blood Count 3.2 K/mm3 (4.4-11.0)
== END ==
PROVIDERS: Family Provider Family Medicine; PCP Family Medicine
DX: D61.818 Other pancytopenia (principal)
CPT/HCPCS: 36415; 82374; 82435; 82565; 83735; 84132; 84295; 84520; 85025

== ENCOUNTER → 2018-11-28 09:41 | Outpatient (CLI) | payer MEDICARE, MEDICAID, SELFPAY ==
[2018-10-31 13:19] VITALS: BMI 46.5
[2018-11-28 10:20] LABS: BUN 15 mg/dL (7-18); Chloride 107 mmol/L (98-107); Creatinine, Serum 1.25 mg/dL (0.55-1.02); EST Glomerular Filtration Rate 50 mL/min (>60); Est Glom Filt Rate - Afr Amer 60 mL/min (>60); Glucose 88 mg/dL (74-106); Magnesium 2.1 mg/dL (1.6-2.6); Potassium 4.1 mmol/L (3.5-5.1); Sodium Level 141 mmol/L (136-145)
[2018-11-28 10:21] LABS: Absolute Lymphocyte Count 0.43 X10^3/ul (0.83-4.51); Absolute Neutrophil Count 2.8 X10^3/uL (2.0-7.7); Basophil# 0.02 X10^3/uL; Basophil% 0.6 % (0-1); Eosinophil# 0.03 X10^3/uL; Eosinophils% 0.9 % (0-5); Hematocrit 27.6 % (37-47); Hemoglobin 8.3 g/dl (12.0-15.0); Lymphocyte # 0.43 X10^3/ul (4.0); Lymphocyte % 12.4 % (19-41); Mean Corp Hgb Conc 30.1 g/gl (32-36); Mean Corpuscular Hgb 30.2 pg (27.0-32.0); Mean Corpuscular Volume 100.4 fL (81-99); Mean Platelet Vol. 10.8 fl (6.2-12.0); Monocyte# 0.16 X10^3/uL; Monocyte% 4.6 % (0-10); Neutrophil % 80.9 % (47-70); Platelet Count 150 K/mm3 (150-450); RBC Distribution Width CV 18.3 % (11.6-14.6); Red Blood Count 2.75 M/mm3 (4.2-5.4); White Blood Count 3.5 K/mm3 (4.4-11.0)
[2018-11-28 10:23] LABS: Differential Indicated SCAN CRITERIA MET; POSITIVE COUNT NO; POSITIVE DIFFERENTIAL YES; POSITIVE MORPHOLOGY YES
[2018-11-28 10:52] LABS: Anisocytosis 1+; Polychromasia 1+; Red Cell Morphology NORM C+C NORMAL (NORM C&C)
[2018-11-28 10:53] LABS: Platelet Estimate ADEQUATE (ADEQ)
== END ==
PROVIDERS: Family Provider Family Medicine; PCP Family Medicine
DX: D61.818 Other pancytopenia (principal)
CPT/HCPCS: 36415; 82374; 82435; 82565; 82947; 83735; 84132; 84295; 84520; 85025

== ENCOUNTER 2018-12-13 17:04 | Emergency (ER) | payer MEDICARE, MEDICAID, SELFPAY ==
[2018-10-31 13:19] VITALS: BMI 46.5
[2018-12-13 17:07] VITALS: BP 132/67; PULSE 80; RESP 20; TEMP 36.6; O2SAT 96; BMI 45.4
--- NOTE | 2018-12-13 17:37 | RAD_ITS ---
STUDY: X-RAY CHEST REASON FOR EXAM: Female, 43 years old. Shortness of breath TECHNIQUE: Frontal view of the chest COMPARISON: X-Ray Chest October 29, 2018 FINDINGS: Intact sternotomy wires are present. Moderate bilateral edema is present. Trace bilateral effusions are present. There is no pneumothorax. The heart is enlarged. The visualized osseous structures are within normal limits. RAD/Chest 1 View (Portable) IMPRESSION: Congestion with features described above. Electronically Signed: Cyrus Bustos, at 17:51 EDT Tel , Service support ,
[2018-12-13 18:01] VITALS: O2SAT 95
[2018-12-13 18:19] LABS: Absolute Lymphocyte Count 0.72 X10^3/ul (0.83-4.51); Absolute Neutrophil Count 5.2 X10^3/uL (2.0-7.7); Basophil# 0.03 X10^3/uL; Basophil% 0.5 % (0-1); Differential Indicated SCAN CRITERIA MET; Eosinophil# 0.07 X10^3/uL; Eosinophils% 1.1 % (0-5); Hematocrit 29.1 % (37-47); Hemoglobin 8.5 g/dl (12.0-15.0); Lymphocyte # 0.72 X10^3/ul (4.0); Lymphocyte % 11.3 % (19-41); Mean Corp Hgb Conc 29.2 g/gl (32-36); Mean Corpuscular Hgb 29.1 pg (27.0-32.0); Mean Corpuscular Volume 99.7 fL (81-99); Mean Platelet Vol. 10.6 fl (6.2-12.0); Monocyte# 0.34 X10^3/uL; Monocyte% 5.3 % (0-10); Neutrophil # 5.19 X10^3/uL (2.7-7.7); Neutrophil % 81.2 % (47-70); POSITIVE COUNT NO; POSITIVE DIFFERENTIAL NO; POSITIVE MORPHOLOGY YES; Platelet Count 203 K/mm3 (150-450); RBC Distribution Width CV 19.2 % (11.6-14.6); RBC Distribution Width SD 68.8 fl (35.1-43.9); Red Blood Count 2.92 M/mm3 (4.2-5.4); White Blood Count 6.4 K/mm3 (4.4-11.0)
--- NOTE | 2018-12-13 18:22 | CASEMGMT ---
Case Management Progress Note: Informed by ER MD that patient recently Dx with Myodysplastic Syndrome, Has Anemia, desats 80%ra on exertion and inquiring about home oxygen for exertion, WNL at rest. Patient Insurance [employer], BEL[employer]. Cm called [facility] and s/w Marge and asked about Qualifying Dx and states that patient will not qualify with stated Dx, states needs a Respiratory Dx. Cm discussed with ER Physician and made aware, states believes patient has a Palliative consult, states patient will be ok for DC home without Oxygen and for Outpatient follow up. Cm s/w patient mother Camelia Riojas at bedside and made aware of above. Acknowledges and agrees. States She is patient's Legal Guardian, patient H/o Down Syndrome, patient lives in a Intermediate managed by [facility], states that she attends Work shop, Recently Dx on 12/02/[address] Burks at [place] with Myodysplastic Syndrome and was told by the Doctor that patient body will eventually adjust to the low Blood levels with Oxygen demand. Has CHN that comes into the Intermediate. Follows up with Dr Granado monthly for blood work and will follow with Dr Burks every four months. Has a Palliative appointment on 12/19/18 at 1pm at the [facility], was told by Palliative nurse that they would be able to arrange for the Oxygen for patient as needed. Mother denies any other questions or concerns. Cornel Quintanilla, SONIACM
--- NOTE | 2018-12-13 18:38 | ED.VISSUMM ---
- ER Visit Summary Date of Service: 12/13/18 Chief Complaint: Shortness of breath History of Present Illness: The patient is a 43 F with shortness of breath today as the patient was coming home from work and getting off her bus. She does get short of breath with exertion. This is not a new issue. Her home nurse advised her to get evaluated in the ED. Patient has a history of Down syndrome and is here with her mother. Patient was recently diagnosed with myelodysplastic syndrome and is following with oncology. Family was educated that she will have shortness of breath with her anemia, but that she will adjust to her anemia to some degree. She has not had any bleeding. No chest pain. Patient had an echocardiogram about 3 months ago that showed an ejection fraction of 70%. No history of PE, heart failure. No fevers. Patient is planning to follow-up with palliative care as well next week. Physical Examination: Afebrile and vital signs unremarkable. 96% on room air. Patient sitting comfortably. Breathing comfortably. Heart regular. Lungs clear. Abdomen soft. Extremities unremarkable. No edema. Skin appears normal. Test Results: White count 6.4, he will go an 8.5, stable. Platelets 203. Chest x-ray was read as bilateral edema and congestion. I reviewed her prior x-ray from 2 months ago. It appears that she has poor inspiration. The x-ray is not significantly different. Emergency Department Course and Treatment: Findings were discussed with the patient and her mother. They did not want to pursue any further cardiac work-up. It sounds like this is a continued, recurrent, and reproducible symptom. The patient has dyspnea and hypoxia with exertion. The nurse was concerned and that is what prompted the ED visit. Labs are stable. X-ray as above. manager of global spoke with the patient's family. We cannot arrange for oxygen therapy for comfort from the ED. Patient advised to follow-up with palliative care. On reevaluation, the patient is stable. Sitting comfortably. Oxygen normal. Breathing comfortably. Patient and her mother would like to follow-up as an outpatient. Return for any new or worsening issues. Treatment Plan: As above Disposition: Discharge Impression: 1. Dyspnea 2. Pancytopenia This note was generated with [employer] software. It may contain incorrect words, spelling, and punctuation that were not noted in review of the chart prior to signing ED Disposition - Plan for ED Patient: Referrals: Nicanor Salter DO [Primary Care Provider] -
[2018-12-13 18:41] LABS: Anisocytosis 1+; Differential Comment SCANNED
[2018-12-13 18:42] LABS: Absolute Nucleated RBC Count 0.05 10^3/uL (0-5); NRBC Flagged by Analyzer 0.8 % (0-5)
--- NOTE | 2018-12-13 18:42 | ED.DCSUM_ITS ---
- ER Visit Summary Date of Service: 12/13/18 Chief Complaint: Shortness of breath History of Present Illness: The patient is a 43 F with shortness of breath today as the patient was coming home from work and getting off her bus. She does get short of breath with exertion. This is not a new issue. Her home nurse advised her to get evaluated in the ED. Patient has a history of Down syndrome and is here with her mother. Patient was recently diagnosed with myelodysplastic syndrome and is following with oncology. Family was educated that she will have shortness of breath with her anemia, but that she will adjust to her anemia to some degree. She has not had any bleeding. No chest pain. Patient had an echocardiogram about 3 months ago that showed an ejection fraction of 70%. No history of PE, heart failure. No fevers. Patient is planning to follow-up with palliative care as well next week. Physical Examination: Afebrile and vital signs unremarkable. 96% on room air. Patient sitting comfortably. Breathing comfortably. Heart regular. Lungs clear. Abdomen soft. Extremities unremarkable. No edema. Skin appears normal. Test Results: White count 6.4, he will go an 8.5, stable. Platelets 203. Chest x-ray was read as bilateral edema and congestion. I reviewed her prior x-ray from 2 months ago. It appears that she has poor inspiration. The x-ray is not significantly different. Emergency Department Course and Treatment: Findings were discussed with the patient and her mother. They did not want to pursue any further cardiac work- up. It sounds like this is a continued, recurrent, and reproducible symptom. The patient has dyspnea and hypoxia with exertion. The nurse was concerned and that is what prompted the ED visit. Labs are stable. X-ray as above. claims account manager spoke with the patient's family. We cannot arrange for oxygen therapy for comfort from the ED. Patient advised to follow-up with palliative care. On reevaluation, the patient is stable. Sitting comfortably. Oxygen normal. Breathing comfortably. Patient and her mother would like to follow-up as an outpatient. Return for any new or worsening issues. Treatment Plan: As above Disposition: Discharge Impression: 1. Dyspnea 2. Pancytopenia This note was generated with [employer] software. It may contain incorrect words, spelling, and punctuation that were not noted in review of the chart prior to signing ED Disposition - Plan for ED Patient: Referrals: Nicanor Salter DO [Primary Care Provider] -
--- NOTE | 2018-12-13 18:42 | ED.DEP ---
ED Disposition - Plan for ED Patient: Diagnosis: Pancytopenia Additional Instructions: follow up with your specialists
[2018-12-13 18:57] VITALS: PULSE 79; RESP 20; O2SAT 94
== END 2018-12-13 18:57 | disposition home or self-care (01) ==
LOC: ED 17:44
PROVIDERS: Emergency Provider Emergency Medicine; Family Provider Family Medicine; PCP Family Medicine
DX: R06.00 Dyspnea, unspecified (principal); D61.818 Other pancytopenia; R09.02 Hypoxemia; R09.89 Other specified symptoms and signs involving the circulatory and respiratory systems; Q90.9 Down syndrome, unspecified; D46.9 Myelodysplastic syndrome, unspecified; K21.9 Gastro-esophageal reflux disease without esophagitis; E03.9 Hypothyroidism, unspecified; G47.33 Obstructive sleep apnea (adult) (pediatric); F32.9 Major depressive disorder, single episode, unspecified; M10.9 Gout, unspecified; Z87.19 Personal history of other diseases of the digestive system; Z87.448 Personal history of other diseases of urinary system; Z86.61 Personal history of infections of the central nervous system; Z86.79 Personal history of other diseases of the circulatory system; Z79.899 Other long term (current) drug therapy
CPT/HCPCS: 71045; 85025; 99281; 99282; A4216

== ENCOUNTER → 2019-04-09 | Outpatient (CLI) | payer SELFPAY ==
[2019-04-09 10:44] LABS: Hematocrit 40.4 % (37-47); Hemoglobin 11.3 g/dL (12.0-15.0); Mean Corpuscular Hgb 28.2 pg (27.0-32.0); Mean Corpuscular Volume 100.7 fL (81-99); Mean Platelet Vol. 12.6 fl (6.2-12.0); POSITIVE MORPHOLOGY YES; Platelet Count 82 K/mm3 (150-450); RBC Distribution Width SD 92.9 fl (35.1-43.9); Red Blood Count 4.01 M/mm3 (4.2-5.4); White Blood Count 4.8 K/mm3 (4.4-11.0)
[2019-04-09 10:47] LABS: Scan Indicated on CBC? Y/N YES- FLAGS NOTED
== END | disposition home or self-care (01) ==
LOC: PAVLAB 09:40
PROVIDERS: Nurse Practitioner Adult Health; Family Provider Family Medicine; PCP Family Medicine; Referring Provider Family Medicine; Visit Provider Family Medicine
DX: Q24.9 Congenital malformation of heart, unspecified (principal)
CPT/HCPCS: 36415; 85027